=== PATIENT | male | born 1955 | race Caucasian/White ===

== ENCOUNTER → 2018-01-22 08:56 | Outpatient (CLI) | payer OTHER, MEDICARE, SELFPAY ==
[2018-01-22 13:02] LABS: Absolute Lymphocyte Count 1.93 X10^3/ul (0.83-4.51); Absolute Neutrophil Count 3.1 X10^3/uL (2.0-7.7); Basophil# 0.03 X10^3/uL; Basophil% 0.5 % (0-1); Eosinophil# 0.11 X10^3/uL; Hematocrit 48.7 % (40-54); Hemoglobin 16.5 g/dl (13.0-16.5); Lymphocyte # 1.93 X10^3/ul (4.0); Lymphocyte % 34.7 % (19-41); Mean Corp Hgb Conc 33.9 g/gl (32-36); Mean Corpuscular Hgb 31.3 pg (27.0-32.0); Mean Corpuscular Volume 92.4 fL (80-94); Mean Platelet Vol. 11.7 fl (6.2-12.0); Monocyte% 7.2 % (0-10); Neutrophil # 3.09 X10^3/uL (2.7-7.7); Neutrophil % 55.6 % (47-70); Platelet Count 126 K/mm3 (150-450); RBC Distribution Width CV 12.9 % (11.6-14.6); RBC Distribution Width SD 43.4 fl (35.1-43.9); Red Blood Count 5.27 M/mm3 (4.6-6.2); White Blood Count 5.6 K/mm3 (4.4-11.0)
[2018-01-22 13:05] LABS: POSITIVE COUNT NO; POSITIVE DIFFERENTIAL NO; POSITIVE MORPHOLOGY NO
[2018-01-22 13:21] LABS: Anion Gap 6 (5-15); BUN 18 mg/dL (7-18); BUN/Creat Ratio 20.1 RATIO (10-20); Calcium,Total 9.7 mg/dL (8.5-10.1); Chloride 103 mmol/L (98-107); EST Glomerular Filtration Rate 92 mL/min (>60); Est Glom Filt Rate - Afr Amer 111 mL/min (>60); Glucose 129 mg/dL (74-106); Potassium 4.3 mmol/L (3.5-5.1); Sodium Level 138 mmol/L (136-145); Thyroid Stim Hormone (TSH) 1.92 uIU/mL (0.358-3.74)
== END ==
PROVIDERS: Family Provider Family Medicine; PCP Family Medicine; Visit Provider Family Medicine
DX: E11.9 Type 2 diabetes mellitus without complications (principal); I10 Essential (primary) hypertension
CPT/HCPCS: 36415; 80048; 84443; 85025

== ENCOUNTER 2018-05-14 08:00 | Outpatient (RCR) | payer OTHER, MEDICARE, SELFPAY ==
--- NOTE | 2018-04-20 07:54 | HP.PTEVAL_ITS ---
Patient's Visit Information DANA HUBBARD is a 63 year old M referred to Physical Therapy by Hilary Stacy with a diagnosis of Back Pain. Date of Evaluation: 04/20/18 Physical Therapist: Tariq Doran DPT, OC - Visit Plan Frequency: 2x /Week Duration: 4-6 Weeks Plan: 2x/week for two weeks then 1x/week for two weeks for. 1. STM AND rollout to quads and HS B. 2. Stretch same. 3. Monitor home stretching and quad/HS cramping. - Subjective Subjective: I'm grasping at straws. Gets terrible muscle cramps at night lying down in both legs front and back especially top of legs. Has been to neurologist and neurosurgeon and had NCV test which was normal. This has been going on for one year to 18 months, started insidiously out of nowhere. This happens at least a little almost every night. A massage helped for about three weeks. Sleep is interrupted in that he wakes up in middle of night and keeps him from getting back to sleep. Is typically OK when he first lies down. Sees [facility] for back pain. Had MARY mariscal in 1989 discectomy after a disc exploded. Gets a toothache in back fairly consistently in LB. Has not done activity in long time, mows the lawn pushing and riding taking <60 minutes. Disability from LB. Basic ADLs are painful but OK. Hard to loft legs to put socks on. Wears loafers so can slide them on. Spends day tinkering in garage, likes to work on mowers but cannot get on floor anymore. Has two dogs he takes care of. reads alot. Been seeing Regis for ten years and is here for [facility] to see if it will help cramping in legs. Has had PT and injections in LB and they do not help for long. No regular exercises. Gets R>L big toe numbness and tingling daily but not constant. - Pain LB Pain Intensity (Out of 10): 6 Pain Intensity Range: 5, 10 Comment: Hints of bad pain, not sure why. - Objective Walks very stiff adn poor upper leg muscle contractions, very little trunk movements. Slightly hunched FW. LB AROM ext max limited and painful centrally , SB contralaterally painful/stretching. Flexion is maximally limited and stretchy. reflexes 2/3 patella and achilles. Sensation WNL to gross light touch. Strength: R EL quad and DF and big toe 4-, L tests adn other R are 4/ 5. HS 90/90 test is -50 R and -45 L, very tight and hesitant to lengthen. Quad and HS feels tight and tender. - Goals Goal 1:: Sleep without waking due to cramps Goal Time Frame: 4-6 Weeks Goal 2:: I approp exs to maintain lack of cramping Goal Time Frame: 4-6 Weeks - Rehabilitation Potential Physical Therapy Diagnosis: H/o back pain leading to leg cramps and difficulty sleeping. Rehabilitation Potential: Good - Anticipated Interventions Patient/Client Instruction: Educate patient on: Condition, Plan of Care Other: to improve sleep Therapeutic Exercise to Include: Flexibilty training Comment: muscle pumps For the Purpose of:: To improve nutrient delivery to tissue Other: to improve sleep Manual Therapy Techniques to Include: Soft tissue mobilization Comment: quads and HS For the Purpose of:: To improve nutrient delivery to tissue, To increase oxygenation perfusion Thank you for the opportunity to evaluate your patient. For Medicare and Medicare HMO plans, please review the plan of care and approve it. It will need to be FAXED BACK to us at [phone] for Medicare purposes. Please let me know if there are questions or concerns regarding this plan of care. Physician Signature: Date:
--- NOTE | 2018-05-14 08:51 | HP.PTDCSUM ---
HP - PT D/C Summary It has been my pleasure to treat DANA HUBBARD under orders from Hilary Stacy, for the diagnosis of Back Pain for a total of 7 visit(s). Discharge Date: 05/14/18 Please see the following information for a summary of their discharge status. - Subjective Subjective: Able to sit in chair and tie shoes now, but cramps did not go away. They are a little less intense but still every night. Will see Reg[facility] on Monday. HEP: religiously. Grasping at straws with the cramps, not sure what the next step is, circulation has been tested. - Pain LB Pain Intensity (Out of 10): 8 - Overall Improvement % Improvement: 25 - Objective Objective/Function: Still max tight quads and mod tight HS. Hard to relax. Walks well and steps reciprocal withotu rail. hesitant to move LB alot. - Goals Goal 1:: Sleep without waking due to cramps Goal Progress: Not Progressing Goal 2:: I approp exs to maintain lack of cramping Goal Progress: Goal Met - Plan Plan: D/C, pt to [facility] later this week. Recommend next medical step and consider aquatic therapy if no other options.(LB ROM, LE stretches and LE strength. - D/C Information Discharge Comments: Patient back to doctor for next medical step(will see in two days) Consider aquatic therapy if no other viable options. If there are questions or concerns regarding this patient's physical therapy, please feel free to call me at [phone]. Thank you for the referral of this patient. Sincerely, Tariq Doran, DPT, OC
== END 2018-05-14 19:00 | disposition home or self-care (01) ==
LOC: PT 08:00
PROVIDERS: Family Provider Family Medicine; PCP Family Medicine; Visit Provider Anesthesiology Pain Medicine
DX: M54.9 Dorsalgia, unspecified (principal)
CPT/HCPCS: 97110; 97140; 97162; 97530; G8978; G8979

== ENCOUNTER → 2018-05-16 10:03 | Outpatient (CLI) | payer OTHER, MEDICARE, SELFPAY ==
[2018-05-16 11:35] LABS: Amphetamine Urine VISTA NEGATIVE (<1000 ng/mL); Barbiturate Urine VISTA NEGATIVE (< 200 ng/mL); Benzodiazepine Urine VISTA NEGATIVE (< 200 ng/mL); Cocaine Urine VISTA NEGATIVE (< 300 ng/mL); Ecstacy Urine VISTA NEGATIVE (< 500 ng/mL); Methadone Urine VISTA NEGATIVE (< 300 ng/mL); PCP Urine VISTA NEGATIVE (< 25 ng/mL); THC Urine VISTA NEGATIVE (< 50 ng/mL); Vista UDS pH Range 6
== END ==
PROVIDERS: Family Provider Family Medicine; PCP Family Medicine; Visit Provider Anesthesiology Pain Medicine
DX: F11.20 Opioid dependence, uncomplicated (principal)
CPT/HCPCS: 80307

== ENCOUNTER → 2018-06-04 08:27 | Outpatient (CLI) | payer OTHER, MEDICARE, SELFPAY ==
[2018-06-04 12:19] LABS: Absolute Lymphocyte Count 1.42 X10^3/ul (0.83-4.51); Absolute Neutrophil Count 1.5 X10^3/uL (2.0-7.7); Basophil# 0.03 X10^3/uL; Basophil% 0.9 % (0-1); Eosinophil# 0.09 X10^3/uL; Eosinophils% 2.6 % (0-5); Hematocrit 44.4 % (40-54); Hemoglobin 15.3 g/dl (13.0-16.5); Lymphocyte # 1.42 X10^3/ul (4.0); Lymphocyte % 40.8 % (19-41); Mean Corp Hgb Conc 34.5 g/gl (32-36); Mean Corpuscular Hgb 32.1 pg (27.0-32.0); Mean Corpuscular Volume 93.3 fL (80-94); Mean Platelet Vol. 12.1 fl (6.2-12.0); Monocyte# 0.42 X10^3/uL; Monocyte% 12.1 % (0-10); Neutrophil # 1.52 X10^3/uL (2.7-7.7); Neutrophil % 43.6 % (47-70); Platelet Count 120 K/mm3 (150-450); RBC Distribution Width CV 13.4 % (11.6-14.6); RBC Distribution Width SD 44.2 fl (35.1-43.9); Red Blood Count 4.76 M/mm3 (4.6-6.2); White Blood Count 3.5 K/mm3 (4.4-11.0)
[2018-06-04 12:20] LABS: Anion Gap 8 (5-15); BUN 11 mg/dL (7-18); BUN/Creat Ratio 12.2 RATIO (10-20); Calcium,Total 9.6 mg/dL (8.5-10.1); Chloride 103 mmol/L (98-107); EST Glomerular Filtration Rate 91 mL/min (>60); Est Glom Filt Rate - Afr Amer 110 mL/min (>60); Glucose 116 mg/dL (74-106); Potassium 4.4 mmol/L (3.5-5.1); Sodium Level 142 mmol/L (136-145)
[2018-06-04 12:23] LABS: POSITIVE COUNT NO; POSITIVE DIFFERENTIAL NO; POSITIVE MORPHOLOGY NO
== END ==
PROVIDERS: Family Provider Family Medicine; PCP Family Medicine; Visit Provider Family Medicine
DX: I10 Essential (primary) hypertension (principal); D69.6 Thrombocytopenia, unspecified
CPT/HCPCS: 36415; 80048; 85025

== ENCOUNTER → 2018-09-06 10:01 | Outpatient (CLI) | payer OTHER, MEDICARE, SELFPAY ==
[2018-09-06 12:15] LABS: Absolute Lymphocyte Count 1.97 X10^3/ul (0.83-4.51); Absolute Neutrophil Count 1.5 X10^3/uL (2.0-7.7); Basophil# 0.03 X10^3/uL; Basophil% 0.8 % (0-1); Eosinophil# 0.08 X10^3/uL; Hematocrit 44.8 % (40-54); Hemoglobin 15.4 g/dl (13.0-16.5); Lymphocyte # 1.97 X10^3/ul (4.0); Lymphocyte % 49.9 % (19-41); Mean Corp Hgb Conc 34.4 g/gl (32-36); Mean Corpuscular Hgb 31.6 pg (27.0-32.0); Mean Corpuscular Volume 91.8 fL (80-94); Mean Platelet Vol. 11.8 fl (6.2-12.0); Monocyte# 0.39 X10^3/uL; Monocyte% 9.9 % (0-10); Neutrophil # 1.48 X10^3/uL (2.7-7.7); Neutrophil % 37.4 % (47-70); Platelet Count 132 K/mm3 (150-450); RBC Distribution Width CV 13.4 % (11.6-14.6); RBC Distribution Width SD 44.2 fl (35.1-43.9); Red Blood Count 4.88 M/mm3 (4.6-6.2)
[2018-09-06 12:21] LABS: POSITIVE COUNT NO; POSITIVE DIFFERENTIAL NO; POSITIVE MORPHOLOGY NO
[2018-09-06 12:34] LABS: Vitamin B12 558 pg/mL (211-911)
[2018-09-06 12:38] LABS: ALB/GLOB Ratio 1.1 RATIO (0.9-2.4); AST(SGOT) 59 U/L (15-37); Alanine Aminotransfer ALT/SGPT 71 U/L (16-61); Albumin, Serum 4.1 g/dL (3.2-5.0); Alkaline Phosphatase 60 U/L (45-117); Anion Gap 7 (5-15); BUN 11 mg/dL (7-18); Calcium,Total 9.9 mg/dL (8.5-10.1); Chloride 104 mmol/L (98-107); Creatinine, Serum 0.92 mg/dL (0.70-1.30); EST Glomerular Filtration Rate 89 mL/min (>60); Est Glom Filt Rate - Afr Amer 108 mL/min (>60); Globulin 3.8 g/dL (2.2-4.2); Glucose 140 mg/dL (74-106); Potassium 4.2 mmol/L (3.5-5.1); Protein, Total 7.9 g/dL (6.4-8.2); Sodium Level 140 mmol/L (136-145); T4 Free Direct 0.88 ng/dL (0.76-1.46); Thyroid Stim Hormone (TSH) 2.33 uIU/mL (0.358-3.74)
== END ==
PROVIDERS: Family Provider Family Medicine; PCP Family Medicine; Visit Provider Family Medicine
DX: R41.9 Unspecified symptoms and signs involving cognitive functions and awareness (principal); D69.6 Thrombocytopenia, unspecified; I10 Essential (primary) hypertension; E11.9 Type 2 diabetes mellitus without complications
CPT/HCPCS: 36415; 80053; 82607; 84439; 84443; 85025

== ENCOUNTER → 2018-09-18 07:40 | Outpatient (CLI) | payer OTHER, MEDICARE, SELFPAY ==
--- NOTE | 2018-09-18 07:43 | US_ITS ---
STUDY: ABDOMINAL ULTRASOUND REASON FOR EXAM: Male, 63 years old. Elevated LFTs TECHNIQUE: Transabdominal ultrasound was performed with real-time and static carney scale imaging. TECHNICAL QUALITY: Adequate. COMPARISON: None. FINDINGS: Liver: The liver measures 17.5 cm. There is increased echogenicity consistent with fatty infiltration. The bile ducts are within normal limits. There is hepatic color flow. The direction of portal flow is hepatopetal. There is no demonstrated mass lesion. Portal vein measurement: Gallbladder: Normal distended gallbladder. The gallbladder wall measures 2.7 mm. There is a negative sonographic Humphrey's sign. There is no pericholecystic fluid. There is biliary sludge dependent within the gallbladder. Common Bile Duct (C.B.D.): The common bile duct measures 5.1 mm. Pancreas: Normal size of the head, body and tail of the pancreas. There is increased echogenicity of the pancreas. There is no demonstrated pancreatic mass or cyst. Spleen: There is splenomegaly. The spleen measures 12.9 cm. Right Kidney: Normal size of the right kidney. The right kidney measures 10.5 x 5.6 x 5.5 cm. Normal renal cortex. The right cortex measures 1.5 cm. There is a simple right renal cyst measuring 2.6 cm. There is no right hydronephrosis. Left Kidney: Normal size of the left kidney. The left kidney measures 10.6 x 4.7 x 5.3 cm. Normal renal cortex. The left cortex measures 1.6 cm. There is no demonstrated renal mass or cyst. There is no left hydronephrosis. Aorta: Tapers normally with peripheral atherosclerotic plaque. I.V.C.: The IVC is patent. There is no ascites. US/Abdomen Complete IMPRESSION: Fatty infiltration of the liver, no discrete lesion. Echogenic sludge in the gallbladder, no sonographic evidence of cholecystitis Nonspecific splenomegaly Nonspecific echogenic pancreas Simple right renal cyst Electronically Signed: Adalid Pedersen MD at 19:17 EDT , Service support ,
== END ==
PROVIDERS: Family Provider Family Medicine; PCP Family Medicine; Referring Provider Family Medicine; Visit Provider Family Medicine
DX: R74.8 Abnormal levels of other serum enzymes (principal)
CPT/HCPCS: 76700

== ENCOUNTER → 2018-09-20 14:11 | Outpatient (CLI) | payer OTHER, MEDICARE, SELFPAY ==
--- NOTE | 2018-09-20 14:13 | CT_ITS ---
STUDY: CT MAXILLOFACIAL SINUSES REASON FOR EXAM: Male, 63 years old. History of sinusitis. RADIATION DOSAGE (If Supplied By Facility): CTDIvol = ( 29.38 ) mGy, DLP = ( 474.00 ) mGycm TECHNIQUE: The patient was scanned in a multi detector CT scanner. High resolution axial imaging was performed without the administration of intravenous contrast material. Sagittal and coronal images were reconstructed. Individualized dose optimization techniques were used for this CT. COMPARISON: None. FINDINGS: FRONTAL SINUSES: Normal aeration, without mucosal inflammatory disease. ETHMOIDAL SINUSES: Normal aeration, without mucosal inflammatory disease. MAXILLARY SINUSES: Air-fluid level in the right maxillary sinus in keeping with the acute right maxillary sinusitis. There is a well-defined 6.2 mm x 5 mm bony density within the lower inferior aspect of the maxillary sinus. Prior resection of the superior medial wall of the right maxillary sinus. SPHENOIDAL SINUSES: Normal aeration, without mucosal inflammatory disease. There is patency of the bilateral maxillary infundibuli with normal uncinate processes, ethmoid bullae, and hiatus semilunaris. Normal bilateral middle turbinates. Normal bilateral inferior turbinates. There is a left sided nasal septal deviation, but without a nasal septal spur. There is patency of the bilateral nasal airways. The visualized osseous structures are normal. The visualized bilateral orbital contents are normal. CT/Sinus/Facial Bone IMPRESSION: Air fluid level in the right maxillary sinus. Nasal septal deviation towards left side of midline. Electronically Signed: Bassam Limon MD at 14:24 EDT Tel [phone], Service support ,
== END ==
PROVIDERS: Family Provider Family Medicine; PCP Family Medicine; Referring Provider Otolaryngology Otolaryngology/Facial Plastic Surgery; Visit Provider Otolaryngology Otolaryngology/Facial Plastic Surgery
DX: J32.9 Chronic sinusitis, unspecified (principal)
CPT/HCPCS: 70486

== ENCOUNTER 2018-10-22 06:53 | Day surgery (SDC) | payer OTHER, MEDICARE, SELFPAY ==
[2018-10-15 08:40] VITALS: BMI 26.8
--- NOTE | 2018-10-17 09:37 | EKG12_ITS ---
Test Reason : PRE-OP Blood Pressure : / mmHG Vent. Rate : 078 BPM Atrial Rate : 078 BPM P-R Int : 154 ms QRS Dur : 086 ms QT Int : 356 ms P-R-T Axes : 046 -16 011 degrees QTc Int : 405 ms Normal sinus rhythm Inferior infarct , age undetermined Abnormal ECG Confirmed by ISADORA PEREZ, KADI ([id number]), mapping editor MAULIK DE LEON ([id number]) on 10/19/2018 1:59:31 PM Referred By: Zac Andrew Confirmed By:KADI MUIR MD
[2018-10-17 10:46] LABS: Prothrombin Time (Protime)PT. 13.6 SECONDS (11.7-14.9)
[2018-10-17 10:47] LABS: Partial Thromboplast Time 37.1 Seconds (24.1-36.2)
[2018-10-22] VITALS (7 sets, daily range): BP systolic 151–177; BP diastolic 73–90; PULSE 61–74; RESP 16; TEMP 36.5–36.9; O2SAT 92–100; BMI 24.5
--- NOTE | 2018-10-22 | ETH_PTH ---
PATIENT: DANA HUBBARD LOC: [facility] – [place] U#:[id number] AGE/SX: 63/M ROOM: RE10/22/[address]: Dr. Zac Andrew MD : [id number] BED: DIS: 10/22/2018 SPEC #: [id number] RECD: 10/22/18 11:05 STATUS: TAWNYA RESandy #: [id number] MARCIANO: 10/22/18 00:[address]: Zac Andrew DEPT: SURGICAL PATHOLOGY RECD BY: Eric Mcclure ENTERED: 10/22/18 13:27 SP TYPE: ETH TISS OTHR DR: Dr. 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 Right maxillary sinus contents: Consistent with fungal ball. Special stain for fungi is positive for organisms consistent with aspergillus species; matched control is appropriate. B. Maxillary sinus contents: Fragments of respiratory mucosa with chronic inflammation and bone. SJ:madison 10/25/18 COMMENT Case has been reviewed in consultation with Dr. Rosado who concurs with the above diagnosis. IDC:AM MICROSCOPIC DESCRIPTION Slides are reviewed. GROSS DESCRIPTION A - Received in fixative is one container labeled with the patient's name and designated right maxillary sinus contents. The specimen consists of a single, ovoid, otoole, gritty tissue measuring 7 cm in diameter. The specimen is bisected and totally submitted in one cassette after decalcification. B - Received in fixative is one container labeled with the patient's name and designated contents of maxillary sinus. The specimen consists of multiple irregular fragments of red-otoole soft tissue that in aggregate measure 3 x 2 x 0.2 cm. The specimen is totally submitted in one cassette. / AM:madison 10/22/18 TC:3 CPT: 00796 x2, 70392, 17516
--- NOTE | 2018-10-22 08:22 | DCINST_ITS ---
You will use the following diet at home:: No restrictions Your food should be the consistency of: Regular Discharge Activity: Return to Normal Activity, - - No noseblowing Additional Activity Instructions:: Start irrigation with saline on 10/23/18. Irrigate 4x/day. Allergies/Adverse Reactions: Allergies adhesive tape Adverse Reaction (Verified 10/15/18 13:12) blisters rash Medications to take at Discharge Aspirin E.C. [Ecotrin] 81 mg PO DAILY@0800 10/19/15 meloxicam 7.5 mg tablet 7.5 mg PO QDAY 12/22/17 vitamin B complex tablet 1 tab PO QDAY 12/22/17 hydromorphone ER 16 mg tablet,extended release 24 hr 16 mg PO QHS 12/25/17 amlodipine 2.5 mg tablet 2.5 mg PO QDAY #30 tab 04/17/18 Ramipril 5 mg PO QHS 10/15/18 magnesium 250 mg tablet 250 mg PO DAILY 10/15/18 metaxalone 800 mg tablet 400 mg PO BID tab 10/15/18 Orders to be completed after discharge: 12 Lead EKG [CVS] Time Frame: 10/17/18, Location: None Selected Primary Care Physician: Eugenio Olmstead MD [Primary Care Provider] - Test Results: Test results from this visit will be discussed in further detail at your follow- up appointment, if applicable.
[2018-10-22] MEDS: Oxymetazoline 0.05% 1 SPRAY SPRAY.BTL 15 SPRAY (09:15)
--- NOTE | 2018-10-22 09:31 | PCM.OPRPT ---
Report of Operation Date of Procedure: 10/22/18 Pre-Operative Diagnosis: chronic right maxillary sinusitis. Fungal sinusitis Post-Operative Diagnosis: same Surgery/Procedure Performed:: Right maxillary antrostomy with tissue (fungus) removal Description of Surgical Findings:: fungus in right maxillary sinus studio sales associate: None Type of Anesthesia:: General Anesthesiologist: Tariq Weldon Specimen's removed: right maxillary sinus contents Estimated Blood Loss (mL): minimal Description of Procedure: The patient was taken to the OR on 10/22/18. He was placed in the supine position on the OR table. He was given sufficient general endotracheal anesthesia. The head of bed was elevated 30 degrees. Zero, 30 and 70 degree rigid nasal endoscopes were used throughout the entire procedure. I injected 1% lidocaine with epinephrine ([id number]) into the mucosa surrounding the maxillary antrum. After vasoconstriction, I used a back biter to enlarge the maxillary antrostomy. I also used 90 degree Blakesley Wile forceps and a microdebrider to enlarge the antrostomy inferiorly. The maxillary sinus was scarred in from previous Scott-Ugo. I was able to visualize fungus and pus. I irrigated the sinus with saline while suctioning the nasopharynx. Pus was suctioned with the irrigant. I then irrigated several more times until the fungus was loosened and I was able to retrieve the fungus with a curved suction. This was sent to pathology in saline. I obtained hemostasis with afrin pledgets. These were then removed and I then used the 70 degree scope to inspect the maxillary sinus. No further purulence or fungal contents were seen. Absolute hemostasis was achieved using raciel. Once hemostasis was achieved the procedure was terminated. The patient was awoken and brought to the recovery room in stable condition. Sponge, needle and instrument count were correct at the end of the procedure.
--- NOTE | 2018-10-22 09:39 | OP.PCM_ITS ---
Report of Operation Date of Procedure: 10/22/18 Pre-Operative Diagnosis: chronic right maxillary sinusitis. Fungal sinusitis Post-Operative Diagnosis: same Surgery/Procedure Performed:: Right maxillary antrostomy with tissue (fungus) removal Description of Surgical Findings:: fungus in right maxillary sinus pickle pumper: None Type of Anesthesia:: General Anesthesiologist: Tariq Weldon Specimen's removed: right maxillary sinus contents Estimated Blood Loss (mL): minimal Description of Procedure: The patient was taken to the OR on 10/22/18. He was placed in the supine position on the OR table. He was given sufficient general endotracheal anesthesia. The head of bed was elevated 30 degrees. Zero, 30 and 70 degree rigid nasal endoscopes were used throughout the entire procedure. I injected 1% lidocaine with epinephrine ([id number]) into the mucosa surrounding the maxillary antrum. After vasoconstriction, I used a back biter to enlarge the maxillary antrostomy. I also used 90 degree Blakesley Wile forceps and a microdebrider to enlarge the antrostomy inferiorly. The maxillary sinus was scarred in from previous Scott-Ugo. I was able to visualize fungus and pus. I irrigated the sinus with saline while suctioning the nasopharynx. Pus was suctioned with the irrigant. I then irrigated several more times until the fungus was loosened and I was able to retrieve the fungus with a curved suction. This was sent to pathology in saline. I obtained hemostasis with afrin pledgets. These were then removed and I then used the 70 degree scope to inspect the maxillary sinus. No further purulence or fungal contents were seen. Absolute hemostasis was achieved using raciel. Once hemostasis was achieved the procedure was terminated. The patient was awoken and brought to the recovery room in stable condition. Sponge, needle and instrument count were correct at the end of the procedure.
[2018-10-22] MEDS: Acetaminophen 325 MG Tablet 650 MG PO (10:02)
--- OUTSIDE RECORDS SUMMARY | 2018-12-15 04:53 | XMS RPT_ITS ---
:1955 Author Organization OHIP Support Name Relationship Address Phone D Unavailable Unavailable Unavailable HUBBARD, LILIA Unavailable [address] + [place] [address] DIAL DESTINY Un[address] + [place] [address] D Unavailable Unavailable Unavailable HUBBARD, LILIA Unavailable [address] + [place] [address] DIAL, DESTINY Unavailable [address] + [place] [address] D Unavailable Unavailable Unavailable HUBBARD, LILIA Unavailable [address] + [place] [address] DIAL DESTINY Un[address] + [place] [address] D Unavailable Unavailable Unavailable HUBBARD, LILIA Unavailable [address] + [place] [address] DIAL DESTINY Unavailable Unavailable + D Unavailable Unavailable Unavailable HUBBARD, LILIA Unavailable [address] + [place] [address] DIAL DESTINY Unavailable Unavailable + D Unavailable Unavailable Unavailable HUBBARD, LILIA Unavailable [address] + [place] [address] D Unavailable Unavailable Unavailable HUBBARD, LILIA Unavailable [address] + [place] [address] D Unavailable Unavailable Unavailable HUBBARD, LILIA Unavailable [address] + [place] [address] D Unavailable Unavailable Unavailable HUBBARD, LILIA Unavailable [address] + [place] [address] D Unavailable Unavailable Unavailable HUBBARD, LILIA Unavailable [address] + [place] [address] D Unavailable Unavailable Unavailable HUBBARD, LILIA Unavailable [address] + [place] [address] D Unavailable Unavailable Unavailable HUBBARD, LILIA Unavailable [address] + [place] [address] D Unavailable Unavailable Unavailable HUBBARD, LILIA Unavailable [address] + [place] [address] Care Team Providers Name Role Phone Tata Savage Attending Unavailable Jesus Rahman Attending Unavailable Aysha, Eugenio Referring Unavailable Aysha, Eugenio Primary Care Unavailable Aysha, Eugenio Attending Unavailable Aysha, Eugenio Primary Care Unavailable DeFinDenise bales Attending Unavailable Hilary tSacy Attending Unavailable Basali, Hilary Referring Unavailable Aysha, Eugenio Primary Care Unavailable Hilary Stacy Attending Unavailable Basali, Hilary Referring Unavailable Aysha, Eugenio Primary Care Unavailable Aysha, Eugenio Attending Unavailable Aysha, Eugenio Primary Care Unavailable Aysha, Eugenio Attending Unavailable Aysha, Eugenio Primary Care Unavailable Aysha, Eugenio Attending Unavailable Aysha, Eugenio Referring Unavailable Aysha, Eugenio Primary Care Unavailable Bassam Andrew Attending Unavailable Kamran, Bassam Referring Unavailable Aysha, Eugenio Primary Care Unavailable Zac Andrew Attending Unavailable Zac Andrew Referring Unavailable Aysha, Eugenio Primary Care Unavailable Jesus Rahman Attending Unavailable Aysha, Eugenio Referring Unavailable Sascha, [place] Attending Unavailable Kamran, Zac Referring Unavailable PROBLEMS PROBLEMS DATE TYPE CONDITION / CODE ATTENDING STATUS SOURCE 10/29/2018 Unknown I10 - Essential Sascha, Christiano Active [place] (primary) hypertension Community / I10(ICD-10) Hospital Repository 10/29/2018 Unknown R94.31 - Abnormal Sascha, Christiano Active [place] electrocardiogram Community [ECG] [EKG] / Hospital R94.31(ICD-10) Repository 10/29/2018 Unknown I25.10 - Sascha, Christiano Active [place] Atherosclerotic heart Community disease of [facility] coronary artery Repository without angina pectoris / I25.10(ICD-10) 10/29/2018 Unknown I25.2 - Old myocardial Sascha, [place] Active [place] infarction / Community I25.2(ICD-10) Hospital Repository 09/18/2018 Unknown R74.8 - Abnormal Aysha, Eugenio Active [place] levels of other serum Community enzymes / Hospital R74.8(ICD-10) Repository 09/06/2018 Unknown R41.9 - Unspecified Eugenio Olmstead symptoms and signs Community involving cognitive Hospital functions and Repository awareness / R41.9(ICD-10) 09/06/2018 Unknown D69.6 - Eugenio Olmstead Thrombocytopenia, Community unspecified / Hospital D69.6(ICD-10) Repository 09/06/2018 Unknown E11.9 - Type 2 Eugenio Olmstead diabetes mellitus Community without complications Hospital / E11.9(ICD-10) Repository 05/16/2018 Unknown F11.20 - Opioid Basali, Hilary Active [place] dependence, Community uncomplicated / Hospital F11.20(ICD-10) Repository 05/17/2018 Unknown M54.9 - Dorsalgia, Basali, Ayashley Active [place] unspecified / Community M54.9(ICD-10) Hospital Repository PROCEDURES PROCEDURES No Procedure Records FoundRESULTS RESULTS OPERATIVE REPORT Observed: 10/22/2018 Status: F Source: [place] 9:40 AM [facility] REPOSITORY [facility] Medical Records Department [address] [place] [address] Operative Report 10/22/18 0931 MR#: [id number] Acct: [id number] Name: DANA HUBBARD Rep #: [id number] : 1955 63 From: Zac Andrew MD PCP: Eugenio Olmstead MD Status: REG [facility] Y Location: [place] [address] Report of Operation Date of Procedure: 10/22/18 Pre-Operative Diagnosis: chronic right maxillary sinusitis. Fungal sinusitis Post-Operative Diagnosis: same Surgery/Procedure Performed:: Right maxillary antrostomy with tissue (fungus) removal Description of Surgical Findings:: fungus in right maxillary sinus relations coordinator: None Type of Anesthesia:: General Anesthesiologist: Tariq Weldon Specimen's removed: right maxillary sinus contents Estimated Blood Loss (mL): minimal Description of Procedure: The patient was taken to the OR on 10/22/18. He was placed in the supine position on the OR table. He was given sufficient general endotracheal anesthesia. The head of bed was elevated 30 degrees. Zero, 30 and 70 degree rigid nasal endoscopes were used throughout the entire procedure. I injected 1% lidocaine with epinephrine ([id number]) into the mucosa surrounding the maxillary antrum. After vasoconstriction, I used a back biter to enlarge the maxillary antrostomy. I also used 90 degree Blakesley Wile forceps and a microdebrider to enlarge the antrostomy inferiorly. The maxillary sinus was scarred in from previous Scott-Ugo. I was able to visualize fungus and pus. I irrigated the sinus with saline while suctioning the nasopharynx. Pus was suctioned with the irrigant. I then irrigated several more times until the fungus was loosened and I was able to retrieve the fungus with a curved suction. This was sent to pathology in saline. I obtained hemostasis with afrin pledgets. These were then removed and I then used the 70 degree scope to inspect the maxillary sinus. No further purulence or fungal contents were seen. Absolute hemostasis was achieved using raciel. Once hemostasis was achieved the procedure was terminated. The patient was awoken and brought to the recovery room in stable condition. Sponge, needle and instrument count were correct at the end of the procedure. 10/22/18 0940 <Electronically signed by Zac Andrew MD> Date Zac Andrew MD CC: Zac Andrew MD; Eugenio Olmstead MD Signed DISCHARGE INSTRUCTION Observed: 10/22/2018 Status: F Source: [place] 8:22 AM [facility] [place] REPOSITORY [facility] Medical Records Department [address] [place] [address] Instructions for Home/Discharge Instructions 10/22/18 0821 MR#: [id number] Acct: [id number] Name: DANA HUBBARD Rep #: [id number] : 1955 63 From: Zac Andrew MD PCP: Eugenio Olmstead MD Status: REG [facility] You will use the following diet at home:: No restrictions Your food should be the consistency of: Regular Discharge Activity: Return to Normal Activity, - - No noseblowing Additional Activity Instructions:: Start irrigation with saline on 10/23/18. Irrigate 4x/day. Allergies/Adverse Reactions: Allergies adhesive tape Adverse Reaction (Verified 10/15/18 13:12) blisters rash Medications to take at Discharge Aspirin E.C. [Ecotrin] 81 mg PO DAILY@0800 10/19/15 meloxicam 7.5 mg tablet 7.5 mg PO QDAY 12/22/17 vitamin B complex tablet 1 tab PO QDAY 12/22/17 hydromorphone ER 16 mg tablet,extended release 24 hr 16 mg PO QHS 12/25/17 amlodipine 2.5 mg tablet 2.5 mg PO QDAY #30 tab 04/17/18 Ramipril 5 mg PO QHS 10/15/18 magnesium 250 mg tablet 250 mg PO DAILY 10/15/18 metaxalone 800 mg tablet 400 mg PO BID tab 10/15/18 Orders to be completed after discharge: 12 Lead EKG [[facility]] Time Frame: 10/17/18, Location: None Selected Primary Care Physician: Eugenio Olmstead MD [Primary Care Provider] - Test Results: Test results from this visit will be discussed in further detail at your follow-up appointment, if applicable. 10/22/18821 <Electronically signed by Zac Andrew MD> Date Zac Andrew MD CC: Eugenio Olmstead MD ETHMOID TISSUE Observed: 10/22/2018 Status: F Source: [place] 12:00 AM [facility] [place] REPOSITORY Patient: DANA HUBBARD : 1955 (63/M) Acct Num: [id number] Phys: Zac Andrew MD Unit Num: [id number] Loc: [facility] Specimen: [id number] Received: 10/22/18 - 1105 Spec Type: ETH TISS TISSUES 1 TISSUES: A. Ethmoid sinus, NOS B. Ethmoid sinus, NOS COMMENT Case has been reviewed in consultation with Dr. Rosado who concurs with the above diagnosis. IDC:AM GROSS DESCRIPTION A - Received in fixative is one container labeled with the patient's name and designated right maxillary sinus contents. The specimen consists of a single, ovoid, otoole, gritty tissue measuring 7 cm in diameter. The specimen is bisected and totally submitted in one cassette after decalcification. B - Received in fixative is one container labeled with the patient's name and designated contents of maxillary sinus. The specimen consists of multiple irregular fragments of red-otoole soft tissue that in aggregate measure 3 x 2 x 0.2 cm. The specimen is totally submitted in one cassette. 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 MICROSCOPIC DIAGNOSIS A. Right maxillary sinus contents: Consistent with fungal ball. Special stain for fungi is positive for organisms consistent with aspergillus species; matched control is appropriate. B. Maxillary sinus contents: Fragments of respiratory mucosa with chronic inflammation and bone. [place]J:madison 10/25/18 Signed Jose Miguel Dejesus 10/25/18 <signature on file> Performed By: #### PETH #### [facility] [address], [address] 12 LEAD ELECTROCARDIOGRAM Observed: 10/19/2018 Status: F Source: [place] 1:59 PM [facility] [place] REPOSITORY [facility] Cardiovascular Services [address] [place] [address] 12 Lead EKG 10/17/18 0954 MR#: [id number] Acct: [id number] Name: DANA HUBBARD Rep #: [id number] : 1955 63 From: Christiano Caicedo MD Attending Dr: Zac Andrew MD Status: PRE [facility] Ordering Dr: Zac Andrew MD Date: 10/17/18 Location: [facility] Sex: M C Admitted: Test Reason : PRE-OP Blood Pressure : / mmHG Vent. Rate : 078 BPM Atrial Rate : 078 BPM P-R Int : 154 ms QRS Dur : 086 ms QT Int : 356 ms P-R-T Axes : 046 -16 011 degrees QTc Int : 405 ms Normal sinus rhythm Inferior infarct , age undetermined Abnormal ECG Confirmed by SASCHA PEREZ, CHRISTIANO ([id number]), scientific publications editor MAULIK DE LEON ([id number]) on 10/19/2018 1:59:31 PM Referred By: Zac Andrew Confirmed By:CHRISTIANO CAICEDO MD 10/19/18 1359 Date Christiano Caicedo MD CC: Zac Andrew MD; Eugenio Olmstead MD Signed PROTHROMBIN TIME W/INR Collected: 10/17/2018 Status: F Source: [place] 9:30 AM [facility] [place] REPOSITORY Order Comment: Reason for Laboratory Test preop TYPE CODE TESTS RESULT OUT OF RANGE REFERENCE UNITS LAB L300.4150 11.7-14.9 SECONDS Normal PROTIME 13.6 LAB L300.4200 Normal INR 1.0 Performed By: #### L300.3900, L300.4310 #### [facility] [address] [place], [place], [address] PARTIAL THROMBOPLAST Collected: 10/17/2018 Status: F Source: [place] TIME 9:30 AM [facility] REPOSITORY Order Comment: Reason for Laboratory Test preop TYPE CODE TESTS RESULT OUT OF REFERENCE UNITS RANGE LAB L300.4310 24.1-36.2 Seconds High PTT 37.1 Performed By: #### L300.3900, L300.4310 #### [facility] [address] [place], [address] CARDIOLOGY VISIT Observed: 10/15/2018 Status: F Source: [place] REPORT 9:17 AM [facility] REPOSITORY [facility] [address] [place] [address] OFFICE VISIT Date of Service: 10/15/18 MR#: [id number] Acct: [id number] Name: DANA HUBBARD Rep #: [id number] : 1955 Provider: Jesus Rahman MD Age/Sex: 63/M Location: [facility] Status: Signed HPI HPI Details: DANA HUBBARD, is a 63 M who presents to the office today for outpatient cardiovascular follow-up. Overall he states he is doing well with no concerns of ongoing palpitations or rapid rates. There has been no issues with near syncope or syncope. He has had no ongoing chest discomfort or difficulty breathing. He states his main concern revolves around his back discomfort and his blood pressure. He states his blood pressures do vary from the low 100s to the 180s with respect to systolic blood pressures. He can tell the difference when his blood pressure becomes normal or low as he does not feel as well as when it is higher. He states he has upcoming ENT/sinus surgery. He states he has been through this before without any adverse events. Intake Vital Signs10/15/18 Body Mass Index (BMI) 26.8 10/15/18 Blood Pressure 170/72 10/15/18 Height 5 ft 9.5 in 10/15/18 Weight: 175 lb 10/15/18 Body Mass Index (BMI) 25.4 10/15/18 Blood Pressure 164/74 H Intake Visit Reasons: 9 M FU Allergies adhesiv bandages Adverse Reaction (Uncoded 10/15/18 08:34) blisters, rash Medications Aspirin E.C. [Ecotrin] 81 mg PO DAILY@0800 10/19/15 [History Confirmed 10/15/18] meloxicam 7.5 mg tablet 7.5 mg PO QDAY 12/22/17 [History Confirmed 10/15/18] vitamin B complex tablet 1 tab PO QDAY 12/22/17 [History Confirmed 10/15/18] hydromorphone ER 16 mg tablet,extended release 24 hr 16 mg PO Q24H 12/25/17 [History Confirmed 10/15/18] amlodipine 2.5 mg tablet 2.5 mg PO QDAY #30 tab 04/17/18 [Rx Confirmed 10/15/18] ramipril 5 mg capsule 5 mg PO QDAY #90 cap 06/14/18 [Rx Confirmed 10/15/18] magnesium 250 mg tablet 250 mg PO DAILY 10/15/18 [History Confirmed 10/15/18] metaxalone 800 mg tablet 400 mg PO BID tab 10/15/18 [History Confirmed 10/15/18] PFS Medical History Essential hypertension (Chronic) Chews tobacco (Chronic) Hyperlipidemia (Chronic) History of non-ST elevation myocardial infarction (NSTEMI) (Chronic) Atherosclerotic heart disease of [place] coronary artery without angina pectoris (Chronic) Chronic back pain (Chronic) Alcohol abuse (Chronic) Supraventricular tachycardia by ECG (Chronic) Hypertension (Inactive) Surgical History H/O cardiac radiofrequency ablation (Chronic) History of left heart catheterization (Chronic) Family History Brother CAD (coronary artery disease) Myocardial infarction below age 55 S/P CABG (coronary artery bypass graft) Mother CAD (coronary artery disease) Father , Suicide Suicide Social History Smoking Status: Never smoker ROS Const Const: Negative for fatigue, weakness, weight gain, weight loss, frequent falls or excessive sweating Eyes Eyes: Negative for change in vision, blurry vision or transient loss of vision ENT ENT: Negative for dizziness or balance problems Cardio Chest Pain: No Palpitations: No Edema: None Muscle aches with walking: None Resp Respiratory: Negative for SOB with activity or SOB at rest GI GI: Negative vomiting or vomiting blood/hematemesis : Negative for hematuria Musc Musc: Negative for balance problems, muscle aches/ myalgia, muscle weakness or joint pain Skin Skin: Negative non-healing lesions or rash Neuro Neuro: Negative for weakness, blurry vision, dizziness, lightheadedness, frequent falls or orthostatic symptoms Jose Hematologic/Lymphatic: Negative for easy bleeding Endo Endo: Negative for fatigue or excessive sweating Psych Psych: Negative for anxiety or depression Allergy Allergy/Immunology: Negative for hives, Negative for rash Cardiology Exam Const Appearance: cooperative, healthy appearing, comfortable, no acute distress, well developed and well groomed Nutritional Appearance: average body habitus Orientation: alert, awake and oriented x3 Head Head: normal to inspection, normocephalic and atraumatic Ears: hearing grossly normal bilaterally Nose: external nose normal Mouth: oral mucosae normal Teeth and gingiva: fair dentition Eyes General: appearance normal, both eyes and all related structures Eyelids: eyelids normal Conjunctivae: conjunctivae normal Pupils: PERRL EOM: EOM intact bilaterally Neck Neck: normal visual inspection and full ROM Carotids: normal carotid upstroke Chest Chest inspection: normal inspection of the chest and symmetric chest movement Auscultation: Bilateral: Clear to Auscultation Cardio Palpation: normal PMI Rate: regular rate Heart sounds: S1 normal, S2 normal and positive S4 GI GI: normal to inspection, soft, no hepatosplenomegaly and bowel sounds present Neuro General: alert, awake and oriented x3 Skin Skin: no rashes or lesions noted Extremities Pulses: Normal: Right Radial Pulse, Left Radial Pulse Lower Extremity Edema: None: Bilateral Psych Psychological: normal affect Assessment AND Plan 1. Essential hypertension I10 Plan At the present time, with respect to his blood pressure, he will be asked to continue to monitor his blood pressure. He will be asked, on a trial basis, to attempt, when his systolic blood pressure is 160 mmHg or higher, and additional amlodipine of 2.5 mg p.o. daily as needed. He will be asked to track his blood pressure response and his symptomatic response to this. Depending upon his response further adjustments can be made going forward with his antihypertensive therapy schedule and/or as needed schedule. He will keep us updated with respect to the outcome of this trial in the near future. 2. Supraventricular tachycardia by ECG I47.1 Plan He has had no obvious cardiac ectopy or dysrhythmias that he is aware of. He will continue to be monitored 3. History of cardiac radiofrequency ablation (RFA) Z98.890 01/13/2016 @ [facility] per Dr. Lima: EP study and ablation of SVT Plan He has a history of underlying EPS/RFA. Again he appears to be doing well with no obvious recurrent cardiac ectopy or dysrhythmias 4. Atherosclerosis of [place] coronary artery of [place] heart without angina pectoris I25.10 40% proximal LAD stenosis per [facility] 09/24/[address] Ayoub [facility] Plan He has a history of underlying CAD as previously noted. He will continue risk factor modification medical management as best as tolerated 5. Hyperlipidemia, unspecified hyperlipidemia type E78.5 Plan A copy of his most recent lipid profile would be appreciated for continuity of care Plan Detail Additional Comments Thank you for allowing me to participate in the care of your patient. Please don't hesitate to call if any issues arise. This note was generated using a voice recognition system and there may be incorrect words, spelling or punctuation that were not noted when reviewing the office note prior to saving. Follow Up 6 Months (PFM) Coding Level of Care Code Off vis,est,level 3 Diagnoses Essential hypertension I10 Supraventricular tachycardia by ECG I47.1 History of cardiac radiofrequency ablation (RFA) Z98.890 Atherosclerosis of [place] coronary artery of [place] heart without angina pectoris I25.10 [place] vs. transplanted heart: [place] heart Hyperlipidemia, unspecified hyperlipidemia type E78.5 Hyperlipidemia type: unspecified Coding Level of Care Code Off vis,est,level 3 Diagnoses Essential hypertension I10 Supraventricular tachycardia by ECG I47.1 History of cardiac radiofrequency ablation (RFA) Z98.890 Atherosclerosis of [place] coronary artery of [place] heart without angina pectoris I25.10 [place] vs. transplanted heart: [place] heart Hyperlipidemia, unspecified hyperlipidemia type E78.5 Hyperlipidemia type: unspecified 10/15/18 0917 <Electronically signed by Jesus Rahman MD> Date Jesus Rahman MD Cosigner Signature: Date (if applicable) CC: Eugenio Olmstead MD SINUS/FACIAL BONE Observed: 09/20/2018 Status: F Source: [place] 2:13 PM [facility] REPOSITORY [facility] Imaging Services [address] [place] [address] Sinus/Facial Bone MR#: [id number] Acct: [id number] Name: DANA HUBBARD Archie Rep #: [id number] : 1955 63 From: Bassam Limon MD PCP: Eugenio Olmstead MD Status: REG CLI Study: Sinus/Facial Bone Date of Exam: 09/20/18 Exam# [id number] Ordering Dr: Bassam Andrew MD STUDY: CT MAXILLOFACIAL SINUSES REASON FOR EXAM: Male, 63 years old. History of sinusitis. RADIATION DOSAGE (If Supplied By Facility): CTDIvol = ( 29.38 ) mGy, DLP = ( 474.00 ) mGycm TECHNIQUE: The patient was scanned in a multi detector CT scanner. High resolution axial imaging was performed without the administration of intravenous contrast material. Sagittal and coronal images were reconstructed. Individualized dose optimization techniques were used for this CT. COMPARISON: None. FINDINGS: FRONTAL SINUSES: Normal aeration, without mucosal inflammatory disease. ETHMOIDAL SINUSES: Normal aeration, without mucosal inflammatory disease. MAXILLARY SINUSES: Air-fluid level in the right maxillary sinus in keeping with the acute right maxillary sinusitis. There is a well- defined 6.2 mm x 5 mm bony density within the lower inferior aspect of the maxillary sinus. Prior resection of the superior medial wall of the right maxillary sinus. SPHENOIDAL SINUSES: Normal aeration, without mucosal inflammatory disease. There is patency of the bilateral maxillary infundibuli with normal uncinate processes, ethmoid bullae, and hiatus semilunaris. Normal bilateral middle turbinates. Normal bilateral inferior turbinates. There is a left sided nasal septal deviation, but without a nasal septal spur. There is patency of the bilateral nasal airways. The visualized osseous structures are normal. The visualized bilateral orbital contents are normal. CT/Sinus/Facial Bone IMPRESSION: Air fluid level in the right maxillary sinus. Nasal septal deviation towards left side of midline. Electronically Signed: Bassam Limon MD at 14:24 EDT Tel [phone], Service support , CC: Bassam Andrew MD; Eugenio Olmstead MD Med Spa Manager: Signed ABDOMEN COMPLETE Observed: 09/18/2018 Status: F Source: [place] 7:43 AM [facility] REPOSITORY [facility] Imaging Services [facility] [place] [address] Abdomen Complete MR#: [id number] Acct: [id number] Name: DANA HUBBARD Rep #: [id number] : 1955 M 63 From: Rogerio Pedersen MD PCP: Eugenio Olmstead MD Status: REG CLI Study: Abdomen Complete Date of Exam: 09/18/18 Exam# [id number] Ordering Dr: Eugenio Olmstead MD STUDY: ABDOMINAL ULTRASOUND REASON FOR EXAM: Male, 63 years old. Elevated LFTs TECHNIQUE: Transabdominal ultrasound was performed with real-time and static carney scale imaging. TECHNICAL QUALITY: Adequate. COMPARISON: None. FINDINGS: Liver: The liver measures 17.5 cm. There is increased echogenicity consistent with fatty infiltration. The bile ducts are within normal limits. There is hepatic color flow. The direction of portal flow is hepatopetal. There is no demonstrated mass lesion. Portal vein measurement: Gallbladder: Normal distended gallbladder. The gallbladder wall measures 2.7 mm. There is a negative sonographic Humphrey's sign. There is no pericholecystic fluid. There is biliary sludge dependent within the gallbladder. Common Bile Duct (C.B.D.): The common bile duct measures 5.1 mm. Pancreas: Normal size of the head, body and tail of the pancreas. There is increased echogenicity of the pancreas. There is no demonstrated pancreatic mass or cyst. Spleen: There is splenomegaly. The spleen measures 12.9 cm. Right Kidney: Normal size of the right kidney. The right kidney measures 10.5 x 5.6 x 5.5 cm. Normal renal cortex. The right cortex measures 1.5 cm. There is a simple right renal cyst measuring 2.6 cm. There is no right hydronephrosis. Left Kidney: Normal size of the left kidney. The left kidney measures 10.6 x 4.7 x 5.3 cm. Normal renal cortex. The left cortex measures 1.6 cm. There is no demonstrated renal mass or cyst. There is no left hydronephrosis. Aorta: Tapers normally with peripheral atherosclerotic plaque. I.V.C.: The IVC is patent. There is no ascites. US/Abdomen Complete IMPRESSION: Fatty infiltration of the liver, no discrete lesion. Echogenic sludge in the gallbladder, no sonographic evidence of cholecystitis Nonspecific splenomegaly Nonspecific echogenic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 outpatient visit approximately 9 months unless needed sooner. Thank you for allowing me to participate in the care of your patient. Please don't hesitate to call if any issues arise. This note was generated using a voice recognition system and there may be incorrect words, spelling or punctuation that were not noted when reviewing the office note prior to saving. Follow Up 9 Months (PFM) 12/25/17 (copy of PCP lipid labs) Coding Level of Care Code Off vis,est,level 3 Diagnoses Atherosclerosis of [place] coronary artery of [place] heart without angina pectoris I25.10 [place] vs. transplanted heart: [place] heart History of non-ST elevation myocardial infarction (NSTEMI) I25.2 Supraventricular tachycardia by ECG I47.1 History of cardiac radiofrequency ablation (RFA) Z98.890 Hyperlipidemia, unspecified hyperlipidemia type E78.5 Hyperlipidemia type: unspecified Essential hypertension I10 Hypertension type: essential hypertension Coding Level of Care Code Off vis,est,level 3 Diagnoses Atherosclerosis of [place] coronary artery of [place] heart without angina pectoris I25.10 [place] vs. transplanted heart: [place] heart History of non-ST elevation myocardial infarction (NSTEMI) I25.2 Supraventricular tachycardia by ECG I47.1 History of cardiac radiofrequency ablation (RFA) Z98.890 Hyperlipidemia, unspecified hyperlipidemia type E78.5 Hyperlipidemia type: unspecified Essential hypertension I10 Hypertension type: essential hypertension 12/25/17 1238 <Electronically signed by Jesus Rahman MD> Date Jesus Rahman MD Cosigner Signature: Date (if applicable) CC: ALLERGIES ALLERGIES DATE TYPE / CODE NAME / CODE REACTION SEVERITY SOURCE 10/15/2018 Drug adhesive blisters rash Unknown [place] Allergy/[id number](S tape/[id number] [facility]) 4(RXNORM) Hospital Repository 10/15/2018 Miscellaneous adhesiv blisters, rash Unknown Bj Allergy/[id number](S bandages [facility]) Hospital Repository ENCOUNTERS ENCOUNTERS ADMIT/DISCHARGE ACCOUNT ADMITTING ENCOUNTER LOCATION SOURCE NUMBER CLASS 10/22/2018/ [id number] Ambulatory Bj [place] 8 1 [facility] ing:SDCRoom: Repository AC01 10/17/2018 [id number] Ambulatory BMSBuilding:W Bj 3 [facility] Repository 10/15/2018/ [id number] [facility]MS[facility] 09/20/2018 [id number] Ambulatory Bj Bj 0 [facility] ing:CT Repository 09/18/2018 [id number] Ambulatory [place] 9 [facility] ing:US Repository 09/06/2018 [id number] Ambulatory [place] Bj 7 [facility] ing:BFHLAB Repository 06/04/2018 [id number] Ambulatory Bj Bj 2 [facility] ing:BFHLAB Repository 05/16/2018 [id number] Ambulatory [place] Bj 5 [facility] ing:LAB Repository 05/14/2018/ [id number] Ambulatory Bj [place] 8 0 [facility] ing:PT Repository 03/14/2018 [id number] Ambulatory BMSBuilding:B [place] 1 [facility] Repository 01/22/2018 [id number] Ambulatory Bj Bj 7 [facility] ing:BFHLAB Repository 12/25/2017/ [id number] Ambulatory BMSBuilding:B Bj 8 [address] [facility] Repository 12/22/2017 [id number] Ambulatory BMSBuilding:B Bj [address] [facility] Repository PAYERS PAYERS ENCOUNTER GUARANTOR PAYER SUBSCRIBER SOURCE 10/22/2018 DANA Almanza Primary LILIA D [place] [id number] Insurance:MEDICAL DAVENPORTDOB: [facility] 3028-03-94RKCE[facility] [address]Vyu: Number: Repository [id number] (HP) Date:6152-29-76XE [address] [place] [address]GI: 10/22/2018 Secondary DANA Hicksoster Insurance:MEDICARE DAVENPORTDOB: Community PART A [facility] [id number] Hospital Number: Repository [id number] Date:2018-09-27 10/22/2018 Tertiary NOT GIVENUNK [place] Insurance:SELF PAY [facility] Number: Effective Repository Date:2018-09-27 10/17/2018 DANA Almanza Primary LILIA Stuart Bj [id number] Insurance:MEDICAL DAVENPORTDOB: [facility] [id number] New [facility] Medical Center [address]Ebc: Number: Repository [id number] (HP) Date:8326-13-11IL [address] [place] [address]HV: 10/17/2018 Secondary DANA Hicksoster Insurance:MEDICARE DAVENPORTDOB: Community PART A [facility] [id number] Hospital Number: Repository [id number] Date:2018-09-27 10/17/2018 Tertiary NOT GIVENUNK [place] Insurance:SELF PAY [facility] Number: Effective Repository Date:2018-10-17 10/15/2018 DANA Almanza Primary LILIA Stuart [place] [id number] Insurance:MEDICAL DAVENPORTDOB: [facility] [id number] [facility] Medical Center [address]Efk: Number: Repository [id number] (HP) Date:3800-78-50QV [address] [place], [place] [address]WP: 10/15/2018 Secondary DANA Lorenzo Insurance:MEDICARE DAVENPORTDOB: Community PART A [facility] [id number] Hospital Number: Repository [id number] Date:2017-12-25 10/15/2018 Tertiary NOT GIVENUNK Bj Insurance:SELF PAY [facility] Number: Effective Repository Date:2018-10-15 09/20/2018 DANA Almanza Primary LILIA Stuart Bj [id number] Insurance:MEDICAL DAVENPORTDOB: [facility] [id number] [id number]: Number: Repository [id number] (HP) Date:9860-37-77UH [address] [place], [place] [address]WP: 09/20/2018 Secondary DANA Lorenzo Insurance:MEDICARE DAVENPORTDOB: Community PART A [facility] [id number] Hospital Number: Repository [id number] Date:2018-09-17 09/20/2018 Tertiary NOT GIVENUNK [place] Insurance:SELF PAY [facility] Number: Effective Repository Date:2018-09-17 09/18/2018 DANA Almanza Primary LILIA Lorenzo [id number] Insurance:MEDICAL DAVENPORTDOB: [facility] [id number] New Mexico Medical Center [address]Mgy: Number: Repository [id number] (HP) Date:2531-14-12YF [address] [place] [address]EU: 09/18/2018 Secondary DANA L Bj Insurance:MEDICARE DAVENPORTDOB: Community PART A olic [id number] Hospital Number: Repository [id number] Date:2018-09-10 09/18/2018 Tertiary NOT GIVENUNK [place] Insurance:SELF PAY [facility] Number: Effective Repository Date:2018-09-10 09/06/2018 DANA Almanza Primary LILIA D Bj [id number] Insurance:MEDICAL DAVENPORTDOB: [facility] [id number] Ville [address]Tel: Number: Repository [id number] (HP) Date:1124-26-65IP [address] [address]PN: 09/06/2018 Secondary DANA Almanza [place] Insurance:MEDICARE DAVENPORTDOB: Community PART A [facility] [id number] Hospital Number: Repository [id number] Date:2018-09-06 09/06/2018 Tertiary NOT GIVENUNK Bj Insurance:SELF PAY [facility] Number: Effective Repository Date:2018-09-06 06/04/2018 DANA Almanza Primary LILIA D [place] [id number] Insurance:MEDICAL DAVENPORTDOB: [facility] [id number] Ville [id number]: Number: Repository [id number] (HP) Date:4960-51-99[address] [address]NE: 06/04/2018 Secondary DANA Almanza [place] Insurance:MEDICARE DAVENPORTDOB: Community PART A [facility] [id number] Hospital Number: Repository [id number] Date:2018-06-04 06/04/2018 Tertiary NOT GIVENUNK Bj Insurance:SELF PAY [facility] Number: Effective Repository Date:2018-06-04 05/16/2018 DANA L Primary LILIA D [place] [id number] Insurance:MEDICAL DAVENPORTDOB: [facility] [id number] [place] [address]Tel: Number: Repository [id number] (HP) Date:3678-63-51MP[address] [address]GU: 05/16/2018 Secondary DANA Almanza [place] Insurance:MEDICARE DAVENPORTDOB: Community PART A [facility] [id number] Hospital Number: Repository [id number] Date:2018-05-16 05/16/2018 Tertiary NOT GIVENUNK [place] Insurance:SELF PAY [facility] Number: Effective Repository Date:2018-05-16 05/14/2018 DANA L Primary LILIA D Bj [id number] Insurance:MEDICAL DAVENPORTDOB: [facility] [id number] New Mexico Medical Center [address]Obx: Number: Repository [id number] (HP) Date:2968-15-32BM [place] [phone]: 05/14/2018 Secondary DANA Almanza Bj Insurance:MEDICARE DAVENPORTDOB: Community PART A [facility] [id number] Hospital Number: Repository [id number] Date:2006-02-18 05/14/2018 Tertiary NOT GIVENUNK Bj Insurance:SELF PAY [facility] Number: Effective Repository Date:2018-04-19 03/14/2018 DANA L Primary LILIA D [place] [id number] Insurance:MEDICAL DAVENPORTDOB: [facility] [id number] New Mexico Medical Center [address]Omg: Number: Repository [phone] [id number] (HP) Date:7123-45-03CT[address] [address]JY: 03/14/2018 Secondary DANA L Bj Insurance:MEDICARE DAVENPORTDOB: Community PART A [facility] [id number] Hospital Number: Repository [id number] Date:2018-03-14 03/14/2018 Tertiary NOT GIVENUNK [place] Insurance:SELF PAY [facility] Number: Effective Repository Date:2018-03-14 01/22/2018 DANA Archie Primary LILIA Stuart [place] [id number] Insurance:MEDICAL DAVENPORTDOB: [facility] [id number] New Mexico Medical Center [address]Rns: Number: Repository [phone] [id number] (HP) Date:1457-51-34CDCindy [place] [phone]: 01/22/2018 Secondary DANA Lorenzo Insurance:MEDICARE DAVENPORTDOB: [facility] PART [facility] [id number] Hospital Number: Repository [id number] Date:2018-01-22 01/22/2018 Tertiary NOT GIVENUNK [place] Insurance:SELF PAY [facility] Number: Effective Repository Date:2018-01-22 12/25/2017 DANA Almanza Primary Lilia Stuart [place] [id number] Insurance:MEDICAL DavenportDOB: [facility] [id number] New Mexico Medical Center [address]Cnk: Number: Repository [phone] [id number] (HP) Date:8568-28-54BB[address] [phone]: 12/25/2017 Secondary DANA Lorenzo Insurance:MEDICARE DAVENPORTDOB: [facility] [id number] Hospital Number: Repository [id number] Date:2017-10-28 12/25/2017 Tertiary NOT GIVENUNK Bj Insurance:SELF PAY [facility] Number: Effective Repository Date:2017-10-28 12/22/2017 Dana Almanza Primary Dana Almanza [place] [id number] Insurance:MEDICARE DavenportDOB: [facility] PART A [facility] [id number] New Mexico Medical Center [address]Qez: Number: Repository [phone] [id number] (HP) Date:2017-12-22 12/22/2017 Secondary Lilia D [place] Insurance:MEDICAL DavenportDOB: [facility] [id number] Hospital Number: Repository [id number] Date:6094-17-80[address], [place] [address]TC: 12/22/2017 Tertiary NOT GIVENUNK [place] Insurance:SELF PAY [facility] Number: Effective Repository Date:2017-12-22
== END 2018-10-22 10:36 | disposition home or self-care (01) ==
LOC: SDC 06:53 → AC 06:54
PROVIDERS: Anesthesiology; Family Provider Family Medicine; PCP Family Medicine; Referring Provider Otolaryngology; Visit Provider Otolaryngology
PROC: (CPT 31267; principal; 2018-10-22 08:05)
DX: J32.0 Chronic maxillary sinusitis (principal); B49 Unspecified mycosis; I10 Essential (primary) hypertension; I25.10 Atherosclerotic heart disease of native coronary artery without angina pectoris; I25.2 Old myocardial infarction; F17.200 Nicotine dependence, unspecified, uncomplicated; R94.31 Abnormal electrocardiogram [ECG] [EKG]
CPT/HCPCS: 00160; 31267; 36415; 85610; 85730; 88305; 88311; 88312; 93005; J7120; J2405

== ENCOUNTER → 2019-03-18 10:02 | Outpatient (CLI) | payer OTHER, MEDICARE, SELFPAY ==
[2019-03-11 08:52] VITALS: BMI 24.3
[2019-03-18 11:11] LABS: Absolute Lymphocyte Count 2.24 X10^3/ul (0.83-4.51); Absolute Neutrophil Count 3.1 X10^3/uL (2.0-7.7); Basophil# 0.03 X10^3/uL; Basophil% 0.5 % (0-1); Eosinophil# 0.09 X10^3/uL; Eosinophils% 1.5 % (0-5); Hematocrit 48.8 % (40-54); Lymphocyte # 2.24 X10^3/ul (4.0); Lymphocyte % 37.1 % (19-41); Mean Corp Hgb Conc 34.8 g/gl (32-36); Mean Corpuscular Hgb 31.8 pg (27.0-32.0); Mean Corpuscular Volume 91.4 fL (80-94); Mean Platelet Vol. 11.8 fl (6.2-12.0); Monocyte# 0.54 X10^3/uL; Neutrophil # 3.13 X10^3/uL (2.7-7.7); Neutrophil % 51.9 % (47-70); Platelet Count 160 K/mm3 (150-450); RBC Distribution Width CV 12.9 % (11.6-14.6); RBC Distribution Width SD 42.4 fl (35.1-43.9); Red Blood Count 5.34 M/mm3 (4.6-6.2)
[2019-03-18 11:22] LABS: POSITIVE COUNT NO; POSITIVE DIFFERENTIAL NO; POSITIVE MORPHOLOGY NO
[2019-03-18 11:24] LABS: Microalbumin,Random Urine 7.2 mg/L (NO RANGE EST.); Microalbumin:Creatinine Ratio 4.3 mg/g CRE (<30 mg/g CRE)
[2019-03-18 11:31] LABS: ALB/GLOB Ratio 1.1 RATIO (0.9-2.4); AST(SGOT) 57 U/L (15-37); Alanine Aminotransfer ALT/SGPT 101 U/L (16-61); Albumin, Serum 4.2 g/dL (3.2-5.0); Alkaline Phosphatase 75 U/L (45-117); Anion Gap 7 (5-15); BUN 14 mg/dL (7-18); Calcium,Total 10.1 mg/dL (8.5-10.1); Chloride 104 mmol/L (98-107); EST Glomerular Filtration Rate 80 mL/min (>60); Est Glom Filt Rate - Afr Amer 97 mL/min (>60); Globulin 3.7 g/dL (2.2-4.2); Glucose 104 mg/dL (74-106); Magnesium 2.4 mg/dL (1.6-2.6); Potassium 5.4 mmol/L (3.5-5.1); Protein, Total 7.9 g/dL (6.4-8.2); Sodium Level 142 mmol/L (136-145); Thyroid Stim Hormone (TSH) 2.33 uIU/mL (0.358-3.74)
== END ==
PROVIDERS: Family Provider Family Medicine; PCP Family Medicine; Visit Provider Family Medicine
DX: E11.9 Type 2 diabetes mellitus without complications (principal); I10 Essential (primary) hypertension; R74.8 Abnormal levels of other serum enzymes; D69.6 Thrombocytopenia, unspecified; M62.838 Other muscle spasm
CPT/HCPCS: 36415; 80053; 82043; 82570; 83735; 84443; 85025

== ENCOUNTER → 2019-03-20 08:58 | Outpatient (CLI) | payer OTHER, MEDICARE, SELFPAY ==
[2019-03-11 08:52] VITALS: BMI 24.3
[2019-03-20 09:52] LABS: Amphetamine Urine VISTA NEGATIVE (<1000 ng/mL); Barbiturate Urine VISTA NEGATIVE (< 200 ng/mL); Benzodiazepine Urine VISTA NEGATIVE (< 200 ng/mL); Cocaine Urine VISTA NEGATIVE (< 300 ng/mL); Ecstacy Urine VISTA NEGATIVE (< 500 ng/mL); Methadone Urine VISTA NEGATIVE (< 300 ng/mL); PCP Urine VISTA NEGATIVE (< 25 ng/mL); THC Urine VISTA NEGATIVE (< 50 ng/mL); Vista UDS pH Range 5
== END ==
PROVIDERS: Family Provider Family Medicine; PCP Family Medicine; Referring Provider Anesthesiology Pain Medicine; Visit Provider Anesthesiology Pain Medicine
DX: F11.20 Opioid dependence, uncomplicated (principal)
CPT/HCPCS: 80307

== ENCOUNTER → 2019-03-25 09:43 | Outpatient (CLI) | payer OTHER, MEDICARE, SELFPAY ==
[2019-03-11 08:52] VITALS: BMI 24.3
--- NOTE | 2019-03-25 09:50 | CDU_ITS ---
Reason For Study: BRUIT Rt. Velocities/BP Lt. Velocities/BP Prox CCA 112.5/18.6 cm/sec. Prox CCA 118.5/29.0 cm/sec. Mid CCA 92.5/15.5 cm/sec. Mid CCA 109.4/30.9 cm/sec. Dist CCA 65.1/15.5 cm/sec. Dist CCA 78.9/18.6 cm/sec. Prox ICA 61.6/14.6 cm/sec. Prox ICA 78.9/24.1 cm/sec. Mid ICA 51.1/14.6 cm/sec. Mid ICA 67.9/20.5 cm/sec. Dist ICA 78.5/23.7 cm/sec. Dist ICA 89.9/27.8 cm/sec. Rt. ICA/CCA = 78.5/92.5=0.85. Lt. ICA/CCA = 89.5/109.4=0.82. Prox ECA 85.9/11.6 cm/sec. Prox ECA 97.2/16.8 cm/sec. Rt. Vert. 47.2/13.3 cm/sec. Lt. Vert. 63.6/16.4 cm/sec. Right Extracranial There is intimal thickening but no significant atherosclerotic plaque noted in the right common carotid artery. There is homogeneous, smooth atherosclerotic plaque noted in the right internal carotid artery. There is no significant atherosclerotic plaque noted in the right external carotid artery. Antegrade flow is noted in the right vertebral artery. There is heterogeneous, irregular atherosclerotic plaque noted in the right bulb. Left Extracranial There is intimal thickening but no significant atherosclerotic plaque noted in the left common carotid artery. There is heterogeneous, irregular atherosclerotic plaque noted in the left internal carotid artery. There is no significant atherosclerotic plaque noted in the left external carotid artery. Antegrade flow is noted in the left vertebral artery. There is heterogeneous, smooth atherosclerotic plaque noted in the left bulb. Procedure Carotid Duplex 88815. The exam was diagnostic. Exam performed in department. Interpretation Summary Mild (<50%) stenosis right extracranial internal carotid. Mild (<50%) stenosis left extracranial internal carotid. Flow within the vertebral arteries is antegrade bilaterally. Heterogeneous atherosclerotic plaque is noted in the carotid bulbs bilaterally, which does not appear to be hemodynamically significant. Ordering Physician: Eugenio Olmstead Referring Physician: Eugenio Olmstead Performed By: Keli Serrato RDCS, RVT
== END ==
PROVIDERS: Family Provider Family Medicine; PCP Family Medicine; Referring Provider Family Medicine; Visit Provider Family Medicine
DX: R09.89 Other specified symptoms and signs involving the circulatory and respiratory systems (principal)
CPT/HCPCS: 93880

== ENCOUNTER → 2019-04-01 09:01 | Outpatient (CLI) | payer OTHER, MEDICARE, SELFPAY ==
[2019-03-11 08:52] VITALS: BMI 24.3
[2019-04-01 10:24] LABS: Anion Gap 2 (5-15); BUN 12 mg/dL (7-18); BUN/Creat Ratio 12.5 RATIO (10-20); Calcium,Total 9.5 mg/dL (8.5-10.1); Chloride 104 mmol/L (98-107); Creatinine, Serum 0.96 mg/dL (0.70-1.30); EST Glomerular Filtration Rate 84 mL/min (>60); Est Glom Filt Rate - Afr Amer 101 mL/min (>60); Glucose 130 mg/dL (74-106); Potassium 4.1 mmol/L (3.5-5.1); Sodium Level 139 mmol/L (136-145)
== END ==
PROVIDERS: Family Provider Family Medicine; PCP Family Medicine; Referring Provider Family Medicine; Visit Provider Family Medicine
DX: E87.5 Hyperkalemia (principal)
CPT/HCPCS: 36415; 80048

== ENCOUNTER → 2019-04-26 07:40 | Outpatient (CLI) | payer OTHER, MEDICARE, SELFPAY ==
[2019-04-03 09:13] VITALS: BMI 24.3
--- NOTE | 2019-04-26 07:45 | ECHOD_ITS ---
Reason For Study: HYPERTENSION Procedure This was a 2D Doppler, Color Flow transthoracic echocardiogram. The exam was of adequate technical quality. Exam performed in department. Left Ventricle Normal LV size. Sigmoid septum. Left ventricular systolic function is normal. The estimated ejection fraction is 65 %. Diastolic function is indeterminate. No regional wall motion abnormalities noted. Right Ventricle Normal RV size. Normal systolic function. Atria The left atrium is mildly enlarged. Normal right atrium. No doppler evidence for ASD. Mitral Valve There is no mitral annular calcification. Normal mitral valve. Mild (1+) mitral valve insufficiency. Tricuspid Valve Normal tricuspid valve. Mild tricuspid valve insufficiency. Right ventricular systolic pressure estimated to be 28 mmHg. Aortic Valve Trisinus/trileaflet aortic valve. Mild focal aortic valve calcification. Pulmonic Valve The pulmonic valve is not well visualized. Trivial pulmonic valve insufficiency. Great Vessels Normal sized aortic root. Pericardium/Pleural No pericardial effusion. MMode/2D Measurements & Calculations LVIDd: 4.7 cm IVSd: 1.1 cm Ao root diam: 3.3 cm LVIDs: 3.1 cm LVPWd: 1.0 cm RVDd: 3.4 cm FS: 33.7 % LAV(MOD-bp): 68.3 ml LA A4 area: 20.7 cm2 LA dimension(2D): 4.0 cm LAV(MOD-bp) Indexed: 35.0 ml/m2 LAV(MOD-sp2): 62.9 ml LAV(MOD-sp4): 66.3 ml RA A4 area: 15.1 cm2 Time Measurements MV dec time: 0.20 sec Doppler Measurements & Calculations MV E max abhi: 59.0 cm/sec Lat Peak E' Abhi: 8.5 cm/sec Med Peak E' Abhi: 5.7 cm/sec MV A max abhi: 81.0 cm/sec E/E' lat: 6.9 E/E' med: 10.4 MV E/A: 0.73 Ao V2 max: 93.7 cm/sec LV V1 max: 86.4 cm/sec PA V2 max: 79.5 cm/sec Ao max P.5 mmHg LV V1 max P.0 mmHg TR max abhi: 247.3 cm/sec TR max P.5 mmHg Interpretation Summary Left ventricular systolic function is normal. The estimated ejection fraction is 65 %. Sigmoid septum. The left atrium is mildly enlarged. Mild (1+) mitral valve insufficiency. Mild tricuspid valve insufficiency. Mild focal aortic valve calcification. Trivial pulmonic valve insufficiency. Right ventricular systolic pressure estimated to be 28 mmHg. Diastolic function is indeterminate. Ordering Physician: Trung Vergara Referring Physician: Eugenio Olmstead Performed By: Keli Serrato RDCS, RVT
== END ==
PROVIDERS: Family Provider Family Medicine; PCP Family Medicine; Referring Provider Nurse Practitioner Family; Visit Provider Nurse Practitioner Family
DX: I25.10 Atherosclerotic heart disease of native coronary artery without angina pectoris (principal); I10 Essential (primary) hypertension; Z98.890 Other specified postprocedural states
CPT/HCPCS: 93306

== ENCOUNTER → 2019-04-30 08:13 | Outpatient (CLI) | payer OTHER, MEDICARE, SELFPAY ==
[2019-04-03 09:13] VITALS: BMI 24.3
--- NOTE | 2019-04-30 08:16 | RAD_ITS ---
HISTORY: BACK PAIN TECHNIQUE: Lumbar spine 6 views, including AP, bilateral oblique, and lateral views of the lumbar spine in neutral, flexion and extension Number of images including paperwork: 6 COMPARISON: 02/16/2017 FINDINGS: VERTEBRAE: No acute fracture. VERTEBRAL ALIGNMENT: No traumatic subluxation. No instability noted on flexion and extension films. DISKS AND JOINTS: Advanced disc space narrowing at L5-S1 with endplate sclerosis, vacuum disc phenomenon and small osteophytes. Mild to moderate multilevel discogenic degenerative changes elsewhere in the lumbar spine, most notes of L4-5. Facet arthropathy. SOFT TISSUES: Vascular calcification. Generator and wires appear similar. RAD/L/S Spine Comp/w Bending Views IMPRESSION: 1. No acute osseous abnormality. 2. Lumbar spondylosis. at 2220 Reported and signed by: Arabella Jesus MD Electronically Signed: Arabella Jesus MD at 22:20 EDT Tel , Service support ,
== END ==
PROVIDERS: Family Provider Family Medicine; PCP Family Medicine; Referring Provider Orthopaedic Surgery; Visit Provider Orthopaedic Surgery
DX: M54.16 Radiculopathy, lumbar region (principal)
CPT/HCPCS: 72114

== ENCOUNTER → 2019-05-27 12:03 | Outpatient (CLI) | payer OTHER, MEDICARE, SELFPAY ==
[2019-04-30 08:46] VITALS: BMI 24.3
--- NOTE | 2019-05-27 12:04 | CT_ITS ---
STUDY: CT LUMBAR SPINE WITH INTRATHECAL CONTRAST (LUMBAR CT MYELOGRAM) REASON FOR EXAM: Male, 64 years old. Chronic low back pain. Prior back surgery and TENS unit placement. RADIATION DOSAGE (If Supplied By Facility): CTDIvol = ( 10.86 ) mGy, DLP = ( 345.60 ) mGycm TECHNIQUE: Transaxial images were obtained from the L1 vertebra through the S1 vertebrae, following intrathecal administration of 10 ml of Isovue M200 contrast material, performed by Dr. Chacon. Please refer to this physicians technical notes for procedural details. Coronal and sagittal reconstructions were obtained. Individualized dose optimization techniques were used for this CT. COMPARISON: Comparison is made with prior examination dated February 16, 2017. FINDINGS: Normal lumbar lordosis. There is no substantial scoliosis. Normal vertebrae of the lumbar spine. There is dependent layering of contrast material in the distal thecal sac. The conus medullaris terminates in a normal position at the T12-L1 level. There is no demonstrated cauda equina nerve root abnormality or intraspinal mass. L1-2: Minimal anterior spondylosis. Normal disc height and morphology. Normal bilateral facet joints. Normal central canal and bilateral lateral recesses. Normal bilateral intervertebral neural foramina. L2-3: Mild degree of anterior spondylolisthesis. No significant disc herniation is seen. L3-4: Moderate degree of disc space narrowing and spondylosis.` Mild degree of diffuse posterior disc bulge causing mild to moderate degree of bright neuroforaminal stenosis. L4-5: Moderate degree of disc space narrowing and disc degeneration. Spondylosis. Mild degree of bilateral neural foraminal stenosis secondary to facet joint hypertrophy. The patient is status post right hemilaminectomy. L5-S1: Moderate to marked degree of disc space narrowing in the disc degeneration. Central posterior disc bulge causing deformity of thecal sac slightly worse on the right side. No nerve root compression is seen. There is evidence of a sequestered disc fragment with air along the posterior right side of the S1 vertebrae. There are degenerative changes of the bilateral sacroiliac joints. Normal visualized paraspinous soft tissue structures. CT/Spine Lumbar without Contrast IMPRESSION: Multiple findings as described above. Electronically Signed: Bassam Limon, at 15:31 EDT , Service support ,
--- NOTE | 2019-05-27 12:25 | RAD_ITS ---
PROCEDURE: LUMBAR MYELOGRAM DATE OF EXAMINATION: May 27, 2019. INDICATION: Male, 64 years old. Low back pain. PHYSICIAN: Bassam Limon M.D. CONSENT: The patient's history and physical findings were reviewed. The lumbar myelogram procedure was discussed with the patient prior to signing a consent. SEDATION: Local anesthesia with 3 mL of 1% lidocaine was used. FLUOROSCOPY TIME (if supplied): (1:09) minutes/seconds. 5 images were obtained. Injection Information: 10 cc of Isovue-M 200. Number of images obtained: 5 TECHNIQUE: Digital fluoroscopy was used to identify a safe approach for the lumbar myelogram. The back was prepped and draped in usual fashion. Local anesthesia was utilized. Under fluoroscopic guidance a 22-gauge spinal needle was inserted into the spinal canal at the L2-L3 level. Clear spinal fluid was seen. 10mL of Isovue 200 M was injected into the spinal canal. There is good opacification of the spinal fluid. The nerve root sheaths are asymmetrically identified. Diffuse disc space narrowing with minimal anterior extradural defect at the L3-L4 level. A pain stimulator device is seen. RAD/Lumbar Myelogram IMPRESSION: Lumbar Myelogram . The patient tolerated the procedure well. A CT scan will follow. Electronically Signed: Bassam Limon, at 14:00 EDT , Service support ,
[2019-05-27 12:32] VITALS: BMI 23.6
== END ==
PROVIDERS: Family Provider Family Medicine; PCP Family Medicine; Referring Provider Orthopaedic Surgery; Visit Provider Orthopaedic Surgery
DX: M54.16 Radiculopathy, lumbar region (principal)
CPT/HCPCS: 62284; 72131; 72265; Q9965

== ENCOUNTER → 2019-12-25 09:11 | Outpatient (CLI) | payer OTHER, MEDICARE, SELFPAY ==
[2019-10-30 13:37] VITALS: BMI 25.5
[2019-12-25 10:35] LABS: Amphetamine Urine VISTA NEGATIVE (<1000 ng/mL); Barbiturate Urine VISTA NEGATIVE (< 200 ng/mL); Benzodiazepine Urine VISTA NEGATIVE (< 200 ng/mL); Cocaine Urine VISTA NEGATIVE (< 300 ng/mL); Ecstacy Urine VISTA NEGATIVE (< 500 ng/mL); Methadone Urine VISTA NEGATIVE (< 300 ng/mL); PCP Urine VISTA NEGATIVE (< 25 ng/mL); THC Urine VISTA NEGATIVE (< 50 ng/mL); Vista UDS pH Range 5
== END ==
PROVIDERS: PCP Family Medicine; Referring Provider Anesthesiology Pain Medicine; Visit Provider Anesthesiology Pain Medicine
DX: F11.20 Opioid dependence, uncomplicated (principal)
CPT/HCPCS: 80307

== ENCOUNTER → 2020-01-16 | Outpatient (CLI) | payer OTHER, MEDICARE, SELFPAY ==
[2020-01-16 10:01] VITALS: BMI 25.5
--- NOTE | 2020-01-16 10:06 | RAD_ITS ---
STUDY: X-RAY - RIGHT ELBOW REASON FOR EXAM: Male, 64 years old. Chronic elbow pain. TECHNIQUE: 3 view(s) of the elbow. COMPARISON: None. FINDINGS: Olecranon spur. Moderate arthrosis of the elbow joint. The soft tissue structures are unremarkable. 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 Electronically Signed: Korey Aranda MD at 16:42 EST , Service support ,
== END | disposition home or self-care (01) ==
LOC: HPRAD 10:06
PROVIDERS: PCP Family Medicine; Referring Provider Orthopaedic Surgery; Visit Provider Orthopaedic Surgery
DX: M77.11 Lateral epicondylitis, right elbow (principal)
CPT/HCPCS: 73080

== ENCOUNTER 2020-03-04 08:00 | Outpatient (RCR) | payer OTHER, MEDICARE, SELFPAY ==
[2020-01-16 10:01] VITALS: BMI 25.5
--- NOTE | 2020-01-28 16:11 | HP.OTEVAL_ITS ---
Patient's Visit Information DANA HUBBARD is a 64 year old M, referred to Occupational Therapy by Dr. Tisha Epstein DO, with a diagnosis of right lateral epi. Date of Evaluation: 01/23/20 Occupational Therapist: Valarie Silva, JUNE/Archie, CHT - Subjective Subjective: This 64 year old male was seen for OT eval with dx of right lateral epi. pt states 3 weeks ago he was working on [employer] and noticed he hurt his elbow-pt states he pulled on starter rope a bunch of times- has hand pain since. pt states pain limits use of his right hand for ADls and IADls at this time. 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 - Rehabilitation General Assessment: Pt demo with pain at right lateral epi with pian radiating into ECR. Pt limited with strength and use of right UE with ADLs and IADLs. pt would benefit from skilled OT services 1-2 x week for 4 weeks to decrease pain - ed. on lift ergo- and on lateral epi recovery. Pt agree to POC. Rehabilitation Potential: Good - Anticipated Interventions Anticipated Interventions: A/AAROM/PROM, Strengthening, Triggerpoint Release, Modalities, Orthoses, Joint Protection/Energy Conservation, Ergonomic Education - Visit Plan Frequency: 1-2x /Week Duration: 4 Weeks TEXT: Thank you for the opportunity to evaluate your patient. For Medicare and Medicare HMO plans, please review the plan of care and approve it. It will need to be FAXED BACK to us at [phone] for Medicare purposes. Please let me know if there are questions or concerns regarding this plan of care. Physician Signature: Date:
--- NOTE | 2020-04-28 12:05 | HP.OT.NRP ---
DANA HUBBARD was seen in my office for initial evaluation on 01/23/20. The following Plan of Care was established for this patient: Initial Frequency: 1-2x /Week Initial Duration: 4 Weeks Plan: cont POC Anticipated Interventions: A/AAROM/PROM, Strengthening, Triggerpoint Release, Modalities, Orthoses, Joint Protection/Energy Conservation, Ergonomic Education This patient was last seen in our office 03/04/20. Pertinent comments regarding their Occupational therapy will appear below: pt was seen for 6 OT visits- pt continued to have pain and was returning to for cortisone shot. pt is d/c at this time. At this point I will be discontinuing this patient from occupational therapy. I would be happy to see this patient again in the future if found appropriate by the physician. Thank you! Valarie Silva, OTR/L, CHT
== END 2020-03-04 19:00 | disposition home or self-care (01) ==
LOC: OT 08:00
PROVIDERS: PCP Family Medicine; Referring Provider Orthopaedic Surgery; Visit Provider Orthopaedic Surgery
DX: M77.11 Lateral epicondylitis, right elbow (principal)
CPT/HCPCS: 97035; 97140; 97166

== ENCOUNTER → 2020-03-27 | Outpatient (CLI) | payer OTHER, MEDICARE, SELFPAY ==
[2020-03-10 13:06] VITALS: BMI 25.5
[2020-03-27 09:56] LABS: Absolute Lymphocyte Count 2.04 X10^3/uL (0.83-4.51); Absolute Neutrophil Count 2.3 X10^3/uL (2.0-7.7); Basophil# 0.04 X10^3/uL; Basophil% 0.8 % (0-1); Eosinophil# 0.09 X10^3/uL; Eosinophils% 1.8 % (0-5); Hematocrit 50.2 % (40-54); Hemoglobin 17.1 g/dL (13.0-16.5); Lymphocyte # 2.04 X10^3/ul (4.0); Mean Corp Hgb Conc 34.1 g/dL (32-36); Mean Corpuscular Volume 93.8 fL (80-94); Mean Platelet Vol. 11.2 fl (6.2-12.0); Monocyte# 0.48 X10^3/uL; Monocyte% 9.7 % (0-10); NRBC Flagged by Analyzer 0 % (0-5); Neutrophil # 2.31 X10^3/uL (2.7-7.7); Neutrophil % 46.5 % (47-70); Platelet Count 140 K/mm3 (150-450); RBC Distribution Width SD 44.5 fl (35.1-43.9); Red Blood Count 5.35 M/mm3 (4.6-6.2)
[2020-03-27 10:25] LABS: AST(SGOT) 31 U/L (15-37); Alanine Aminotransfer ALT/SGPT 51 U/L (16-61); Albumin, Serum 3.8 g/dL (3.2-5.0); Alkaline Phosphatase 65 U/L (45-117); Anion Gap 0 (5-15); BUN 12 mg/dL (7-18); BUN/Creat Ratio 12.5 RATIO (10-20); Calcium,Total 9.9 mg/dL (8.5-10.1); Chloride 102 mmol/L (98-107); Cholesterol 207 mg/dL (200); Creatinine, Serum 0.96 mg/dL (0.70-1.30); EST Glomerular Filtration Rate 84 mL/min (>60); Est Glom Filt Rate - Afr Amer 102 mL/min (>60); Globulin 3.7 g/dL (2.2-4.2); Glucose 123 mg/dL (74-106); High Density Lipoprotein 57 mg/dL; Protein, Total 7.5 g/dL (6.4-8.2); Sodium Level 138 mmol/L (136-145); Triglycerides 93 mg/dL; Very Low Density Lipoprotein 19 mg/dL (5-40)
[2020-03-27 10:29] LABS: Hemoglobin A1c 6.5 % (4.2-6.3)
== END | disposition home or self-care (01) ==
LOC: MTLAB 09:19
PROVIDERS: PCP Family Medicine; Referring Provider Family Medicine; Visit Provider Family Medicine
DX: D69.6 Thrombocytopenia, unspecified (principal); R73.01 Impaired fasting glucose; R74.8 Abnormal levels of other serum enzymes; I10 Essential (primary) hypertension
CPT/HCPCS: 36415; 80053; 80061; 83036; 85025

== ENCOUNTER → 2020-05-28 | Outpatient (CLI) | payer OTHER, MEDICARE, SELFPAY ==
[2020-05-11 08:44] VITALS: BMI 25.5
--- NOTE | 2020-05-28 08:08 | RAD_ITS ---
STUDY: X-RAY - LEFT ELBOW REASON FOR EXAM: Male, 65 years old. Increasing left elbow pain. No history of trauma. TECHNIQUE: 3 view(s) of the elbow. COMPARISON: Left elbow, January 16, 2020. FINDINGS: Small enthesophyte at the origin of the extensor musculature on the medial humeral leak. The humerus is otherwise unremarkable. There is a small spur at the insertion of triceps tendon on the oblique were non-. Otherwise normal radius and ulna. There is degenerative arthrosis of the radiocapitellar and ulnotrochlear articulations. There is no acute fracture, dislocation or destructive osseous pathology. The soft tissue structures are unremarkable. RAD/Elbow min 3 Views IMPRESSION: Stable arthrosis of the elbow. Electronically Signed: Angel Marquis DO at 17:03 EDT Tel [phone], Service support ,
== END | disposition home or self-care (01) ==
LOC: HPRAD 08:08
PROVIDERS: PCP Family Medicine; Referring Provider Physician Assistant; Visit Provider Physician Assistant
DX: M25.522 Pain in left elbow (principal)
CPT/HCPCS: 73080

== ENCOUNTER → 2020-06-29 10:43 | Outpatient (CLI) | payer OTHER, MEDICARE, SELFPAY ==
[2020-05-11 08:44] VITALS: BMI 25.5
[2020-06-29 12:54] LABS: Absolute Lymphocyte Count 1.83 X10^3/uL (0.83-4.51); Absolute Neutrophil Count 2.5 X10^3/uL (2.0-7.7); Basophil# 0.04 X10^3/uL; Basophil% 0.8 % (0-1); Eosinophil# 0.07 X10^3/uL; Eosinophils% 1.4 % (0-5); Hematocrit 47.6 % (40-54); Hemoglobin 16.2 g/dL (13.0-16.5); Lymphocyte # 1.83 X10^3/ul (4.0); Lymphocyte % 36.4 % (19-41); Mean Corpuscular Hgb 31.2 pg (27.0-32.0); Mean Corpuscular Volume 91.7 fL (80-94); Mean Platelet Vol. 11.7 fl (6.2-12.0); Monocyte# 0.53 X10^3/uL; Monocyte% 10.5 % (0-10); NRBC Flagged by Analyzer 0 % (0-5); Neutrophil # 2.53 X10^3/uL (2.7-7.7); Neutrophil % 50.3 % (47-70); Platelet Count 123 K/mm3 (150-450); RBC Distribution Width CV 12.9 % (11.6-14.6); RBC Distribution Width SD 43.1 fl (35.1-43.9); Red Blood Count 5.19 M/mm3 (4.6-6.2)
[2020-06-29 13:19] LABS: AST(SGOT) 20 U/L (15-37); Alanine Aminotransfer ALT/SGPT 33 U/L (16-61); Albumin, Serum 3.7 g/dL (3.2-5.0); Alkaline Phosphatase 64 U/L (45-117); Anion Gap 4 (5-15); BUN 14 mg/dL (7-18); BUN/Creat Ratio 15.1 RATIO (10-20); Calcium,Total 9.7 mg/dL (8.5-10.1); Chloride 104 mmol/L (98-107); Creatinine, Serum 0.92 mg/dL (0.70-1.30); EST Glomerular Filtration Rate 87 mL/min (>60); Est Glom Filt Rate - Afr Amer 106 mL/min (>60); Globulin 3.7 g/dL (2.2-4.2); Glucose 141 mg/dL (74-106); Potassium 4.6 mmol/L (3.5-5.1); Protein, Total 7.4 g/dL (6.4-8.2); Sodium Level 139 mmol/L (136-145)
== END ==
PROVIDERS: PCP Family Medicine; Visit Provider Family Medicine
DX: R74.8 Abnormal levels of other serum enzymes (principal); D69.6 Thrombocytopenia, unspecified; K76.0 Fatty (change of) liver, not elsewhere classified
CPT/HCPCS: 36415; 80053; 85025

== ENCOUNTER → 2020-09-21 09:08 | Outpatient (CLI) | payer OTHER, MEDICARE, SELFPAY ==
[2020-07-29 08:28] VITALS: BMI 25.5
[2020-09-21 12:41] LABS: AST(SGOT) 26 U/L (15-37); Alanine Aminotransfer ALT/SGPT 50 U/L (16-61); Albumin, Serum 3.9 g/dL (3.2-5.0); Alkaline Phosphatase 72 U/L (45-117); Anion Gap 8 (5-15); BUN 10 mg/dL (7-18); BUN/Creat Ratio 10.6 RATIO (10-20); Calcium,Total 9.4 mg/dL (8.5-10.1); Chloride 102 mmol/L (98-107); Creatinine, Serum 0.94 mg/dL (0.70-1.30); EST Glomerular Filtration Rate 86 mL/min (>60); Est Glom Filt Rate - Afr Amer 104 mL/min (>60); Globulin 3.8 g/dL (2.2-4.2); Glucose 137 mg/dL (74-106); Potassium 3.8 mmol/L (3.5-5.1); Protein, Total 7.7 g/dL (6.4-8.2); Sodium Level 139 mmol/L (136-145)
[2020-09-21 12:45] LABS: Absolute Lymphocyte Count 1.91 X10^3/uL (0.83-4.51); Absolute Neutrophil Count 3.4 X10^3/uL (2.0-7.7); Basophil# 0.03 X10^3/uL; Basophil% 0.5 % (0-1); Eosinophil# 0.09 X10^3/uL; Eosinophils% 1.5 % (0-5); Hematocrit 49.9 % (40-54); Hemoglobin 16.7 g/dL (13.0-16.5); Lymphocyte # 1.91 X10^3/ul (4.0); Lymphocyte % 32.3 % (19-41); Mean Corp Hgb Conc 33.5 g/dL (32-36); Mean Corpuscular Hgb 30.9 pg (27.0-32.0); Mean Corpuscular Volume 92.2 fL (80-94); Monocyte% 8.5 % (0-10); NRBC Flagged by Analyzer 0 % (0-5); Neutrophil # 3.37 X10^3/uL (2.7-7.7); Platelet Count 154 K/mm3 (150-450); RBC Distribution Width CV 12.7 % (11.6-14.6); RBC Distribution Width SD 43.1 fl (35.1-43.9); Red Blood Count 5.41 M/mm3 (4.6-6.2); White Blood Count 5.9 K/mm3 (4.4-11.0)
[2020-09-21 12:46] LABS: Vitamin B12 562 pg/mL (211-911)
== END ==
PROVIDERS: PCP Family Medicine; Visit Provider Family Medicine
DX: D69.6 Thrombocytopenia, unspecified (principal); I10 Essential (primary) hypertension; R74.8 Abnormal levels of other serum enzymes
CPT/HCPCS: 36415; 80053; 82607; 83735; 85025

== ENCOUNTER → 2020-12-22 09:28 | Outpatient (CLI) | payer OTHER, MEDICARE, SELFPAY ==
[2020-12-17 08:22] VITALS: BMI 25.5
[2020-12-22 12:18] LABS: Absolute Lymphocyte Count 1.75 X10^3/uL (0.83-4.51); Absolute Neutrophil Count 2.4 X10^3/uL (2.0-7.7); Basophil# 0.06 X10^3/uL; Basophil% 1.2 % (0-1); Eosinophil# 0.21 X10^3/uL; Eosinophils% 4.3 % (0-5); Hematocrit 52.2 % (40-54); Hemoglobin 17.4 g/dL (13.0-16.5); Lymphocyte # 1.75 X10^3/ul (4.0); Lymphocyte % 35.9 % (19-41); Mean Corp Hgb Conc 33.3 g/dL (32-36); Mean Corpuscular Hgb 30.1 pg (27.0-32.0); Mean Corpuscular Volume 90.3 fL (80-94); Monocyte# 0.49 X10^3/uL; NRBC Flagged by Analyzer 0 % (0-5); Neutrophil # 2.35 X10^3/uL (2.7-7.7); Neutrophil % 48.2 % (47-70); Platelet Count 161 K/mm3 (150-450); RBC Distribution Width CV 12.8 % (11.6-14.6); RBC Distribution Width SD 42.6 fl (35.1-43.9); Red Blood Count 5.78 M/mm3 (4.6-6.2); White Blood Count 4.9 K/mm3 (4.4-11.0)
[2020-12-22 12:38] LABS: AST(SGOT) 27 U/L (15-37); Alanine Aminotransfer ALT/SGPT 58 U/L (16-61); Albumin, Serum 3.8 g/dL (3.2-5.0); Alkaline Phosphatase 81 U/L (45-117); Anion Gap 5 (5-15); BUN 12 mg/dL (7-18); Calcium,Total 9.6 mg/dL (8.5-10.1); Chloride 103 mmol/L (98-107); Creatinine, Serum 0.92 mg/dL (0.70-1.30); EST Glomerular Filtration Rate 87 mL/min (>60); Est Glom Filt Rate - Afr Amer 106 mL/min (>60); Globulin 3.7 g/dL (2.2-4.2); Glucose 135 mg/dL (74-106); Lipase 63 U/L (73-393); Potassium 4.3 mmol/L (3.5-5.1); Protein, Total 7.5 g/dL (6.4-8.2); Sodium Level 138 mmol/L (136-145)
== END ==
PROVIDERS: PCP Family Medicine; Visit Provider Family Medicine
DX: I10 Essential (primary) hypertension (principal); R73.01 Impaired fasting glucose; D69.6 Thrombocytopenia, unspecified; R74.8 Abnormal levels of other serum enzymes
CPT/HCPCS: 36415; 80053; 83690; 85025

== ENCOUNTER → 2021-01-20 07:22 | Outpatient (CLI) | payer OTHER, MEDICARE, SELFPAY ==
[2021-01-08 09:37] VITALS: BMI 25.3
[2021-01-20 08:48] LABS: AST(SGOT) 43 U/L (15-37); Alanine Aminotransfer ALT/SGPT 76 U/L (16-61); Albumin, Serum 3.8 g/dL (3.2-5.0); Alkaline Phosphatase 80 U/L (45-117); Bilirubin, Direct 0.11 mg/dL (0.00-0.30); Cholesterol 218 mg/dL (200); Globulin 3.7 g/dL (2.2-4.2); High Density Lipoprotein 74 mg/dL; Protein, Total 7.5 g/dL (6.4-8.2); Triglycerides 77 mg/dL; Very Low Density Lipoprotein 15 mg/dL (5-40)
[2021-01-20 11:06] LABS: Amphetamine Urine VISTA NEGATIVE (<1000 ng/mL); Barbiturate Urine VISTA NEGATIVE (< 200 ng/mL); Benzodiazepine Urine VISTA NEGATIVE (< 200 ng/mL); Cocaine Urine VISTA NEGATIVE (< 300 ng/mL); Ecstacy Urine VISTA NEGATIVE (< 500 ng/mL); Methadone Urine VISTA NEGATIVE (< 300 ng/mL); PCP Urine VISTA NEGATIVE (< 25 ng/mL); THC Urine VISTA NEGATIVE (< 50 ng/mL); Vista UDS pH Range 5
== END ==
PROVIDERS: Anesthesiology Pain Medicine; PCP Family Medicine; Referring Provider Internal Medicine Cardiovascular Disease; Visit Provider Internal Medicine Cardiovascular Disease
DX: E78.5 Hyperlipidemia, unspecified (principal); I25.10 Atherosclerotic heart disease of native coronary artery without angina pectoris; F11.20 Opioid dependence, uncomplicated
CPT/HCPCS: 36415; 80061; 80076; 80307

== ENCOUNTER 2021-03-17 10:30 | Outpatient (RCR) | payer OTHER, MEDICARE, SELFPAY ==
[2021-01-08 09:37] VITALS: BMI 25.3
--- NOTE | 2021-02-26 08:53 | HP.PTEVAL_ITS ---
Patient's Visit Information DANA HUBBARD is a 65 year old M referred to Physical Therapy by Dr. Hilary Stacy MD with a diagnosis of back pain and leg weakness.. Date of Evaluation: 02/26/21 Physical Therapist: Tariq Doran, DPT, OCS, CSCS - Visit Plan Frequency: 2x /Week Duration: 4-6 Weeks Plan: 2x/week for 4-6 weeks. Aquatic therapy to start for: 1. stretching of quads, HS, piriformis, hip flexors and gastroc and progress to I. LE and core strength progressing to I pool or gym/HEP depending on pt desire. He has had soft tissue work and stretching in the past which did not help, looking for management of these symptoms with ex as he is inoperable(his words) - Subjective Sees Dr. Stacy for 15 yrs for LBP, now legs getting weak adn heavy. Was in PT 2 yrs ago for cramping. Had 5-6 visits of soft tissue but it did not help for cramping in LE. Has medication ointment that he rubs on legs. Legs feel weak and gettign weaker. Has seen 6 surgeons for LB and has scar tissue and all afraid to do surgery. H/O LB surgery L4 clean out in 1990. Daily pain to 6/10 in LB and down both legs. R leg can be tingly at times. Pain is worse with any activity or inactivity for more than an hour. sleeps 3-4 hours and wakes due to pain or leg cramping. I cans tillw alk but pain is frustrating. Has implant in LB stimulator but it never helped. On disability 14 yrs due to LB. 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 No regualr exercises. Basic ADLs are getting done. has stairs with rail and weak but no problem, slow. - Pain LB and legs Pain Intensity (Out of 10): 5 Pain Intensity Range: 0, 6 - Objective Walks stiff but I without gait deviations, very little spinal movements. Transfers be and chair I. Steps with rail reciprocally adn I. LB AROM ext max limited and painful centrally, flexion max limited and pulling pain legs and LB. SB min limited. LE AROM at joints WFL but leg muscles maximally tight in HS, quads, ITB hip flexors, gastroc/soleus, piriformis. Tender in lumbar paraspinals but not in LE. Decent capillary refill and pedal puse palapable. reflexes 1/3 patella and achilles. Sensation EL WNL to gross lgiht touch today in LE. 90/90 HS test -45 B, quad only allows to about 90 degree knee flexion in prone B. described as pain to stretch these two muscles. + slump, adn SLR for leg pain likely stretching in muscles. - Lumbar compression test. - Balance Scores Functional Gait Assessment Score: 27 % Disability: 10.0000 - Goals Goal 1:: Gets socks adn shoes on without need for shoe horn Goal Time Frame: 4-6 Weeks Goal 2:: I management of leg and back pain and cramping and weakness with pool based ex in community or gym/HEP depending on pt desire. Goal Time Frame: 4-6 Weeks Goal 3:: Pt feel cramping abd back leg pain 50% better at 3/10 at worst and manageable Goal Time Frame: 4-6 Weeks Goal 4:: LEFS 45/80 Goal Time Frame: 4-6 Weeks Goal 5:: Sleep 5 hours without waking. Goal Time Frame: 4-6 Weeks - Rehabilitation Potential Physical Therapy Diagnosis: chronic back pain and leg weakness causing sedentarism and effecting strength adn function. Rehabilitation Potential: Questionable - Anticipated Interventions Patient/Client Instruction: Educate patient on: Condition, Plan of Care For the Purpose of:: To decrease pain, To increase ROM, To improve nutrient delivery to tissue, To improve muscle performance and motor function, To increase tolerance to activity/condition/position Therapeutic Exercise to Include: Strength training, Postural training, Flexibilty training, Gait and locomotor training, In an aquatic setting, Passive ROM, Active ROM For the Purpose of:: To decrease pain, To increase ROM, To improve nutrient delivery to tissue, To improve muscle performance and motor function, To increase tolerance to activity/condition/position, To decrease level of supervision to perform tasks, To improve ability of physical actions for home/community/work/leisure Thank you for the opportunity to evaluate your patient. For Medicare and Medicare HMO plans, please review the plan of care and approve it. It will need to be FAXED BACK to us at [phone] for Medicare purposes. For Medicare only, by signing this I certify the plan of care. Please let me know if there are questions or concerns regarding this plan of care. Physician Signature: Date:
--- NOTE | 2021-04-29 16:38 | HP.PT.NRP ---
DANA HUBBARD was seen in my office for initial evaluation on 02/26/21. The following Plan of Care was established for this patient: Initial Frequency: 2x /Week Initial Duration: 4-6 Weeks Patient/Client Instruction: Educate patient on: Condition, Plan of Care For the Purpose of:: To decrease pain, To increase ROM, To improve nutrient delivery to tissue, To improve muscle performance and motor function, To increase tolerance to activity/condition/position Therapeutic Exercise to Include: Strength training, Postural training, Flexibilty training, Gait and locomotor training, In an aquatic setting, Passive ROM, Active ROM For the Purpose of:: To decrease pain, To increase ROM, To improve nutrient delivery to tissue, To improve muscle performance and motor function, To increase tolerance to activity/condition/position, To decrease level of supervision to perform tasks, To improve ability of physical actions for home/community/work/leisure This patient was last seen in our office 03/17/21. Pertinent comments regarding their Physical therapy will appear below: Pt seen 6 visits of water therapy, cancelled last visit due to some sort of procedure being done. Was to call and continue PT but did not. at this point, it has been over 5 weeks and I willd isocntinue due to nonattendance. At this point I will be discontinuing this patient from physical therapy. I would be happy to see this patient again in the future if found appropriate by the physician. Thank you! Tariq Doran, DPT, OCS, CSCS
== END 2021-03-17 19:00 | disposition home or self-care (01) ==
LOC: PT 10:30
PROVIDERS: PCP Family Medicine; Referring Provider Anesthesiology Pain Medicine; Visit Provider Anesthesiology Pain Medicine
DX: M54.9 Dorsalgia, unspecified (principal); M62.81 Muscle weakness (generalized)
CPT/HCPCS: 97113; 97162

== ENCOUNTER → 2021-06-03 | Outpatient (CLI) | payer OTHER, MEDICARE, SELFPAY ==
[2021-06-03 09:44] VITALS: BMI 25.3
== END | disposition home or self-care (01) ==
LOC: LABSPEC 12:33
PROVIDERS: PCP Family Medicine; Referring Provider Physician Assistant; Visit Provider Physician Assistant
DX: L03.031 Cellulitis of right toe (principal)
CPT/HCPCS: 87070; 87205

== ENCOUNTER 2022-02-03 05:58 | Outpatient (CLI) | payer OTHER, MEDICARE, SELFPAY ==
--- NOTE | 2022-02-03 06:02 | ECHOD_ITS ---
Reason For Study: NONRHEUMATIC MV INSUFFICIENCY Procedure This was a 2D Doppler, Color Flow transthoracic echocardiogram. The study was technically difficult. Exam performed in department. Left Ventricle Normal LV size. Sigmoid septum. Left ventricular systolic function is normal. The estimated ejection fraction is 60 %. No evidence for diastolic dysfunction. No regional wall motion abnormalities noted. Right Ventricle Normal RV size. Normal systolic function. Atria The left atrium is mildly enlarged. Normal right atrium. No doppler evidence for ASD. Mitral Valve There is no mitral annular calcification. Normal mitral valve. Mild (1+) mitral valve insufficiency. Tricuspid Valve Normal tricuspid valve. Mild tricuspid valve insufficiency. Right ventricular systolic pressure estimated to be 27 mmHg. Aortic Valve Trisinus/trileaflet aortic valve. Moderate focal aortic valve calcification. Pulmonic Valve The pulmonic valve is not well visualized. Great Vessels Normal sized aortic root. Pericardium/Pleural No pericardial effusion. MMode/2D Measurements & Calculations LVIDd: 4.4 cm IVSd: 1.0 cm Ao root diam: 3.6 cm LVIDs: 2.7 cm LVPWd: 1.1 cm RVDd: 3.5 cm FS: 39.1 % LAV(MOD-bp): 53.9 ml LA A4 area: 16.8 cm2 LA dimension(2D): 4.2 cm LAV(MOD-bp) Indexed: 27.9 ml/m2 LAV(MOD-sp2): 61.7 ml LAV(MOD-sp4): 47.3 ml RA A4 area: 17.9 cm2 Time Measurements MV dec time: 0.24 sec Doppler Measurements & Calculations MV E max abhi: 51.4 cm/sec Lat Peak E' Abhi: 10.5 cm/sec Med Peak E' Abhi: 5.6 cm/sec MV A max abhi: 67.0 cm/sec E/E' lat: 4.9 E/E' med: 9.2 MV E/A: 0.77 Ao V2 max: 122.1 cm/sec LV V1 max: 71.3 cm/sec PA V2 max: 64.9 cm/sec Ao max P.0 mmHg LV V1 max P.0 mmHg TR max abhi: 241.6 cm/sec TR max P.5 mmHg ECHO/Echo Complete Interpretation Summary The study was technically difficult. Left ventricular systolic function is normal. The estimated ejection fraction is 60 %. Sigmoid septum. The left atrium is mildly enlarged. Mild (1+) mitral valve insufficiency. Mild tricuspid valve insufficiency. Moderate focal aortic valve calcification. Right ventricular systolic pressure estimated to be 27 mmHg. No evidence for diastolic dysfunction. Ordering Physician: Jane Johnston Referring Physician: Eugenio Olmstead Performed By: Rojelio, Keli, RDCS, RVT
--- NOTE | 2022-02-03 09:11 | STRESSREP_ITS ---
Stress Test Report Date: 02-03-2022 Procedure: Exercise tolerance test/imaging study Indications: CAD; PSVT; status post EPS/RFA Consent: Per the patient Procedure: The patient exercised on a Jaron protocol for 8 minutes completing Stage II and 2 minutes of Stage III achieving a peak heart rate of 148 bpm (95% predicted maximal heart rate) with a peak blood pressure 170/72 mmHg and a peak MET capacity of 10 METs. The baseline ECG demonstrated sinus bradycardia. The peak exercise ECG demonstrated somatic/motion artifact with no obvious ECG changes. There were occasional PACs during exercise and recovery. The functional capacity was considered good. There was no complaint of chest discomfort during exercise or recovery. The examination was discontinued secondary to back discomfort. Impression: 1. Technically adequate (percent predicted maximal heart rate greater than 85%) exercise tolerance test 2. Peak exercise ECG with somatic/motion artifact with no obvious ECG changes 3. There were occasional PACs during exercise and recovery 4. Nuclear images pending Myocardial perfusion imaging study: Technique: The patient was injected with 11.8 mCi of technetium 99m Cardiolite and subsequently rest SPECT Cardiolite nuclear imaging was obtained in the horizontal long, vertical long, and short axis views. The patient exercised on a Jaron protocol for 8 minutes completing Stage II and 2 minutes of Stage III achieving a peak heart rate of 148 bpm (95% predicted maximal heart rate) with a peak blood pressure 170/72 mmHg and a peak MET capacity of 10 METs. The patient was injected with 33.1 mCi of technetium 99m Cardiolite and subsequently stress SPECT Cardiolite nuclear imaging was obtained in the horizontal long, vertical long, and short axis views. A gated Cardiolite study at peak stress was obtained. Interpretation: Rest and stress SPECT Cardiolite nuclear imaging status post realignment, normalization, and attenuation correction, demonstrates the appearance of relative uniform tracer uptake and myocardial perfusion appearing within normal limits. There is end systolic thickening and brightening. The gated Cardiolite study demonstrates myocardial thickening and inward wall motion. The reported LVEF is 63%. Impression: 1. Rest and stress SPECT Cardiolite nuclear imaging demonstrate relative uniform tracer uptake and myocardial perfusion appearing within normal limits. 2. The gated Cardiolite study reports an LVEF of 63%. This note was generated with [employer] software. It may contain incorrect words, spelling, and punctuation that were not noted in checking the note before signing.
== END 2022-02-03 23:59 | disposition home or self-care (01) ==
LOC: CVS 06:00
PROVIDERS: PCP Family Medicine; Referring Provider Nurse Practitioner Gerontology; Visit Provider Nurse Practitioner Gerontology
DX: I25.10 Atherosclerotic heart disease of native coronary artery without angina pectoris (principal)
CPT/HCPCS: 78452; 93017; 93306; A9500; A4216

== ENCOUNTER 2022-02-09 07:02 | Outpatient (CLI) | payer OTHER, MEDICARE, SELFPAY ==
--- NOTE | 2022-02-09 07:19 | MRI_ITS ---
STUDY: MRI LUMBAR SPINE WITHOUT CONTRAST REASON FOR EXAM: Male, 66 years old. Low back pain and swelling. TECHNIQUE: Standardized fat and water weighted pulse sequences were obtained in the sagittal and axial planes. COMPARISON: Postmyelogram CT of the lumbar spine 05/27/2019. FINDINGS: T11-T12 and T12-L1: (Sagittal only). Normal endplates. Normal disc height, hydration and morphology. No ventral extradural defects. Normal central canal and bilateral intervertebral neural foramina. Normal lumbar lordosis. There is no substantial scoliosis. Normal conus medullaris that terminates at the T12-L1 disc space level. L1-2: Normal endplates. Normal disc height, hydration and morphology. Normal bilateral facet joints. Normal central canal and bilateral lateral recesses. Normal bilateral intervertebral neural foramina. L2-3: Normal endplates. Normal disc height, hydration and morphology. Normal bilateral facet joints. Normal central canal and bilateral lateral recesses. Normal bilateral intervertebral neural foramina. L3-4: Normal endplates. Mild disc space height narrowing. Minimal degenerative retrolisthesis of L3 on L4 is unchanged. Mild bilateral degenerative facet arthropathy. Moderate central canal stenosis with an AP canal diameter of 8.1 mm, previously 9.6 mm. Normal bilateral lateral recesses. Normal bilateral intervertebral neural foramina. L4-5: Normal endplates. Moderate disc space height narrowing. Mild left degenerative facet arthropathy. Normal right facet joint. Mild central canal stenosis with an AP canal diameter, previously 1.5 cm. Normal bilateral lateral recesses. Mild asymmetric degenerative facet arthropathy. Normal bilateral intervertebral neural foramina. L5-S1: Normal endplates. Pronounced disc space height narrowing. Minimal degenerative retrolisthesis of L5 on S1. Mild central canal stenosis with an AP canal diameter 10 mm, previously 13 mm. Normal bilateral lateral recesses. Mild bilateral degenerative facet arthropathy. Normal bilateral intervertebral neural foramina. Normal visualized sacral ala. Normal visualized paraspinous soft tissue structures. MRI/Spine Lumbar (Routine) IMPRESSION: 1. Moderate central canal stenosis at L3-L4 disc space level with an AP canal diameter of 8.1 mm, previously 9.6 mm. Minimal degenerative retrolisthesis of L3 on L4 is unchanged. 2. Mild central canal stenosis at L4-L5 disc space level with an AP canal diameter of 10 mm, previously 15 mm. 3. Mild central canal stenosis at L5-S1 disc space level with an AP canal diameter 10 mm, previously 13 mm. 4. No MRI evidence of lumbar extruded disc fragment. Electronically Signed: Brian Mejía MD at 14:30 EDT ,
== END 2022-02-09 23:59 | disposition home or self-care (01) ==
LOC: MRI 07:03
PROVIDERS: PCP Family Medicine; Referring Provider Anesthesiology Pain Medicine; Visit Provider Anesthesiology Pain Medicine
DX: M51.16 Intervertebral disc disorders with radiculopathy, lumbar region (principal); M54.50 Low back pain, unspecified
CPT/HCPCS: 72148

== ENCOUNTER → 2022-07-06 | Outpatient (CLI) | payer OTHER, MEDICARE, SELFPAY ==
[2022-07-06 11:22] LABS: Amphetamine Urine VISTA NEGATIVE (<1000 ng/mL); Barbiturate Urine VISTA NEGATIVE (< 200 ng/mL); Benzodiazepine Urine VISTA NEGATIVE (< 200 ng/mL); Cocaine Urine VISTA NEGATIVE (< 300 ng/mL); Ecstacy Urine VISTA NEGATIVE (< 500 ng/mL); Methadone Urine VISTA NEGATIVE (< 300 ng/mL); PCP Urine VISTA NEGATIVE (< 25 ng/mL); THC Urine VISTA NEGATIVE (< 50 ng/mL); Vista UDS pH Range 6
== END | disposition home or self-care (01) ==
LOC: LAB 09:55
PROVIDERS: PCP Family Medicine; Referring Provider Anesthesiology Pain Medicine; Visit Provider Anesthesiology Pain Medicine
DX: F11.20 Opioid dependence, uncomplicated (principal)
CPT/HCPCS: 80307

== ENCOUNTER → 2023-05-10 | Outpatient (CLI) | payer OTHER, MEDICARE, SELFPAY ==
[2023-05-10 10:53] LABS: Amphetamine Urine VISTA NEGATIVE (<1000 ng/mL); Barbiturate Urine VISTA NEGATIVE (< 200 ng/mL); Benzodiazepine Urine VISTA NEGATIVE (< 200 ng/mL); Cocaine Urine VISTA NEGATIVE (< 300 ng/mL); Ecstacy Urine VISTA NEGATIVE (< 500 ng/mL); Methadone Urine VISTA NEGATIVE (< 300 ng/mL); PCP Urine VISTA NEGATIVE (< 25 ng/mL); THC Urine VISTA NEGATIVE (< 50 ng/mL); Vista UDS pH Range 6
== END | disposition home or self-care (01) ==
PROVIDERS: PCP Family Medicine; Referring Provider Anesthesiology Pain Medicine; Visit Provider Anesthesiology Pain Medicine
DX: F11.20 Opioid dependence, uncomplicated (principal)
CPT/HCPCS: 80307

== ENCOUNTER → 2023-07-20 | Outpatient (CLI) | payer OTHER, MEDICARE, SELFPAY ==
[2023-07-20 08:25] LABS: Absolute Lymphocyte Count 1.69 X10^3/uL (0.83-4.51); Absolute Neutrophil Count 1.1 X10^3/uL (2.0-7.7); Basophil# 0.04 X10^3/uL; Basophil% 1.3 % (0-1); Eosinophils% 3.2 % (0-5); Hemoglobin 16.3 g/dL (13.0-16.5); Lymphocyte # 1.69 X10^3/ul (0.83-4.51); Lymphocyte % 53.8 % (19-41); Mean Corp Hgb Conc 35.4 g/dL (32-36); Mean Corpuscular Hgb 32.9 pg (27.0-32.0); Mean Corpuscular Volume 92.9 fL (80-94); Mean Platelet Vol. 11.6 fl (6.2-12.0); Monocyte# 0.24 X10^3/uL; Monocyte% 7.6 % (0-10); NRBC Flagged by Analyzer 0 % (0-5); Neutrophil # 1.07 X10^3/uL (2.7-7.7); Neutrophil % 34.1 % (47-70); Platelet Count 114 K/mm3 (150-450); RBC Distribution Width CV 13.2 % (11.6-14.6); RBC Distribution Width SD 44.9 fl (35.1-43.9); Red Blood Count 4.95 M/mm3 (4.6-6.2); White Blood Count 3.1 K/mm3 (4.4-11.0)
[2023-07-20 08:54] LABS: Hemoglobin A1c 5.9 % (3.8-5.6)
[2023-07-20 09:04] LABS: AST(SGOT) 66 U/L (15-37); Alanine Aminotransfer ALT/SGPT 90 U/L (16-61); Albumin, Serum 3.7 g/dL (3.2-5.0); Alkaline Phosphatase 72 U/L (45-117); Anion Gap 4 (5-15); BUN 8 mg/dL (7-18); BUN/Creat Ratio 9.1 RATIO (10-20); Calcium,Total 9.8 mg/dL (8.5-10.1); Chloride 105 mmol/L (98-107); Cholesterol 185 mg/dL (200); Creatinine, Serum 0.88 mg/dL (0.70-1.30); EST Glomerular Filtration Rate 91 mL/min (>60); Est Glom Filt Rate - Afr Amer 111 mL/min (>60); Globulin 3.6 g/dL (2.2-4.2); Glucose 138 mg/dL (74-106); High Density Lipoprotein 64 mg/dL; PSA,Total - Annual Screen 0.21 ng/mL (0.00-4.00); Potassium 4.1 mmol/L (3.5-5.1); Protein, Total 7.3 g/dL (6.4-8.2); Sodium Level 141 mmol/L (136-145); Triglycerides 91 mg/dL; Very Low Density Lipoprotein 18 mg/dL (5-40)
== END | disposition home or self-care (01) ==
LOC: LAB 07:50
PROVIDERS: PCP Family Medicine; Referring Provider Family Medicine; Visit Provider Family Medicine
DX: Z00.00 Encounter for general adult medical examination without abnormal findings (principal); R73.01 Impaired fasting glucose
CPT/HCPCS: 36415; 80053; 80061; 83036; 84153; 85025; G0103

== ENCOUNTER → 2023-09-04 | Outpatient (CLI) | payer OTHER, MEDICARE, SELFPAY ==
--- NOTE | 2023-09-04 07:44 | CDU_ITS ---
Reason For Study: Reassess carotid disease, Left bruit Rt. Velocities/BP Lt. Velocities/BP Prox CCA 73/9.7 cm/sec. Prox CCA 87.2/14.5 cm/sec. Mid CCA 70.2/9.7 cm/sec. Mid CCA 67.4/11.6 cm/sec. Dist CCA 59.8/11.6 cm/sec. Dist CCA 72.1/11.6 cm/sec. Prox ICA 60.7/14.5 cm/sec. Prox ICA 89.1/22 cm/sec. Mid ICA 60.7/11.6 cm/sec. Mid ICA 87.2/24.5 cm/sec. Dist ICA 71.1/19.2 cm/sec. Dist ICA 67.4/19 cm/sec. Rt. ICA/CCA = 1.01. Lt. ICA/CCA = 1.24. Prox ECA 74/6.9 cm/sec. Prox ECA 87.2/11.6 cm/sec. Lt. Vert. 66.3/11.3 cm/sec. Right Extracranial There is homogeneous, smooth atherosclerotic plaque noted in the right common carotid artery. There is heterogeneous, irregular atherosclerotic plaque noted in the right internal carotid artery. There is homogeneous, smooth atherosclerotic plaque noted in the right external carotid artery. Retrograde flow noted in the right vertebral artery. Left Extracranial There is homogeneous, smooth atherosclerotic plaque noted in the left common carotid artery. There is heterogeneous, irregular atherosclerotic plaque noted in the left internal carotid artery. There is heterogeneous, irregular atherosclerotic plaque noted in the left external carotid artery. Antegrade flow is noted in the left vertebral artery. Procedure Carotid Duplex [id number]. This is a Carotid Duplex examination using B-mode, color flow and specral Doppler. Exam performed in department. VL/Carotid Duplex Ultrasound Interpretation Summary Mild (<50%) stenosis right extracranial internal carotid. Mild (<50%) stenosis left extracranial internal carotid. The Right vertebral flow is retrograde. The Left vertebral is patent and antegrade Ordering Physician: Erick Gonzalez Referring Physician: Erikc Gonzlaez Performed By: Vaihsnavi Mc T
== END | disposition home or self-care (01) ==
LOC: CVS 07:44
PROVIDERS: PCP Family Medicine; Referring Provider Family Medicine; Visit Provider Family Medicine
DX: I65.23 Occlusion and stenosis of bilateral carotid arteries (principal)
CPT/HCPCS: 93880

== ENCOUNTER → 2023-11-27 | Outpatient (CLI) | payer OTHER, MEDICARE, SELFPAY ==
--- OUTSIDE RECORDS SUMMARY | 2023-11-27 07:22 | XMS RPT_ITS | CCD ---
Author Name Unknown Address [address] [place] [address] Organization [facility] Care Team Providers Care Home Companion Name Role Phone Jackie Carlin Unavailable Unavailable Denise Ford Unavailable Unavailable Josiah PEREZ, Jesus Pabon Unavailable JESUS LY JR Unavailable Unavail able Jackie Carlin Unavailable Unavailable Aysha PEREZ, Anna Dailey Primary Care Provider GIACOMO EPSTEIN Attending Unavailab ANNA Ambrosio Primary Care Unavailable GIACOMO EPSTEIN Referring Unavailab ANNA Ambrosio Primary Care Unavailable GIACOMO EPSTEIN Attending Unavailab ANNA Ambrosio Primary Care Unavailable GIACOMO EPSTEIN Referring Unavailab ANNA Ambrosio Primary Care Unavailable Allergies Allergy Classification Reported Allergen(s) Allergy Type Date of Onset Reaction(s) Facility (4 sources) Adhesive Tape; Translations: [ADHESIVE BANDAGES] allergy to substance 5 blisters, rash [facility] Work Phone: (2 sources) Adhesive Tape; Translations: [ADHESIVE TAPE (ROSINS)] Propensity to adverse reactions (disorder) 6 AOF [facility] Other [facility] Medications Completed/Discontinued Medications Medication Drug Class(es) Dates Sig (Normalized) Sig (Original) amLODIPine 2.5 mg oral tablet (6 sources) Dihydropyridine Calcium Channel Andres Start: 03-11-2021 amLODIPine (NORVASC) 2.5 mg tablet aspirin 81 mg oral tablet (14 sources) Nonsteroidal Anti-inflammatory Drug Start: 10-02-2015 take 1 tablet by mouth once daily ASPIRIN 81 MG TABS One tablet by mouth daily ASPIRIN [id number] Katerine Suresh RN Problems Active Problems Problem Classification Problem Date Documented Date Episodic/Chronic Alcohol-related disorders (10 sources) Alcohol abuse; Translations: [Alcohol abuse, uncomplicated] Onset: 04-09-2012 10-02-2015 Chronic Cardiac dysrhythmias (4 sources) Supraventricular tachycardia; Translations: [Supraventricular tachycardia] Onset: 10-02-2015 10-02-2015 Chronic Coronary atherosclerosis and other heart disease (14 sources) Atherosclerotic heart disease of [place] coronary artery without angina pectoris; Translations: [Coronary arteriosclerosis] Onset: 10-02-2015 06-15-2016 Chronic Disorders of lipid metabolism (10 sources) Hyperlipidemia; Translations: [Mixed hyperlipidemia] Onset: 02-27-2009 10-02-2015 Chronic Essential hypertension (10 sources) Hypertensive disorder; Translations: [Benign essential hypertension] Onset: 02-27-2009 10-02-2015 Chronic Heart valve disorders (4 sources) H/O: artificial heart valve; Translations: [Old myocardial infarction] Onset: 10-02-2015 10-02-2015 Chronic Hypertension with complications and secondary hypertension (4 sources) Hypertension secondary to endocrine disorder; 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] Onset: 12-10-2015 12-10-2015 Chronic Miscellaneous mental health disorders (6 sources) Psychalgia; 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] Onset: 05-15-2014 05-15-2014 Chronic Other connective tissue disease (2 sources) Tendinitis of left elbow; Translations: [Other enthesopathies, not elsewhere classified] Episodic Other connective tissue disease (2 sources) Lateral epicondylitis of left humerus; Translations: [Lateral epicondylitis, left elbow] Episodic Other connective tissue disease (1 source) Other enthesopathies, not elsewhere classified; Translations: [Left elbow tendinitis] Onset: 03-22-2023 Episodic Other non-traumatic joint disorders (2 sources) Pain in elbow; Translations: [Pain in left elbow] Episodic Other non-traumatic joint disorders (1 source) Pain in left elbow; Translations: [Left elbow pain] Onset: 02-23-2023 Episodic Spondylosis; intervertebral disc disorders; other back problems (14 sources) Unspecified thoracic, thoracolumbar and lumbosacral intervertebral disc disorder; Translations: [Other intervertebral disc displacement, lumbar region] Onset: 06-23-2010 06-23-2010 Chronic Past or Other Problems Problem Classification Problem Date Documented Date Episodic/Chronic Diabetes mellitus without complication (6 sources) Impaired fasting glycemia; Translations: [Impaired fasting glucose] Onset: 01-21-2011 11-15-2021 Episodic Other nervous system disorders (6 sources) Tremor; Translations: [Tremor, unspecified] Onset: 09-13-2011 11-15-2021 Episodic Other screening for suspected conditions (not mental disorders or infectious disease) (6 sources) Liver function tests abnormal; Translations: [Abnormal results of liver function studies] Onset: 02-27-2009 06-23-2010 Episodic Residual codes; unclassified (1 source) Chews tobacco ; Translations: [Nicotine dependence, chewing tobacco, uncomplicated] Onset: 10-02-2015 10-02-2015 Episodic Residual codes; unclassified (6 sources) Family history of ischemic heart disease; Translations: [Family history of ischemic heart disease and other diseases of the circulatory system] Onset: 06-23-2010 06-23-2010 Episodic Residual codes; unclassified (6 sources) History of radiofrequency ablation operation for arrhythmia; Translations: [Other specified postprocedural states] Onset: 12-21-2015 04-07-2021 Episodic Sprains and strains (6 sources) Strain of muscle at thorax level; Translations: [Strain of muscle and tendon of unspecified wall of thorax, initial encounter] Onset: 11-30-2015 11-30-2015 Episodic Unclassified (7 sources) Family history of ischemic heart disease and other diseases of the circulatory system; Translations: [Chews tobacco ] Onset: 10-02-2015 10-29-2015 Episodic Results Test Name Value Interpretation Reference Range Facil ity Vital Signs Date Time Vital Sign Value Performing Clinician Jose taylor 05-15-2017 16:07-0400 BMI (Body Mass Index) 25.24 kg/m2 [facility] Work Phone: 05-15-2017 16:07-0400 BP Diastolic 70 mm[Hg] [facility] Work Phone: 05-15-2017 16:07-0400 BP Systolic 152 mm[Hg] [facility] Work Phone: 05-15-2017 16:07-0400 Height 180.34 cm Melisaalejandro Carlin [facility] Work Phone: 05-15-2017 16:07-0400 Pulse (Heart Rate) 56 /min Jackie Tesfaye [facility] Work Phone: 05-15-2017 16:07-0400 Respiratory Rate 16 /min Jackie Carlin [facility] Work Phone: 05-15-2017 16:07-0400 Weight 82.1 kg Melisaalejandro Marquezz [facility] Work Phone: 11-09-2016 15:36-0500 BMI (Body Mass Index) 25.66 kg/m2 Jesus Rahman MD [facility] Work Phone: 11-09-2016 15:36-0500 BP Diastolic 68 mm[Hg] Jesus Rahman MD [facility] Work Phone: 11-09-2016 15:36-0500 BP Systolic 152 mm[Hg] Jesus Rahman MD [facility] Work Phone: 11-09-2016 15:36-0500 BSA (Body Surface Area) 2.04 m2 Jesus Rahman MD [facility] Work Phone: 11-09-2016 15:36-0500 Pulse (Heart Rate) 60 /min [facility] Work Phone: 11-09-2016 15:36-0500 Respiratory Rate 16 /min Jesus Rahman MD [facility] Work Phone: 11-09-2016 15:36-0500 Weight 83.46 kg Jesus [facility] Work Phone: 03-11-2016 09:48-0400 Heart rate 56 /min Jackie Carlin [facility] Work Phone: 10-29-2015 13:00-0500 Height 180.34 cm [facility] Work Phone: Encounters Encounter Date Encounter Type Care Provider Facility Start: 04-19-2023 End: 04-19-2023 ambulatory GIACOMO EPSTEIN Facility:[facility] Start: 04-19-2023 End: 04-19-2023 Patient encounter procedure Giacomo Epstein DO Work Phone: Orthopaedics Procedures Date Procedure Procedure Detail Performing Clinician Start: 03-22-2023 Mri any jt upper ext remity w/o contrast matrl Giacomo Minhectormartín DO Work Phone: Start: 02-23-2023 Radex elbow 2 views Lesli Minhectormartín DO Work Phone: Start: 05-15-2017 End: 05-15-2017 Dietary management education, guidance, and counseling Jackie Carlin Start: 11-09-2016 End: 11-09-2016 Follow Up Appt 6 months Jesus Rahman MD Start: 11-09-2016 End: 11-09-2016 PFM Jesus Rahman MD Start: 06-17-2016 End: 06-17-2016 Follow Up Appt 4 months Jesus Rahman MD Start: 06-17-2016 End: 06-17-2016 MMM Jesus Rahman MD Start: 03-11-2016 End: 03-11-2016 Electrocardiogram, complete Jesus conde MD Start: 03-11-2016 End: 03-11-2016 Follow Up Appt 3 months Jesus Rahman MD Start: 03-11-2016 End: 06-17-2016 Follow Up Appt Other Jesus Rahman MD Start: 03-11-2016 End: 03-11-2016 MMM Jesus Rahman MD Start: 02-10-2016 Lipid 1996 panel - S tim or Plasma [facility] Work Phone: Start: 12-21-2015 End: 06-17-2016 Cardiac Referral Valarie Banda PA-C Work Phone: Start: 12-16-2015 End: 06-17-2016 Endocrinology Referral Valarie castro PA-C Work Phone: Start: 12-10-2015 End: 12-10-2015 Follow Up Appt 3 months Valarie diallo PA-C Work Phone: Start: 12-10-2015 End: 12-10-2015 Follow Up Appt 6 months Valarie diallo PA-C Work Phone: Start: 12-10-2015 End: 12-10-2015 Follow Up Appt Other Valarie antoine PA-C Work Phone: Start: 12-10-2015 End: 12-10-2015 MMM Valarie Banda PA-C Work Phone: Start: 12-10-2015 End: 12-10-2015 PFM Valarie Banda PA-C Work Phone: Start: 10-29-2015 End: 10-29-2015 Follow Up Appt 6 weeks Jesus Rahman MD Start: 10-29-2015 End: 12-01-2015 Follow Up Appt Other Jesus Rahman MD Start: 10-29-2015 End: 10-29-2015 MMM Jesus Rahman MD Start: 10-29-2015 End: 12-01-2015 Renal doppler Jesus Rahman MD Start: 06-23-2010 Colonoscopy Giacomo weems DO Work Phone: Plan of Treatment Date Care Activity Detail Author Start: 06-03-2031 Urine microalbumin profile DTaP,Tdap,Td Vaccine (4 - Td or Tdap) [facility] Start: 07-21-2023 Covid-19 Vaccine () Covid-19 Vaccine () [facility] Start: 07-21-2023 Influenza vaccination [facility] Start: 11-20-2022 ADVANCE DIRECTIVE DISCUSSION ADVANCE DIRECTIVE DISCUSSION [facility] Start: 11-20-2022 DEPRESSION ASSESSMENT DEPRESSION ASSESSMENT [facility] Start: 07-21-2022 Influenza vaccination INFLUENZA (#1) [facility] Start: 04-21-2021 COVID-19 VACCINE (3 - Booster for Moderna series) COVID-19 VACCINE (3 - Booster for Moderna series) [facility] Start: 02-09-2021 Lipid 1996 panel - Serum or Plasma Lipid Screening [facility] Start: 02-09-2021 LIPID SCREEN LIPID SCREEN [facility] Start: 02-09-2019 DIABETES SCREEN DIABETES SCREEN [facility] Start: 02-09-2019 Diabetes Screening Diabetes Screening [facility] Start: 12-25-2017 End: 12-25-2017 Appointment Appointment [facility] Work Phone: Start: 05-15-2017 End: 05-15-2017 Appointment Appointment [facility] Work Phone: Start: 05-15-2017 End: 05-15-2017 PFM PFM [facility] Work Phone: Start: 05-04-2017 End: 05-04-2017 Appointment Appointment [facility] Work Phone: Start: 02-09-2017 Hepatitis B surface antibody level LDL CHOLESTEROL [facility] Start: 11-09-2016 End: 11-09-2016 Follow Up Appt 6 months Follow Up Appt 6 months [facility] Work Phone: Start: 11-09-2016 End: 11-09-2016 PFM PFM [facility] Work Phone: Start: 09-07-2016 PROSTATE CANCER SCREENING DISCUSSION PROSTATE CANCER SCREENING DISCUSSION [facility] Start: 06-17-2016 End: 06-17-2016 Follow Up Appt 4 months Follow Up Appt 4 months [facility] Work Phone: Start: 06-17-2016 End: 06-17-2016 MMM MMM [facility] Work Phone: Start: 2016 RSV Vaccine (1 - 1-dose 60+ series) RSV Vaccine (1 - 1-dose 60+ series) [facility] Start: 03-11-2016 End: 03-11-2016 Electrocardiogram, complete EKG (In office) [facility] Work Phone: Start: 03-11-2016 End: 03-11-2016 Follow Up Appt 3 months Follow Up Appt 3 months [facility] Work Phone: Start: 03-11-2016 End: 06-17-2016 Follow Up Appt Other Follow Up Appt Other [facility] Work Phone: Start: 03-11-2016 End: 03-11-2016 MMM MMM [facility] Work Phone: Start: 12-21-2015 End: 12-21-2015 Cardiac Referral Cardiac Referral Norman Holman DO, [address], [place], [address] [facility] [employer] Work Phone: Start: 12-16-2015 End: 12-16-2015 Endocrinology Referral Endocrinology Referral [facility], [address], [place], [address] [facility] [employer] Work Phone: Start: 12-10-2015 End: 12-10-2015 Follow Up Appt 3 months Follow Up Appt 3 months [facility] Work Phone: Start: 12-10-2015 End: 12-10-2015 Follow Up Appt 6 months Follow Up Appt 6 months [facility] Work Phone: Start: 12-10-2015 End: 12-10-2015 Follow Up Appt Other Follow Up Appt Other [facility] Work Phone: Start: 12-10-2015 End: 12-10-2015 MMM MMM [facility] Work Phone: Start: 12-10-2015 End: 12-10-2015 PFM PFM [facility] Work Phone: Start: 10-29-2015 End: 10-29-2015 Follow Up Appt 6 weeks Follow Up Appt 6 weeks [facility] Work Phone: Start: 10-29-2015 End: 12-01-2015 Follow Up Appt Other Follow Up Appt Other [facility] Work Phone: Start: 10-29-2015 End: 10-29-2015 MMM MMM [facility] Work Phone: Start: 10-29-2015 End: 10-29-2015 Renal doppler Renal doppler [facility] Work Phone: Start: 06-23-2011 Colonoscopy COLONOSCOPY [facility] Start: 06-23-2011 COLORECTAL CANCER SCREENING COLORECTAL CANCER SCREENING [facility] Start: 06-23-2011 Pneumococcal Vaccine: 65+ (2 - PCV) Pneumococcal Vaccine: 65+ (2 - PCV) [facility] Start: 06-23-2011 PNEUMOCOCCAL: 65+ (2 - PCV) PNEUMOCOCCAL: 65+ (2 - PCV) [facility] Start: 2006 SHINGRIX VACCINE (1 of 2) SHINGRIX VACCINE (1 of 2) [facility] Start: 2001 COLOGUARD (FIT-DNA) COLOGUARD (FIT-DNA) [facility] Start: [address] COLONOGRAPHY [facility] Start: 2001 FECAL OCCULT BLOOD FECAL OCCULT BLOOD [facility] Start: 2001 SIGMOIDOSCOPY SIGMOIDOSCOPY [facility] Start: 1975 Urine microalbumin profile DTAP,TDAP,TD (1 - Tdap) [facility] Start: 1974 ANNUAL PCP TEAM CHRONIC DISEASE VISIT ANNUAL PCP TEAM CHRONIC DISEASE VISIT [facility] Start: 1974 BP CONTROLLED (<130/80) BP CONTROLLED (<130/80) [facility] Start: 1974 HEPATITIS C SCREENING HEPATITIS C SCREENING [facility] End: 03-24-2024 MRI ELBOW WO IVCON LEFT MRI ELBOW WO IVCON LEFT Radiology Routine Left elbow tendinitis 1 Occurrences starting 02/23/2023 until 03/24/2024 [facility] Work Phone: Immunizations Immunization Date Immunization Notes Care Provider Gordo santos 09-16-2015 influenza virus vacc ine, unspecified formulation [facility] Work Phone: [facility] 06-23-2010 pneumococcal polysaccharide vaccine, 23 valent Giacomo Epstein DO Work Phone: [facility] Work Phone: Payers Date Payer Category Payer Unknown MMO MMO [employer] PPO [id number] 2019-Present [phone] [address] [place] [address] PPO [id number] 2019 Unknown [id number] 2006 Medicare MEDICARE MEDICAR E A AND B [id number] 2006-Present [phone] [address] [address] [place] [address] Medicare [id number] 2006 Medicare [id number] Social History Date Type Detail Facility Start: 02-09-2016 End: 04-19-2023 Tobacco smoking status NHIS Never smoked tobacco [facility] Start: 02-09-2016 End: 04-19-2023 Tobacco use and exposure User of smokeless tobacco [facility] History of tobacco use Chews Tobacco [facility] Start: 04-07-2021 End: 02-23-2023 Alcohol intake Current non-drinker of alcohol (finding) [facility] Start: 02-09-2016 End: 04-19-2023 Tobacco Comment Socially [facility] Start: 04-07-2021 Alcohol Comment non-alcoholic beers, no alcohol since 2015 [facility] Start: 1955 Sex Assigned At Not on file [facility] Start: 02-23-2023 History of Social function [facility] Start: 02-23-2023 Tobacco use panel [facility] National Score (1-10 0), lower number is lower risk 48 [facility] Clinical Notes 04-08-2021 to 04-19-2023 Giacomo Epstein, DO - 04/19/2023 9:55 AM Christianne May, RT(R) - 03/22/2023 8:40 AM Giovannijared Loera Lucian, DO - 02/23/2023 1:02 PM Michaelle Patel RT(R) - 02/23/2023 12:50 PM EDT Note Date & Type Note Facility 04-19-2023 Note HNO ID: [id number] Author: Giacomo Epstein, Service: ? Author Type: Physician Type: Progress Notes Filed: 04/19/2023 6:10 PM Note Text: Follow Up Visit Chief Complaint Dana Hubbard is a 68 year old male who presents today for follow up office visit. Patient presents with: Left Elbow - Pain, Follow Up History of Present Illness PAIN EVALUATION 04/19/2023 0953 Pain Level: 1 Pain Location: Elbow-Left Description: Aching Duration Amount of Time: -- ongoing Frequency: Intermittent Intervention/Comfort measure: -- CSI HPI: Dana Hubbard is a 68 year old male for a follow up visit left elbow pain. Patient is here to go over MRI results and discuss surgical options. Received cortisone injection at an outside facility in june and has given relief but is starting to have some pain. Pain history is noted as above. Is there any overall improvement in your condition? Yes, cortisone injection Any new injury, since being seen last: No REVIEW OF SYMPTOMS: Patient did not have, and does not currently have, any weight loss, malaise, fever, chills, headache, chest pain, chest pressure, palpitations, cough, shortness of breath, orthopnea, paroxsymal nocturnal dyspnea, nausea, vomiting, diarrhea, constipation, melena, hematochezia, urinary difficulties, prolonged bleeding, easily bruising, heat or cold intolerance, new onset joint pain or swelling, new onset extremity weakness or numbness, new onset auditory or visual disturbances, lightheadedness, dizziness, partial loss of consciousness or full loss of consciousness. Current Outpatient Medications Medication Sig diazePAM (VALIUM) 2 mg tablet Take 1 tablet by mouth every 6 hours as needed for up to 3 doses. methocarbamol (ROBAXIN) 500 mg tablet gabapentin (NEURONTIN) 300 mg capsule Take 300 mg by mouth as needed. ezetimibe (ZETIA) 10 mg tablet amLODIPine (NORVASC) 2.5 mg tablet Multivitamin capsule Take 1 capsule by mouth once daily. melatonin 3 mg Take 3 mg by mouth daily at bedtime. PRN TENS Units jonathon Hydromorphone (EXALGO) 12 mg ER TABLET Take 12 mg by mouth every 24 hours. COMPOUNDED PRESCRIPTION Back stimulator ramipril (ALTACE) 10 mg capsule Take 10 mg by mouth once daily. ASPIRIN 81 MG TAB Take one(1) tablet daily. meloxicam (MOBIC) 7.5 mg tablet (Patient not taking: Reported on 02/23/2023) CALCIUM CARBONATE/VITAMIN D3 (VITAMIN D-3 ORAL) Take by mouth. (Patient not taking: Reported on 02/23/2023) Diclofenac Sodium 1.5 % drop (Patient not taking: Reported on 02/23/2023) doxazosin (CARDURA) 1 mg tablet Take 1 tablet by mouth daily at bedtime. (Patient not taking: No sig reported) thiamine (VITAMIN B1) 100 mg tablet Take 100 mg by mouth once daily. (Patient not taking: Reported on 02/23/2023) No current facility-administered medications for this visit. Physical Exam Vitals: There were no vitals taken for this visit. Psych: Pleasant, good affect and mood General Appearance: Well appearing, alert, in no acute distress, well-hydrated, well nourished.. Skin: Skin color, texture, turgor normal, no suspicious rashes or lesions. Peripheral Pulses: Normal. Neurologic: Gait normal. Reflexes normal and symmetric. Sensation grossly intact.. Lymph Nodes: No cervical lymphadenopathy, No supraclavicular lymphadenopathy, No axillary lymphadenopathy., and No inguinal lymphadenopathy.. Respiratory: No recent pulmonary infection, hemoptysis, chronic cough, or shortness of breath at rest Rheumatologic: Joint deformities: left elbow pain Right Elbow Exam Right elbow exam is normal. Tenderness The patient is experiencing no tenderness. Range of Motion Extension: normal Flexion: normal Pronation: normal Supination: normal Muscle Strength Pronation: 5/5 Supination: 5/5 Other Erythema: absent Sensation: normal Pulse: present Left Elbow Exam Tenderness The patient is experiencing tenderness in the lateral epicondyle. Range of Motion Extension: abnormal Flexion: abnormal Pronation: normal Supination: normal Muscle Strength Pronation: 5/5 Supination: 5/5 Other Erythema: absent Sensation: normal Pulse: present Comments: Pain with resisted wrist extension Assessment and Plan Radiographs: I have independently reviewed films and my findings are the same. and I have reviewed the images with the patient and family. 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 Insertional triceps enthesitis and trace olecranon bursitis. ... Impression: Encounter Diagnosis ICD-10-CM 1. Lateral epicondylitis of left elbow M77.12 Today, in detail, through a thorough evaluation, we discussed possible etiologies of pain and our plans for further diagnostic and therapeutic interventions. We discussed strat (more content not included)... [facility] 04-19-2023 History of Presen t illness Narrative Images from the original note were not included. Follow Up Visit Chief Complaint Dana Hubbard is a 68 year old male who presents today for follow up office visit. Patient presents with: Left Elbow - Pain, Follow Up History of Present Illness PAIN EVALUATION 04/19/2023 0953 Pain Level: 1 Pain Location: Elbow-Left Description: Aching Duration Amount of Time: -- ongoing Frequency: Intermittent Intervention/Comfort measure: -- CSI HPI: Dana Hubbard is a 68 year old male for a follow up visit left elbow pain. Patient is here to go over MRI results and discuss surgical options. Received cortisone injection at an outside facility in june and has given relief but is starting to have some pain. Pain history is noted as above. Is there any overall improvement in your condition? Yes, cortisone injection Any new injury, since being seen last: No REVIEW OF SYMPTOMS: Patient did not have, and does not currently have, any weight loss, malaise, fever, chills, headache, chest pain, chest pressure, palpitations, cough, shortness of breath, orthopnea, paroxsymal nocturnal dyspnea, nausea, vomiting, diarrhea, constipation, melena, hematochezia, urinary difficulties, prolonged bleeding, easily bruising, heat or cold intolerance, new onset joint pain or swelling, new onset extremity weakness or numbness, new onset auditory or visual disturbances, lightheadedness, dizziness, partial loss of consciousness or full loss of consciousness. Current Outpatient Medications Medication Sig diazePAM (VALIUM) 2 mg tablet Take 1 tablet by mouth every 6 hours as needed for up to 3 doses. methocarbamol (ROBAXIN) 500 mg tablet gabapentin (NEURONTIN) 300 mg capsule Take 300 mg by mouth as needed. ezetimibe (ZETIA) 10 mg tablet amLODIPine (NORVASC) 2.5 mg tablet Multivitamin capsule Take 1 capsule by mouth once daily. melatonin 3 mg Take 3 mg by mouth daily at bedtime. PRN TENS Units jonathon Hydromorphone (EXALGO) 12 mg ER TABLET Take 12 mg by mouth every 24 hours. COMPOUNDED PRESCRIPTION Back stimulator ramipril (ALTACE) 10 mg capsule Take 10 mg by mouth once daily. ASPIRIN 81 MG TAB Take one(1) tablet daily. meloxicam (MOBIC) 7.5 mg tablet (Patient not taking: Reported on 02/23/2023) CALCIUM CARBONATE/VITAMIN D3 (VITAMIN D-3 ORAL) Take by mouth. (Patient not taking: Reported on 02/23/2023) Diclofenac Sodium 1.5 % drop (Patient not taking: Reported on 02/23/2023) doxazosin (CARDURA) 1 mg tablet Take 1 tablet by mouth daily at bedtime. (Patient not taking: No sig reported) thiamine (VITAMIN B1) 100 mg tablet Take 100 mg by mouth once daily. (Patient not taking: Reported on 02/23/2023) No current facility-administered medications for this visit. Physical Exam Vitals: There were no vitals taken for this visit. Psych: Pleasant, good affect and mood General Appearance: Well appearing, alert, in no acute distress, well-hydrated, well nourished.. Skin: Skin color, texture, turgor normal, no suspicious rashes or lesions. Peripheral Pulses: Normal. Neurologic: Gait normal. Reflexes normal and symmetric. Sensation grossly intact.. Lymph Nodes: No cervical lymphadenopathy, No supraclavicular lymphadenopathy, No axillary lymphadenopathy., and No inguinal lymphadenopathy.. Respiratory: No recent pulmonary infection, hemoptysis, chronic cough, or shortness of breath at rest Rheumatologic: Joint deformities: left elbow pain Right Elbow Exam Right elbow exam is normal. Tenderness The patient is experiencing no tenderness. Range of Motion Extension: normal Flexion: normal Pronation: normal Supination: normal Muscle Strength Pronation: 5/5 Supination: 5/5 Other Erythema: absent Sensation: normal Pulse: present Left Elbow Exam Tenderness The patient is experiencing tenderness in the lateral epicondyle. Range of Motion Extension: abnormal Flexion: abnormal Pronation: normal Supination: normal Muscle Strength Pronation: 5/5 Supination: 5/5 Other Erythema: absent Sensation: normal Pulse: present Comments: Pain with resisted wrist extension Assessment and Plan Radiographs: I have independently reviewed films and my findings are the same. and I have reviewed the images with the patient and family. 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 Insertional triceps enthesitis and trace olecranon bursitis. ... Impression: Encounter Diagnosis ICD-10-CM 1. Lateral epicondylitis of left elbow M77.12 Today, in detail, through a thorough evaluation, we discussed possible etiologies of pain and our plans for further diagnostic and therapeutic interventions. We discussed strategies for decreasing pain and improving strength, stability and motion. Patient's questions were answered in detailed. Patient verbalizes understanding and agrees with the treatment plan as discussed. Discussed mri findings, nothing surgical at this point Would do tenjet if symptoms persist or surgery Can call if symptoms return today 11/29 so wouldn't do surgery at this point in time Patient aware and in agreement of plan. All questions answered. Giacomo Epstein D.O. [facility]. documented in this encounter [facility] 03-22-2023 Note HNO ID: [id number] Author: RT Rodrigo(Mahendra) Service: ? Author Type: Technologist Type: Progress Notes Filed: 03/22/2023 8:28 AM Note Text: Radiology Service Progress Note PATIENT NAME: Dana Hubbard DATE OF SERVICE: March 22, 2023 TIME: 8:28 AM PATIENT IDENTITY VERIFICATION COMPLETED USING TWO (2) IDENTIFIERS: Name and Date of confirmed by patient verbally. FALL SCREENING: Has the patient had 2 falls in the last year or 1 fall with injury or currently using an Ambulatory Assistive Device (Walker, Cane, Wheelchair, Crutches, etc.)? No PATIENT GENDER DATA: Male PATIENT RELEVANT IMPLANT DATA REVIEWED: Yes RADIOLOGY DEPARTMENT: MR; Exam(s) Completed: Upper MSK: Elbow, left PERIPHERAL IV DATA: Not applicable SIGNED BY: RT Rodrigo(Mahendra) March 22, 2023 8:28 AM [facility] 03-22-2023 History of Presen t illness Narrative Radiology Service Progress Note PATIENT NAME: Dana Hubbard DATE OF SERVICE: March 22, 2023 TIME: 8:28 AM PATIENT IDENTITY VERIFICATION COMPLETED USING TWO (2) IDENTIFIERS: Name and Date of confirmed by patient verbally. FALL SCREENING: Has the patient had 2 falls in the last year or 1 fall with injury or currently using an Ambulatory Assistive Device (Walker, Cane, Wheelchair, Crutches, etc.)? No PATIENT GENDER DATA: Male PATIENT RELEVANT IMPLANT DATA REVIEWED: Yes RADIOLOGY DEPARTMENT: MR; Exam(s) Completed: Upper MSK: Elbow, left PERIPHERAL IV DATA: Not applicable SIGNED BY: RT Rodrigo(Mahendra) March 22, 2023 8:28 AM documented in this encounter [facility] 02-23-2023 Note HNO ID: [id number] Author: Giacomo Epstein, DO Service: ? Author Type: Physician Type: Progress Notes Filed: 02/23/2023 3:46 PM Note Text: Reason for Visit/Chief Complaint Dana Hubbard is a 67 year old male who presents today for a new evaluation of following complaint: Patient presents with: Left Elbow - Pain History of Present Illness: PAIN EVALUATION 02/23/2023 1307 Pain Level: 3 Pain Location: Elbow-Left Description: Sharp Duration Amount of Time: 2 Duration Units: Years Frequency: Intermittent HPI: Dana Hubbard is a 67 year old male presenting today with L elbow pain. Pt has sharp pain off and on for a few years. Has had at least 3 injections in L elbow previously with Dr. Esptein at [facility]. Pt states pain does not disrupt daily activities at this time. Pain history is noted as above. Xray done today. Previous Treatments: Ice: No Heat: No Brace: Yes, uses brace when doing housework NSAIDs: Yes, ibuprofen PRN Injections: Yes, Surgeries: No Physical Therapy: Yes, did PT about 2 years ago Review of Systems: Patient did not have, and does not currently have, any weight loss, malaise, fever, chills, headache, chest pain, chest pressure, palpitations, cough, shortness of breath, orthopnea, paroxsymal nocturnal dyspnea, nausea, vomiting, diarrhea, constipation, melena, hematochezia, urinary difficulties, prolonged bleeding, easily bruising, heat or cold intolerance, new onset joint pain or swelling, new onset extremity weakness or numbness, new onset auditory or visual disturbances, lightheadedness, dizziness, partial loss of consciousness or full loss of consciousness. Current Outpatient Medications on File Prior to Visit Medication Sig methocarbamol (ROBAXIN) 500 mg tablet gabapentin (NEURONTIN) 300 mg capsule Take 300 mg by mouth. ezetimibe (ZETIA) 10 mg tablet amLODIPine (NORVASC) 2.5 mg tablet meloxicam (MOBIC) 7.5 mg tablet CALCIUM CARBONATE/VITAMIN D3 (VITAMIN D-3 ORAL) Take by mouth. Diclofenac Sodium 1.5 % drop Multivitamin capsule Take 1 capsule by mouth once daily. melatonin 3 mg Take 3 mg by mouth daily at bedtime. TENS Units jonathon doxazosin (CARDURA) 1 mg tablet Take 1 tablet by mouth daily at bedtime. (Patient not taking: Reported on 04/07/2021 ) thiamine (VITAMIN B1) 100 mg tablet Take 100 mg by mouth once daily. Hydromorphone (EXALGO) 12 mg ER TABLET Take 12 mg by mouth every 24 hours. COMPOUNDED PRESCRIPTION Back stimulator ramipril (ALTACE) 10 mg capsule Take 10 mg by mouth once daily. ASPIRIN 81 MG TAB Take one(1) tablet daily. No current facility-administered medications on file prior to visit. ALLERGIES Allergen Reactions Adhesive Tape (Irma* Unknown Physical Exam: Vitals: There were no vitals taken for this visit. Psych: Pleasant, good affect and mood General Appearance: Well appearing, alert, in no acute distress, well-hydrated, well nourished.. Skin: Skin color, texture, turgor normal, no suspicious rashes or lesions. Peripheral Pulses: Normal. Neurologic: Gait normal. Reflexes normal and symmetric. Sensation grossly intact.. Lymph Nodes: No cervical lymphadenopathy, No supraclavicular lymphadenopathy, No axillary lymphadenopathy., and No inguinal lymphadenopathy.. Respiratory: No recent pulmonary infection, hemoptysis, chronic cough, or shortness of breath at rest Rheumatologic: Joint deformities: Left elbow lat pain Right Elbow Exam Right elbow exam is normal. Tenderness The patient is experiencing no tenderness. Range of Motion Extension: normal Flexion: normal Pronation: normal Supination: normal Muscle Strength Pronation: 5/5 Supination: 5/5 Other Erythema: absent Sensation: normal Pulse: present Left Elbow Exam Tenderness The patient is experiencing tenderness in the lateral epicondyle. Range of Motion Extension: abnormal Flexion: normal Pronation: normal Supination: normal Muscle Strength Pronation: 5/5 Supination: 5/5 Other Erythema: absent Sensation: normal Pulse: present Comments: Pain with resisted wrist extension Imaging: Last XR Elbow - Impression Only XR ELBOW GENERAL 2V AP/LAT LEFT Exam End: 02/23/2023 1:01 PM (In process) Assessment and Plan: Impression: Encounter Diagnosis ICD-10-CM 1. Left elbow tendinitis M77.8 MRI ELBOW WO IVCON LEFT diazePAM (VALIUM) 2 mg tablet 2. Lateral epicondylitis of left elbow M77.12 Plan: Today, in detail, through a thorough evaluation, we discussed possible etiologies of pain and our plans for further diagnostic and therapeutic interventions. We discussed strategies for decreasing pain and improving strength, stability and motion. Patient's questions were answered in detailed. Patient verbalizes understanding and agrees with the treatment plan as discussed. Discussed options for txt, has tried 3 injections with limited success, next step is mri of left elbow for preop (more content not included)... [facility] 02-23-2023 Note HNO ID: [id number] Author: Michaelle Herring RT(R) Service: Radiology Author Type: Technologist Type: Progress Notes Filed: 02/23/2023 1:03 PM Note Text: Radiology Service Progress Note PATIENT NAME: Dana Hubbard DATE OF SERVICE: February 23, 2023 TIME: 12:48 PM PATIENT IDENTITY VERIFICATION COMPLETED USING TWO (2) IDENTIFIERS: Name and Date of confirmed by patient verbally. FALL SCREENING: Has the patient had 2 falls in the last year or 1 fall with injury or currently using an Ambulatory Assistive Device (Walker, Cane, Wheelchair, Crutches, etc.)? No PATIENT GENDER DATA: Male PATIENT RELEVANT IMPLANT DATA REVIEWED: Yes RADIOLOGY DEPARTMENT: General X-ray: Exam(s) Completed: Upper Extremity X-Ray(s): Elbow, left PERIPHERAL IV DATA: Not applicable SIGNED BY: RT Colten(R) February 23, 2023 12:48 PM [facility] 02-23-2023 History of Presen t illness Narrative Reason for Visit/Chief Complaint Dana Hubbard is a 67 year old male who presents today for a new evaluation of following complaint: Patient presents with: Left Elbow - Pain History of Present Illness: PAIN EVALUATION 02/23/2023 1307 Pain Level: 3 Pain Location: Elbow-Left Description: Sharp Duration Amount of Time: 2 Duration Units: Years Frequency: Intermittent HPI: Dana Hubbard is a 67 year old male presenting today with L elbow pain. Pt has sharp pain off and on for a few years. Has had at least 3 injections in L elbow previously with Dr. Epstein at [facility]. Pt states pain does not disrupt daily activities at this time. Pain history is noted as above. Xray done today. Previous Treatments: Ice: No Heat: No Brace: Yes, uses brace when doing housework NSAIDs: Yes, ibuprofen PRN Injections: Yes, Surgeries: No Physical Therapy: Yes, did PT about 2 years ago Review of Systems: Patient did not have, and does not currently have, any weight loss, malaise, fever, chills, headache, chest pain, chest pressure, palpitations, cough, shortness of breath, orthopnea, paroxsymal nocturnal dyspnea, nausea, vomiting, diarrhea, constipation, melena, hematochezia, urinary difficulties, prolonged bleeding, easily bruising, heat or cold intolerance, new onset joint pain or swelling, new onset extremity weakness or numbness, new onset auditory or visual disturbances, lightheadedness, dizziness, partial loss of consciousness or full loss of consciousness. Current Outpatient Medications on File Prior to Visit Medication Sig methocarbamol (ROBAXIN) 500 mg tablet gabapentin (NEURONTIN) 300 mg capsule Take 300 mg by mouth. ezetimibe (ZETIA) 10 mg tablet amLODIPine (NORVASC) 2.5 mg tablet meloxicam (MOBIC) 7.5 mg tablet CALCIUM CARBONATE/VITAMIN D3 (VITAMIN D-3 ORAL) Take by mouth. Diclofenac Sodium 1.5 % drop Multivitamin capsule Take 1 capsule by mouth once daily. melatonin 3 mg Take 3 mg by mouth daily at bedtime. TENS Units jonathon doxazosin (CARDURA) 1 mg tablet Take 1 tablet by mouth daily at bedtime. (Patient not taking: Reported on 04/07/2021 ) thiamine (VITAMIN B1) 100 mg tablet Take 100 mg by mouth once daily. Hydromorphone (EXALGO) 12 mg ER TABLET Take 12 mg by mouth every 24 hours. COMPOUNDED PRESCRIPTION Back stimulator ramipril (ALTACE) 10 mg capsule Take 10 mg by mouth once daily. ASPIRIN 81 MG TAB Take one(1) tablet daily. No current facility-administered medications on file prior to visit. ALLERGIES Allergen Reactions Adhesive Tape (Irma* Unknown Physical Exam: Vitals: There were no vitals taken for this visit. Psych: Pleasant, good affect and mood General Appearance: Well appearing, alert, in no acute distress, well-hydrated, well nourished.. Skin: Skin color, texture, turgor normal, no suspicious rashes or lesions. Peripheral Pulses: Normal. Neurologic: Gait normal. Reflexes normal and symmetric. Sensation grossly intact.. Lymph Nodes: No cervical lymphadenopathy, No supraclavicular lymphadenopathy, No axillary lymphadenopathy., and No inguinal lymphadenopathy.. Respiratory: No recent pulmonary infection, hemoptysis, chronic cough, or shortness of breath at rest Rheumatologic: Joint deformities: Left elbow lat pain Right Elbow Exam Right elbow exam is normal. Tenderness The patient is experiencing no tenderness. Range of Motion Extension: normal Flexion: normal Pronation: normal Supination: normal Muscle Strength Pronation: 5/5 Supination: 5/5 Other Erythema: absent Sensation: normal Pulse: present Left Elbow Exam Tenderness The patient is experiencing tenderness in the lateral epicondyle. Range of Motion Extension: abnormal Flexion: normal Pronation: normal Supination: normal Muscle Strength Pronation: 5/5 Supination: 5/5 Other Erythema: absent Sensation: normal Pulse: present Comments: Pain with resisted wrist extension Imaging: Last XR Elbow - Impression Only XR ELBOW GENERAL 2V AP/LAT LEFT Exam End: 02/23/2023 1:01 PM (In process) Assessment and Plan: Impression: Encounter Diagnosis ICD-10-CM 1. Left elbow tendinitis M77.8 MRI ELBOW WO IVCON LEFT diazePAM (VALIUM) 2 mg tablet 2. Lateral epicondylitis of left elbow M77.12 Plan: Today, in detail, through a thorough evaluation, we discussed possible etiologies of pain and our plans for further diagnostic and therapeutic interventions. We discussed strategies for decreasing pain and improving strength, stability and motion. Patient's questions were answered in detailed. Patient verbalizes understanding and agrees with the treatment plan as discussed. Discussed options for txt, has tried 3 injections with limited success, next step is mri of left elbow for preop planning purposes Patient aware and in agreement of plan. All questions answered. documented in this encounter [facility] 02-23-2023 History of Presen t illness Narrative Radiology Service Progress Note PATIENT NAME: Dana Hubbard DATE OF SERVICE: February 23, 2023 TIME: 12:48 PM PATIENT IDENTITY VERIFICATION COMPLETED USING TWO (2) IDENTIFIERS: Name and Date of confirmed by patient verbally. FALL SCREENING: Has the patient had 2 falls in the last year or 1 fall with injury or currently using an Ambulatory Assistive Device (Walker, Cane, Wheelchair, Crutches, etc.)? No PATIENT GENDER DATA: Male PATIENT RELEVANT IMPLANT DATA REVIEWED: Yes RADIOLOGY DEPARTMENT: General X-ray: Exam(s) Completed: Upper Extremity X-Ray(s): Elbow, left PERIPHERAL IV DATA: Not applicable SIGNED BY: RT Colten(R) February 23, 2023 12:48 PM documented in this encounter [facility] 02-15-2023 Miscellaneous Notes Noted. Patient reports that he received a VM from the office requesting to know which elbow is affecting him (left). Office visit notes have been updated. documented in this encounter [facility] 04-08-2021 Note HNO ID: [id number] Author: Magdiel Tomlin APRN.PRESENTATION DESIGNER Service: Anesthesiology Author Type: Nurse Pick Pulling Machine Operator Type: Anesthesia Procedure Notes Filed: 04/08/2021 12:04 PM Note Text: ANESTHESIOLOGY PROCEDURE NOTE Airway General Information Procedure Start Time/Medication Administration: 04/08/2021 11:52 AM Patient location during procedure: OR Timeout Performed Pre-procedure: timeout performed Consent Obtained: Yes Patient identity confirmed: arm band, patient and family Staffing PRESENTATION DESIGNER: Magdiel Tomlin APRN.PRESENTATION DESIGNER Performed by: MITA Indications and Patient Condition Preoxygenated: yes Patient position: sniffing Difficult Mask: No Indications for airway management: anesthesia anesthesia circuit Method: asleep Final Airway Details Final airway type: endotracheal airway Final Endotracheal Airway: ETT Cuffed: yes Successful intubation technique: direct laryngoscopy Endotracheal tube insertion site: oral Blade: Santos Blade size: #4 ETT size (mm): 8.0 Measured from: lips Measurement (cm): 22 Placement verified by: chest auscultation and capnometry Cormack-Lehane Classification: grade III - view of epiglottis only Number of attempts at approach: 1 SIGNATURE: Magdiel oTmlin APRN.PRESENTATION DESIGNER PATIENT NAME: Dana Hubbard DATE: April 08, 2021 TIME: 12:03 PM CSN: [id number] [facility] documented in this encounter [facility] note* Diagnosis Left elbow tendinitis- Primary Lateral epicondylitis of left elbow Lateral epicondylitis of elbow documented in this encounter [facility] note* Diagnosis Lateral epicondylitis of left elbow- Primary Lateral epicondylitis of elbow documented in this encounter [facility] note* Diagnosis Left elbow pain Pain in joint, upper arm documented in this encounter [facility] note* Diagnosis Left elbow tendinitis documented in this encounter [facility] for referral (narrative)* Diagnostic Procedure Only (Routine) - Closed Specialty Diagnoses / Procedures Referred By Dayna t Referred To Contact XR IMAGING Diagnoses Left elbow pain Procedures XR ELBOW GENERAL 2V AP/LAT LEFT RADEX ELBOW 2 VIEWS Giacomo Epstein DO [address] [place] [address] [address] [place] [address] Xr Imaging Referral ID Status Reason Start Date Expiration Date V isits Requested Visits Authorized [id number] Closed Auto-Generate d Referral 02/23/2023 03/24/2024 1 1 [facility] for referral (narrative)* Diagnostic Procedure Only (Routine) - Closed Specialty Diagnoses / Procedures Referred By Contac t Referred To Contact XR IMAGING Diagnoses Left elbow pain Procedures XR ELBOW GENERAL 2V AP/LAT LEFT RADEX ELBOW 2 VIEWS Giacomo Epstein DO [address] [place] [address] [place] [address] Referral ID Status Reason Start Date Expiration Date V isits Requested Visits Authorized [id number] Closed Auto-Generate d Referral 02/23/2023 03/24/2024 1 1 [facility] for visit Narrative* Diagnostic Procedure Only (Routine) - Closed Specialty Diagnoses / Procedures Referred By Contac t Referred To Contact XR IMAGING Diagnoses Left elbow pain Procedures XR ELBOW GENERAL 2V AP/LAT LEFT RADEX ELBOW 2 VIEWS Giacomo Epstein DO [address] [place] [address] [place] [address] Referral ID Status Reason Start Date Expiration Date V isits Requested Visits Authorized [id number] Closed Auto-Generate d Referral 02/23/2023 03/24/2024 1 1 [facility] Summary Purpose Family History No Family History Records FoundNo Family History Records FoundNo Family History Records Found Advance Directives No Advanced Directives Records FoundNo Advanced Directives Records FoundNo Advanced Directives Records Found Reason for Referral Specialty Diagnoses / Procedures Referred By Contac t Referred To Contact MR IMAGING Diagnoses Left elbow tendinitis Procedures MRI ELBOW WO IVCON LEFT MRI ANY JT UPPER EXTREMITY W/O CONTRAST MATRL Giacomo Epstein DO [address] [place] [address] Mr Imaging Referral ID Status Reason Start Date Expiration Date Visits Requested Visits Authorized [id number] Authorized Auto-Generat ed Referral 02/23/2023 03/24/2024 1 1 Specialty Diagnoses / Procedures Referred By Dayna patel Referred To Contact MR IMAGING Diagnoses Left elbow tendinitis Procedures MRI ELBOW WO IVCON LEFT MRI ANY JT UPPER EXTREMITY W/O CONTRAST Giacomo Rock, DO [address] [facility] [address] [place] [address] [place] [address] Referral ID Status Reason Start Date Expiration Date V isits Requested Visits Authorized [id number] Closed Auto-Generate d Referral 02/23/2023 03/24/2024 1 1 Additional Source Comments (unrecognized sect ion and content) No Status Records FoundNo Status Records FoundNo Status Records Found INFORMATION SOURCE (unrecogn ized section and content) DATE CREATED AUTHOR AUTHOR'S ORGANIZ ATION 04/14/[address] [facility] DATE CREATED AUTHOR AUTHOR'S ORGANIZ ATION 04/28/2023 [facility] Source Comments (unrecognize d section and content) In the event this informatio n is protected by the Federal Confidentiality of Alcohol and Drug Abuse Patient Records regulations: The Federal rules restrict any use of the information to criminally investigate or prosecute any alcohol or drug abuse patient.[facility] event this information is protected by the Federal Confidentiality of Alcohol and Drug Abuse Patient Records regulations: The Federal rules restrict any use of the information to criminally investigate or prosecute any alcohol or drug abuse patient.[facility] event this information is protected by the Federal Confidentiality of Alcohol and Drug Abuse Patient Records regulations: The Federal rules restrict any use of the information to criminally investigate or prosecute any alcohol or drug abuse patient.[facility] event this information is protected by the Federal Confidentiality of Alcohol and Drug Abuse Patient Records regulations: The Federal rules restrict any use of the information to criminally investigate or prosecute any alcohol or drug abuse patient.[facility] event this information is protected by the Federal Confidentiality of Alcohol and Drug Abuse Patient Records regulations: The Federal rules restrict any use of the information to criminally investigate or prosecute any alcohol or drug abuse patient.[facility] event this information is protected by the Federal Confidentiality of Alcohol and Drug Abuse Patient Records regulations: The Federal rules restrict any use of the information to criminally investigate or prosecute any alcohol or drug abuse patient.[facility] Reason for Visit (unrecogniz ed section and content) Reason Comments Pain Reason Comments Pain Follow Up Specialty Diagnoses / Procedures Referred By Dayna patel Referred To Contact MR IMAGING Diagnoses Left elbow tendinitis Procedures MRI ELBOW WO IVCON LEFT MRI ANY JT UPPER EXTREMITY W/O CONTRAST Giacomo Rock, [address] [place] [address] [place] [id number] Referral ID Status Reason Start Date Expiration Date V isits Requested Visits Authorized [id number] Closed Auto-Generate d Referral 02/23/2023 03/24/2024 1 1 Care Teams (unrecognized sec tion and content) Home Companion Relationship Specialty Start Date End Date Anna Olmstead MD PCP - General Family Medicine 05/30/16 Home Companion Relationship Specialty Start Date End Date Anna Olmstead MD PCP - General Family Medicine 05/30/16 Home Companion Relationship Specialty Start Date End Date Anna Olmstead MD PCP - General Family Medicine 05/30/16 Home Companion Relationship Specialty Start Date End Date Anna Olmstead MD PCP - General Family Medicine 05/30/16 Home Companion Relationship Specialty Start Date End Date Anna Olmstead MD PCP - General Family Medicine 05/30/16 FOR RECORDS PERTAINING TO PATIENTS WHO ARE OR HAVE BEEN ENROLLED IN A CHEMICAL DEPENDENCY/SUBSTANCEABUSE PROGRAM, SOME INFORMATION MAY BE OMITTED. This clinical summary was aggregated from multiple sources. Caution should be exercised in using it in the provision of clinical care. This summary normalizes information from multiple sources, and as a consequence, information in this document may materially change the coding, format and clinical context of patient data. In addition, data may be omitted in some cases. CLINICAL DECISIONS SHOULD BE BASED ON THE PRIMARY CLINICAL RECORDS. [employer] [facility]. provides no warranty or guarantee of the accuracy or completeness of information in this document.
== END | disposition home or self-care (01) ==
LOC: PSN 07:20
PROVIDERS: PCP Family Medicine; Referring Provider Physician Assistant Medical; Visit Provider Physician Assistant Medical
DX: R00.2 Palpitations (principal)
CPT/HCPCS: 93225; 93226

== ENCOUNTER → 2024-01-17 | Outpatient (CLI) | payer OTHER, MEDICARE, SELFPAY ==
[2024-01-17 10:22] LABS: Amphetamine Urine VISTA NEGATIVE (<1000 ng/mL); Barbiturate Urine VISTA NEGATIVE (< 200 ng/mL); Benzodiazepine Urine VISTA NEGATIVE (< 200 ng/mL); Cocaine Urine VISTA NEGATIVE (< 300 ng/mL); Ecstacy Urine VISTA NEGATIVE (< 500 ng/mL); Methadone Urine VISTA NEGATIVE (< 300 ng/mL); PCP Urine VISTA NEGATIVE (< 25 ng/mL); THC Urine VISTA NEGATIVE (< 50 ng/mL); Vista UDS pH Range 8
--- OUTSIDE RECORDS SUMMARY | 2024-01-17 14:39 | XMS RPT_ITS | CCD ---
Author Name Unknown Address [address] [place] [address] Organization [facility] Care Team Providers Care [employer] Worker Name Role Phone Jackie Carlin Unavailable Unavailable [...] BANDAGES] allergy to substance 5 blisters, rash [facility] Work Phone: (2 sources) Adhesive Tape; Translations: [ADHESIVE TAPE (ROSINS)] Propensity to adverse reactions (disorder) 6 AOF [facility] Other [place] [facility] Medications Completed/Discontinued Medications Medication Drug Class(es) Dates Sig (Normalized) Sig (Original) amLODIPine 2.5 mg oral tablet (6 sources) Dihydropyridine Calcium Channel Andres Start: 03-11-2021 amLODIPine (NORVASC) 2.5 mg tablet aspirin 81 mg oral tablet (14 sources) Nonsteroidal Anti-inflammatory Drug Start: 10-02-2015 take 1 tablet by mouth once daily ASPIRIN 81 MG TABS One tablet by mouth daily ASPIRIN [id number] Katerine Suresh RN Problems Active Problems Problem Classification Problem Date Documented Date Episodic/Chronic Alcohol-related disorders (10 sources) Alcohol abuse; Translations: [Alcohol abuse, uncomplicated] Onset: 04-09-2012 10-02-2015 Chronic Cardiac dysrhythmias (4 sources) Supraventricular tachycardia; Translations: [Supraventricular tachycardia] Onset: 10-02-2015 10-02-2015 Chronic Coronary atherosclerosis and other heart disease (14 sources) Atherosclerotic heart disease of [place] coronary artery without angina pectoris; Translations: [Coronary [...] Date Time Vital Sign Value Performing Clinician Jsoe taylor 05-15-2017 16:07-0400 BMI (Body Mass Index) 25.24 kg/m2 Jackie [facility] Work Phone: 05-15-2017 16:07-0400 BP Diastolic 70 mm[Hg] [facility] Work Phone: 05-15-2017 16:07-0400 BP Systolic 152 mm[Hg] Jackie [facility] Work Phone: 05-15-2017 16:07-0400 Height 180.34 cm Jackie Tesfaye [facility] Work Phone: 05-15-2017 16:07-0400 Pulse (Heart Rate) 56 /min Jackie Carlin [facility] Work Phone: 05-15-2017 16:07-0400 Respiratory Rate 16 /min Jackie Carlin [facility] Work Phone: 05-15-2017 16:07-0400 Weight 82.1 kg Jackie Carlin [facility] Work Phone: 11-09-2016 15:36-0500 BMI (Body Mass Index) 25.66 kg/m2 Jesus Rahman MD [facility] Work Phone: 11-09-2016 15:36-0500 BP Diastolic 68 mm[Hg] Jesus Rahman MD [facility] Work Phone: 11-09-2016 15:36-0500 BP Systolic 152 mm[Hg] Jesus Rahman MD [facility] Work Phone: 11-09-2016 15:36-0500 BSA (Body Surface Area) 2.04 m2 Jesus Rahman MD [facility] Work Phone: 11-09-2016 15:36-0500 Pulse (Heart Rate) 60 /min [facility] Work Phone: 11-09-2016 15:36-0500 Respiratory Rate 16 /min Jesus [facility] Work Phone: 11-09-2016 15:36-0500 Weight 83.46 kg Jesus [facility] Work Phone: 03-11-2016 09:48-0400 Heart rate 56 /min Jackie Carlin [facility] Work Phone: 10-29-2015 13:00-0500 Height 180.34 cm Jesus [facility] Work Phone: Encounters Encounter Date Encounter Type Care Provider Facility Start: 04-19-2023 End: 04-19-2023 ambulatory GIACOMO EPSTEIN Facility:[facility] Start: 04-19-2023 End: 04-19-2023 Patient encounter procedure Giacomo Epstein DO Work Phone: Orthopaedics Procedures Date Procedure Procedure Detail Performing Clinician Start: 03-22-2023 Mri any jt upper ext remity w/o contrast matrl Giacomo Epstein DO Work Phone: Start: 02-23-2023 Radex elbow [...] Renal doppler Jesus Rahman MD Start: 06-23-2010 Nathanael weems DO Work Phone: Plan of Treatment Date Care Activity Detail Author Start: 06-03-2031 Urine microalbumin profile DTaP,Tdap,Td Vaccine (4 - Td or Tdap) [facility] Start: 07-21-2023 Covid-19 Vaccine () Covid-19 Vaccine () [facility] Start: 07-21-2023 Influenza vaccination [facility] Start: 11-20-2022 ADVANCE DIRECTIVE DISCUSSION ADVANCE DIRECTIVE DISCUSSION [facility] Start: 11-20-2022 DEPRESSION ASSESSMENT DEPRESSION ASSESSMENT [facility] Start: 07-21-2022 Influenza vaccination INFLUENZA (#1) [facility] Start: 04-21-2021 COVID-19 VACCINE (3 - Booster for Moderna series) COVID-19 VACCINE (3 - Booster for Moderna series) [facility] Start: 02-09-2021 Lipid 1996 panel - Serum or Plasma Lipid Screening [facility] Start: 02-09-2021 LIPID SCREEN LIPID SCREEN [facility] Start: 02-09-2019 DIABETES SCREEN DIABETES SCREEN [facility] Start: 02-09-2019 Diabetes Screening Diabetes Screening [facility] Start: 12-25-2017 End: 12-25-2017 Appointment Appointment [facility] Work Phone: Start: 05-15-2017 End: 05-15-2017 Appointment Appointment [facility] Work Phone: Start: 05-15-2017 End: 05-15-2017 PFM PFM [facility] Work Phone: Start: 05-04-2017 End: 05-04-2017 Appointment Appointment [facility] Work Phone: Start: 02-09-2017 Hepatitis B surface antibody level LDL CHOLESTEROL [facility] Start: 11-09-2016 End: 11-09-2016 Follow Up Appt 6 months Follow Up Appt 6 months [facility] Work Phone: Start: 11-09-2016 End: 11-09-2016 PFM PFM [facility] Work Phone: Start: 09-07-2016 PROSTATE CANCER SCREENING DISCUSSION PROSTATE CANCER SCREENING DISCUSSION [facility] Start: 06-17-2016 End: 06-17-2016 Follow Up Appt 4 months Follow Up Appt 4 months [facility] Work Phone: Start: 06-17-2016 End: 06-17-2016 MMM MMM [facility] Work Phone: Start: 2016 RSV Vaccine (1 - 1-dose 60+ series) RSV Vaccine (1 - 1-dose 60+ series) [facility] Start: 03-11-2016 End: 03-11-2016 Electrocardiogram, complete EKG (In office) [facility] Work Phone: Start: 03-11-2016 End: 03-11-2016 Follow Up Appt 3 months Follow Up Appt 3 months [facility] Work Phone: Start: 03-11-2016 End: 06-17-2016 Follow Up Appt Other Follow Up Appt Other [facility] Work Phone: Start: 03-11-2016 End: 03-11-2016 MMM MMM [facility] Work Phone: Start: 12-21-2015 End: 12-21-2015 Cardiac Referral Cardiac Referral Norman Holman DO, [address] [place], [address] [facility] Work Phone: Start: 12-16-2015 End: 12-16-2015 Endocrinology Referral Endocrinology Referral [facility], [address], [place], [address] [facility] Work Phone: Start: 12-10-2015 End: 12-10-2015 Follow Up Appt 3 months Follow Up Appt 3 months [facility] Work Phone: Start: 12-10-2015 End: 12-10-2015 Follow Up Appt 6 months Follow Up Appt 6 months [facility] Work Phone: Start: 12-10-2015 End: 12-10-2015 Follow Up Appt Other Follow Up Appt Other [facility] Work Phone: Start: 12-10-2015 End: 12-10-2015 MMM MMM [facility] Work Phone: Start: 12-10-2015 End: 12-10-2015 PFM PFM [facility] Work Phone: Start: 10-29-2015 End: 10-29-2015 Follow Up Appt 6 weeks Follow Up Appt 6 weeks [facility] Work Phone: Start: 10-29-2015 End: 12-01-2015 Follow Up Appt Other Follow Up Appt Other [facility] Work Phone: Start: 10-29-2015 End: 10-29-2015 MMM MMM [facility] Work Phone: Start: 10-29-2015 End: 10-29-2015 Renal doppler Renal doppler [facility] Work Phone: Start: 06-23-2011 Colonoscopy COLONOSCOPY [facility] Start: 06-23-2011 COLORECTAL CANCER SCREENING COLORECTAL CANCER SCREENING [facility] Start: 06-23-2011 Pneumococcal Vaccine: 65+ (2 - PCV) Pneumococcal Vaccine: 65+ (2 - PCV) [facility] Start: 06-23-2011 PNEUMOCOCCAL: 65+ (2 - PCV) PNEUMOCOCCAL: 65+ (2 - PCV) [facility] Start: 2006 SHINGRIX VACCINE (1 of 2) SHINGRIX VACCINE (1 of 2) [facility] Start: 2001 COLOGUARD (FIT-DNA) COLOGUARD (FIT-DNA) [facility] Start: [address] COLONOGRAPHY [facility] Start: 2001 FECAL OCCULT BLOOD FECAL OCCULT BLOOD [facility] Start: 2001 SIGMOIDOSCOPY SIGMOIDOSCOPY [facility] Start: 1975 Urine microalbumin profile DTAP,TDAP,TD (1 - Tdap) [facility] Start: 1974 ANNUAL PCP TEAM CHRONIC DISEASE VISIT ANNUAL PCP TEAM CHRONIC DISEASE VISIT [facility] Start: 1974 BP CONTROLLED (<130/80) BP CONTROLLED (<130/80) [facility] Start: 1974 HEPATITIS C SCREENING HEPATITIS C SCREENING [facility] End: 03-24-2024 MRI ELBOW WO IVCON LEFT MRI ELBOW WO IVCON LEFT Radiology Routine Left elbow tendinitis 1 Occurrences starting 02/23/2023 until 03/24/2024 [facility] Work Phone: Immunizations Immunization Date Immunization Notes Care Provider Gordo santos 09-16-2015 influenza virus vacc ine, unspecified formulation [employer] Work Phone: [facility] 06-23-2010 pneumococcal polysaccharide vaccine, 23 valent Giacomo Epstein DO Work Phone: [facility] Work Phone: Payers Date Payer Category Payer Unknown MMO MMO [employer] PPO [id number] 2019-Present [phone] [address] [place] [address] PPO [id number] 2019 Unknown [id number] 2006 Medicare MEDICARE MEDICAR E A AND B [id number] 2006-Present [phone] [address] [address] [place] [address] Medicare [id number] 2006 Medicare [id number] Social History Date Type Detail Facility Start: 02-09-2016 End: 04-19-2023 Tobacco smoking status NHIS Never smoked tobacco [facility] Start: 02-09-2016 End: 04-19-2023 Tobacco use and exposure User of smokeless tobacco [facility] History of tobacco use Chews Tobacco [facility] Start: 04-07-2021 End: 02-23-2023 Alcohol intake Current non-drinker of alcohol (finding) [facility] Start: 02-09-2016 End: 04-19-2023 Tobacco Comment Socially [facility] Start: 04-07-2021 Alcohol Comment non-alcoholic beers, no alcohol since 2015 [facility] Start: 1955 Sex Assigned At Not on file [facility] Start: 02-23-2023 History of Social function [facility] Start: 02-23-2023 Tobacco use panel [facility] National Score (1-10 0), lower number is lower risk 48 [facility] Clinical Notes 04-08-2021 to 04-19-2023 Giacomo Epstein, DO - 04/19/2023 9:55 AM Christianne May, RT(R) - 03/22/2023 8:40 AM Abdullahi Epstein, DO - 02/23/2023 1:02 PM Michaelle Patel RT(R) - 02/23/2023 12:50 PM EDT Note Date & Type Note Facility 04-19-2023 Note HNO ID: [id number] Author: Giacomo Epstein, Service: ? Author Type: [...] We discussed strat (more content not included)... [facility] 04-19-2023 History of Presen t illness Narrative [...] Epstein D.O. M.P.H. documented in this encounter [facility] 03-22-2023 Note HNO ID: [id number] Author: RT Rodrigo(Mahendra) Service: ? Author Type: [...] RT Rodrigo(Mahendra) March 22, 2023 8:28 AM [facility] 03-22-2023 History of Presen t illness Narrative [...] 2023 8:28 AM documented in this encounter [facility] 02-23-2023 Note HNO ID: [id number] Author: Giacomo Epstein, DO Service: ? Author [...] L elbow previously with Dr. Epstein at [facility]. Pt states pain does not disrupt daily [...] elbow for preop (more content not included)... [facility] 02-23-2023 Note HNO ID: [id number] Author: Michaelle Herring RT(R) Service: Radiology Author [...] RT Colten(R) February 23, 2023 12:48 PM [facility] 02-23-2023 History of Presen t illness Narrative [...] L elbow previously with Dr. Epstein at [facility]. Pt states pain does not disrupt daily [...] All questions answered. documented in this encounter [facility] 02-23-2023 History of Presen t illness Narrative [...] 2023 12:48 PM documented in this encounter [facility] 02-15-2023 Miscellaneous Notes Noted. Patient reports that he received a VM from the office requesting to know which elbow is affecting him (left). Office visit notes have been updated. documented in this encounter [facility] 04-08-2021 Note HNO ID: [id number] Author: Magdiel Tomlin APRN.METHODS ENGINEER Service: Anesthesiology Author Type: Nurse Cushion Spring Assembler Type: Anesthesia Procedure Notes Filed: 04/08/2021 12:04 PM Note Text: ANESTHESIOLOGY PROCEDURE NOTE Airway General Information Procedure Start Time/Medication Administration: 04/08/2021 11:52 AM Patient location during procedure: OR Timeout Performed Pre-procedure: timeout performed Consent Obtained: Yes Patient identity confirmed: arm band, patient and family Staffing METHODS ENGINEER: Magdiel Tomlin APRN.METHODS ENGINEER Performed by: MITA Indications and Patient Condition [...] of attempts at approach: 1 SIGNATURE: Magdiel Tomlin APRN.METHODS ENGINEER PATIENT NAME: Dana Hubbard DATE: April 08, 2021 TIME: 12:03 PM CSN: [id number] [facility] documented in this encounter [facility] note* Diagnosis Left elbow tendinitis- Primary Lateral epicondylitis of left elbow Lateral epicondylitis of elbow documented in this encounter [facility] note* Diagnosis Lateral epicondylitis of left elbow- Primary Lateral epicondylitis of elbow documented in this encounter [facility] note* Diagnosis Left elbow pain Pain in joint, upper arm documented in this encounter [facility] note* Diagnosis Left elbow tendinitis documented in this encounter [facility] for referral (narrative)* Diagnostic Procedure Only (Routine) - Closed Specialty Diagnoses / Procedures Referred By Dayna t Referred To Contact XR IMAGING Diagnoses Left elbow pain Procedures XR ELBOW GENERAL 2V AP/LAT LEFT RADEX ELBOW 2 VIEWS Giacomo Epstein DO [address] [place] [address] [address] [place] [address] Xr Imaging Referral ID Status Reason Start Date Expiration Date V isits Requested Visits Authorized [id number] Closed Auto-Generate d Referral 02/23/2023 03/24/2024 1 1 [facility] for referral (narrative)* Diagnostic Procedure Only (Routine) - Closed Specialty Diagnoses / Procedures Referred By Contac t Referred To Contact XR IMAGING Diagnoses Left elbow pain Procedures XR ELBOW GENERAL 2V AP/LAT LEFT RADEX ELBOW 2 VIEWS Giacomo Epstein DO [address] [place] [address] [place] [address] Referral ID Status Reason Start Date Expiration Date V isits Requested Visits Authorized [id number] Closed Auto-Generate d Referral 02/23/2023 03/24/2024 1 1 [facility] for visit Narrative* Diagnostic Procedure Only (Routine) - Closed Specialty Diagnoses / Procedures Referred By Contac t Referred To Contact XR IMAGING Diagnoses Left elbow pain Procedures XR ELBOW GENERAL 2V AP/LAT LEFT RADEX ELBOW 2 VIEWS Giacomo Epstein DO [address] [place] [address] [place] [address] Referral ID Status Reason Start Date Expiration Date V isits Requested Visits Authorized [id number] Closed Auto-Generate d Referral 02/23/2023 03/24/2024 1 1 [facility] Summary Purpose Family History No Family History [...] EXTREMITY W/O CONTRAST MATRL Giacomo Epstein DO [address] [place] [address] Mr Imaging Referral ID Status Reason Start Date Expiration Date Visits Requested Visits Authorized [id number] Authorized Auto-Generat ed Referral 02/23/2023 03/24/2024 1 1 Specialty Diagnoses / Procedures Referred By Dayna patel Referred To Contact MR IMAGING Diagnoses Left elbow tendinitis Procedures MRI ELBOW WO IVCON LEFT MRI ANY JT UPPER EXTREMITY W/O CONTRAST Giacomo Rock, DO [address] [place] [address] [place] [address] Referral ID Status Reason Start Date Expiration Date V isits Requested Visits Authorized [id number] Closed Auto-Generate d Referral 02/23/2023 03/24/2024 1 1 Additional Source Comments (unrecognized sect ion and content) No Status Records FoundNo Status Records FoundNo Status Records Found INFORMATION SOURCE (unrecogn ized section and content) DATE CREATED AUTHOR AUTHOR'S ORGANIZ ATION 04/14/2021 [facility] DATE CREATED AUTHOR AUTHOR'S ORGANIZ ATION 04/28/2023 [facility] Source Comments (unrecognize d section and content) In the event this informatio n is protected by the Federal Confidentiality of Alcohol and Drug Abuse Patient Records regulations: The Federal rules restrict any use of the information to criminally investigate or prosecute any alcohol or drug abuse patient.[facility] the event this information is protected by the Federal Confidentiality of Alcohol and Drug Abuse Patient Records regulations: The Federal rules restrict any use of the information to criminally investigate or prosecute any alcohol or drug abuse patient.[facility] the event this information is protected by the Federal Confidentiality of Alcohol and Drug Abuse Patient Records regulations: The Federal rules restrict any use of the information to criminally investigate or prosecute any alcohol or drug abuse patient.[facility] the event this information is protected by the Federal Confidentiality of Alcohol and Drug Abuse Patient Records regulations: The Federal rules restrict any use of the information to criminally investigate or prosecute any alcohol or drug abuse patient.[facility] the event this information is protected by the Federal Confidentiality of Alcohol and Drug Abuse Patient Records regulations: The Federal rules restrict any use of the information to criminally investigate or prosecute any alcohol or drug abuse patient.[facility] the event this information is protected by the Federal Confidentiality of Alcohol and Drug Abuse Patient Records regulations: The Federal rules restrict any use of the information to criminally investigate or prosecute any alcohol or drug abuse patient.[facility] Reason for Visit (unrecogniz ed section and content) Reason Comments Pain Reason Comments Pain Follow Up Specialty Diagnoses / Procedures Referred By Dayna patel Referred To Contact MR IMAGING Diagnoses Left elbow tendinitis Procedures MRI ELBOW WO IVCON LEFT MRI ANY JT UPPER EXTREMITY W/O CONTRAST Giacomo Rock, DO [address] [place] [address] [place] [address] Referral ID Status Reason Start Date Expiration Date V isits Requested Visits Authorized [id number] Closed Auto-Generate d Referral 02/23/2023 03/24/2024 1 1 Care Teams (unrecognized sec tion and content) [employer] Work[employer] Relationship Specialty Start Date End Date Anna Olmstead MD PCP - General Family Medicine 05/30/16 [employer] Work[employer] Relationship Specialty Start Date End Date Anna Olmstead MD PCP - General Family Medicine 05/30/16 [employer] Work[employer] Relationship Specialty Start Date End Date Anna Olmstead MD PCP - General Family Medicine 05/30/16 [employer] Work[employer] Relationship Specialty Start Date End Date Anna Olmstead MD PCP - General Family Medicine 05/30/16 [employer] Work[employer] Relationship Specialty Start Date End Date Anna [...] BE BASED ON THE PRIMARY CLINICAL RECORDS. [facility]. provides no warranty or guarantee of the accuracy or completeness of information in this document.
== END | disposition home or self-care (01) ==
LOC: LAB 09:38
PROVIDERS: PCP Family Medicine; Referring Provider Anesthesiology Pain Medicine; Visit Provider Anesthesiology Pain Medicine
DX: F11.20 Opioid dependence, uncomplicated (principal)
CPT/HCPCS: 80307

== ENCOUNTER → 2024-01-18 | Outpatient (CLI) | payer OTHER, MEDICARE, SELFPAY ==
--- OUTSIDE RECORDS SUMMARY | 2024-01-18 07:43 | XMS RPT_ITS | CCD ---
Author Name Unknown Address [address] [place] [address] Organization [facility] Care Team Providers Care Boiler Coverer Helper Name Role Phone Jackie Carlin Unavailable Unavailable Denise Ford Unavailable Unavailable Josiah PEREZ, Jesus Pabon Unavailable [phone] JESUS LY JR Unavailable Unavail able Jackie [...] Propensity to adverse reactions (disorder) 6 AOF [facility] Other [place] Repository Medications Completed/Discontinued Medications Medication Drug Class(es) Dates Sig (Normalized) Sig (Original) amLODIPine 2.5 mg oral tablet (6 sources) Dihydropyridine Calcium Channel Andres Start: 03-11-2021 amLODIPine (NORVASC) 2.5 mg tablet aspirin 81 mg oral tablet (14 sources) Nonsteroidal Anti-inflammatory Drug Start: 10-02-2015 take 1 tablet by mouth once daily ASPIRIN 81 MG TABS One tablet by mouth daily ASPIRIN [id number] Katerine Suresh RN Problems Active Problems Problem Classification Problem Date Documented Date Episodic/Chronic Alcohol-related disorders (10 sources) Alcohol abuse; Translations: [Alcohol abuse, uncomplicated] Onset: 04-09-2012 10-02-2015 Chronic Cardiac dysrhythmias (4 sources) Supraventricular tachycardia; Translations: [Supraventricular tachycardia] Onset: 10-02-2015 10-02-2015 Chronic Coronary atherosclerosis and other heart disease (14 sources) Atherosclerotic heart disease of [place] coronary artery without angina pectoris; Translations: [Coronary [...] BP Diastolic 68 mm[Hg] Jesus Rahman MD [facility] Work Phone: 11-09-2016 15:36-0500 BP [...] Start: 04-19-2023 End: 04-19-2023 ambulatory GIACOMO EPSTEIN Facility:[facility] Start: 04-19-2023 End: 04-19-2023 Patient encounter procedure [...] DTaP,Tdap,Td Vaccine (4 - Td or Tdap) [facility] Start: 07-21-2023 Covid-19 Vaccine () Covid-19 Vaccine () [facility] Start: 07-21-2023 Influenza vaccination [facility] Start: 11-20-2022 ADVANCE DIRECTIVE DISCUSSION ADVANCE DIRECTIVE DISCUSSION [facility] Start: 11-20-2022 DEPRESSION ASSESSMENT DEPRESSION ASSESSMENT [facility] Start: 07-21-2022 Influenza vaccination INFLUENZA (#1) [facility] Start: 04-21-2021 COVID-19 VACCINE (3 - Booster for Moderna series) COVID-19 VACCINE (3 - Booster for Moderna series) [facility] Start: 02-09-2021 Lipid 1996 panel - Serum or Plasma Lipid Screening [facility] Start: 02-09-2021 LIPID SCREEN LIPID SCREEN [facility] Start: 02-09-2019 DIABETES SCREEN DIABETES SCREEN [facility] Start: 02-09-2019 Diabetes Screening Diabetes Screening [facility] Start: 12-25-2017 End: 12-25-2017 Appointment Appointment [facility] Work Phone: Start: 05-15-2017 End: 05-15-2017 Appointment Appointment [facility] Work Phone: Start: 05-15-2017 End: 05-15-2017 PFM PFM [facility] Work Phone: Start: 05-04-2017 End: 05-04-2017 Appointment Appointment [facility] Work Phone: Start: 02-09-2017 Hepatitis B surface antibody level LDL CHOLESTEROL [facility] Start: 11-09-2016 End: 11-09-2016 Follow Up Appt 6 months Follow Up Appt 6 months [facility] Work Phone: Start: 11-09-2016 End: 11-09-2016 PFM PFM [facility] Work Phone: Start: 09-07-2016 PROSTATE CANCER SCREENING DISCUSSION PROSTATE CANCER SCREENING DISCUSSION [facility] Start: 06-17-2016 End: 06-17-2016 Follow Up Appt 4 months Follow Up Appt 4 months [facility] Work Phone: Start: 06-17-2016 End: 06-17-2016 MMM MMM [facility] Work Phone: Start: 2016 RSV Vaccine (1 - 1-dose 60+ series) RSV Vaccine (1 - 1-dose 60+ series) [facility] Start: 03-11-2016 End: 03-11-2016 Electrocardiogram, complete EKG (In office) [facility] Work Phone: Start: 03-11-2016 End: 03-11-2016 Follow Up Appt 3 months Follow Up Appt 3 months [facility] Work Phone: Start: 03-11-2016 End: 06-17-2016 Follow Up Appt Other Follow Up Appt Other [facility] Work Phone: Start: 03-11-2016 End: 03-11-2016 MMM MMM [facility] Work Phone: Start: 12-21-2015 End: 12-21-2015 Cardiac Referral Cardiac Referral Norman Holman DO, [address] [address] [facility], [place], [address] [facility] Work Phone: Start: 12-16-2015 End: 12-16-2015 Endocrinology Referral Endocrinology Referral [facility], [address], [place], [address] [facility] Work Phone: Start: 12-10-2015 End: 12-10-2015 Follow Up Appt 3 months Follow Up Appt 3 months [facility] Work Phone: Start: 12-10-2015 End: 12-10-2015 Follow Up Appt 6 months Follow Up Appt 6 months [facility] Work Phone: Start: 12-10-2015 End: 12-10-2015 Follow Up Appt Other Follow Up Appt Other [facility] Work Phone: Start: 12-10-2015 End: 12-10-2015 MMM MMM [facility] Work Phone: Start: 12-10-2015 End: 12-10-2015 PFM PFM [facility] Work Phone: Start: 10-29-2015 End: 10-29-2015 Follow Up Appt 6 weeks Follow Up Appt 6 weeks [facility] Work Phone: Start: 10-29-2015 End: 12-01-2015 Follow Up Appt Other Follow Up Appt Other [facility] Work Phone: Start: 10-29-2015 End: 10-29-2015 MMM MMM [facility] Work Phone: Start: 10-29-2015 End: 10-29-2015 Renal doppler Renal doppler [facility] Work Phone: Start: 06-23-2011 Colonoscopy COLONOSCOPY [facility] Start: 06-23-2011 COLORECTAL CANCER SCREENING COLORECTAL CANCER SCREENING [facility] Start: 06-23-2011 Pneumococcal Vaccine: 65+ (2 - PCV) Pneumococcal Vaccine: 65+ (2 - PCV) [facility] Start: 06-23-2011 PNEUMOCOCCAL: 65+ (2 - PCV) PNEUMOCOCCAL: 65+ (2 - PCV) [facility] Start: 2006 SHINGRIX VACCINE (1 of 2) SHINGRIX VACCINE (1 of 2) [facility] Start: 2001 COLOGUARD (FIT-DNA) COLOGUARD (FIT-DNA) [facility] Start: [address] COLONOGRAPHY [facility] Start: 2001 FECAL OCCULT BLOOD FECAL OCCULT BLOOD [facility] Start: 2001 SIGMOIDOSCOPY SIGMOIDOSCOPY [facility] Start: 1975 Urine microalbumin profile DTAP,TDAP,TD (1 - Tdap) [facility] Start: 1974 ANNUAL PCP TEAM CHRONIC DISEASE VISIT ANNUAL PCP TEAM CHRONIC DISEASE VISIT [facility] Start: 1974 BP CONTROLLED (<130/80) BP CONTROLLED (<130/80) [facility] Start: 1974 HEPATITIS C SCREENING HEPATITIS C SCREENING [facility] End: 03-24-2024 MRI ELBOW WO IVCON LEFT MRI ELBOW WO IVCON LEFT Radiology Routine Left elbow tendinitis 1 Occurrences starting 02/23/2023 until 03/24/2024 [facility] Work Phone: Immunizations Immunization Date Immunization Notes Care Provider Gordo santos 09-16-2015 influenza virus vacc ine, unspecified formulation [facility] Work Phone: [facility] 06-23-2010 pneumococcal polysaccharide vaccine, 23 valent Giacomo Epstein DO Work Phone: [facility] Work Phone: Payers Date Payer Category Payer Unknown MMO MMO [employer] PPO [id number] 2019-Present [phone] [address] [place] [address] PPO [id number] 2019 Unknown [id number] 2006 Medicare MEDICARE MEDICAR E A AND B [id number] 2006-Present [phone] [address] [address] [place] [address] Medicare [id number] 2006 Medicare [id number] Social History Date Type Detail Facility Start: 02-09-2016 End: 04-19-2023 Tobacco smoking status NHIS Never smoked tobacco [facility] Start: 02-09-2016 End: 04-19-2023 Tobacco use and exposure User of smokeless tobacco [facility] History of tobacco use Chews Tobacco [facility] Start: 04-07-2021 End: 02-23-2023 Alcohol intake Current non-drinker of alcohol (finding) [facility] Start: 02-09-2016 End: 04-19-2023 Tobacco Comment Socially [facility] Start: 04-07-2021 Alcohol Comment non-alcoholic beers, no alcohol since 2015 [facility] Start: 1955 Sex Assigned At Not on file [facility] Start: 02-23-2023 History of Social function [facility] Start: 02-23-2023 Tobacco use panel [facility] National Score (1-10 0), lower number is lower risk 48 [facility] Clinical Notes 04-08-2021 to 04-19-2023 Giacomo Epstein, DO - 04/19/2023 9:55 AM Christianne May, RT(R) - 03/22/2023 8:40 AM Abdullahi Epstein, DO - 02/23/2023 1:02 PM Michaelle Patel RT(R) - 02/23/2023 12:50 PM EDT Note Date & Type Note Facility 04-19-2023 Note HNO ID: [id number] Author: Giacomo Epstein, Service: ? Author Type: [...] We discussed strat (more content not included)... [facility] 04-19-2023 History of Presen t illness Narrative [...] mouth daily at bedtime. PRN TENS Units jonathno Hydromorphone (EXALGO) 12 mg ER TABLET Take [...] Epstein D.O. M.P.H. documented in this encounter [facility] 03-22-2023 Note HNO ID: [id number] Author: RT Rodrigo(Mahendra) Service: ? Author Type: [...] RT Rodrigo(Mahendra) March 22, 2023 8:28 AM [facility] 03-22-2023 History of Presen t illness Narrative [...] 2023 8:28 AM documented in this encounter [facility] 02-23-2023 Note HNO ID: [id number] Author: Giacomo Epstein, DO Service: ? Author [...] L elbow previously with Dr. Epstein at [facility]. Pt states pain does not disrupt [...] elbow for preop (more content not included)... [facility] 02-23-2023 Note HNO ID: [id number] Author: Michaelle Herring RT(R) Service: Radiology Author [...] RT Colten(R) February 23, 2023 12:48 PM [facility] 02-23-2023 History of Presen t illness Narrative [...] L elbow previously with Dr. Epstein at [facility]. Pt states pain does not disrupt [...] All questions answered. documented in this encounter [facility] 02-23-2023 History of Presen t illness Narrative [...] 2023 12:48 PM documented in this encounter [facility] 02-15-2023 Miscellaneous Notes Noted. Patient reports that he received a VM from the office requesting to know which elbow is affecting him (left). Office visit notes have been updated. documented in this encounter [facility] 04-08-2021 Note HNO ID: [id number] Author: Magdiel Tomlin APRN.MANAGING CONSULTANT CLINICAL PROFESSOR Service: Anesthesiology Author Type: Nurse Office Auditor Type: Anesthesia Procedure Notes Filed: 04/08/2021 12:04 PM Note Text: ANESTHESIOLOGY PROCEDURE NOTE Airway General Information Procedure Start Time/Medication Administration: 04/08/2021 11:52 AM Patient location during procedure: OR Timeout Performed Pre-procedure: timeout performed Consent Obtained: Yes Patient identity confirmed: arm band, patient and family Staffing MANAGING CONSULTANT CLINICAL PROFESSOR: Magdiel Tomlin APRN.MANAGING CONSULTANT CLINICAL PROFESSOR Performed by: MITA Indications and Patient Condition [...] attempts at approach: 1 SIGNATURE: Magdiel Tomlin APRN.MANAGING CONSULTANT CLINICAL PROFESSOR PATIENT NAME: Dana Hubbard DATE: April 08, 2021 TIME: 12:03 PM CSN: [id number] [facility] documented in this encounter [facility] note* Diagnosis Left elbow tendinitis- Primary Lateral epicondylitis of left elbow Lateral epicondylitis of elbow documented in this encounter [facility] note* Diagnosis Lateral epicondylitis of left elbow- Primary Lateral epicondylitis of elbow documented in this encounter [facility] note* Diagnosis Left elbow pain Pain in joint, upper arm documented in this encounter [facility] note* Diagnosis Left elbow tendinitis documented in this encounter [facility] for referral (narrative)* Diagnostic Procedure Only (Routine) - Closed Specialty Diagnoses / Procedures Referred By Dayna t Referred To Contact XR IMAGING Diagnoses Left elbow pain Procedures XR ELBOW GENERAL 2V AP/LAT LEFT RADEX ELBOW 2 VIEWS Giacomo Epstein DO [address] [place] [id number] [address] [place] [address] Xr Imaging Referral ID Status Reason Start Date Expiration Date V isits Requested Visits Authorized [id number] Closed Auto-Generate d Referral 02/23/2023 03/24/2024 1 1 [facility] for referral (narrative)* Diagnostic Procedure Only (Routine) - Closed Specialty Diagnoses / Procedures Referred By Contac t Referred To Contact XR IMAGING Diagnoses Left elbow pain Procedures XR ELBOW GENERAL 2V AP/LAT LEFT RADEX ELBOW 2 VIEWS Gicaomo Epstein DO [address] [place] [address] [place] [address] Referral ID Status Reason Start Date Expiration Date V isits Requested Visits Authorized [id number] Closed Auto-Generate d Referral 02/23/2023 03/24/2024 1 1 [facility] for visit Narrative* Diagnostic Procedure Only (Routine) - Closed Specialty Diagnoses / Procedures Referred By Contac t Referred To Contact XR IMAGING Diagnoses Left elbow pain Procedures XR ELBOW GENERAL 2V AP/LAT LEFT RADEX ELBOW 2 VIEWS Giacomo Epstein DO [address] [place] [address] [place] [address] Referral ID Status Reason Start Date Expiration Date V isits Requested Visits Authorized [id number] Closed Auto-Generate d Referral 02/23/2023 03/24/2024 1 1 [facility] Summary Purpose Family History No Family History [...] EXTREMITY W/O CONTRAST MATRL Giacomo Epstein DO [address] [place] [address] Mr Imaging Referral ID Status Reason Start Date Expiration Date Visits Requested Visits Authorized [id number] Authorized Auto-Generat ed Referral 02/23/2023 03/24/2024 1 1 Specialty Diagnoses / Procedures Referred By Dayna patel Referred To Contact MR IMAGING Diagnoses Left elbow tendinitis Procedures MRI ELBOW WO IVCON LEFT MRI ANY JT UPPER EXTREMITY W/O CONTRAST Giacomo Rock, DO [address] [place] [address] [place] [address] Referral ID Status Reason Start Date Expiration Date V isits Requested Visits Authorized [id number] Closed Auto-Generate d Referral 02/23/2023 03/24/2024 1 1 Additional Source Comments (unrecognized sect ion and content) No Status Records FoundNo Status Records FoundNo Status Records Found INFORMATION SOURCE (unrecogn ized section and content) DATE CREATED AUTHOR AUTHOR'S ORGANIZ ATION 04/14/2021 [facility] DATE CREATED AUTHOR AUTHOR'S ORGANIZ ATION 04/28/2023 [facility] Source Comments (unrecognize d section and content) In the event this informatio n is protected by the Federal Confidentiality of Alcohol and Drug Abuse Patient Records regulations: The Federal rules restrict any use of the information to criminally investigate or prosecute any alcohol or drug abuse patient.[facility] the event this information is protected by the Federal Confidentiality of Alcohol and Drug Abuse Patient Records regulations: The Federal rules restrict any use of the information to criminally investigate or prosecute any alcohol or drug abuse patient.[facility] the event this information is protected by the Federal Confidentiality of Alcohol and Drug Abuse Patient Records regulations: The Federal rules restrict any use of the information to criminally investigate or prosecute any alcohol or drug abuse patient.[facility] the event this information is protected by the Federal Confidentiality of Alcohol and Drug Abuse Patient Records regulations: The Federal rules restrict any use of the information to criminally investigate or prosecute any alcohol or drug abuse patient.[facility] the event this information is protected by the Federal Confidentiality of Alcohol and Drug Abuse Patient Records regulations: The Federal rules restrict any use of the information to criminally investigate or prosecute any alcohol or drug abuse patient.[facility] the event this information is protected by the Federal Confidentiality of Alcohol and Drug Abuse Patient Records regulations: The Federal rules restrict any use of the information to criminally investigate or prosecute any alcohol or drug abuse patient.[facility] Reason for Visit (unrecogniz ed section and content) Reason Comments Pain Reason Comments Pain Follow Up Specialty Diagnoses / Procedures Referred By Dayna patel Referred To Contact MR IMAGING Diagnoses Left elbow tendinitis Procedures MRI ELBOW WO IVCON LEFT MRI ANY JT UPPER EXTREMITY W/O CONTRAST Giacomo Rock, DO [address] [place] [address] [place] [address] Referral ID Status Reason Start Date Expiration Date V isits Requested Visits Authorized [id number] Closed Auto-Generate d Referral 02/23/2023 03/24/2024 1 1 Care Teams (unrecognized sec tion and content) Boiler Coverer Helper Relationship Specialty Start Date End Date Anna Olmstead MD PCP - General Family Medicine 05/30/16 Boiler Coverer Helper Relationship Specialty Start Date End Date Anna Olmstead MD PCP - General Family Medicine 05/30/16 Boiler Coverer Helper Relationship Specialty Start Date End Date Anna Olmstead MD PCP - General Family Medicine 05/30/16 Boiler Coverer Helper Relationship Specialty Start Date End Date Anna Olmstead MD PCP - General Family Medicine 05/30/16 Boiler Coverer Helper Relationship Specialty Start Date End Date Anna [...] BE BASED ON THE PRIMARY CLINICAL RECORDS. [facility]. provides no warranty or guarantee of the accuracy or completeness of information in this document.
[2024-01-18 08:55] LABS: Absolute Lymphocyte Count 1.76 X10^3/uL (0.83-4.51); Absolute Neutrophil Count 1.5 X10^3/uL (2.0-7.7); Basophil# 0.04 X10^3/uL; Basophil% 1.1 % (0-1); Eosinophil# 0.08 X10^3/uL; Eosinophils% 2.2 % (0-5); Hematocrit 46.8 % (40-54); Hemoglobin 16.1 g/dL (13.0-16.5); Lymphocyte # 1.76 X10^3/ul (0.83-4.51); Lymphocyte % 47.8 % (19-41); Mean Corp Hgb Conc 34.4 g/dL (32-36); Mean Corpuscular Hgb 31.5 pg (27.0-32.0); Mean Corpuscular Volume 91.6 fL (80-94); Mean Platelet Vol. 11.3 fl (6.2-12.0); Monocyte# 0.35 X10^3/uL; Monocyte% 9.5 % (0-10); NRBC Flagged by Analyzer 0 % (0-5); Neutrophil # 1.45 X10^3/uL (2.7-7.7); Neutrophil % 39.4 % (47-70); Platelet Count 140 K/mm3 (150-450); RBC Distribution Width CV 12.7 % (11.6-14.6); Red Blood Count 5.11 M/mm3 (4.6-6.2); White Blood Count 3.7 K/mm3 (4.4-11.0)
[2024-01-18 09:39] LABS: AST(SGOT) 43 U/L (15-37); Alanine Aminotransfer ALT/SGPT 56 U/L (16-61); Albumin, Serum 3.6 g/dL (3.2-5.0); Alkaline Phosphatase 78 U/L (45-117); Anion Gap 5 (5-15); BUN 8 mg/dL (7-18); Calcium,Total 10.2 mg/dL (8.5-10.1); Chloride 108 mmol/L (98-107); Cholesterol 163 mg/dL (200); Creatinine, Serum 0.89 mg/dL (0.70-1.30); EST Glomerular Filtration Rate 91 mL/min (>60); Est Glom Filt Rate - Afr Amer 110 mL/min (>60); Globulin 3.7 g/dL (2.2-4.2); Glucose 129 mg/dL (74-106); High Density Lipoprotein 69 mg/dL; Potassium 4.2 mmol/L (3.5-5.1); Protein, Total 7.3 g/dL (6.4-8.2); Sodium Level 141 mmol/L (136-145); Triglycerides 65 mg/dL; Very Low Density Lipoprotein 13 mg/dL (5-40)
[2024-01-18 09:48] LABS: Hemoglobin A1c 6.1 % (3.8-5.6)
== END | disposition home or self-care (01) ==
PROVIDERS: PCP Family Medicine; Visit Provider Family Medicine
DX: I10 Essential (primary) hypertension (principal); D69.6 Thrombocytopenia, unspecified; E78.5 Hyperlipidemia, unspecified; R73.01 Impaired fasting glucose
CPT/HCPCS: 36415; 80053; 80061; 83036; 85025

== ENCOUNTER → 2024-02-14 | Outpatient (CLI) | payer OTHER, MEDICARE, SELFPAY ==
[2024-02-14 10:42] LABS: Vitamin D,25 Hydroxy 18.3 ng/mL
[2024-02-14 11:33] LABS: Ionized Calcium 5.21 mg/dL (4.36-5.20)
[2024-02-16 13:07] LABS: Vitamin D 1,25-Dihydroxy 41.4 pg/mL (24.8-81.5)
== END | disposition home or self-care (01) ==
PROVIDERS: PCP Family Medicine; Referring Provider Family Medicine; Visit Provider Family Medicine
DX: E83.52 Hypercalcemia (principal); R53.83 Other fatigue
CPT/HCPCS: 36415; 82306; 82330; 82652; 83970; 84403

== ENCOUNTER → 2024-07-30 | Outpatient (CLI) | payer MEDICARE, SELFPAY ==
[2024-07-30 12:09] LABS: Absolute Lymphocyte Count 1.26 X10^3/uL (0.83-4.51); Absolute Neutrophil Count 1.6 X10^3/uL (2.0-7.7); Basophil# 0.03 X10^3/uL; Basophil% 0.9 % (0-1); Eosinophil# 0.09 X10^3/uL; Eosinophils% 2.7 % (0-5); Hemoglobin 15.7 g/dL (13.0-16.5); Lymphocyte # 1.26 X10^3/ul (0.83-4.51); Lymphocyte % 37.8 % (19-41); Mean Corp Hgb Conc 34.1 g/dL (32-36); Mean Corpuscular Volume 93.9 fL (80-94); Mean Platelet Vol. 12.4 fl (6.2-12.0); NRBC Flagged by Analyzer 0 % (0-5); Neutrophil # 1.64 X10^3/uL (2.7-7.7); Neutrophil % 49.3 % (47-70); Platelet Count 121 K/mm3 (150-450); RBC Distribution Width CV 12.9 % (11.6-14.6); White Blood Count 3.3 K/mm3 (4.4-11.0)
[2024-07-30 12:44] LABS: ALB/GLOB Ratio 1.2 RATIO (0.9-2.4); AST(SGOT) 39 U/L (15-37); Alanine Aminotransfer ALT/SGPT 52 U/L (16-61); Albumin, Serum 3.8 g/dL (3.2-5.0); Alkaline Phosphatase 70 U/L (45-117); Anion Gap 6 (5-15); BUN 15 mg/dL (7-18); BUN/Creat Ratio 18.5 RATIO (10-20); Calcium,Total 9.9 mg/dL (8.5-10.1); Chloride 105 mmol/L (98-107); Cholesterol 182 mg/dL (200); Creatinine, Serum 0.81 mg/dL (0.70-1.30); EST Glomerular Filtration Rate 100 mL/min (>60); Est Glom Filt Rate - Afr Amer 121 mL/min (>60); Globulin 3.3 g/dL (2.2-4.2); Glucose 150 mg/dL (74-106); High Density Lipoprotein 72 mg/dL; PSA,Total - Annual Screen 0.19 ng/mL (0.00-4.00); Potassium 4.2 mmol/L (3.5-5.1); Protein, Total 7.1 g/dL (6.4-8.2); Sodium Level 139 mmol/L (136-145); Triglycerides 83 mg/dL; Very Low Density Lipoprotein 17 mg/dL (5-40)
[2024-07-30 13:07] LABS: Hemoglobin A1c 5.9 % (3.8-5.6)
== END | disposition home or self-care (01) ==
PROVIDERS: PCP Family Medicine; Referring Provider Family Medicine; Visit Provider Family Medicine
DX: Z12.5 Encounter for screening for malignant neoplasm of prostate (principal); R73.01 Impaired fasting glucose; E78.5 Hyperlipidemia, unspecified; I10 Essential (primary) hypertension
CPT/HCPCS: 36415; 80053; 80061; 83036; 84153; 85025; G0103

== ENCOUNTER → 2024-07-31 | Outpatient (CLI) | payer MEDICARE, SELFPAY ==
--- NOTE | 2024-07-31 09:27 | RAD_ITS ---
STUDY: X-RAY - LUMBAR SPINE REASON FOR EXAM: Male, 69 years old. Postlaminectomy syndrome. TECHNIQUE: 2 view(s) of the lumbar spine were obtained. COMPARISON: July 22, 2020 FINDINGS: Osteopenia. Normal lumbar lordosis. No scoliosis. Diffuse mild lower thoracic and lumbosacral facet sclerosis. Intervertebral disc space narrowing diffusely, most marked in the lumbosacral region. Osteophytes most marked at L2-3, L3-4, L4-5 and L5-S1. Epidural catheter no longer present. Mild vascular calcification unchanged. RAD/Lumbar Spine 2 or 3 Views IMPRESSION: Osteopenia with lumbosacral spondylosis and removal of epidural catheter. No acute superimposed finding. Electronically Signed: Korey Aranda MD at 15:15 EDT ,
== END | disposition home or self-care (01) ==
PROVIDERS: PCP Family Medicine; Referring Provider Anesthesiology Pain Medicine; Visit Provider Anesthesiology Pain Medicine
DX: M96.1 Postlaminectomy syndrome, not elsewhere classified (principal)
CPT/HCPCS: 72100

== ENCOUNTER → 2024-09-13 | Outpatient (CLI) | payer MEDICARE, SELFPAY ==
--- NOTE | 2024-09-13 08:45 | ART_ITS ---
Reason For Study: Decreased Pedal Pulses Procedure A bilateral lower extremity continuous wave Doppler with analog waveform analysis,segmental pressures,and ankle brachial indexes without exercise. Left Segmental Pressures Left brachial= 159mmHg. Left posterior tibial artery = 191mmHg. Left dorsalis pedis artery = 181mmHg. Left digit = 118 mmHg. Right Segmental Pressures Right brachial= 149mmHg. Right posterior tibial artery = 206mmHg. Right dorsalis pedis artery = 204mmHg. Right digit = 141 mmHg. Indices The right ankle brachial index by the posterior tibial artery is 1.30. The right ankle brachial index by the dorsalis pedis is 1.28. The right digital-brachial index is 0.89. The left ankle brachial index by the posterior tibial artery is 1.20. The left ankle brachial index by the dorsalis pedis is 1.14. The left digital-brachial index is 0.74. VL/Lower Ext Art Exam w/o Exercis Interpretation Summary Right GERONIMO 1.3, normal. TBI and Doppler/PVR waveforms of the right leg normal at rest. Left GERONIMO 1.2, normal. Doppler/PVR waveforms of the left leg normal at rest. TBI diminished, pedal/digit disease vs spasm Ordering Physician: Valarie Banda Referring Physician: Erick Gonzalez Performed By: Marcella Vergara RDCS/RVT
--- OUTSIDE RECORDS SUMMARY | 2024-09-13 09:06 | XMS RPT_ITS | CCD ---
Author Organization [facility] Care Team Providers Care Mud Boss Name Role Phone Jackie Carlin Unavailable Unavailable Denise Ford Unavailable Unavailable Jesus Rahman MD Unavailable JESUS LY JR Unavailable Unavail able Jackie Carlin Unavailable Unavailable Aysha PEREZ, Eugenio Dailey Primary Care Provider TISHA EPSTEIN Attending Unavailab EUGENIO Ambrosio Primary Care Unavailable TISHA EPSTEIN Referring Unavailab EUGENIO Ambrosio Primary Care Unavailable TISHA EPSTEIN Attending Unavailab EUGENIO Ambrosio Primary Care Unavailable TISHA EPSTEIN Referring Unavailab EUGENIO Ambrosio Primary Care Unavailable Allergies Allergy Classification Reported Allergen(s) Allergy Type Date of Onset Reaction(s) Facility (4 sources) Adhesive Tape; Translations: [ADHESIVE BANDAGES] allergy to substance 5 blisters, rash [facility] Work Phone: (2 sources) Adhesive Tape; Translations: [ADHESIVE TAPE (ROSINS)] Propensity to adverse reactions (disorder) 6 AOF [facility] Other [place] [facility] Medications Completed/Discontinued Medications Medication Drug Class(es) Dates Sig (Normalized) Sig (Original) amLODIPine 2.5 mg oral tablet (6 sources) Dihydropyridine Calcium Channel Andres Start: 03-11-2021 amLODIPine (NORVASC) 2.5 mg tablet aspirin 81 mg oral tablet (14 sources) Nonsteroidal Anti-inflammatory Drug Start: 10-02-2015 take 1 tablet by mouth once daily ASPIRIN 81 MG TABS One tablet by mouth daily ASPIRIN [id number] Ward Suresh RN Start: 10-02-2015 take 1 tablet by heaven th once daily ASPIRIN EC 81 MG TBEC One tablet by mouth daily ASPIRIN [id number] Denise Ford Start: 06-23-2010 ASPIRIN 81 MG TAB Take one(1) tablet daily. 30 06/23/2010 Active Comment on above: Take one(1) tablet d aily. baclofen 10 mg oral tablet (6 sources) gamma-Aminobutyric Acid-ergic Agonist Start: 2015 End: 2016 take 1 tablet by mouth three times daily as needed BACLOFEN 10 MG TABS One tablet by mouth three times daily as needed BACLOFEN [id number] Jesus Rahman MD Calcium Carbonate / vitamin D3 (6 sources) CALCIUM CARBONATE/VITAMIN D3 (VITAMIN D-3 ORAL) Take by mouth. 0 Active Comment on above: Take by mouth. chlordiazePOXIDE hydrochloride 10 mg oral capsule (8 sources) Benzodiazepine Start: 2014 End: 2014 take 1 tablet by mouth three times daily as needed CHLORDIAZEPOXIDE HCL 10 MG CAPS One tablet by mouth three times daily as needed CHLORDIAZEPOXIDE HCL [id number] Jesus Rahman MD COMPOUNDED PRESCRIPTION (6 sources) COMPOUNDED PRESCRIPTION Back stimulator 0 Active Comment on above: Back stimulator cyclobenzaprine hydrochloride 10 mg oral tablet (12 sources) Muscle Relaxant Start: 2014 End: 2014 take 1 tablet by mouth at bedtime CYCLOBENZAPRINE HCL 10 MG TABS One tablet by mouth at bedtime. CYCLOBENZAPRINE HCL [id number] Selina Reyes dexamethasone 1 mg/ml ophthalmic solution (6 sources) Corticosteroid Start: 2016 End: 2016 DEXAMETHASONE SODIUM PHOSPHATE 0.1 % SOLN as directed DEXAMETHASONE SODIUM PHOSPHATE [id number] Jesus Rahman MD diazePAM 2 mg oral tablet (3 sources) Benzodiazepine Start: 2022 End: 2022 diazePAM (VALIUM) 2 mg tablet Indications: Left elbow tendinitis Take 1 tablet by mouth every 6 hours as needed for up to 3 doses. 3 tablet 0 02/23/2023 04/26/2023 Comment on above: Take 1 tablet by heaven th every 6 hours as needed for up to 3 doses. diclofenac sodium 15 mg/ml topical solution (6 sources) Nonsteroidal Anti-inflammatory Drug Start: 2015 Diclofenac Sodium 1.5 % drop doxazosin 2 mg oral tablet (20 sources) alpha-Adrenergic Andres Start: 2016 End: 2016 DOXAZOSIN MESYLATE 2 MG TABS One half tablet by mouth at bedtime. DOXAZOSIN MESYLATE [id number] Valarie Love RN Start: 02-29-2016 End: 06-17-2016 take 1 tablet by mouth once daily at bedtime doxazosin (CARDURA) 1 mg tablet Indications: Elevated plasma metanephrines , Essential hypertension, benign Take 1 tablet by mouth daily at bedtime. 90 tablet 3 02/29/2016 Active Comment on above: Take 1 tablet by heaven th daily at bedtime. ezetimibe 10 mg oral tablet (6 sources) Dietary Cholesterol Absorption Inhibitor Start: 03-17-20 21 ezetimibe (ZETIA) 10 mg tablet folic acid 1 mg oral tablet (8 sources) Start: 10-02-20 15 End: 10-29-20 15 take 1 tablet by mouth twice daily FOLIC ACID 1 MG TABS One tablet by mouth twice daily FOLIC ACID [id number] Ward Suresh RN gabapentin 300 mg oral capsule (6 sources) Anti-epileptic Agent Start: 04-03-20 19 gabapentin (NEURONTIN) 300 mg capsule Take 300 mg by mouth as needed. 0 04/03/2019 Active Comment on above: Take 300 mg by mouth . Take 300 mg by mouth as needed. 24 hr HYDROmorphone hydrochloride 12 mg extended release oral tablet (18 sources) Opioid Agonist Start: 10-02-20 15 take 1 tablet by mouth once daily EXALGO 12 MG T24A One tablet by mouth daily HYDROMORPHONE HCL [id number] Jesus Rahman MD Start: 10-02-2015 take 1 tablet by heaven th once daily EXALGO 12 MG T24A One tablet by mouth daily HYDROMORPHONE HCL [id number] Jesus Rahman MD Start: 10-02-2015 take 1 tablet by heaven th once daily EXALGO 12 MG T24A One tablet by mouth daily HYDROMORPHONE HCL [id number] Ward Suresh RN Start: 10-02-2015 take 1 tablet by heaven th once daily EXALGO 12 MG T24A One tablet by mouth daily HYDROMORPHONE HCL [id number] Selina Reyes take 1 tablet by heaven th every twenty-four hours Hydromorphone (EXALGO) 12 mg ER TABLET Take 12 mg by mouth every 24 hours. 0 Active Comment on above: Take 12 mg by mouth every 24 hours. melatonin 3 mg oral tablet (14 sources) Start: 03-11-20 16 End: 11-09-20 16 take 1 tablet by mouth at bedtime MELATONIN 3 MG TABS One tablet by mouth at bedtime MELATONIN [id number] Jesus Rahman MD Comment on above: Take 3 mg by mouth d aily at bedtime. Take 3 mg by mouth d aily at bedtime. PRN meloxicam 7.5 mg oral tablet (8 sources) Nonsteroidal Anti-inflammatory Drug Start: 05-15-20 17 meloxicam (MOBIC) 7.5 mg tablet methocarbamol 500 mg oral tablet (6 sources) Muscle Relaxant Start: 03-11-20 21 methocarbamol (ROBAXIN) 500 mg tablet metoprolol tartrate 25 mg oral tablet (18 sources) beta-Adrenergic Andres Start: 01-28-20 17 End: 05-15-20 17 take 1 tablet by mouth once daily METOPROLOL TARTRATE 25 MG TABS One tablet by mouth daily METOPROLOL TARTRATE [id number] Valarie Love RN Start: 10-02-2015 End: 03-11-2016 take 1 tablet by mouth twice daily METOPROLOL TARTRATE 25 MG TABS One tablet by mouth twice daily METOPROLOL TARTRATE [id number] Ward Suresh RN Multivitamin capsule (6 sources) take 1 capsule by mouth once daily Multivitamin capsule Take 1 capsule by mouth once daily. 0 Active Comment on above: Take 1 capsule by mo ut once daily. pravastatin sodium 20 mg oral tablet (8 sources) HMG-CoA Reductase Inhibitor Start: 5 End: 5 take 1 tablet by mouth once daily PRAVASTATIN SODIUM 20 MG TABS One tablet by mouth daily PRAVASTATIN SODIUM [id number] Ward Suresh RN ramipril 5 mg oral capsule (20 sources) Angiotensin Converting Enzyme Inhibitor Start: 5 take 1 tablet by mouth once daily ALTACE 10 MG CAPS One tablet by mouth daily RAMIPRIL [id number] Valarie Banda PA-C Start: 10-02-2015 take 1 tablet by heaven th once daily RAMIPRIL 5 MG CAPS One tablet by mouth daily RAMIPRIL [id number] Selian Reyes Start: 10-02-2015 take 1 tablet by heaven th once daily ALTACE 10 MG CAPS One tablet by mouth daily RAMIPRIL [id number] Valarie Banda PA-C Start: 10-02-2015 take 1 tablet by heaven th twice daily ALTACE 10 MG CAPS One tablet by mouth twice daily RAMIPRIL [id number] Jesus Rahman MD Start: 10-02-2015 take 1 tablet by heaven th twice daily ALTACE 10 MG CAPS One tablet by mouth twice daily RAMIPRIL [id number] Jesus Rahman MD Comment on above: Take 10 mg by mouth once daily. TENS Units jonathon (6 sources) TENS Units jonathon thiamine 100 mg oral tablet (6 sources) take 1 tablet by mouth once daily thiamine (VITAMIN B1) 100 mg tablet Take 100 mg by mouth once daily. 0 Active Comment on above: Take 100 mg by mouth once daily. vitamin b 12 0.1 mg oral tablet (4 sources) Vitamin B12 Start: 10-02-2015 take 1 tablet by mouth once daily VITAMIN B-12 100 MCG TABS One tablet by mouth daily CYANOCOBALAMIN [id number] Ward Suresh RN B COMPLEX VITAMINS (4 sources) Start: 10-02-2015 take 1 tablet by mouth once daily VITAMIN B COMPLEX TABS One tablet by mouth daily B COMPLEX VITAMINS [id number] Jesus Rahman MD vitamin d 1000 unt oral tablet (4 sources) Start: 11-09-2016 take 1 tablet by mouth once daily VITAMIN D 1000 UNIT TABS One tablet by mouth daily CHOLECALCIFEROL [id number] Jesus Rahman MD Start: 11-09-2016 take 1 tablet by heaven th once daily VITAMIN D 1000 UNIT TABS One tablet by mouth daily CHOLECALCIFEROL [id number] Jesus Rahman MD Problems Active Problems Problem Classification Problem Date Documented Date Episodic/Chronic Alcohol-related disorders (10 sources) Alcohol abuse; Translations: [Alcohol abuse, uncomplicated] Onset: 04-09-2012 10-02-2015 Chronic Cardiac dysrhythmias (4 sources) Supraventricular tachycardia; Translations: [Supraventricular tachycardia] Onset: 10-02-2015 10-02-2015 Chronic Coronary atherosclerosis and other heart disease (14 sources) Atherosclerotic heart disease of [place] coronary artery without angina pectoris; Translations: [Coronary [...] Results Test Name Value Interpretation Reference Range Facility JOE 04-19-2023 OV Office Visit (ORNA ) DANA HUBBARD ([id number]) 1955 M Be Co* Date Time Provider Department 04/19/23 9:45 AM TISHA EPSTEIN During your visit today, we recorded the following information about you: Tisha Epstein DO 04/19/2023 6:10 PM Signed Follow Up Visit Chief Complaint Dana Hubbard [...] Encounter Diagnosis ICD-10-CM 1. Lateral epicondylitis of lef (more content not included)... Normal [facility] MRI ELBOW WO IVCON LEFTon [facility] MRI ELBOW WO IVCON LTon 05-0 MRI ELBOW WO IVCON LT * * *Final Report* * * DATE OF EXAM: Mar 22 2023 8:50AM [facility] 0188 - MRI ELBOW WO IVCON LT / PROCEDURE REASON: Left elbow tendinitis * * * * Physician Interpretation * * * * EXAMINATION: MRI ELBOW WO IVCON LT TECHNIQUE: Noncontrast multiplanar MRI of the left elbow was performed utilizing T1-weighted and fluid sensitive sequences. HISTORY: Chronic elbow pain. Epicondylitis suspected. COMPARISON: Left elbow radiographs dated 02/23/2023. RESULT: Exam is significantly limited by motion. There is a small, nonspecific elbow effusion. There is no bicipito-radial bursitis. There is trace olecranon bursitis. Osseous alignment is preserved. No marrow signal abnormality is identified. No significant cartilage loss is seen. There is no muscle atrophy or edema. The biceps, brachialis, and triceps insertions are intact. Mildly edematous insertional triceps enthesophyte is noted. The common flexor tendon origin is intact. There is moderate common extensor origin tendinosis with a moderate grade partial thickness tear. The ulnar collateral, radial collateral, and lateral ulnar collateral ligaments are intact. The contents of the tibial tunnel including the ulnar nerve are within normal limits. The visualized radial, posterior interosseous, and median nerves are normal in course and caliber. IMPRESSION: Common extensor origin tendinosis with a moderate grade, partial-thickness tear. Insertional triceps enthesitis and trace olecranon bursitis. [employer] Crm Developer: [email or web address] Transcribe Date/Time: Mar 22 2023 9:34A Dictated by : ASHLEY SILVA MD This examination was interpreted and the report reviewed and electronically signed by: ASHLEY SILVA MD on Mar 22 2023 9:41AM EST [id number] N Normal [facility] CNOVon 02-23-2023 CNOV Office Visit (ORTHWS ) DANA HUBBARD ([id number]) 1955 M Be Co* Date Time Provider Department 02/23/23 1:15 PM TISHA EPSTEIN During your visit today, we recorded the following information about you: Tisha Epstein DO 02/23/2023 3:46 PM Signed Reason for Visit/Chief Complaint Dana Hubbard is [...] L elbow previously with Dr. Epstein at [facility]. Pt states pain does not disrupt [...] by mouth daily at bedtime. TENS Units jonatohn doxazosin (CARDURA) 1 mg tablet Take 1 [...] motion. Patient's questions were answered in detailed. (more content not included)... Normal [facility] No Panel Informationon 02-23 [facility] XR ELBOW 2V AP/LAT LTon XR ELBOW 2V AP/LAT LT * * *Final Report* * * DATE OF EXAM: Feb 23 2023 1:01PM [facility] [id number] - XR ELBOW 2V AP/LAT LT / PROCEDURE REASON: Left elbow pain * * * * Physician Interpretation * * * * HISTORY: Chronic left radial sided elbow pain increasing over time without injury.. Left elbow pain . TECHNIQUE: XR ELBOW 2V AP/LAT LT Laterality: LEFT Number of different views (projections): 2 COMPARISON: None RESULT: Enthesophyte formation of the triceps tendon and common extensor mechanism. No effusion. No fracture. Joint spaces are well-maintained. IMPRESSION: No bone or articular disease [employer] Developer: [facility] Transcribe Date/Time: Feb 23 2023 6:37P Dictated by : YOLETTE DAS MD This examination was interpreted and the report reviewed and electronically signed by: YOLETTE DAS MD on Feb 23 2023 6:38PM EST [id number] N Normal [facility] CNPMadeline 02-15-2023 CNPN Telephone ([employer]) HAYDEEDANA ([id number]) 1955 M Be Co* Date Time Provider Department 02/15/23 TISHA EPSTEIN During your visit today, we recorded the following information about you: Nirali Morrison 02/15/2023 3:20 PM Signed Patient reports that he received a VM from the office requesting to know which elbow is affecting him (left). Office visit notes have been updated. Deirdre Benjamin Ma 02/15/2023 3:24 PM Signed Noted. Allergies As of Date: 02/15/2023 Noted Allergy Reaction ADHESIVE TAPE (ROSINS) 09/16/2016 16 - Unknown Date Reviewed: 04/08/2021 Reviewed by: García Cunha RN - Fully Assessed Reason for Visit: Patient Update [1234] Prescriptions as of 02/15/2023 - methocarbamol (ROBAXIN) 500 mg tablet - gabapentin (NEURONTIN) 300 mg capsule Take 300 mg by mouth. - ezetimibe (ZETIA) 10 mg tablet - amLODIPine (NORVASC) 2.5 mg tablet - meloxicam (MOBIC) 7.5 mg tablet - CALCIUM CARBONATE/VITAMIN D3 (VITAMIN D-3 ORAL) Take by mouth. - Diclofenac Sodium 1.5 % drop - Multivitamin capsule Take 1 capsule by mouth once daily. - melatonin 3 mg Take 3 mg by mouth daily at bedtime. - TENS Units jonathon - doxazosin (CARDURA) 1 mg tablet Take 1 tablet by mouth daily at bedtime. - thiamine (VITAMIN B1) 100 mg tablet Take 100 mg by mouth once daily. - Hydromorphone (EXALGO) 12 mg ER TABLET Take 12 mg by mouth every 24 hours. - COMPOUNDED PRESCRIPTION Back stimulator - ramipril (ALTACE) 10 mg capsule Take 10 mg by mouth once daily. - ASPIRIN 81 MG TAB Take one(1) tablet daily. 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*05/15/2014 Herniated lumbar disc without myelopathy [M51.2*11/30/2015 Thoracic myofascial strain [S29.019A] 11/30/2015 Arteriosclerosis of coronary artery [I25.10] 10/02/2015 History of radiofrequency ablation (RFA) proced*12/21/2015 Encounter Status:Closed by DEIRDRE BENJAMIN MA on 02/15/23 Normal [facility] ANES POSTPROC EVALon 021 ANES POSTPROC EVAL HNO ID: [id number] Author: Arnav Orourke MD Service: Anesthesiology Author Type: Anesthesiologist Type: Anesthesia Postprocedure Evaluation Filed: 04/08/2021 4:29 PM Note Text: POST ANESTHESIA EVALUATION NOTE : 1955 Procedure Summary Date: 04/08/21 Room / Location: CT OR02 / CT OR Anesthesia Start: 1143 Anesthesia Stop: 1331 Procedure: REMOVAL NEUROSTIMULATOR PULSE GENERATOR SPINAL CORD (N/A ) Diagnosis: Chronic pain syndrome Surgeons: Jesus Bernard MD Responsible Provider: Arnav Orourke MD Anesthesia Type: general ASA Status: 3 Anesthesia Type: general Last vitals Vitals Value Taken Time BP 167/69 04/08/21 1429 Temp 36.1 ?C (97 ?F) 04/08/21 1329 Pulse 71 04/08/21 1429 Resp 22 04/08/21 1429 SpO2 96 % 04/08/21 1429 Post Anesthesia Patient Status Patient Evaluation: PACU. PACU/ICU Patient Condition: stable. Anticipated Disposition: phase 2 then home. Neurological Status: aware and responsive. Pulmonary Status: breathing comfortably on room air Airway Control: returned to baseline unsupported. Cardiovascular Status: stable. Pain Management: clinically adequate - multimodal analgesia pain management approach Postoperative Hydration: acceptable. Intraoperative Events: no significant anesthesia events Recommendation: continue current plan of care. No complications documented. SIGNATURE: Arnav Orourke MD PATIENT NAME: Dana Hubbard DATE: April 08, 2021 TIME: 4:29 PM CSN: [id number] [facility] ANES PRE-OPon 04-08-2021 ANES PRE-OP HNO ID: [id number] Author: Arnav Orourke MD Service: Anesthesiology Author Type: Anesthesiologist Type: Anesthesia Preprocedure Evaluation Filed: 04/08/2021 10:28 AM Note Text: ANESTHESIOLOGY DAY OF SURGERY NOTE : 1955 Procedure(s) (LRB): REMOVAL NEUROSTIMULATOR PULSE GENERATOR SPINAL CORD (N/A) Surgeon(s): Jesus Bernard MD Estimated body mass index is 25.54 kg/m? as calculated from the following: Height as of this encounter: 177.8 cm (5' 10 ). Weight as of this encounter: 80.7 kg (178 lb). Most recent hematocrit and potassium results: Hematocrit 46.8 01/13/2016 Potassium 4.1 02/10/2016 Relevant Problems CARDIO (+) Arteriosclerosis of coronary artery (+) Essential hypertension, benign I - PHYSICAL EVALUATION AIRWAY Patient intubated: No. Mallampati: II. TM distance: >3 FB. Neck ROM: full ROM without neurological symptoms. Mouth opening: adequate. Short neck: no. Thick neck: no DENTAL Dental findings: teeth intact. Additional exam findings: no II - ANESTHESIA PLAN ASA Score: 3 Anesthetic Plan: general Airway type: ETT NPO Status: adequate Monitoring plan: Standard ASA. Postoperative analgesic plan: parenteral or oral opioids and multimodal analgesia. Anesthetic Risks, Benefits, Alternatives, Personnel Discussed. Consent obtained from: patient.Patient / Surrogate agrees to blood products: yes DNR status not reviewed with patient and/or family prior to surgery. Significant changes in the patient condition since the History and Physical, not otherwise documented in primary service progress note: no. Potential Anesthesia issues that may suggest increased risk of complications or contraindication to planned procedure: none. Vitals Value Taken Time BP 166/74 04/08/21 0857 Pulse 62 04/08/21 0857 Resp 16 04/08/21 0857 Temp 37 ?C (98.6 ?F) 04/08/21 0857 SpO2 99 % 04/08/21 0857 Facility-Administered Medications as of 04/08/2021 Medication Dose Route Frequency - sodium chloride 0.9 % (flush) 2-10 mL (BD POSIFLUSH) 2-10 mL INTRAVENOUS q 12 H Outpatient Medications as of 04/08/2021 Medication Sig - ezetimibe (ZETIA) 10 mg tablet - amLODIPine (NORVASC) 2.5 mg tablet - Hydromorphone (EXALGO) 12 mg ER TABLET Take 12 mg by mouth every 24 hours. - ramipril (ALTACE) 10 mg capsule Take 10 mg by mouth once daily. - methocarbamol (ROBAXIN) 500 mg tablet - gabapentin (NEURONTIN) 300 mg capsule Take 300 mg by mouth. - meloxicam (MOBIC) 7.5 mg tablet - CALCIUM CARBONATE/VITAMIN D3 (VITAMIN D-3 ORAL) Take by mouth. - Diclofenac Sodium 1.5 % drop - Multivitamin capsule Take 1 capsule by mouth once daily. - DICLOFENAC SODIUM (PENNSAID TOPICAL) Apply to affected area. - melatonin 3 mg Take 3 mg by mouth daily at bedtime. - TENS Units jonathon - doxazosin (CARDURA) 1 mg tablet Take 1 tablet by mouth daily at bedtime. (Patient not taking: Reported on 04/07/2021 ) - thiamine (VITAMIN B1) 100 mg tablet Take 100 mg by mouth once daily. - COMPOUNDED PRESCRIPTION Back stimulator - ASPIRIN 81 MG TAB Take one(1) tablet daily. I have interviewed and examined the patient. I have reviewed the medical record and/or the pre-anesthesia evaluation, pertinent labs, and test results. This contains updated information obtained within 48 hours of Surgery/Procedure. SIGNATURE: Arnav Orourke MD PATIENT NAME: Dana Hubbard DATE: April 08, 2021 TIME: 10:28 AM CSN: [id number] [facility] BRIEF OP NOTon 04-08-2021 BRIEF OP NOT HNO ID: [id number] Author: Jesus Bernard MD Service: Neurosurgery Author Type: Physician Type: Brief Op Note Filed: 04/08/2021 12:55 PM Note Text: BRIEF OPERATIVE / PROCEDURE NOTE LOG ID: [id number] SURGERY/PROCEDURE DATE: 04/08/2021 INCISION/PROCEDURE START TIME: 12:08 PM INCISION CLOSE/PROCEDURE END TIME: SURGEON(S)/PROCEDURAL IST(S) AND AERODYNAMICS PROFESSOR(S): Surgeon(s) and Role: * Jesus Bernard MD - Primary Nurse Practitioner: Sweta Escalante APRN.CNP SURGERY/PROCEDURE(S): Removal of SCS and battery ANESTHESIA: General FINDINGS: [employer] paddle lead and battery ESTIMATED BLOOD LOSS: 10 mls SPECIMENS: None COMPLICATIONS: None None PRE-OP/PRE-PROCEDURE DIAGNOSIS: Nonfunctional SCS POST-OP/POST-PROCEDUR E DIAGNOSIS: Same as Preop SIGNATURE: Jesus Bernard MD PATIENT NAME: Dana Hubbard DATE: April 08, 2021 TIME: 12:54 PM Normal [facility] OPERATIVE NOon 04-08-2021 OPERATIVE NO HNO ID: [id number] Author: Jesus Bernard MD Service: Neurosurgery Author Type: Physician Type: Operative Report Filed: 04/10/2021 8:05 AM Note Text: [facility] - Operative Report DANA HUBBARD : 1955 AGE: 66. SEX: M PATIENT TYPE: [place] [facility] [place] [facility] LOCATION: [facility] ATTENDING PHYSICIAN: Jesus Bernard M.D. [facility] NUMBER: [id number] DATE OF SURGERY/PROCEDURE: 04/08/2021 INCISION/PROCEDURE START TIME: 12:08 PM INCISION CLOSE/PROCEDURE END TIME: 1:17 PM PREOPERATIVE DIAGNOSIS: Nonfunctional spinal cord stimulator. POSTOPERATIVE DIAGNOSIS: Nonfunctional spinal cord stimulator. SURGEON: Jesus Bernard M.D. AERODYNAMICS PROFESSOR: Sweta Escalante CNP. SURGERY/PROCEDURE: Removal of spinal cord stimulator and battery ANESTHESIA: General endotracheal. PROCEDURE: Removal of spinal cord stimulator paddle lead and battery. ESTIMATED BLOOD LOSS: Approximately 10. COMPLICATIONS: None. SPECIMENS: [employer] paddle lead and battery are removed at the case. INDICATIONS: The patient is a 66-year-old gentleman with history of spinal cord stimulator placed. It has not been working for him and then not functional. He wished to have it removed. Risks and benefits of procedure were discussed with him. He wished to proceed. DESCRIPTION OF PROCEDURE: Patient was brought to the operating room. General endotracheal anesthesia was induced. He was turned prone on a spinal [place] table. His face, chest, hips, arms, legs, feet were all padded appropriately. AP C-arm was brought in field and to confirm that he had a paddle lead in place, his thoracic incision was marked, battery incision was marked, and he was prepped and draped in the normal sterile fashion. After appropriate time-out identifying the patient, the type of surgery, the battery pocket was opened and the battery dissected free from the battery pocket and removed. It was cut free from the leads and the thoracic incision was opened and the leads identified as well as the anchor. They were dissected free. There was a significant amount of scar tissue proximal to the anchors heading towards the epidural space. We identified the proximal lamina that the beginning of the lead was sitting under and it was fully exposed and then the Posiba drill used to thin the lamina and then a 2 mm Kerrison used to remove the remaining bone exposing the lead under some scar tissue in the canal. We were then able to work backwards towards the proximal portion of the lead and the leads themselves to free them up from the scar tissue. Once this was accomplished, the entire lead was able to be removed from the scar tissue. The wound was copiously irrigated out. This allowed to sit for several minutes to confirm there was good hemostasis. Then, the muscle fascia was closed with interrupted 0 Vicryl sutures followed by another layer of interrupted 2-0 Vicryl sutures followed by subcuticular interrupted 3-0 Vicryl sutures with a running locked 3-0 nylon on the skin. The battery pocket was closed with interrupted subcuticular 2-0 Vicryl sutures with running locked 3-0 nylon on the skin. Sterile dressing was placed. He was extubated, taken to recovery room in stable fashion to be discharged home. There is no neurosurgical resident available to assist the case. The nurse practitioner assisted to provide suction, retraction, assistance with opening and closing the case to perform safely. Jesus Bernard M.D. Yohan:[id number] /[id number] Normal [facility] HISTORY PHYSICALon HISTORY PHYSICAL HNO ID: [id number] Author: Raina Martinez PA-C Service: ? Author Type: Physician Trimming Cutter Machine Type: HANDP Filed: 04/07/2021 12:55 PM Note Text: HISTORY AND PHYSICAL EXAMINATION SERVICE DATE: 04/07/2021 SERVICE TIME: 9:43 AM PRIMARY CARE PHYSICIAN: Eugenio Olmstead MD REASON FOR VISIT: Dana Hubbard is a 66 year old male who is scheduled for Procedure(s) with comments: REMOVAL NEUROSTIMULATOR PULSE GENERATOR SPINAL CORD (N/A) - REMOVAL SPINAL CORD STIMULATOR ASUNCION, WAYLON TABLE at the request of Dr. Jesus Bernard for consultation. My final recommendation will be communicated back to the requesting physician by way of shared medical record or letter. Subjective The patient has the following: ACTIVE PROBLEM LIST Essential Hypertension, Benign Nonspecific Abnormal Results of Liver Function Study Mixed Hyperlipidemia Fam Hx-Ischem Heart Disease Lumbar Disc Disease Impaired Fasting Glucose Tremor Alcohol Abuse Other Pain Disorders Related to Psychological Factors Herniated Lumbar Disc Without Myelopathy Thoracic Myofascial Strain CHIEF COMPLAINT: neurostimulator HPI: Dana Hubbard is a 66 year old male who presents with need for removal of neurostimulator due to dysfunction. He has chronic back pain that is managed by pain management, on hydromorphone. He reports that stimulator was placed in 2014 and has severe worked right. He admits to chronic numbness and tingling of the right great toe which is also chronic. REVIEW OF SYSTEMS: General: No weight loss, malaise or fevers. Neurological: Negative for: headaches, seizures, TIA and strokes. Respiratory: Negative for: asthma, COPD, current cough, dyspnea and obstructive sleep apnea. 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, was 12/2020. Negative for: atrial fibrillation, chest pain, CHF, DVT/PE and murmur/valvular heart disease. GI: Negative for: abdominal pain, difficulty swallowing, liver disease and vomiting. : Negative for: dysuria, frequent urination, hematuria and urgency. Endocrine: Negative for: diabetes mellitus, hyperthyroidism and hypothyroidism. Hematology: Positive for: chronic anti-coagulation/plat elet meds. Patient is on anti-coagulation/plat elet medication(s): Aspirin. Negative for: anemia. Oncology: No history of CA metastasis, chemo within 30 days, or radiotherapy within 90 days. No history of oncological symptoms or problems. Psych: No history of psychiatric symptoms or problems. Musculoskeletal: See HPI Skin: Negative for lesions, rash and itching. PAST MEDICAL HISTORY Diagnosis Date - Acute non-ST segment elevation myocardial infarction (HCC) - Alcohol abuse - Coronary arteriosclerosis - Degeneration of lumbar intervertebral disc S/p surgery 11/20/1990 - Essential hypertension - Heart attack (HCC) - Hyperlipidemia - Hypertensive disorder - Low back pain Spinal cord stimulator in situ - Lumbar disc disease with radiculopathy - Supraventricular tachycardia (HCC) PAST SURGICAL HISTORY Procedure Laterality Date - CATARACT EXTRACTION HX Bilateral 05/2015 - CATHETER, ABLATION 01/13/2016 SVT Ablation, Dr. Lima - PAST SURGICAL HISTORY OF age 9 right arm cyst removal and bone reconstruction - PAST SURGICAL HISTORY OF 11/2014 Back stimulator - PROCEDURE 1991 Back surgery (disc fragmented) - TONSILLECTOMY AND ADENOIDECTOMY HX FAMILY HISTORY Problem Relation Age of Onset - Heart Maternal Grandfather from heart attack - Heart Brother open heart surgery after heart attack; CABG 50s - Coronary Artery Disease Brother Social History Tobacco Use - Smoking status: Never Smoker - Smokeless tobacco: Current User Types: Chew - Tobacco comment: Socially Substance Use Topics - Alcohol use: No Alcohol/week: 105.0 standard drinks Types: 42 Cans of Beer (12oz) per week - Drug use: No Prior to Admission medications as of 05/29/17 1250 Medication Sig Last Dose Taking meloxicam (MOBIC) 7.5 mg tablet metaxalone (SKELAXIN) 800 mg tablet CALCIUM CARBONATE/VITAMIN D3 (VITAMIN D-3 ORAL) Take by mouth. Diclofenac Sodium 1.5 % drop Multivitamin capsule Take 1 capsule by mouth once daily. DICLOFENAC SODIUM (PENNSAID TOPICAL) Apply to affected area. amoxicillin (POLYMOX, AMOXIL) 500 mg capsule baclofen (LIORESAL) 10 mg tablet melatonin 3 mg Take 3 mg by mouth daily at bedtime. TENS Units jonathon doxazosin (CARDURA) 1 mg tablet Take 1 tablet by mouth daily at bedtime. thiamine (VITAMIN B1) 100 mg tablet Take 100 mg by mouth once daily. Hydromorphone (EXALGO) 12 mg ER TABLET Take 12 mg by mouth every 24 hours. COMPOUNDED PRESCRIPTION Back stimulator metoprolol succinate ER (TOPROL XL) 25 mg 24 hr tablet Take 25 mg by mouth once daily. ramipril (ALTACE) 10 mg capsule Ta (more content not included)... Normal [facility] NURSING PROGon 04-07-2021 NURSING PROG HNO ID: [id number] Author: Shasha Mcnulty RN Service: ? Author Type: Registered Nurse Type: Nursing Progress Note Filed: 04/07/2021 2:14 PM Note Text: PACC HANDP 04/07/2021 per documented history Arteriosclerosis of coronary artery Assessment: following cardio Dr. Jesus Rahman, last visit 12/2020, no interventional/surgic al history, on aspirin 81, denies any recent chest pain or dyspnea with activity Alcohol abuse Assessment: no alcohol since 2015 Impaired Fasting Glucose ANESTHESIA FINDINGS: Intubation History: No history of difficult intubation Significant Anesthesia Considerations: potential post-op agitation Shasha Mcnulty RN April 07, 2021 1414 [facility] 05-29-2017 [facility] Office Visit (AGHWW1) ----HUBBARDDANA ([id number]) 1955 MDate Time Provider Department05/29/17 1:00 PM JESUS LY JR AGHWW1 During your visit today, we recorded the following information about you: Respiration Weight Height 18/minute 81.6 kg 1.753 Indu Call 05/29/2017 1:01 PM SignedREVIEW OF SYSTEMS:GENERAL: Well developed, well nourished. No acute distressPAIN: Back, ArthritisCARDIOVASCUL AR: Negative for chest pain, leg swelling and palpations.MSK: Negative for joint pain, swelling, back pain, muscle pain.SKIN: Negative for lesions, rash, itching, metal sensitivityNEURO: R Leg, R Foot, R ToesENDOCRINE: Negative for Diabetes Type 1 and Type 2HEMATOLOGY: Bleed Kristi Ly Jr, MD 05/29/2017 1:01 PM Signed05/29/2017Date of : 1955Subjective: Dana comes in with his old postoperative back pain he still in thepain clinic still has a spinal cord stimulator in there. It hasn't been in agood position is causing rib pain he saw Dr. García Mariano does not 1 to doanything as long as a spinal cord stimulators or possibly needed updated MRI ifthat can come out. Otherwise his pain meds he gets through the pain clinic.He has more difficulty standing walking and getting around as a result. Doestake pain meds but that shoulder pain clinic. OARRS Report reviewedObjective: he has a well-healed scar there is tenderness and spasms across thelower back he could flex 60? bend and rotate 20?.Assessment:1.thor acic strain2.postop lumbar disc disease with stenosis3.Vitals: Resp 18 Ht 5' 9ANDquot; (1.75m) Wt 180 lb (81.6kg) BMI 26.57kg/(m2).Plan: follow-up when necessary everything is being managed to the pain..Jesus Ly Jr, MDDictated but not read.Allergies As of Date: 05/29/2017 Noted Allergy ReactionADHESIVE TAPE (ROSINS) 09/16/2016 16 - UnknownDate Reviewed: 05/29/2017Reviewed by: Jericho Call - Fully AssessedReason for Visit: Follow Up [171] Cmt: BackPrimary Visit Diagnosis:Lumbar disc disease [M51.9] Other Visit Diagnosis:Herniated lumbar disc without myelopathy [M51.26]Prescriptions as of 05/29/2017 Sig: MELOXICAM 7.5 MG TABLET VITAMIN D-3 ORAL Take by mouth. MULTIVITAMIN CAPSULE Take 1 capsule by mouth once * THIAMINE HCL (VITAMIN B1) 100* Take 100 mg by mouth once frank* HYDROMORPHONE ER 12 MG TABLET* Take 12 mg by mouth every 24 * RAMIPRIL 10 MG CAPSULE Take 10 mg by mouth once kirsty* ASPIRIN 81 MG TABLET Take one(1) tablet daily. METAXALONE 800 MG TABLET DICLOFENAC 1.5 % TOPICAL DROPS PENNSAID TOPICAL Apply to affected area. AMOXICILLIN 500 MG CAPSULE BACLOFEN 10 MG TABLET MELATONIN 3 MG TABLET Take 3 mg by mouth daily at b* TRANSCUTANEOUS ELECTRICAL NER* DOXAZOSIN 1 MG TABLET Take 1 tablet by mouth daily * COMPOUNDED PRESCRIPTION Back stimulator METOPROLOL SUCCINATE ER 25 MG* Take 25 mg by mouth once kirsty* LOSARTAN 50 MG TABLET Take 1 tablet by mouth once d* FENTANYL 25 MCG/HR TRANSDERMA* Apply 1 Patch as directed bella* METFORMIN 500 MG TABLET Take 1 tablet by mouth daily * SIMVASTATIN 10 MG TABLET Take 1 tablet by mouth daily *Problem List As Of Date 05/29/2017 Noted Resolved Essential hypertension, benign [I10] INVALID FOR* Priority: C Nonspecific Abnormal Results of Liver Function *INVALID FOR* More... MIXED HYPERLIPIDEMIA [E78.2] INVALID FOR* More... Fam Hx-Ischem Heart Disease [Z82.49] INVALID FOR* Lumbar Disc Disease [M51.9] INVALID FOR* More... Impaired fasting glucose [R73.01] INVALID FOR* Priority: A More... Tremor [R25.1] INVALID FOR* Priority: B More... Alcohol abuse [F10.10] INVALID FOR* Other pain disorders related to psychological f*INVALID FOR* Herniated lumbar disc without myelopathy [M51.2*INVALID FOR* Thoracic myofascial strain [S29.019A] INVALID FOR*Level of Service: EST PATIENT VISIT LEVEL 3 [16243]Disposition: Return if symptoms worsen or fail to improve.Follow-up and Disposition History RecordedEncounter Number: [id number] Status:Closed by JESUS LY MD on 05/29/17 [facility] PROGRESSon 05-29-2017 PROGRESS HNO ID: [id number]: Jesus Ly Jr.Service: (none)Author Type: PhysicianType: Progress NotesFiled: 05/29/2017 1:01 PMNote Text:05/29/2017Date of : 1955Subjective: Dana comes in with his old postoperative back pain he stillin the pain clinic still has a spinal cord stimulator in there. It hasn'tbeen in a good position is causing rib pain he saw Dr. García Koehler not 1 to do anything as long as a spinal cord stimulators or possiblyneeded updated MRI if that can come out. Otherwise his pain meds he getsthrough the pain clinic. He has more difficulty standing walking andgetting around as a result. Does take pain meds but that shoulder painclinic. OARRS Report reviewedObjective: he has a well-healed scar there is tenderness and spasms acrossthe lower back he could flex 60? bend and rotate 20?.Assessment:1.thor acic strain2.postop lumbar disc disease with stenosis3.Vitals: Resp 18 Ht 5' 9 (1.75m) Wt 180 lb (81.6kg) BMI 26.57kg/(m2).Plan: follow-up when necessary everything is being managed to the pain..Jesus Ly Jr, MDDictated but not read. Normal [facility] PROGRESS HNO ID: [id number]: Jericho Lisaice: (none)Author Type: (none)Type: Progress NotesFiled: 05/29/2017 1:01 PMNote Text:REVIEW OF SYSTEMS:GENERAL: Well developed, well nourished. No acute distressPAIN: Back, ArthritisCARDIOVASCUL AR: Negative for chest pain, leg swelling and palpations.MSK: Negative for joint pain, swelling, back pain, muscle pain.SKIN: Negative for lesions, rash, itching, metal sensitivityNEURO: R Leg, R Foot, R ToesENDOCRINE: Negative for Diabetes Type 1 and Type 2HEMATOLOGY: Bleed Easily Normal [facility] Office Visiton 05-15-2017 Dietary management education, guidance, and counseling (procedure) yes Invalid Interpretation Code [facility] Work Phone: [phone] Documentation of current medications (procedure) Done Invalid Interpretation Code [facility] Work Phone: [phone] Fall risk assessment No [employer] Work Phone: [phone] Protein mass conc Done [facility] Work Phone: [phone] Office Visiton 11-09-2016 Dietary management education, guidance, and counseling (procedure) yes Invalid Interpretation Code [facility] Work Phone: [phone] Documentation of current medications (procedure) Done Invalid Interpretation Code [facility] Work Phone: [phone] Clinical Lists Update: [facility] 10-28-2016 Anion gap 5 mmol/L Invalid Interpretation Code [facility] Work Phone: [phone] Anion gap molar conc 5 mmol/L [employer] Work Phone: [phone] BUN/Creatinine Ratio 19.6 mg/mg [facility] Work Phone: [phone] Calcium 9.2 mg/dL [facility] Work Phone: [phone] Chloride 105 mmol/L [facility] Work Phone: [phone] CO2 30.0 mmol/L Invalid Interpretation Code [facility] Work Phone: [phone] CO2 ppres (BldV) 30.0 mmol/L [facility] Work Phone: [phone] Creatinine 0.97 mg/dL [facility] Work Phone: [phone] Glucose 126 mg/dL [facility] Work Phone: [phone] Glucose mass conc 126 mg/dL [facility] Work Phone: [phone] HbA1c 7.1 % [facility] Work Phone: [phone] Magnesium 2.1 mg/dL [facility] Work Phone: [phone] Potassium 4.0 mmol/L [facility] Work Phone: [phone] Sodium 140 mmol/L [facility] Work Phone: [phone] Urea nitrogen 19 mg/dL [facility] Work Phone: [phone] Clinical Lists Update: [facility] [employer] 04-29-2016 Cholesterol 203 mg/dL [facility] Work Phone: [phone] HDL Cholesterol 43 mg/dL [facility] Work Phone: [phone] LDL Cholesterol 149 mg/dL [facility] Work Phone: [phone] Triglyceride 57 mg/dL [facility] Work Phone: [phone] Office Visiton 03-11-2016 Tobacco smoking status NHIS Current [facility] Work Phone: [phone] Replaced Document: [facility] E CG Observationson 03-11-2016 EKG QRS axis 5 deg [facility] Work Phone: [phone] electrocardiogram interpretation Sinus Bradycardia WITHIN NORMAL LIMITS Invalid Interpretation Code [facility] Work Phone: [phone] GE use only - for Link[employer]ic import when terms are not otherwise specified 399 ms Invalid Interpretation Code [facility] Work Phone: Interpretation Sinus Bradycardia WITHIN NORMAL LIMITS [facility] Work Phone: [phone] P Constantia 44 deg [facility] Work Phone: [phone] P wave axis, electrocardiogram 44 deg Invalid Interpretation Code [facility] Work Phone: [phone] IL Interval 158 ms [facility] Work Phone: [phone] IL interval, electrocardiogram 158 ms Invalid Interpretation Code [facility] Work Phone: [phone] Pulse (Heart Rate) 56 /min Invalid Interpretation Code [facility] Work Phone: [phone] QRS axis, electrocardiogram 5 deg Invalid Interpretation Code [facility] Work Phone: [phone] QRS Duration 96 ms [facility] Work Phone: [phone] QRS duration, electrocardiogram 96 ms Invalid Interpretation Code [facility] Work Phone: [phone] QT Interval new path ms [facility] Work Phone: [phone] QT interval, electrocardiogram new path ms Invalid Interpretation Code [facility] Work Phone: [phone] QTc Multani 399 ms [facility] Work Phone: [phone] T Constantia -1 deg [facility] Work Phone: [phone] T wave axis, electrocardiogram -1 deg Invalid Interpretation Code [facility] Work Phone: [phone] Clinical Lists Update: [facility]03-04-2016 Left ventricular Ejection fraction 65 % [facility] Work Phone: [phone] Clinical Lists Update: [facility] 02-10-2016 Alanine aminotransferase (ALT) 137 U/L High [facility] Work Phone: [phone] Albumin 4.4 g/dL [facility] Work Phone: [phone] Alkaline phosphatase (ALP) 78 U/L Invalid Interpretation Code [facility] Work Phone: [phone] ALP enzyme act/vol (Bld) 78 U/L [facility] Work Phone: [phone] Aspartate aminotransferase (AST) 92 U/L High [facility] Work Phone: [phone] Bilirubin (total) 1.6 mg/dL [facility] Work Phone: [phone] Cholesterol to HDL Ratio 4.69 {ratio} [facility] Work Phone: [phone] LDL/HDL ratio, serum 3.[address] [facility] Work Phone: [phone] Protein 7.6 g/dL [facility] Work Phone: [phone] Thyroid stimulating hormone (TSH) 1.680 u[iU]/mL [facility] Work Phone: [phone] Thyroxine (T4) free 1.1 ng/dL [facility] Work Phone: [phone] very low density lipoproteins 18 mg/dL [facility] Work Phone: [phone] Clinical Lists Update: [facility] 12-21-2015 Hematocrit (HCT) 44.8 % Invalid Interpretation Code [facility] Work Phone: [phone] Hematocrit Volume Fraction (Bld) 44.8 % [facility] Work Phone: [phone] Hemoglobin (HGB) 15.3 g/dL [facility] Work Phone: [phone] Platelets 141 10*3/mm3 Invalid Interpretation Code [facility] Work Phone: [phone] Platelets #/vol (Bld) 141 10*3/mm3 [facility] Work Phone: [phone] WBC #/vol (Bld) 6.6 10*3/uL [facility] Work Phone: [phone] WBC (Leukocytes) 6.6 10*3/uL Invalid Interpretation Code [facility] Work Phone: [phone] Office Visit: [facility] 12-10-19 16 Tobacco smoking status NHIS Never smoker [facility] Work Phone: [phone] Tobacco use [facility] Never smoker Invalid Interpretation Code [facility] Work Phone: [phone] Lab Report: Catachol+VMA, 24 HR URon 11-10-2015 dopamine, urine 165 ug/L Invalid Interpretation Code Undefined [facility] Work Phone: [phone] dopamine, urine, 24 hour 215 ug/24h 0-510 [facility] Work Phone: [phone] DOPAMINE,UR 165 ug/L Undefined [facility] Work Phone: [phone] EPINEPHRINE, UR 5 ug/L Undefined [facility] Work Phone: [phone] epinephrine, urine 5 ug/L Invalid Interpretation Code Undefined [facility] Work Phone: [phone] epinephrine, urine, 24 hour 7 ug/24h 0-20 [facility] Work Phone: [phone] NOREPINEPH,UR 40 ug/L Undefined [facility] Work Phone: [phone] norepinephrine, urine 52 ug/24h 0-135 [facility] Work Phone: [phone] norepinephrine, urine 40 ug/L Invalid Interpretation Code Undefined [facility] Work Phone: [phone] vanillylmandelate, urine 2.5 mg/L Undefined [facility] Work Phone: [phone] vanillylmandelic acid, urine, 24 hour 3.3 mg/24h 0.0-7.5 [facility] Work Phone: [phone] Lab Report: Metanephrine Fra c 24 HR URon 11-10-2015 metanephrine, urine 73 ug/L Undefined [facility] Work Phone: [phone] metanephrine, urine, 24 hour 95 ug/24h 45-290 [facility] Work Phone: [phone] normetanephrine, urine 182 ug/L Undefined [facility] Work Phone: [phone] normetanephrine, urine, 24 hour 237 ug/24h 82-500 [facility] Work Phone: [phone] Office Visiton 10-29-2015 cardiac risk group C [facility] Work Phone: [phone] General cardiovascular disease 10Y risk [#] [place].Narciso'Agostgwendolyn N/A [facility] Work Phone: [phone] Clinical Lists Update: [facility] [employer] 09-29-2015 Erythrocytes (RBC) 4.77 10*6/uL Invalid Interpretation Code [facility] Work Phone: [phone] MCH 31.9 pg Invalid Interpretation Code [facility] Work Phone: [phone] MCH Entitic mass (RBC) 31.9 pg [facility] Work Phone: [phone] MCHC 34.0 g/dL Invalid Interpretation Code [facility] Work Phone: [phone] MCHC mass conc (RBC) 34.0 g/dL [facility] Work Phone: [phone] MCV 93.7 fL Invalid Interpretation Code [facility] Work Phone: [phone] MCV Entitic volume (RBC) 93.7 fL [facility] Work Phone: [phone] RBC #/vol (Bld) 4.77 10*6/uL [facility] Work Phone: [phone] Vital Signs Date Time Vital Sign Value Performing Clinician Jose taylor 05-15-2017 16:07-0400 BMI (Body Mass Index) 25.24 kg/m2 Jackie Carlin [facility] Work Phone: 05-15-2017 16:07-0400 BP Diastolic 70 mm[Hg] Jackie Tesfaye [facility] Work Phone: 05-15-2017 16:07-0400 BP Systolic 152 mm[Hg] Alfonzostephanie [facility] Work Phone: 05-15-2017 16:07-0400 Height 180.34 cm Jackie [facility] Work Phone: 05-15-2017 16:07-0400 Pulse (Heart Rate) 56 /min Alfonzowhitneyalejandro Tesfaye [facility] Work Phone: 05-15-2017 16:07-0400 Respiratory Rate 16 /min Jackie [facility] Work Phone: 05-15-2017 16:07-0400 Weight 82.1 kg Jackie Tesfaye [facility] Work Phone: 11-09-2016 15:36-0500 BMI (Body Mass Index) 25.66 kg/m2 Jesus Rahman MD [facility] Work Phone: 11-09-2016 15:36-0500 BP Diastolic 68 mm[Hg] Jesus Rahman MD [facility] Work Phone: 11-09-2016 15:36-0500 BP Systolic 152 mm[Hg] Jesus Rahman MD [facility] Work Phone: 11-09-2016 15:36-0500 BSA (Body Surface Area) 2.04 m2 Jesus Rahman MD [facility] Work Phone: 11-09-2016 15:36-0500 Pulse (Heart Rate) 60 /min Jesus [facility] Work Phone: 11-09-2016 15:36-0500 Respiratory Rate 16 /min Jesus Rahman MD [facility] Work Phone: 11-09-2016 15:36-0500 Weight 83.46 kg Jesus Rahman MD [facility] Work Phone: 03-11-2016 09:48-0400 Heart rate 56 /min Jackie Carlin [facility] Work Phone: 10-29-2015 13:00-0500 Height 180.34 cm Jesus Rahman MD [facility] Work Phone: Encounters Encounter Date Encounter Type Care Provider Facility Start: 04-19-2023 End: 04-19-2023 ambulatory TISHA EPSTEIN Facility:[facility] Start: 04-19-2023 End: 04-19-2023 Patient encounter procedure Tisha Epstein DO Work Phone: Orthopaedics Comment on above: Lateral epicondyliti s of left elbow (Primary Dx) Start: 03-22-2023 End: 03-22-2023 ambulatory TISHA EPSTEIN Facility:[facility] Start: 03-22-2023 End: 03-22-2023 Subsequent hospital visit by physician Mri Radio [facility] Wstr (I-Stat/1.5t) Work Phone: Radiology Comment on above: Left elbow tendiniti s [M77.8] Start: 02-23-2023 End: 02-23-2023 ambulatory MAVIS LUCIAN Facility:[facility] Start: 02-23-2023 End: 02-23-2023 Patient encounter procedure Tisha Epstein DO Work Phone: Orthopaedics Comment on above: Left elbow tendiniti s (Primary Dx); Lateral epicondylitis of left elbow Start: 02-23-2023 End: 02-23-2023 Subsequent hospital visit by physician Jeanne [facility] Bj Ceron Work Phone: Radiology Comment on above: Left elbow pain [M25 .522] Start: 02-15-2023 Telephone encounter Tisha Minhectormartín MADISON Work Phone: Orthopaedics Comment on above: Patient Update Left elbow pain ([facility] Dx) Start: 05-29-2017 End: 05-29-2017 Ambulatory JESUS LY JR [facility] Procedures Date Procedure Procedure Detail Performing Clinician Start: 03-22-2023 Mri any jt upper ext remity w/o contrast matrl Tisha Loera Lucian DO Work Phone: Start: 02-23-2023 Radex elbow 2 views Farideh Loera Lucian MADISON Work Phone: Start: 05-15-2017 End: 05-15-2017 Dietary [...] Jesus Rahman MD Start: 03-11-2016 End: 03-11-2016 HARJITM Jesus Rahman MD Start: 02-10-2016 Lipid 1996 panel - S tim or Plasma Xr Mob Work Phone: Start: 12-21-2015 End: 06-17-2016 Cardiac Referral [facility] Work Phone: Start: 12-16-2015 End: 06-17-2016 Endocrinology Referral [facility] Work Phone: Start: 12-10-2015 End: 12-10-2015 Follow Up Appt 3 months Valarie diallo PA-C Work Phone: Start: 12-10-2015 End: 12-10-2015 Follow Up Appt 6 months [facility] Work Phone: Start: 12-10-2015 End: 12-10-2015 Follow Up Appt Other Valarie antoine PA-C Work Phone: Start: 12-10-2015 End: 12-10-2015 MMM Valarie Banda PA-C Work Phone: Start: 12-10-2015 End: 12-10-2015 PFM Valarie Banda PA-C Work Phone: Start: 10-29-2015 End: 10-29-2015 Follow Up Appt 6 weeks Jesus Rahman MD Start: 10-29-2015 End: 12-01-2015 Follow Up Appt Other Jesus Rahman MD Start: 10-29-2015 End: 10-29-2015 GRETTA Rahman MD Start: 10-29-2015 End: 12-01-2015 Renal doppler Jesus Rahman MD Start: 06-23-2010 Nathanael weems DO Work Phone: Plan of Treatment Date Care Activity Detail Author Start: 06-03-2031 Urine microalbumin profile DTaP,Tdap,Td Vaccine (4 - Td or Tdap) [facility] Start: 07-21-2023 Covid-19 Vaccine () Covid-19 Vaccine () [facility] Start: 07-21-2023 Influenza vaccination [facility] Start: 11-20-2022 ADVANCE DIRECTIVE DISCUSSION ADVANCE DIRECTIVE DISCUSSION [facility] Start: 11-20-2022 DEPRESSION ASSESSMENT DEPRESSION ASS ESSMENT [facility] Start: 07-21-2022 Influenza vaccination INFLUENZA (#1) [facility] Start: 04-21-2021 COVID-19 VACCINE (3 - Booster for Moderna series) COVID-19 VACCINE (3 - Booster for Moderna series) [facility] Start: 02-09-2021 Lipid 1996 panel - S tim or Plasma Lipid Screening [facility] Start: 02-09-2021 LIPID SCREEN LIPID SCREEN [facility] Start: 02-09-2019 DIABETES SCREEN DIABETES SCREEN [facility] Start: 02-09-2019 Diabetes Screening Diabetes Screenin g [facility] Start: 12-25-2017 End: 12-25-2017 Appointment Appointment [facility] Work Phone: Start: 05-15-2017 End: 05-15-2017 Appointment Appointment [facility] Work Phone: Start: 05-15-2017 End: 05-15-2017 PFM PFM [facility] Work Phone: Start: 05-04-2017 End: 05-04-2017 Appointment Appointment [facility] Work Phone: Start: 02-09-2017 Hepatitis B surface antibody level LDL CHOLESTEROL [facility] Start: 11-09-2016 End: 11-09-2016 Follow Up Appt 6 months Follow Up Appt 6 months [facility] Work Phone: Start: 11-09-2016 End: 11-09-2016 PFM PFM [facility] Work Phone: Start: 09-07-2016 PROSTATE CANCER SCREENING DISCUSSION PROSTATE CANCER SCREENING DISCUSSION [facility] Start: 06-17-2016 End: 06-17-2016 Follow Up Appt 4 months Follow Up Appt 4 months [facility] Work Phone: Start: 06-17-2016 End: 06-17-2016 MMM MMM [facility] Work Phone: Start: 2016 RSV Vaccine (1 - 1-d ose 60+ series) RSV Vaccine (1 - 1-dose 60+ series) [facility] Start: 03-11-2016 End: 03-11-2016 Electrocardiogram, complete EKG (In office) [facility] Work Phone: Start: 03-11-2016 End: 03-11-2016 Follow Up Appt 3 months Follow Up Appt 3 months [facility] Work Phone: Start: 03-11-2016 End: 06-17-2016 Follow Up Appt Other Follow Up Appt Other [facility] Work Phone: Start: 03-11-2016 End: 03-11-2016 MMM MMM [facility] Work Phone: Start: 12-21-2015 End: 12-21-2015 Cardiac Referral Cardiac Referral Norman Holman DO, [address], [place], [address] [facility] Work Phone: Start: 12-16-2015 End: 12-16-2015 Endocrinology Referral Endocrinology Referral [facility], [facility], [place], [address] [facility] Work Phone: Start: 12-10-2015 End: 12-10-2015 Follow Up Appt 3 months Follow Up Appt 3 months [facility] Work Phone: Start: 12-10-2015 End: 12-10-2015 Follow Up Appt 6 months Follow Up Appt 6 months [facility] Work Phone: Start: 12-10-2015 End: 12-10-2015 Follow Up Appt Other Follow Up Appt Other [facility] Work Phone: Start: 12-10-2015 End: 12-10-2015 MMM MMM [facility] Work Phone: Start: 12-10-2015 End: 12-10-2015 PFM PFM [facility] Work Phone: Start: 10-29-2015 End: 10-29-2015 Follow Up Appt 6 weeks Follow Up Appt 6 weeks [facility] Work Phone: Start: 10-29-2015 End: 12-01-2015 Follow Up Appt Other Follow Up Appt Other [facility] Work Phone: Start: 10-29-2015 End: 10-29-2015 MMM MMM [facility] Work Phone: Start: 10-29-2015 End: 10-29-2015 Renal doppler Renal doppler [facility] Work Phone: Start: 06-23-2011 Colonoscopy COLONOSCOPY [facility] Start: 06-23-2011 COLORECTAL CANCER SCREENING COLORECTAL CANCER SCREENING [facility] Start: 06-23-2011 Pneumococcal Vaccine : 65+ (2 - PCV) Pneumococcal Vaccine: 65+ (2 - PCV) [facility] Start: 06-23-2011 PNEUMOCOCCAL: 65+ (2 - PCV) PNEUMOCOCCAL: 65+ (2 - PCV) [facility] Start: 2006 SHINGRIX VACCINE (1 of 2) SHINGRIX VACCINE (1 of 2) [facility] Start: 2001 COLOGUARD (FIT-DNA) COLOGUARD (FIT-D NA) [facility] Start: [address] COLONOGRAPHY [facility] Start: 2001 FECAL OCCULT BLOOD FECAL OCCULT BLOO D [facility] Start: 2001 SIGMOIDOSCOPY SIGMOIDOSCOPY [facility] Start: 1975 Urine microalbumin profile DTAP,TDAP,TD (1 - Tdap) [facility] Start: 1974 ANNUAL PCP TEAM INFECTION CONTROL PREVENTIONIST JUAN MANUEL DISEASE VISIT ANNUAL PCP TEAM CHRONIC DISEASE VISIT [facility] Start: 1974 BP CONTROLLED (<130/80) BP CONTROLLE D (<130/80) [facility] Start: 1974 HEPATITIS C SCREENING HEPATITIS C SC LAUREN [facility] End: 03-24-2024 MRI ELBOW WO IVCON LEFT MRI ELBOW WO IVCON LEFT Radiology Routine Left elbow tendinitis 1 Occurrences starting 02/23/2023 until 03/24/2024 [facility] Work Phone: Comment on above: 1 Occurrences starti ng 02/23/2023 until 03/24/2024 [facility] Immunizations Immunization Date Immunization Notes Care Provider Gordo santos 09-16-2015 influenza virus vacc ine, unspecified formulation [facility] Work Phone: [facility] 06-23-2010 pneumococcal polysaccharide vaccine, 23 valent Tisha Chicorelli DO Work Phone: [facility] Work Phone: Payers Date Payer Category Payer Unknown MMO MMO [employer] PPO [id number] 2019-Present [phone] [address] [place] [address] PPO [id number] 2019 Unknown [id number] 2006 Medicare MEDICARE MEDICAR E A AND B [id number] 2006-Present [phone] [address] [address] [place] [address] Medicare [id number] 2006 Medicare [id number] Social History Date Type Detail Facility Start: 02-09-2016 End: 04-19-2023 Tobacco smoking status NHIS Never smoked tobacco [facility] Start: 02-09-2016 End: 04-19-2023 Tobacco use and exposure User of smokeless tobacco [facility] History of tobacco use Chews Tobacco [facility] Start: 04-07-2021 End: 02-23-2023 Alcohol intake Current non-drinker of alcohol (finding) [facility] Start: 02-09-2016 End: 04-19-2023 Tobacco Comment Socially [facility] Start: 04-07-2021 Alcohol Comment non-alcoholic beers, no alcohol since 2015 [facility] Start: 1955 Sex Assigned At Not on file [facility] Start: 02-23-2023 History of Social function [facility] Start: 02-23-2023 Tobacco use panel [facility] National Score (1-10 0), lower number is lower risk 48 [facility] Clinical Notes 04-08-2021 to 04-19-2023 Tisha Epstein, DO - 04/19/2023 9:55 AM Christianne May RT(R) - 03/22/2023 8:40 AM Abdullahi Epstein, DO - 02/23/2023 1:02 PM Michaelle Patel RT(R) - 02/23/2023 12:50 PM EDT Note Date & Type Note Facility 04-19-2023 Note HNO ID: [id number] Author: Tisha Epstein DO Service: ? Author Type: Physician Type: [...] We discussed strat (more content not included)... [facility] 04-19-2023 History of Presen t illness Narrative [...] in agreement of plan. All questions answered. Tisha Epstein D.O. M.P.H. documented in this encounter [facility] 03-22-2023 Note HNO ID: [id number] Author: MARTINA Wallace) Service: ? Author Type: Technologist Type: Progress [...] PERIPHERAL IV DATA: Not applicable SIGNED BY: MARTINA Wallace) March 22, 2023 8:28 AM [facility] 03-22-2023 History of Presen t illness Narrative [...] PERIPHERAL IV DATA: Not applicable SIGNED BY: MARTINA Wallace) March 22, 2023 8:28 AM documented in this encounter [facility] 02-23-2023 Note HNO ID: [id number] Author: Tisha Epstein DO Service: ? Author Type: Physician Type: [...] L elbow previously with Dr. Epstein at [facility]. Pt states pain does not disrupt [...] elbow for preop (more content not included)... [facility] 02-23-2023 Note HNO ID: [id number] Author: RT Colten(R) Service: Radiology Author Type: Technologist Type: Progress [...] RT Colten(R) February 23, 2023 12:48 PM [facility] 02-23-2023 History of Presen t illness Narrative [...] L elbow previously with Dr. Epstein at [facility]. Pt states pain does not disrupt [...] All questions answered. documented in this encounter [facility] 02-23-2023 History of Presen t illness Narrative [...] 2023 12:48 PM documented in this encounter [facility] 02-15-2023 Miscellaneous Notes Noted. Patient reports that he received a VM from the office requesting to know which elbow is affecting him (left). Office visit notes have been updated. documented in this encounter [facility] 04-08-2021 Note HNO ID: [id number] Author: Magdiel Tomlin APRN.SENIOR TECHNOLOGIST Service: Anesthesiology Author Type: Nurse Personnel Clerk Type: Anesthesia Procedure Notes Filed: 04/08/2021 12:04 PM Note Text: ANESTHESIOLOGY PROCEDURE NOTE Airway General Information Procedure Start Time/Medication Administration: 04/08/2021 11:52 AM Patient location during procedure: OR Timeout Performed Pre-procedure: timeout performed Consent Obtained: Yes Patient identity confirmed: arm band, patient and family Staffing SENIOR TECHNOLOGIST: Magdiel Tomlin APRN.SENIOR TECHNOLOGIST Performed by: SENIOR TECHNOLOGIST Indications and Patient Condition Preoxygenated: yes Patient [...] attempts at approach: 1 SIGNATURE: Magdiel Tomlin APRN.SENIOR TECHNOLOGIST PATIENT NAME: Dana Hubbard DATE: April 08, 2021 TIME: 12:03 PM CSN: [id number] [facility] Evaluation note Diagnosis Left elbow pain- Primary Pain in joint, upper arm documented in this encounter [facility] note* Diagnosis Left elbow tendinitis- Primary Lateral epicondylitis of left elbow Lateral epicondylitis of elbow documented in this encounter [facility] note* Diagnosis Lateral epicondylitis of left elbow- Primary Lateral epicondylitis of elbow documented in this encounter [facility] note* Diagnosis Left elbow pain Pain in joint, upper arm documented in this encounter [facility] note* Diagnosis Left elbow tendinitis documented in this encounter [facility] for referral (narrative)* Diagnostic Procedure Only (Routine) - Closed Specialty Diagnoses / Procedures Referred By Contac t Referred To Contact XR IMAGING Diagnoses Left elbow pain Procedures XR ELBOW GENERAL 2V AP/LAT LEFT RADEX ELBOW 2 VIEWS Tisha Epstein DO [address] [place] [address] X[facility] Imaging Referral ID Status Reason Start Date Expiration Date V isits Requested Visits Authorized [id number] Closed Auto-Generate d Referral 02/23/2023 03/24/2024 1 1 [facility] for referral (narrative)* Diagnostic Procedure Only (Routine) - Closed Specialty Diagnoses / Procedures Referred By Contac t Referred To Contact XR IMAGING Diagnoses Left elbow pain Procedures XR ELBOW GENERAL 2V AP/LAT LEFT RADEX ELBOW 2 VIEWS Tisha Epstein DO [address] [place] [address] [place] [address] Referral ID Status Reason Start Date Expiration Date V isits Requested Visits Authorized [id number] Closed Auto-Generate d Referral 02/23/2023 03/24/2024 1 1 [facility] for visit Narrative* Diagnostic Procedure Only (Routine) - Closed Specialty Diagnoses / Procedures Referred By Contac t Referred To Contact XR IMAGING Diagnoses Left elbow pain Procedures XR ELBOW GENERAL 2V AP/LAT LEFT RADEX ELBOW 2 VIEWS Tisha Epstein DO [address] [place] [address] [place] [address] Referral ID Status Reason Start Date Expiration Date V isits Requested Visits Authorized [id number] Closed Auto-Generate d Referral 02/23/2023 03/24/2024 1 1 [facility] Summary Purpose Family History No Family History [...] MRI ANY JT UPPER EXTREMITY W/O CONTRAST Tisha Rock DO [address] [place] [address] Mr Imaging Referral ID Status Reason Start Date Expiration Date Visits Requested Visits Authorized [id number] Authorized Auto-Generat ed Referral 02/23/2023 03/24/2024 1 1 Specialty Diagnoses / Procedures Referred By Contac t Referred To Contact MR IMAGING Diagnoses Left elbow tendinitis Procedures MRI ELBOW WO IVCON LEFT MRI ANY JT UPPER EXTREMITY W/O CONTRAST Tisha Rock DO [address] [place] [address] [place] [address] Referral ID Status Reason Start Date Expiration Date V isits Requested Visits Authorized [id number] Closed Auto-Generate d Referral 02/23/2023 03/24/2024 1 1 Additional Source Comments (unrecognized sect ion and content) No Status Records FoundNo Status Records FoundNo Status Records Found INFORMATION SOURCE (unrecogn ized section and content) DATE CREATED AUTHOR 05/16/2018 [facility] DATE CREATED AUTHOR AUTHOR'S ORGANIZ ATION 04/14/2021 [facility] DATE CREATED AUTHOR AUTHOR'S ORGANIZ ATION 04/28/2023 [facility] Source Comments (unrecognize d section and content) In the event this informatio n is protected by the Federal Confidentiality of Alcohol and Drug Abuse Patient Records regulations: The Federal rules restrict any use of the information to criminally investigate or prosecute any alcohol or drug abuse patient.[facility] the event this information is protected by the Federal Confidentiality of Alcohol and Drug Abuse Patient Records regulations: The Federal rules restrict any use of the information to criminally investigate or prosecute any alcohol or drug abuse patient.[facility] the event this information is protected by the Federal Confidentiality of Alcohol and Drug Abuse Patient Records regulations: The Federal rules restrict any use of the information to criminally investigate or prosecute any alcohol or drug abuse patient.[facility] the event this information is protected by the Federal Confidentiality of Alcohol and Drug Abuse Patient Records regulations: The Federal rules restrict any use of the information to criminally investigate or prosecute any alcohol or drug abuse patient.[facility] the event this information is protected by the Federal Confidentiality of Alcohol and Drug Abuse Patient Records regulations: The Federal rules restrict any use of the information to criminally investigate or prosecute any alcohol or drug abuse patient.[facility] the event this information is protected by the Federal Confidentiality of Alcohol and Drug Abuse Patient Records regulations: The Federal rules restrict any use of the information to criminally investigate or prosecute any alcohol or drug abuse patient.[facility] Reason for Visit (unrecogniz ed section and content) Reason Comments Patient Update Reason Comments Pain Reason Comments Pain Follow Up Specialty Diagnoses / Procedures Referred By Dayna patel Referred To Contact MR IMAGING Diagnoses Left elbow tendinitis Procedures MRI ELBOW WO IVCON LEFT MRI ANY JT UPPER EXTREMITY W/O CONTRAST Tisha Rock DO [facility] [facility] [address] [place] [address] [place] [address] Referral ID Status Reason Start Date Expiration Date V isits Requested Visits Authorized [id number] Closed Auto-Generate d Referral 02/23/2023 03/24/2024 1 1 Care Teams (unrecognized sec tion and content) Mud Boss Relationship Specialty Start Date End Date Eugenio Olmstead MD PCP - General Family Medicine 05/30/16 Mud Boss Relationship Specialty Start Date End Date Eugenio Olmstead MD PCP - General Family Medicine 7/11/16 Mud Boss Relationship Specialty Start Date End Date Eugenio Olmstead MD PCP - General Family Medicine 05/30/16 Mud Boss Relationship Specialty Start Date End Date Eugenio Olmstead MD PCP - General Family Medicine 05/30/16 Mud Boss Relationship Specialty Start Date End Date Eugenio Olmstead MD PCP - General Family Medicine 05/30/16 Mud Boss Relationship Specialty Start Date End Date Eugenio Olmstead MD PCP - General Family Medicine [...] BE BASED ON THE PRIMARY CLINICAL RECORDS. [employer] [facility]. provides no warranty or guarantee of the accuracy or completeness of information in this document.
== END | disposition home or self-care (01) ==
PROVIDERS: PCP Family Medicine; Referring Provider Physician Assistant Medical; Visit Provider Physician Assistant Medical
DX: I73.9 Peripheral vascular disease, unspecified (principal)
CPT/HCPCS: 93923

== ENCOUNTER → 2025-02-05 | Outpatient (CLI) | payer MEDICARE, SELFPAY | END | disposition home or self-care (01) | LOC: LABSPEC 16:52 | PROVIDERS: PCP Family Medicine; Visit Provider Otolaryngology Otolaryngology/Facial Plastic Surgery | DX: J32.9 Chronic sinusitis, unspecified (principal) | CPT/HCPCS: 87070; 87077; 87186; 87205 ==

== ENCOUNTER → 2025-03-03 | Outpatient (CLI) | payer MEDICARE, SELFPAY ==
--- NOTE | 2025-03-03 06:39 | MRI_ITS ---
PROCEDURE: SPINE LUMBAR W/WO CONTRAST (MRISPLWW), 03/03/2025 REASON FOR EXAM: CHRONIC LUMBAR SPINE PAIN TECHNIQUE: Multisequence multiplanar MR of the lumbar spine was performed with and without IV contrast. IV Contrast: 15 mL Clariscan. COMPARISON: 01/10/2025 FINDINGS: Vertebral body heights are preserved. Mildly heterogeneous marrow with a few T1 bright likely vertebral body hemangiomas.. Trace likely degenerative retrolisthesis at L5-S1. Conus medullaris terminates normally at the L1 level. Unremarkable appearance of the cauda equina. L1-2: Incompletely imaged L1 vertebral body on axial sequences. Small posterior central and RIGHT paracentral annular fissure. Small RIGHT paracentral and subarticular/foraminal disc protrusion. No significant spinal canal or foraminal stenosis.. L2-3: Mild disc height loss with diffuse disc bulging, greatest in the lateral and foraminal regions suspect a tiny posterior central annular fissure. No significant spinal canal or foraminal stenosis. Minimal facet arthropathy. L3-4: Moderate disc height loss with diffuse disc bulging. Superimposed small posterior central disc protrusion. Narrowing of the LEFT lateral recess. Mild focal spinal canal stenosis. Mild RIGHT foraminal stenosis. Facet arthropathy. L4-5: Fkfqumoe-py-ferkaj loss of disc height. Diffuse disc bulging with superimposed posterior central disc extrusion with minimal inferior migration of approximately 5 mm. Suspect a small amount of surrounding epidural enhancement/fibrosis. Facet arthropathy. Mild bilateral foraminal stenosis. Mild narrowing of the ASQYJ-upzlfpg-bwvp-LEFT lateral recesses. Mild focal spinal canal stenosis. L5-S1: Moderate disc height loss. Trace retrolisthesis as above with disc uncovering. Diffuse disc bulging with superimposed small posterior central annular fissure and disc protrusion. Small bilateral foraminal and subarticular disc/osteophyte complexes. Facet arthropathy. No significant focal spinal canal stenosis. Mild BPQOY-xxhuuvp-odkh-LEFT foraminal stenosis. Other: No abnormal enhancement. 3.0 x 2.5 cm complex posterior RIGHT renal cystic lesion with peripheral wall thickening/enhancement up to at least 5 mm. Question an additional faintly visible partially imaged indeterminate 1.7 cm medial LEFT renal lesion. Midthoracic presumed vertebral body hemangioma on the veneer taping machine offbearer in the absence of known malignancy. Disc bulging suspected at C6-C7 on the veneer taping machine offbearer, not well evaluated. MRI/Spine Lumbar W/WO Contrast IMPRESSION: 1. Multilevel spondylosis with as detailed, greatest at L4-L5. No high-grade s jack canal or foraminal stenosis identified. 2. Indeterminate 3.0 cm RIGHT and questionable partially imaged 1.7 cm LEFT karyn al lesions. Neoplasm not excluded. Recommend multiphase renal protocol CT or MRI with and without contrast. 3. Additional description as above. Reading Location: [id number]
== END | disposition home or self-care (01) ==
PROVIDERS: PCP Family Medicine; Referring Provider Orthopaedic Surgery Orthopaedic Surgery of the Spine; Visit Provider Orthopaedic Surgery Orthopaedic Surgery of the Spine
DX: M54.16 Radiculopathy, lumbar region (principal)
CPT/HCPCS: 72158; A9575

== ENCOUNTER → 2025-04-09 | Outpatient (CLI) | payer MEDICARE, SELFPAY ==
[2025-04-09 11:58] LABS: Amphetamine Urine NEGATIVE (<1000 ng/mL); Barbiturate Urine NEGATIVE (< 200 ng/mL); Benzodiazepine Urine NEGATIVE (< 200 ng/mL); Buprenorphine Urine NEGATIVE (< 200 ng/mL); Cocaine Urine NEGATIVE (< 300 ng/mL); Fentanyl, Urine NEGATIVE; Methadone Urine NEGATIVE (< 300 ng/mL); Opiates Urine NEGATIVE (< 300 ng/mL); Oxycodone, Urine NEGATIVE (< 100 ng/mL); PCP Urine NEGATIVE (< 25 ng/mL); THC Urine NEGATIVE (< 50 ng/mL)
== END | disposition home or self-care (01) ==
LOC: LAB 09:36
PROVIDERS: PCP Family Medicine; Referring Provider Anesthesiology Pain Medicine; Visit Provider Anesthesiology Pain Medicine
DX: F11.20 Opioid dependence, uncomplicated (principal)
CPT/HCPCS: 80307

== ENCOUNTER → 2025-06-04 | Outpatient (CLI) | payer MEDICARE, SELFPAY ==
[2025-06-04 11:27] LABS: Barbiturate Urine NEGATIVE (< 200 ng/mL); Benzodiazepine Urine NEGATIVE (< 200 ng/mL); PCP Urine NEGATIVE (< 25 ng/mL); THC Urine NEGATIVE (< 50 ng/mL)
== END | disposition home or self-care (01) ==
LOC: LAB 10:12
PROVIDERS: PCP Family Medicine; Referring Provider Anesthesiology Pain Medicine; Visit Provider Anesthesiology Pain Medicine
DX: F11.20 Opioid dependence, uncomplicated (principal)
CPT/HCPCS: 80307

== ENCOUNTER → 2025-06-24 | Outpatient (CLI) | payer MEDICARE, SELFPAY ==
--- OUTSIDE RECORDS SUMMARY | 2025-06-24 06:15 | XMS RPT_ITS | CCD ---
Author Organization [facility] Care Team Providers Care Tank Pumper Name Role Phone Jackie Carlin Unavailable Unavailable Denise Ford Unavailable Unavailable Jesus Rahman MD Unavailable JESUS LY JR Unavailable Unavail able Jackie Carlin Unavailable Unavailable Dr. Eugenio Olmstead Primary Care Provider Dr. Eugenio Olmstead Referring Provider GRZEGORZ Nguyen Attending Provider [phone] Linda Power Attending Provider Preston LABORER SHIPYARD, LABORER SHIPYARD-C Jane Attending Provider Preston LABORER SHIPYARD, LABORER SHIPYARD-C Jane Referring Provider Preston BASSETT, LABORER SHIPYARD-C Jane Other Provider Dr. Jesus Rahman Attending Provider [phone] Eugenio Olmstead Primary Care Provider Dr. Eugenio Olmstead Referring Provider GRZEGORZ Nguyen Attending Provider [phone] Eugenio Olmstead MD Primary Care Provider [phone] TISHA EPSTEIN Attending EUGENIO Burgess Primary Care Unavailable TISHA EPSTEIN Referring EUGENIO Burgess Primary Care Unavailable TISHA EPSTEIN Attending EUGENIO Burgess Primary Care Unavailable TISHA EPSTEIN Referring EUGENIO Burgess Primary Care Unavailable Dr. Eugenio Olmstead Primary Care Provider Dr. Eugenio Olmstead Referring Provider [phone] Solo [place], [place] Valarie Calvin Attending Provider Dr. Erick Gonzalez Primary Care Provider [phone] Erick Gonzalez Referring Provider Dr. Linda Power Attending Provider [phone] Dr. Erick Gonzalez Primary Care Provider [phone] Erick Gonzalez Referring Provider Dr. Linda Power Attending Provider [phone] Dr. Tariq Borja Attending Provider GRZEGORZ Ahmadi Attending Provider Dr. Erick Gonzalez Primary Care Provider [phone] Erick Gonzalez Referring Provider Dr. Linda Power Attending Provider [phone] Dr. Erick Gonzalez Primary Care Provider [phone] Erick Gonzalez Referring Provider GRZEGORZ Ahmadi Attending Provider Dr. Linda Power Attending Provider [phone] Dr. rEick Gonzalez DO Primary Care Provider Dr. Erick Gonzalez DO Referring Provider [phone] Kenny Fermin MD Attending Provider Sascha PEREZ, Dr. Alvarado Attending Provider Kamran PEREZ, Dr. Bassam Turner Attending Provider Dr. Kenny Fermin MD Referring Provider Regis PEREZ, Dr. Richard Other Provider Regis PEREZ, Dr. Richard Attending Provider Dr. Hilary Stacy MD Referring Provider Dr. Erick Gonzalez DO Primary Care Provider Dr. Kenny Fermin MD Attending Provider Dr. Erick Gonzalez DO Referring Provider Dr. Kamaljit Knight MD Attending Provider Dr. Erick Gonzalez DO Primary Care Provider Erick Gonzalez Primary Care Unavailable Basali, Ayman Referring Unavailable Basali, Ayman Attending Unavailable Carlos, Erick Primary Care Unavailable Carlos, Erick Referring Unavailable Carlos, Erick Attending Unavailable Carlos, Erick Primary Care Unavailable Carlos, Erick Attending Unavailable Carlos, Erick Primary Care Unavailable Banda PA, Valarie Calvin Referring Unavail able Solo PA, Valarie Calvin Attending Unavail able Carlos, Erick Primary Care Unavailable Christiano Caicedo Attending Unavailable Carlos, Erick Primary Care Unavailable Carlos, Erick Referring Unavailable Fermin, Kenny Attending Unavailable Carlos, Erick Primary Care Unavailable Tariq Borja Attending Unavailable Solo LANTIGUA, Valarie Calvin Referring Unavail able Carlos, Erick Primary Care Unavailable Carlos, Erick Referring Unavailable Kamaljit Knight Attending Unavailable Carlos, Erick Primary Care Unavailable Carlos, Erick Referring Unavailable Banda PA, Valarie Calvin Attending Unavail able Carlos, Erick Primary Care Unavailable Carlos, Erick Referring Unavailable Fermin, Kenny Attending Unavailable Carlos, Erick Primary Care Unavailable Basali, Ayman Consulting Unavailable Fermin, Kenny Referring Unavailable Fermin, Kenny Attending Unavailable Carlos, Erick Primary Care Unavailable Bassam Andrew Attending Unavailable Carlos, Erick Primary Care Unavailable Basali, Ayman Referring Unavailable Basali, Ayman Attending Unavailable Carlos, Erick Primary Care Unavailable Basali, Ayman Referring Unavailable Basali, Ayman Attending Unavailable Carlos, Erick Referring Unavailable Carlos, Erick Attending Unavailable Carlos, Erick Primary Care Unavailable Allergies Allergy Classification Reported Allergen(s) Allergy Type Date of Onset Reaction(s) Facility (4 sources) Adhesive Tape; Translations: [ADHESIVE BANDAGES] allergy to substance 5 blisters, rash [facility] Work Phone: (2 sources) Adhesive Tape; Translations: [ADHESIVE TAPE (ROSINS)] Propensity to adverse reactions (disorder) 6 AOF [facility] Other [facility] (5 sources) Adhesive Tape; Translations: [adhesive tape] Propensity to adverse reactions blisters rash [facility] Medications Current Medications Medication Drug Class(es) Dates Sig (Normalized) Sig (Original) amLODIPine 5 mg oral tablet (20 sources) Dihydropyridine Calcium Channel Andres Start: 08-20-2024 take 2.5 mg by mouth once daily Amlodipine 5 mg tablet Active 2.5 mg PO daily August 20, 2024 8:53am Start: 11-24-2023 End: 11-24-2023 take 2.5 mg by mouth once daily Amlodipine 5 mg tablet Discontinued 2.5 mg PO daily November 24, 2023 9:53am November 24, 2023 10:17am Start: 11-24-2023 End: 11-24-2023 take 2.5 mg by mouth once daily Amlodipine Discontinue d 2.5 MG PO daily November 24, 2023 9:53am November 24, 2023 10:17am Start: 02-14-2023 End: 08-20-2024 take 1 tablet by mouth once daily Amlodipine 5 mg tablet Discontinued 5 mg PO daily 90 3 July 17, 2024 3:11pm August 20, 2024 8:54am Start: 12-25-2017 End: 02-14-2023 take 1 tablet by mouth once daily Amlodipine 2.5 mg tablet Discontinued 2.5 mg PO daily 90 3 February 06, 2023 12:36pm February 14, 2023 8:45am baclofen 5 mg oral tablet (20 sources) gamma-Aminobutyric Acid-ergic Agonist Start: 08-20-2024 End: 06-03-2025 take 1 tablet by mouth once daily as needed Baclofen 5 mg tablet Active 5 mg PO daily as needed June 03, 2025 10:01am Start: 12-25-2017 End: 10-15-2018 take 1 tablet by mouth every eight hours as needed Baclofen 10 mg tablet Discontinued 10 mg PO Q8H as needed December 25, 2017 1:00am October 15, 2018 9:36am Start: 11-09-2016 End: 12-22-2017 take 1 tablet by mouth three times daily Baclofen 10 MG tablet Discontinued 10 mg PO THREE TIMES A DAY February 16, 2017 12:00am December 22, 2017 11:20am gabapentin 300 mg oral capsule (20 sources) Anti-epileptic Agent Start: 04-03-2019 End: 08-05-2022 take 1 capsule by mouth twice daily as needed Gabapentin 300 mg capsule Active 300 mg PO TWICE A DAY as needed August 05, 2022 10:44am Comment on above: Take 300 mg by mouth . Take 300 mg by mouth as needed. 24 hr HYDROmorphone hydrochloride 16 mg extended release oral tablet (20 sources) Opioid Agonist Start: 08-05-2022 take 1 tablet by mouth every twenty-four hours at bedtime Hydromorphone 16 mg tablet extended release 24 hr Active 16 mg PO AT BEDTIME 0 August 05, 2022 10:45am Start: 01-11-2022 End: 08-05-2022 Hydromorphone 16 mg tablet e xtended release 24 hr Discontinued 12 mg PO AT BEDTIME 0 January 11, 2022 9:53am August 05, 2022 10:46am Start: 01-11-2022 End: 08-05-2022 take 12 mg by mouth at bedtime Hydromorphone Discontin ued 12 MG PO AT BEDTIME January 11, 2022 9:53am August 05, 2022 10:46am Start: 12-25-2017 End: 01-11-2022 take 1 tablet by mouth every twenty-four hours at bedtime Hydromorphone 16 mg tablet extended release 24 hr Discontinued 16 mg PO AT BEDTIME 0 December 25, 2017 1:00am January 11, 2022 9:54am Start: 10-02-2015 take 1 tablet by [facility] once daily EXALGO 12 MG T24A One tablet by mouth daily HYDROMORPHONE HCL [id number] Jesus Rahman MD Start: 10-02-2015 take 1 tablet by [facility] once daily EXALGO 12 MG T24A One tablet by mouth daily HYDROMORPHONE HCL [id number] Jesus Rahman MD Start: 10-02-2015 take 1 tablet by [facility] once daily EXALGO 12 MG T24A One tablet by mouth daily HYDROMORPHONE HCL [id number] Ward Suresh RN Start: 10-02-2015 take 1 tablet by [facility] once daily EXALGO 12 MG T24A One tablet by mouth daily HYDROMORPHONE HCL [id number] Selina Reyes Start: 09-23-2015 End: 12-25-2017 take 1 tablet by mouth every twenty-four hours at bedtime Hydromorphone 12 MG tablet extended release 24 hr Discontinued 12 mg PO AT BEDTIME September 23, 2015 1:00am December 25, 2017 12:18pm Comment on above: Take 12 mg by mouth every 24 hours. Completed/Discontinued Medications Medication Drug Class(es) Dates Sig (Normalized) Sig (Original) aspirin 81 mg delayed release oral tablet (20 sources) Nonsteroidal Anti-inflammatory Drug Start: 08-05-2022 End: 08-20-2024 take 1 tablet by mouth every other day Aspirin 81 mg tablet,delayed release (DR/EC) Discontinued 81 mg PO .every other day August 05, 2022 10:45am August 20, 2024 8:53am Start: 10-02-2015 End: 08-05-2022 take 1 tablet by mouth once daily Aspirin 81 MG tablet Discontinued 81 mg PO DAILY@0800 October 19, 2015 1:00am August 05, 2022 10:46am Start: 10-02-2015 take 1 tablet by [facility] once daily ASPIRIN 81 MG TABS One tablet by mouth daily ASPIRIN [id number] Ward Suresh RN Start: 06-23-2010 ASPIRIN 81 MG TAB Take one(1) tablet daily. 30 11 06/23/2010 Active Comment on above: Take one(1) tablet d aily. Calcium Carbonate / vitamin D3 (6 sources) CALCIUM CARBONATE/VITAMIN D3 (VITAMIN D-3 ORAL) Take by mouth. 0 Active Comment on above: Take by mouth. chlordiazePOXIDE hydrochloride 10 mg oral capsule (8 sources) Benzodiazepine Start: 2014 End: 2014 take 1 tablet by mouth three times daily as needed CHLORDIAZEPOXIDE HCL 10 MG CAPS One tablet by mouth three times daily as needed CHLORDIAZEPOXIDE HCL [id number] Jesus Rahman MD cholecalciferol 0.025 mg oral capsule (14 sources) Vitamin D Start: 2017 End: 2017 take 1 capsule by mouth once daily Cholecalciferol (Vitamin D3) 1,000 unit capsule Discontinued 1000 U PO daily December 22, 2017 1:00am December 25, 2017 12:18pm COMPOUNDED PRESCRIPTION (6 sources) COMPOUNDED PRESCRIPTION Back stimulator 0 Active Comment on above: Back stimulator cyclobenzaprine hydrochloride 10 mg oral tablet (20 sources) Muscle Relaxant Start: 2014 End: 2014 take 1 tablet by mouth once daily Cyclobenzaprine 10 MG tablet Discontinued 10 mg PO DAILY September 23, 2015 1:00am October 21, 2015 12:03pm dexamethasone 1 mg/ml ophthalmic solution (6 sources) Corticosteroid Start: 2016 End: 2016 DEXAMETHASONE SODIUM PHOSPHATE 0.1 % SOLN as directed DEXAMETHASONE SODIUM PHOSPHATE [id number] Jesus Rahman MD diazePAM 2 mg oral [...] for up to 3 doses. diclofenac sodium 20 mg/ml topical solution (20 sources) Nonsteroidal Anti-inflammatory Drug Start: 2016 End: 2017 Diclofenac Sodium 112 GM solution in metered pump w/teresita Discontinued 112 g TP DAILY February 16, 2017 12:00am December 22, 2017 11:19am Start: 11-02-2016 Diclofenac Sod ium 1.5 % drop doxazosin 2 mg oral tablet (20 sources) alpha-Adrenergic Andres Start: 01-27-2017 End: 05-15-2017 DOXAZOSIN MESYLATE 2 MG TABS One half tablet by mouth at bedtime. DOXAZOSIN MESYLATE [id number] Valarie Love RN Start: 02-29-2016 End: 06-17-2016 take 1 tablet by mouth once daily at bedtime doxazosin (CARDURA) 1 mg tablet Indications: Elevated plasma metanephrines , Essential hypertension, benign Take 1 tablet by mouth daily at bedtime. 90 tablet 3 02/29/2016 Active Comment on above: Take 1 tablet by [facility] daily at bedtime. doxycycline monohydrate 100 mg oral capsule (14 sources) Tetracycline-class Drug Start: 1 End: 1 take 1 capsule by mouth twice daily Doxycycline Monohydrate 100 mg capsule Discontinued 100 mg PO TWICE A DAY 20 0 June 03, 2021 12:00am July 08, 2021 8:28am ezetimibe 10 mg oral tablet (20 sources) Dietary Cholesterol Absorption Inhibitor Start: 1 End: 4 take 1 tablet by mouth once daily Ezetimibe 10 mg tablet Discontinued 0 .ROUTE .COMPLEX 90 February 22, 2024 1:28pm July 17, 2024 3:12pm TAKE 1 TABLET BY MOUTH ONCE DAILY folic acid 1 mg oral tablet (20 sources) Start: 5 End: 5 take 1 tablet by mouth twice daily FOLIC ACID 1 MG TABS One tablet by mouth twice daily FOLIC ACID [id number] Ward Suresh RN Start: 09-25-2015 End: 10-21-2015 take 0.5 mg by mouth twice daily at mealtime Folic Acid 1 MG tablet Discontinued 0.5 mg PO TWICE DAILY WITH MEALS 60 0 September 25, 2015 1:00am October 21, 2015 12:04pm Start: 09-25-2015 End: 10-21-2015 take 0.5 mg by mouth twice daily at mealtime Folic Acid Discontinued 0.5 MG PO TWICE DAILY WITH MEALS 60 September 25, 2015 1:00am October 21, 2015 12:04pm hydroCHLOROthiazide 12.5 mg oral capsule (9 sources) Thiazide Diuretic Start: 11-24-2023 End: 12-07-2023 take 1 capsule by mouth once daily in the morning Hydrochlorothiazide 12.5 mg capsule Discontinued 12.5 mg PO EVERY MORNING 90 November 24, 2023 1:00am December 07, 2023 10:34am LORazepam 1 mg oral tablet (4 sources) Benzodiazepine Start: 02-24-2025 End: 06-03-2025 take 1 tablet by mouth twice daily Lorazepam (Ativan) 1 mg tablet Discontinued 1 mg PO TWICE A DAY as needed for claustrophobia 2 0 February 24, 2025 12:00am June 03, 2025 10:03am take 1 tablet one hour before MRI, take 2nd tablet if needed when you arrive for the MRI Magnesium (14 sources) Start: 10-15-2018 End: 04-03-2019 take 250 mg by mouth once daily Magnesium Discontinued 250 MG PO DAILY October 15, 2018 9:36am April 03, 2019 9:16am Start: 10-15-2018 End: 04-03-2019 take 1 tablet by mouth once daily Magnesium 250 mg tablet Discontinued 250 mg PO DAILY October 15, 2018 1:00am April 03, 2019 9:16am Start: 10-15-2018 End: 04-03-2019 take 250 mg by mouth once daily Magnesium Discontinued 250 MG PO DAILY October 15, 2018 12:00am April 03, 2019 8:16am Start: 10-15-2018 End: 04-03-2019 take 250 mg by mouth once daily Magnesium Discontinued 250 MG PO DAILY October 15, 2018 1:00am April 03, 2019 9:16am melatonin 3 mg oral tablet (14 sources) Start: 03-11-2016 End: 11-09-2016 take 1 tablet by mouth at bedtime MELATONIN 3 MG TABS One tablet by mouth at bedtime MELATONIN [id number] Jesus Rahman MD Comment on above: Take 3 mg by mouth d aily at bedtime. Take 3 mg by mouth d aily at bedtime. PRN meloxicam 7.5 mg oral tablet (20 sources) Nonsteroidal Anti-inflammatory Drug Start: 05-15-2017 End: 04-03-2019 take 1 tablet by mouth once daily Meloxicam (Mobic) 7.5 mg tablet Discontinued 7.5 mg PO daily December 22, 2017 1:00am April 03, 2019 9:16am metaxalone 800 mg oral tablet (14 sources) Start: 10-15-2018 End: 04-03-2019 take 1 tablet by mouth twice daily Metaxalone 800 mg tablet Discontinued 400 mg PO TWICE A DAY October 15, 2018 1:00am April 03, 2019 9:16am Start: 10-15-2018 End: 04-03-2019 take 400 mg by mouth twice daily Metaxalone Discontinued 400 MG PO TWICE A DAY October 15, 2018 1:00am April 03, 2019 9:16am methocarbamol 500 mg oral tablet (20 sources) Muscle Relaxant Start: 03-11-2021 End: 08-20-2024 take 1 tablet by mouth in the evening Methocarbamol 500 mg tablet Discontinued 500 mg PO .COMPLEX July 08, 2021 8:28am August 20, 2024 8:54am 500 mg PO 1 tab in the am and 1 tabs in the pm; Start: 10-30-2019 End: 07-08-2021 take 2 tablets by mouth in the evening Methocarbamol 500 mg tablet Discontinued 500 mg PO .COMPLEX October 30, 2019 1:00am July 08, 2021 8:29am 500 mg PO 1 tab in the am and 2 tabs in the pm; metoprolol tartrate 25 mg oral tablet (20 sources) beta-Adrenergic Andres Start: 01-27-2017 End: 05-15-2017 take 1 tablet by mouth once daily METOPROLOL TARTRATE 25 MG TABS One tablet by mouth daily METOPROLOL TARTRATE [id number] Valarie Love RN Start: 09-25-2015 End: 03-11-2016 take 1 tablet by mouth twice daily Metoprolol Tartrate 25 MG tablet Discontinued 25 mg PO TWICE A DAY 90 0 September 25, 2015 1:00am October 19, 2015 7:29pm Multivitamin capsule (6 sources) take 1 capsule by mouth once daily Multivitamin capsule Take 1 capsule by mouth once daily. 0 Active Comment on above: Take 1 capsule by [facility] once daily. potassium gluconate 2.5 meq oral tablet (8 sources) Start: 4 End: 4 take 1 tablet by mouth once daily Potassium Gluconate 595 mg (99 mg) tablet Discontinued 595 mg PO DAILY December 07, 2023 1:00am August 20, 2024 8:54am pravastatin sodium 20 mg oral tablet (8 sources) HMG-CoA Reductase Inhibitor Start: 5 End: 5 take 1 tablet by mouth once daily PRAVASTATIN SODIUM 20 MG TABS One tablet by mouth daily PRAVASTATIN SODIUM [id number] Ward Suresh RN ramipril 10 mg oral capsule (20 sources) Angiotensin Converting Enzyme Inhibitor Start: 0 End: 4 take 1 capsule by mouth at bedtime Ramipril 10 mg capsule Discontinued 10 mg PO AT BEDTIME 90 3 November 27, 2023 9:13am July 17, 2024 3:12pm Start: 04-23-2020 End: 04-23-2020 take 2 capsules by mouth at bedtime Ramipril 5 mg capsule Discontinued 10 mg PO AT BEDTIME April 23, 2020 8:51am April 23, 2020 9:25am Start: 04-23-2020 End: 04-23-2020 take 10 mg by mouth at bedtime Ramipril Discontinued 1 0 MG PO AT BEDTIME April 23, 2020 8:51am April 23, 2020 9:25am Start: 04-21-2020 End: 04-23-2020 take 1 capsule by mouth at bedtime Ramipril 5 mg capsule Discontinued 5 mg PO AT BEDTIME 90 3 April 21, 2020 2:57pm April 23, 2020 8:51am Start: 10-30-2019 End: 04-21-2020 take 2 capsules by mouth at bedtime Ramipril 5 mg capsule Discontinued 10 mg PO AT BEDTIME October 30, 2019 2:38pm April 21, 2020 2:57pm Start: 10-30-2019 End: 04-21-2020 take 10 mg by mouth at bedtime Ramipril Discontinued 1 0 MG PO AT BEDTIME October 30, 2019 2:38pm April 21, 2020 2:57pm Start: 03-14-2018 End: 10-30-2019 take 1 capsule by mouth once daily Ramipril 5 mg capsule Discontinued 5 mg PO daily 90 3 June 14, 2018 9:15am October 15, 2018 2:15pm Start: 03-01-2018 End: 03-14-2018 take 1 capsule by mouth once daily Ramipril 10 mg capsule Discontinued 10 mg PO daily 180 4 March 01, 2018 4:34pm March 14, 2018 1:22pm Start: 10-02-2015 End: 03-01-2018 take 1 capsule by mouth twice daily Ramipril 10 MG capsule Discontinued 10 mg PO TWICE A DAY 180 4 December 26, 2017 12:20pm March 01, 2018 4:34pm Start: 10-02-2015 take 1 tablet by [facility] once daily RAMIPRIL 5 MG CAPS One tablet by mouth daily RAMIPRIL [id number] Selina Reyes Start: 10-02-2015 take 1 tablet by [facility] once daily ALTACE 10 MG CAPS One tablet by mouth daily RAMIPRIL [id number] Valarie Banda PA-C Start: 10-02-2015 take 1 tablet by [facility] twice daily ALTACE 10 MG CAPS One tablet by mouth twice daily RAMIPRIL [id number] Jesus Rahman MD Start: 09-25-2015 End: 02-15-2017 take 1 capsule by mouth once daily Ramipril 10 MG capsule Discontinued 10 mg PO DAILY 90 0 September 25, 2015 1:00am February 15, 2017 9:25am Start: 09-23-2015 End: 09-25-2015 take 1 capsule by mouth once daily Ramipril 5 MG capsule Discontinued 5 mg PO DAILY September 23, 2015 1:00am September 25, 2015 11:04am Comment on above: Take 10 mg by mouth once daily. TENS Units jonathon (6 sources) TENS Units jonathon thiamine 100 mg oral tablet (20 sources) Start: 09-25-20 End: 12-22-19 take 1 tablet by mouth once daily at mealtime Thiamine Hcl (Vitamin B1) 100 MG tablet Discontinued 100 mg PO DAILY WITH MEALS 30 0 September 25, 2015 1:00am December 22, 2017 11:20am Comment on above: Take 100 mg by mouth once daily. triamcinolone acetonide 40 mg/ml injectable suspension (8 sources) Corticosteroid Start: 12-09-19 End: 12-09-19 Kenalog (triamcinolone acetonide) 40 mg/mL suspension for injection Discontinued 20 MG INTRAARTIC ONCE 0.5 December 09, 2021 9:57am December 09, 2021 11:27am Start: 12-17-2020 End: 12-17-2020 Kenalog (triamcinolone aceto nide) 40 mg/mL suspension for injection Discontinued 20 MG INTRAARTIC ONCE 0.5 December 17, 2020 9:22am December 17, 2020 10:04am Start: 07-02-2020 End: 07-02-2020 Kenalog (triamcinolone aceto nide) 40 mg/mL suspension for injection Discontinued 20 MG intrasynovial ONCE 0.5 July 02, 2020 10:40am July 02, 2020 11:13am Start: 03-10-2020 End: 03-10-2020 Kenalog (triamcinolone aceto nide) 40 mg/mL suspension for injection Discontinued 80 MG INTRAARTIC ONCE 2 March 10, 2020 12:59pm March 10, 2020 1:13pm vitamin b 12 0.1 mg oral tablet (4 sources) Vitamin B12 Start: 10-02-2015 take 1 tablet by mouth once daily VITAMIN B-12 100 MCG TABS One tablet by mouth daily CYANOCOBALAMIN [id number] JudyElaina Suresh RN vitamin B complex (13 sources) Start: 12-22-2017 End: 10-30-2019 take 1 tablet by mouth once daily Vitamin B Complex Discontinued 1 TABLET PO daily December 22, 2017 11:20am October 30, 2019 2:40pm Start: 12-22-2017 End: 10-30-2019 take 1 tablet by mouth once daily Vitamin B Complex Discontinued 1 TABLET PO daily December 22, 2017 12:00am October 30, 2019 1:40pm Start: 12-22-2017 End: 10-30-2019 take 1 tablet by mouth once daily Vitamin B Complex Discontinued 1 TABLET PO daily December 22, 2017 1:00am October 30, 2019 2:40pm Start: 10-02-2015 take 1 tablet by [facility] once daily VITAMIN B COMPLEX TABS One tablet by mouth daily B COMPLEX VITAMINS [id number] Jesus Rahman MD Vitamin B Complex tablet (5 sources) Start: 12-22-2017 End: 10-30-2019 Vitamin B Complex tablet Discontinued 1 {tbl} PO daily December 22, 2017 1:00am October 30, 2019 2:40pm vitamin d 1000 unt oral tablet (4 sources) Start: 11-09-2016 take 1 tablet by mouth once daily VITAMIN D 1000 UNIT TABS One tablet by mouth daily CHOLECALCIFEROL [id number] Jesus Rahman MD Start: 11-09-2016 take 1 tablet by [facility] once daily VITAMIN D 1000 UNIT TABS One tablet by mouth daily CHOLECALCIFEROL [id number] Jesus Rahman MD Problems Active Problems Problem Classification Problem Date Documented Date Episodic/Chronic Alcohol-related disorders (20 sources) Alcohol abuse; Translations: [Alcohol abuse, uncomplicated] Onset: 04-09-2012 10-02-2015 Chronic Cardiac dysrhythmias (18 sources) Supraventricular tachycardia; Translations: [EKG: supraventricular tachycardia] Onset: 10-02-2015 10-02-2015 Chronic Cardiac dysrhythmias (14 sources) Palpitations; Translations: [Palpitations] 11-24-2023 Episodic Coronary atherosclerosis and other heart disease (20 sources) Atherosclerotic heart disease of [place] coronary artery without angina pectoris; Translations: [Coronary arteriosclerosis] Onset: 10-02-2015 06-15-2016 Chronic Comment on above: 40% proximal LAD tahir nosis per [facility] 09/24/[address] 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] Onset: 12-10-2015 12-10-2015 Chronic Miscellaneous mental health disorders (6 sources) Psychalgia; 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] Onset: 05-15-2014 05-15-2014 Chronic Other bone disease and musculoskeletal deformities (20 sources) Segmental and somatic dysfunction; Translations: [Segmental and somatic dysfunction of cervical region] 10-21-2019 Episodic Other bone disease and musculoskeletal deformities (13 sources) Segmental and somatic dysfunction of cervical region; Translations: [Nonallopathic lesions, cervical region] Episodic Other bone disease and musculoskeletal deformities (8 sources) Segmental and somatic dysfunction of thoracic region; Translations: [Nonallopathic lesions, thoracic region] 07-04-2023 Episodic Other circulatory disease (5 sources) Abnormal peripheral pulse; Translations: [Other specified symptoms and signs involving the circulatory and respiratory systems] 08-20-2024 Episodic Other circulatory disease (5 sources) Carotid bruit; Translations: [Other specified symptoms and signs involving the circulatory and respiratory systems] 08-20-2024 Episodic Other connective tissue disease (16 sources) Lateral epicondylitis of left humerus; Translations: [Lateral epicondylitis, left elbow] Episodic Other connective tissue disease (3 sources) Lateral epicondylitis, left elbow; Translations: [Lateral epicondylitis] Episodic Other connective tissue disease (2 sources) Tendinitis of left elbow; Translations: [Other enthesopathies, not elsewhere classified] Episodic Other connective tissue disease (1 source) Other enthesopathies, not elsewhere classified; Translations: [Left elbow tendinitis] Onset: 03-22-2023 Episodic Other diseases of kidney and ureters (1 source) Other specified disorders of kidney and ureter; Translations: [Other specified disorders of kidney and ureter] Onset: 06-11-2025 Chronic Other non-traumatic joint disorders (14 sources) Pain in elbow; Translations: [Pain in left elbow] Episodic Other non-traumatic joint disorders (2 sources) Pain in left elbow; Translations: [Pain in joint, upper arm] Onset: 02-23-2023 Episodic Other upper respiratory infections (1 source) Chronic sinusitis, unspecified; Translations: [Chronic sinusitis, unspecified] Onset: 02-13-2025 Chronic Peripheral and visceral atherosclerosis (1 source) Peripheral vascular disease, unspecified; Translations: [Peripheral vascular disease, unspecified] Onset: 10-07-2024 Chronic Residual codes; unclassified (15 sources) Chews tobacco ; Translations: [Tobacco use] Onset: 10-02-2015 10-02-2015 Episodic Residual codes; unclassified (11 sources) H/O Spinal surgery; Translations: [Other specified postprocedural states] 01-10-2025 Episodic Skin and subcutaneous tissue infections (14 sources) Cellulitis of toe; Translations: [Cellulitis of right toe] 06-03-2021 Episodic Spondylosis; intervertebral disc disorders; other back problems (20 sources) Unspecified thoracic, thoracolumbar and lumbosacral intervertebral disc disorder; Translations: [Other intervertebral disc displacement, lumbar region] Onset: 06-23-2010 06-23-2010 Chronic Substance-related disorders (1 source) Opioid dependence, uncomplicated; Translations: [Opioid dependence, uncomplicated] Onset: 06-09-2025 Chronic Unclassified (1 source) Low back pain, unspecified; Translations: [Low back pain, unspecified] Onset: 01-10-2025 Past or Other Problems Problem Classification Problem Date Documented Date Episodic/Chronic Diabetes mellitus without complication (6 sources) Impaired fasting glycemia; Translations: [Impaired fasting glucose] Onset: 01-21-2011 11-15-2021 Episodic Other nervous system disorders (6 sources) Tremor; Translations: [Tremor, unspecified] Onset: 09-13-2011 11-15-2021 Episodic Other screening for suspected conditions (not mental disorders or infectious disease) (7 sources) Liver function tests abnormal; Translations: [Abnormal results of liver function studies] Onset: 02-27-2009 06-23-2010 Episodic Residual codes; unclassified (20 sources) History of radiofrequency ablation operation for arrhythmia; Translations: [Other specified postprocedural states] Onset: 12-21-2015 04-07-2021 Episodic Comment on above: 01/13/2016 @ [facility] per Dr. Lima: EP study and ablation of SVT Residual codes; unclassified (7 sources) Other specified postprocedural states; Translations: [Personal history of surgery to heart and great vessels, presenting hazards to health] Onset: 12-21-2015 Episodic Residual codes; unclassified (6 sources) Family history of ischemic heart disease; Translations: [Family history of ischemic heart disease and other diseases of the circulatory system] Onset: 06-23-2010 06-23-2010 Episodic Spondylosis; intervertebral disc disorders; other back problems (20 sources) Chronic back pain ; Translations: [Dorsalgia, unspecified] Onset: 03-06-2025 Episodic Sprains and strains (6 sources) Strain of muscle at thorax level; Translations: [Strain of muscle and tendon of unspecified wall of thorax, initial encounter] Onset: 11-30-2015 11-30-2015 Episodic Unclassified (7 sources) Family history of ischemic heart disease and other diseases of the circulatory system; Translations: [Chews tobacco ] Onset: 10-02-2015 10-29-2015 Episodic Results Test Name Value Interpretation Reference Range Facility L3410.9992on 06-08-2025 [facility] Misc. COMMENT Normal . [facility] Comment on above: Order Comment: [id number] 0URINE TOX RT Result Comment: Test Ordered: [id number] Amphetamines Screen, Urine Negative ng/mL UI Reference Range: Stfgur=142 Amphetamine test includes Amphetamine and Methamphetamine. Barbiturates Negative ng/mL UI Reference Range: Zfnedc=145 Benzodiazepines Negative ng/mL UI Reference Range: Tvukve=623 Cocaine (Metab.), Urine Negative ng/mL UI Reference Range: Pkxmla=141 Opiates Note: ng/mL UI See Final Results Reference Range: Rowsrn=673 Opiate test includes Codeine, Morphine, Hydromorphone, Hydrocodone. Opiates Positive [A ] UI Reference Range: Qlritq=472 Opiate test includes Codeine, Morphine, Hydromorphone, Hydrocodone. Codeine Negative UI Reference Range: Vuczvh=351 Morphine Negative UI Reference Range: Svogwe=013 Hydromorphone Positive [A ] UI Reference Range: . Hydromorphone Conf, MS, UR 2173 ng/mL UI Reference Range: Akjdiv=490 Hydrocodone Negative UI Reference Range: Vqaegp=240 6-Acetylmorphine, Urine Negative ng/mL UI Reference Range: Cutoff=10 Oxycodone/Oxymorphone, Urine Negative ng/mL UI Reference Range: Wpbcde=595 Test includes Oxycodone and Oxymorphone PCP, Urine Negative ng/mL UI Reference Range: Cutoff=25 Methadone Screen, Urine Negative ng/mL UI Reference Range: Nfkxbi=197 Propoxyphene, Urine Negative ng/mL UI Reference Range: Ydwigv=420 Fentanyl, Urine Negative ng/mL UI Reference Range: Cutoff=2.0 Test includes Fentanyl and Norfentanyl This test was developed and its performance characteristics determined by [facility]. It has not been cleared or approved by the Food and Drug Administration. Tramadol Negative ng/mL UI Reference Range: Yfcvvj=776 Buprenorphine, Urine Negative ng/mL UI Reference Range: Cutoff=10 Creatinine, Urine 54.5 mg/dL UI Reference Range: 20.0-300.0 pH, Urine 5.2 UI Reference Range: 4.5-8.9 Performed at: [facility] [address] [place], [place] [id number] Transcription Manager: Francisca Mcdermott PhD, Phone: [phone] Performed at: [facility] [address] [id number] Transcription Manager: Polo Bailey PhD, Phone: [phone] Performed By: #### L 505.5000, L3410.9992 ####[facility] [address] [place], [address] Amphetamine detection with 1 000 ng/mL as cutoffOrdered By: Hilary Stacy on 06-04-2025 Amphetamines Screen method >1000 ng/mL Ql (U) Negative < 200 ng/mL [facility] No Panel InformationOrdered By: Hilary Stacy on 06-04-2025 Urine Buprenorphine Qualitative Negative < 200 ng/mL [facility] Urine Oxycodone Screen Negative < 100 ng/mL [facility] Quantitative urine opiates m easurementOrdered By: Hilary Stacy on 06-04-2025 Opiates Ql (U) Positive < 300 ng/mL [facility] Comment on above: If confirmation test ing is needed, a separate order will be required to send out testing to the reference laboratory. Screening urine fentanyl vickie surementOrdered By: Hilary Stacy on 06-04-2025 fentaNYL Screen Ql (U) Negative [facility] Urine Drug Screen (VISTA)on 06-04-2025 AMPHETAMINES Negative Normal <1000 ng/mL [facility] Comment on above: Order Comment: UNK Performed By: #### L 505.5000, L3410.9992 ####[facility] [address] [place] [address] BARBITIURATES Negative Normal < 200 ng/mL [facility] Comment on above: Order Comment: UNK Performed By: #### L 505.5000, L3410.9992 ####[facility] [address] [place] [address] BENZODIAZIPINE Negative Normal < 200 ng/mL [facility] Comment on above: Order Comment: UNK Performed By: #### L 505.5000, L3410.9992 ####[facility] [address] [place] [address] BUP Ur Drug Scr Negative Normal < 200 ng/mL [facility] Comment on above: Order Comment: UNK Performed By: #### L 505.5000, L3410.9992 ####[facility] [address] [place] [address] COCAINE Negative Normal < 300 ng/mL [facility] Comment on above: Order Comment: UNK Performed By: #### L 505.5000, L3410.9992 ####[facility] [address] [place], [address] Fentanyl Negative Normal [facility] Comment on above: Order Comment: UNK Performed By: #### L 505.5000, L3410.9992 ####[facility] [address] [place], [address] METHADONE Negative Normal < 300 ng/mL [facility] Comment on above: Order Comment: UNK Performed By: #### L 505.5000, L3410.9992 ####[facility] [address] [place], [address] OPIATES Positive Normal < 300 ng/mL [facility] Comment on above: Order Comment: UNK Result Comment: If c onfirmation testing is needed, a separate order will be required to send out testing to the reference laboratory. Performed By: #### L 505.5000, L3410.9992 ####[facility] [address] [place], [address] OXYCODONE Negative Normal < 100 ng/mL [facility] Comment on above: Order Comment: UNK Performed By: #### L 505.5000, L3410.9992 ####[facility] [address] [place], [address] PCP Negative Normal < 25 ng/mL [facility] Comment on above: Order Comment: UNK Performed By: #### L 505.5000, L3410.9992 ####[facility] [address] [place], [address] THC Negative Normal < 50 ng/mL [facility] Comment on above: Order Comment: UNK Performed By: #### L 505.5000, L3410.9992 ####[facility] [address] [place], [address] Urine benzodiazepine levelOr dered By: Hilary Stacy on 06-04-2025 Benzodiazepines Ql (U) Negative < 200 ng/mL [facility] Urine cocaine levelOrdered B y: Hilary Stacy on 06-04-2025 Cocaine Ql (U) Negative < 300 ng/mL [facility] Urine zumhb-2-cdtuogxgewztui abinol (THC) measurementOrdered By: Hilary Stacy on 06-04-2025 Cannabinoids Screen Ql (U) Negative < 50 ng/mL [facility] Urine phencyclidine (PCP) de tectionOrdered By: Hilary Stacy on 06-04-2025 Phencyclidine Ql (U) Negative < 25 ng/mL [facility] Cardiology Visit Reporton Cardiology Visit Report [facility] [address] [place] [address] OFFICE VISIT Date of Service: 06/03/25 MR#: [id number] Acct: [id number] Name: DANA HUBBARD Rep #: [id number] : 1955 Provider: Dr. Kamaljit mukherjee MD Age/Sex: 70/M Location: [facility] Status: Signed HPI HPI History of Present Illness Details: Patient is a 70-year-old white male that comes in today for monitor of his cardiovascular disease. Patient carries a history of supraventricular tachycardia status post radiofrequency ablation at [facility] by Dr. Ogden in 2014. Since that point in time the patient's had no recurrence of his SVT. He did have a remote catheterization September 2015 which showed a 40% LAD lesion and otherwise just minimal irregularities. The patient's primary issue is his chronic back pain. He is seeing a total of 5 surgeons and is felt that he is not a candidate for surgical intervention again. He has had prior surgical inter ventions on his back. The patient's blood pressure is elevated in the office today at 180/72 he is in significant pain he said this morning. Blood pressure in his home environment runs anywhere from 126-180 systolic based on his pain. Patient reports to me that he walks 3 miles every day and he has had no drop-off in his exercise tolerance. He denies any tightness or squeezing denies any chest pain. Denies any lightheaded or dizzy spells. He denies any lower extremity edema PND orthopnea. He reports that he is doing very well from a cardiovascular standpoint. 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 Accompanied by: Self Is patient in pain?: No Allergies adhesive tape Adverse Reaction (Verified 06/03/25 10:00) blisters rash Medications ???Medication ???Instructions ???Recorded ???Confirmed ???Type gabapentin 300 mg capsule 300 mg PO BID PRN 08/05/22 5 History hydromorphone 16 mg 16 mg PO QHS 08/05/22 06/03/25 His tory tablet,extended release 24 hr ezetimibe 10 mg tablet See Rx Instructions .Route 4 06/03/25 Rx .COMPLEX #90 tabs ramipril 10 mg capsule 10 mg PO QHS #90 caps 07/17/24 Rx amlodipine 5 mg tablet 2.5 mg PO QDAY 08/20/24 06/03/25 H istory baclofen 5 mg tablet 5 mg PO QDAY PRN 06/03/25 06/03/25 History Have you fallen in the past year?: No PFSH Medical History Diminished pulses in lower extremity Left carotid bruit Cellulitis of great toe, right Old myocardial infarction Segmental and somatic dysfunction of thoracic region Segmental and somatic dysfunction of lumbar region Segmental and somatic dysfunction of cervical region Neuropathy Bilateral headaches Arthritis Essential hypertension Chews tobacco Hyperlipidemia History of non-ST elevation myocardial infarction (NSTEMI) Atherosclerotic heart disease of [place] coronary artery without angina pectoris Non-ST elevation MS (NSTEMI) Supraventricular tachycardia by ECG Alcohol abuse Chronic back pain Hypertension Surgical History H/O detached retina repair ( 01/03/20) H/O cardiac radiofrequency ablation ( 01/13/16) History of left heart catheterization Family History Brother CAD (coronary artery disease) Myocardial infarction below age 55 S/P CABG (coronary artery bypass graft) Mother CAD (coronary artery disease) Father , Suicide Suicide Social History Smoking Status: Never smoker alcohol intake: never substance use type: does not use what type of physical activity do you participate in: none ROS Const Const: Positive for weakness (attributes to back pain); Negative for fatigue ENT ENT: Negative for dizziness or balance problems Cardio Chest Pain: No Palpitations: No Edema: None Muscle aches with walking: None Resp Respiratory: Negative for SOB with activity, SOB at rest or SOB orthopnea SOB lying down GI GI: Negative nausea, vomiting or heartburn Musc Musc: Negative for muscle weakness or balance problems Neuro Neuro: Positive for weakness (attributes to back pain); Negative for dizziness, lightheadedness, near syncope or syncope Endo Endo: Negative for fatigue Cardiology Exam Const Appearance: cooperative, healthy appearing, comfortable, no acute distress and w (more content not included)... Normal [facility] L3410.9992on 04-10-2025 [facility] Misc. COMMENT Normal . [facility] Comment on above: Order Comment: [id number] [facility] Result Comment: Test Ordered: [id number] Amphetamines Screen, Urine Negative ng/mL UI Reference Range: Yhbwkj=061 Amphetamine test includes Amphetamine and Methamphetamine. Barbiturates Negative ng/mL UI Reference Range: Gfosuf=511 Benzodiazepines Negative ng/mL UI Reference Range: Mybqxj=495 Cocaine (Metab.), Urine Negative ng/mL UI Reference Range: Cmqyzt=397 Opiates Negative ng/mL UI Reference Range: Tkapnr=812 Opiate test includes Codeine, Morphine, Hydromorphone, Hydrocodone. 6-Acetylmorphine, Urine Negative ng/mL UI Reference Range: Cutoff=10 Oxycodone/Oxymorphone, Urine Negative ng/mL UI Reference Range: Quyvor=325 Test includes Oxycodone and Oxymorphone PCP, Urine Negative ng/mL UI Reference Range: Cutoff=25 Methadone Screen, Urine Negative ng/mL UI Reference Range: Essnny=783 Propoxyphene, Urine Negative ng/mL UI Reference Range: Ngyfei=358 Fentanyl, Urine Negative ng/mL UI Reference Range: Cutoff=2.0 Test includes Fentanyl and Norfentanyl This test was developed and its performance characteristics determined by [facility]. It has not been cleared or approved by the Food and Drug Administration. Tramadol Negative ng/mL UI Reference Range: Wbovbo=090 Buprenorphine, Urine Negative ng/mL UI Reference Range: Cutoff=10 Creatinine, Urine 23.3 mg/dL UI Reference Range: 20.0-300.0 pH, Urine 6.4 UI Reference Range: 4.5-8.9 Performed at: [facility] [address] [place], [place] [id number] Transcription Manager: Francisca Mcdermott PhD, Phone: [phone] Performed at: [address] [id number] Transcription Manager: Polo Bailey PhD, Phone: [phone] Performed By: #### L 505.5000, L3410.9992 #### [facility] [address] [place], [address] Amphetamine detection with 1 000 ng/mL as cutoffOrdered By: Hilary Stacy on 04-09-2025 Amphetamines Screen method >1000 ng/mL Ql (U) Negative < 200 ng/mL [facility] No Panel InformationOrdered By: Hilary Stacy on 04-09-2025 Urine Buprenorphine Qualitative Negative < 200 ng/mL [facility] Urine Oxycodone Screen Negative < 100 ng/mL [facility] Quantitative urine opiates m easurementOrdered By: Hilary Stacy on 04-09-2025 Opiates Ql (U) Negative < 300 ng/mL [facility] Screening urine fentanyl vickie surementOrdered By: Hilary Stacy on 04-09-2025 fentaNYL Screen Ql (U) Negative [facility] Urine Drug Screen (VISTA)on 04-09-2025 AMPHETAMINES Negative Normal <1000 ng/mL [facility] Comment on above: Order Comment: MEDTO X Performed By: #### L 505.5000, L3410.9992 #### [facility] [address] [place], [address] BARBITIURATES Negative Normal < 200 ng/mL [facility] Comment on above: Order Comment: MEDTO X Performed By: #### L 505.5000, L3410.9992 #### [facility] [address] [place], [address] BENZODIAZIPINE Negative Normal < 200 ng/mL [facility] Comment on above: Order Comment: MEDTO X Performed By: #### L 505.5000, L3410.9992 #### [facility] [address] [place], [address] BUP Ur Drug Scr Negative Normal < 200 ng/mL [facility] Comment on above: Order Comment: MEDTO X Performed By: #### L 505.5000, L3410.9992 #### [facility] [address] [place], [address] COCAINE Negative Normal < 300 ng/mL [facility] Comment on above: Order Comment: MEDTO X Performed By: #### L 505.5000, L3410.9992 #### [facility] [address] [place], [address] Fentanyl Negative Normal [facility] Comment on above: Order Comment: MEDTO X Performed By: #### L 505.5000, L3410.9992 #### [facility] [address] [place], [address] METHADONE Negative Normal < 300 ng/mL [facility] Comment on above: Order Comment: MEDTO X Performed By: #### L 505.5000, L3410.9992 #### [facility] [address] [place], [address] OPIATES Negative Normal < 300 ng/mL [facility] Comment on above: Order Comment: MEDTO X Performed By: #### L 505.5000, L3410.9992 #### [facility] [address] [place], [address] OXYCODONE Negative Normal < 100 ng/mL [facility] Comment on above: Order Comment: MEDTO X Performed By: #### L 505.5000, L3410.9992 #### [facility] [address] [place], [address] PCP Negative Normal < 25 ng/mL [facility] Comment on above: Order Comment: MEDTO X Performed By: #### L 505.5000, L3410.9992 #### [facility] [address] [place], [address] THC Negative Normal < 50 ng/mL [facility] Comment on above: Order Comment: MEDTO X Performed By: #### L 505.5000, L3410.9992 #### [facility] [address] [place], [address] Urine benzodiazepine levelOr dered By: Hilary Stacy on 04-09-2025 Benzodiazepines Ql (U) Negative < 200 ng/mL [facility] Urine cocaine levelOrdered B y: Hilary Singletoni on 04-09-2025 Cocaine Ql (U) Negative < 300 ng/mL [facility] Urine dhykl-1-bntykwsaqqepzk abinol (THC) measurementOrdered By: Hilary Stacy on 04-09-2025 Cannabinoids Screen Ql (U) Negative < 50 ng/mL [facility] Urine phencyclidine (PCP) de tectionOrdered By: Hilary Stacy on 04-09-2025 Phencyclidine Ql (U) Negative < 25 ng/mL [facility] Orthopedic Visit Reporton Orthopedic Visit Report [facility] [facility] [address] [place], [place] [address] OFFICE VISIT Date of Service: 03/14/25 MR#: [id number] Acct: [id number] Name: DANA HUBBARD Rep #: [id number] : 1955 Provider: Dr. Kenny Fermin MD Age/Sex: 69/M Location: [facility] Status: Signed Intake Vital Signs 01/10/25 08:04 Height 5 ft 10 in Weight: 175 lb BMI 25.1 Intake Visit Reasons: LUMBAR SPINE Chief Complaint: Lumbar Spine MRI Review Is patient in pain?: Yes (lumbar spine ) Pain scale (1-10): 8 Allergies adhesive tape Adverse Reaction (Verified 03/14/25 10:39) blisters rash Medications ???Medication ???Instructions ???Recorded ???Confirmed ???Type gabapentin 300 mg capsule 300 mg PO BID PRN 08/05/22 5 History hydromorphone 16 mg 16 mg PO QHS 08/05/22 03/14/25 His tory tablet,extended release 24 hr ezetimibe 10 mg tablet See Rx Instructions .Route 4 03/14/25 Rx .COMPLEX #90 tabs ramipril 10 mg capsule 10 mg PO QHS #90 caps 07/17/24 Rx amlodipine 5 mg tablet 2.5 mg PO QDAY 08/20/24 03/14/25 H istory baclofen 5 mg tablet 5 mg PO QDAY 08/20/24 03/14/25 His tory lorazepam 1 mg tablet (Ativan) 1 mg PO BID PRN claustrophobia #2 02/24/25 03/14/25 Rx tabs Have you fallen in the past year?: No PFSH Medical History Diminished pulses in lower extremity Left carotid bruit Cellulitis of great toe, right Old myocardial infarction Segmental and somatic dysfunction of thoracic region Segmental and somatic dysfunction of lumbar region Segmental and somatic dysfunction of cervical region Neuropathy Bilateral headaches Arthritis Essential hypertension Chews tobacco Hyperlipidemia History of non-ST elevation myocardial infarction (NSTEMI) Atherosclerotic heart disease of [place] coronary artery without angina pectoris Non-ST elevation [place] (NSTEMI) Supraventricular tachycardia by ECG Alcohol abuse Chronic back pain Hypertension Surgical History H/O detached retina repair ( 01/03/20) H/O cardiac radiofrequency ablation ( 01/13/16) History of left heart catheterization Family History Brother CAD (coronary artery disease) Myocardial infarction below age 55 S/P CABG (coronary artery bypass graft) Mother CAD (coronary artery disease) Father , Suicide Suicide Social History Smoking Status: Never smoker alcohol intake: never substance use type: does not use what type of physical activity do you participate in: none HPI LUMBAR SPINE Details: This documentation accurately reflects the service provided and the decisions made by me, Dr. Kenny Fermin MD 03/14/25 1036. Part of today???s visit was documented by Yuly La RN acting as scribe. DANA HUBBARD is a 69 year old M here today for MRI review. He would like to discuss results and next steps. He is scheduled for a lumbar caudal epidural next week with Dr. Stacy. He reports continued low back pain that is still worse on the left side. He reports intermittent numbness and tingling into his legs. 01/10/25: DANA HUBBARD is a 69 year old M here today for low back pain. Pt advises he has been experiencing low back pain for 25 years. He states he had a lumbar discectomy in 1990 after his disc exploded. 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 He has been seeing Dr. Stacy for 21 years. He has had a implanted pain pump which was not helpful and had it removed. Pt. does not recall the year. He has had numerous lumbar steroid injections, his last was September/2023. He treats pain in between with Advil as needed. He does see Dr. Power for multi care technician but she does not adjust his low back. 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 His last MRI was about 2 years ago. He would like to discuss his surgical options. He states his low back is a constant dull ache. He states his right foot/toes have been numb since his original surgery in 1990. He states the left side of his back is swollen. He c/o leg cramps at night which he takes Gabapentin and OTC potassium but he still has them. Patient has weakness in the toe in his right foot. About 3-4 years ago he started having pain and leg cramps in the left leg. He will occasionally get the pain/cramps below the knee and down into the ankle. Denies any pain in the hamstrings. Patient has had facet joint injections, cauterized nerves on the left side, epidural steroid injections. He states sometimes these injections will work for a while and sometimes they will only work for a couple da (more content not included)... Normal [facility] Magnetic resonance imaging r eportOrdered By: Erick Brown on 03-04-2025 Study report [facility] Services [address] [place] [address] Spine Lumbar W/WO Contrast MR#: [id number] Acct: [id number] Name: DANA HUBBARD Rep #: [id number] : 1955 M 69 From: Gillian Brown MD PCP: Dr. Erick Gonzalez, Status: REG CLI Study:Spine Lumbar W/WO Contrast Date of Exa m: 03/03/25 Exam# [id number] Ordering Dr: Red Fermin MD PROCEDURE: SPINE LUMBAR W/WO CONTRAST (MRISPLWW), 03/03/2025 REASON FOR EXAM: CHRONIC LUMBAR SPINE PAIN TECHNIQUE: Multisequence multiplanar MR of the lumbar spine was performed with and without IV contrast. IV Contrast: 15 mL Clariscan. COMPARISON: 01/10/2025 FINDINGS: Vertebral body heights are preserved. Mildly heterogeneous marrow with a few T1 bright likely vertebral body hemangiomas.. Trace likely degenerative retrolisthesis at L5-S1. Conus medullaris terminates normally at the L1 level. Unremarkable appearance ofthe cauda equina. L1-2: Incompletely imaged L1 vertebral body on axial sequences. Small posteriorcentral and RIGHT paracentral annular fissure. Small RIGHT paracentral and subarticular/foraminal disc protrusion. No significant spinal canal or foraminal stenosis.. L2-3: Mild disc height loss with diffuse disc bulging, greatest in the lateral and foraminal regions suspect a tiny posterior central annular fissure. No significant spinal canal or foraminal stenosis. Minimal facet arthropathy. L3-4: Moderate disc height loss with diffuse disc bulging. Superimposed small posterior central disc protrusion. Narrowing of the LEFT lateral recess. Mild focal spinal canal stenosis. Mild RIGHT foraminal stenosis. Facet arthropathy. L4-5: Nafvixrj-th-dlfeyu loss of disc height. Diffuse disc bulging with superimposed posterior central disc extrusion with minimal inferior migration of approximately 5 mm. Suspect a small amount of surrounding epidural enhancement/fibrosis. Facet arthropathy. Mild bilateral foraminal stenosis. Mild narrowing of the TDFDN-pqbzqyu-zftf-LEFT lateral recesses. Mild focal spinal canal stenosis. L5-S1: Moderate disc height loss. Trace retrolisthesis as above with disc uncovering. Diffuse disc bulging with superimposed small posterior central annular fissure and disc protrusion. Small bilateral foraminal and subarticular disc/osteophyte complexes. Facet arthropathy. No significant focal spinal canal stenosis. Mild VUSUR-apogmib-enwu-LEFT foraminal stenosis. Other: No abnormal enhancement. 3.0 x 2.5 cm complex posterior RIGHT renal cystic lesion with peripheral wall thickening/enhancement up to at least 5 mm. Question an additional faintly visible partially imaged indeterminate 1.7 cm medial LEFT renal lesion. Midthoracic presumed vertebral body hemangioma on the soda flaker in the absence of known malignancy. Disc bulging suspected at C6-C7 on the soda flaker, not well evaluated. MRI/Spine Lumbar W/WO Contrast IMPRESSION: 1. Multilevel spondylosis with as detailed, greatest at L4-L5. No high-grade spinal canal or foraminal stenosis identified. 2. Indeterminate 3.0 cm RIGHT and questionable partially imaged 1.7 cm LEFT renal lesions. Neoplasm not excluded. Recommend multiphase renal protocol CT or MRI with and without contrast. 3. Additional description as above. Reading Location: [facility] CC: Dr. Kenny Fermin MD; Dr. Erick Gonzalez DO ~ [employer] Account[employer] Sales: Signed [facility] Spine Lumbar W/WO Contraston 03-03-2025 Spine Lumbar W/WO Contrast [facility] Services [address] [place] [address] Spine Lumbar W/WO Contrast MR#: [id number] Acct: [id number] Name: DANA HUBBARD Rep #: [id number] : 1955 M 69 From: Erick Brown MD PCP: Dr. Erick Gonzalez DO Status: REG CLI Study: Spine Lumbar W/WO Contrast Date of Exam: 02/18 03/14 Exam# [id number] Ordering Dr: Kenny Fermin MD PROCEDURE: SPINE LUMBAR W/WO CONTRAST (MRISPLWW), 03/03/2025 REASON FOR EXAM: CHRONIC LUMBAR SPINE PAIN TECHNIQUE: Multisequence multiplanar MR of the lumbar spine was performed with and without IV contrast. IV Contrast: 15 mL Clariscan. COMPARISON: 01/10/2025 FINDINGS: Vertebral body heights are preserved. Mildly heterogeneous marrow with a few T1 bright likely vertebral body hemangiomas.. Trace likely degenerative retrolisthesis at L5-S1. Conus medullaris terminates normally at the L1 level. Unremarkable appearance of the cauda equina. L1-2: Incompletely imaged L1 vertebral body on axial sequences. Small posterior central and RIGHT paracentral annular fissure. Small RIGHT paracentral and subarticular/foraminal disc protrusion. No significant spinal canal or foraminal stenosis.. L2-3: Mild disc height loss with diffuse disc bulging, greatest in the lateral and foraminal regions suspect a tiny posterior central annular fissure. No significant spinal canal or foraminal stenosis. Minimal facet arthropathy. L3-4: Moderate disc height loss with diffuse disc bulging. Superimposed small posterior central disc protrusion. Narrowing of the LEFT lateral recess. Mild focal spinal canal stenosis. Mild RIGHT foraminal stenosis. Facet arthropathy. L4-5: Yqrkjfiq-ta-vjoizk loss of disc height. Diffuse disc bulging with superimposed posterior central disc extrusion with minimal inferior migration of approximately 5 mm. Suspect a small amount of surrounding epidural enhancement/fibrosis. Facet arthropathy. Mild bilateral foraminal stenosis. Mild narrowing of the ZBXMB-vawfuyk-tskl-LEFT lateral recesses. Mild focal spinal canal stenosis. L5-S1: Moderate disc height loss. Trace retrolisthesis as above with disc uncovering. Diffuse disc bulging with superimposed small posterior central annular fissure and disc protrusion. Small bilateral foraminal and subarticular disc/osteophyte complexes. Facet arthropathy. No significant focal spinal canal stenosis. Mild CCNIR-eoupeqf-ndjg-LEFT foraminal stenosis. Other: No abnormal enhancement. 3.0 x 2.5 cm complex posterior RIGHT renal cystic lesion with peripheral wall thickening/enhancement up to at least 5 mm. Question an additional faintly visible partially imaged indeterminate 1.7 cm medial LEFT renal lesion. Midthoracic presumed vertebral body hemangioma on the soda flaker in the absence of known malignancy. Disc bulging suspected at C6-C7 on the soda flaker, not well evaluated. MRI/Spine Lumbar W/WO Contrast IMPRESSION: 1. Multilevel spondylosis with as detailed, greatest at L4-L5. No high-grade spinal canal or foraminal stenosis identified. 2. Indeterminate 3.0 cm RIGHT and questionable partially imaged 1.7 cm LEFT renal lesions. Neoplasm not excluded. Recommend multiphase renal protocol CT or MRI with and without contrast. 3. Additional description as above. Reading Location: [id number] CC: Dr. Kenny Fermin MD; Dr. Erick Gonzalez, [employer] Sales: Signed Normal [facility] Nasopharyngeal Cultureon NAC NASAL CULTURE Staphylococcus lugdunensis Amount Growth 1+ Staphylococcus lugdunensis: REACTION cefOXitin Susc Islt Doxycycline Islt MELCHOR 4 S Clindamycin Islt MELCHOR <=0.12 S Clindamycin.induced Susc Islt NEG Erythromycin Islt MELCHOR <=0.25 S Gentamicin Islt MELCHOR <=0.5 S Linezolid Islt MELCHOR 2 S Oxacillin Susc Islt 2 S Tetracycline Islt MELCHOR >=16 R TMP SMX Islt MELCHOR <=10 S Vancomycin Islt MELCHOR <=0.5 S Normal [facility] Comment on above: Performed By: #### M 100.2000, M100.2500 #### [facility] [address] [place], [place], [id number] Gram Stainon 02-06-2025 GS NASAL CULTURE Gram Stain 3+ Gram positive cocci 1+ White Blood Cells Normal [facility] Comment on above: Performed By: #### M 100.2000, M100.2500 #### [facility] [address] [place], [address] Gram stainOrdered By: Bassam navarro on 02-05-2025 Microscopic observation Gram stain Nom (Unsp spec) [facility] Nasopharyngeal cultureOrdere d By: Bassam Andrew on 02-05-2025 Nasopharyngeal Culture Staphylococcus lugdunensis Abnormal [facility] Respiratory microbial culture Staphylococcus lugdunensis Abnormal [facility] L/S Spine Bending Flex/[place] 01-10-2025 L/S Spine Bending Flex/Ext [facility] [address] [place], [place] [id number] L/S Spine Bending Flex/Ext MR#: [id number] Acct: [id number] Name: DANA HUBBARD Rep #: [id number] : 1955 M 69 From: Tariq Brown MD PCP: Dr. Erick Gonzalez DO Status: DEP AMB Study: L/S Spine Bending Flex/Ext Date of Exam: 01/10 Exam# [id number] Ordering Dr: Shruthi Meeks PROCEDURE: LATERAL FLEXION AND EXTENSION VIEWS OF THE LUMBOSACRAL SPINE REASON FOR EXAM: BACK PAIN. TECHNIQUE: Lateral view(s) of the lumbar spine during flexion and extension.. COMPARISON: None. FINDINGS: Vertebral bodies normal in height. Moderate disc space narrowing at L3-4. Severe disc space narrowing at L4-L5 and L5-S1. Limited range of motion during flexion and extension. No signs of lumbar spine instability. Atherosclerotic calcific disease of the aorta. Visualized soft tissues unremarkable. RAD/L/S Spine Bending Flex/Ext IMPRESSION: No signs of lumbar spinal instability. Limited range of motion. Multilevel spondylosis and degenerative disc disease. Reading Location: [facility] CC: GRZEGORZ Chris; Dr. Erick Gonzalez DO [employer] Sales: Signed Normal [facility] Orthopedic Visit Reporton Orthopedic Visit Report [facility] [address] [place] [address] [address] [place] [address] OFFICE VISIT Date of Service: 01/10/25 MR#: [id number] Acct: [id number] Name: DANA HUBBARD Rep #: [id number] : 1955 Provider: Dr. Kenny Fermin MD Age/Sex: 69/M Location: [facility] Status: Signed Intake Vital Signs 08/20/24 08:51 01/10/25 08:04 Height 5 ft 10 in 5 ft 10 in Weight: 170 lb 175 lb BMI 24.3 25.1 BP 159/70 H Blood Pressure Location Lt brachial Position Sitting Respiration 18 Pulse 76 Pulse Source Monitor Intake Visit Reasons: LUMBAR SPINE Chief Complaint: low back pain Is patient in pain?: Yes (low back ) Pain scale (1-10): 6 Allergies adhesive tape Adverse Reaction (Verified 01/10/25 08:04) blisters rash Medications ???Medication ???Instructions ???Recorded ???Confirmed ???Type gabapentin 300 mg capsule 300 mg PO BID PRN 08/05/22 4 History hydromorphone 16 mg 16 mg PO QHS 08/05/22 08/20/24 His tory tablet,extended release 24 hr ezetimibe 10 mg tablet See Rx Instructions .Route 4 08/20/24 Rx .COMPLEX #90 tabs ramipril 10 mg capsule 10 mg PO QHS #90 caps 07/17/2412/13 Rx amlodipine 5 mg tablet 2.5 mg PO QDAY 08/20/24 08/20/24 H istory baclofen 5 mg tablet 5 mg PO QDAY 08/20/24 08/20/24 His tory Have you fallen in the past year?: No PFSH Medical History Diminished pulses in lower extremity Left carotid bruit Cellulitis of great toe, right Old myocardial infarction Segmental and somatic dysfunction of thoracic region Segmental and somatic dysfunction of lumbar region Segmental and somatic dysfunction of cervical region Neuropathy Bilateral headaches Arthritis Essential hypertension Chews tobacco Hyperlipidemia History of non-ST elevation myocardial infarction (NSTEMI) Atherosclerotic heart disease of [place] coronary artery without angina pectoris Non-ST elevation MS (NSTEMI) Supraventricular tachycardia by ECG Alcohol abuse Chronic back pain Hypertension Surgical History H/O detached retina repair ( 01/03/20) H/O cardiac radiofrequency ablation ( 01/13/16) History of left heart catheterization Family History Brother CAD (coronary artery disease) Myocardial infarction below age 55 S/P CABG (coronary artery bypass graft) Mother CAD (coronary artery disease) Father , Suicide Suicide Social History Smoking Status: Never smoker alcohol intake: never substance use type: does not use what type of physical activity do you participate in: none HPI LUMBAR SPINE Chief Complaint: low back pain Details: This documentation accurately reflects the service provided and the decisions made by me, Dr. Kenny Fermin MD 01/10/25 0802. Part of today???s visit was documented by [ ], acting as scribe. DANA HUBBARD is a 69 year old M here today for low back pain. Pt advises he has been experiencing low back pain for 25 years. He states he had a lumbar discectomy in 1990 after his disc exploded. 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 He has been seeing Dr. Stacy for 21 years. He has had a implanted pain pump which was not helpful and had it removed. Pt. does not recall the year. He has had numerous lumbar steroid injections, his last was September/2023. He treats pain in between with Advil as needed. He does see Dr. Power for multi care technician but she does not adjust his low back. He has done PT which has not been helpful besides the aquatherapy but does not last [facility]. His last MRI was about 2 years ago. He would like to discuss his surgical options. He states his low back is a constant dull ache. He states his right foot/toes have been numb since his original surgery in 1990. He states the left side of his back is swollen. He c/o leg cramps at night which he takes Gabapentin and OTC potassium but he still has them. Patient has weakness in the toe in his right foot. About 3-4 years ago he started having pain and leg cramps in the left leg. He will occasionally get the pain/cramps below the knee and down into the ankle. Denies any pain in the hamstrings. Patient has had facet joint injections, cauterized nerves on the left side, epidural steroid injections. He states sometimes these injections will work for a while and sometimes they will only work for a couple days. Patient has not had any recent MRIs. Non diabetic, did have a heart attack in 2013 and had an ablation after that, sees a poison information specialist regularly. No kidney problems. Ortho Exam General General: Yes no acute distress Neurologic: Yes alert a (more content not included)... Normal [facility] Lower Ext Art Exam w/o Exerc corbin 09-13-2024 Lower Ext Art Exam w/o Exercis [facility] [address] [place] [address] Lower Ext Art Exam w/o Exercis 09/13/24 0849 MR#: [id number] Acct: [id number] Name: DANA HUBBARD Rep #: [id number] : 1955 69 From: Tariq Borja MD Attending Dr: GRZEGORZ Dnet Status: REG CLI Ordering Dr: Valarie Banda PA Date: 08/21 04/12 Location: [facility] Sex: M C Admitted: Reason For Study: Decreased Pedal Pulses Procedure A bilateral lower extremity continuous wave Doppler with analog waveform analysis,segmental pressures,and ankle brachial indexes without exercise. Left Segmental Pressures Left brachial= 159mmHg. Left posterior tibial artery = 191mmHg. Left dorsalis pedis artery = 181mmHg. Left digit = 118 mmHg. Right Segmental Pressures Right brachial= 149mmHg. Right posterior tibial artery = 206mmHg. Right dorsalis pedis artery = 204mmHg. Right digit = 141 mmHg. Indices The right ankle brachial index by the posterior tibial artery is 1.30. The right ankle brachial index by the dorsalis pedis is 1.28. The right digital-brachial index is 0.89. The left ankle brachial index by the posterior tibial artery is 1.20. The left ankle brachial index by the dorsalis pedis is 1.14. The left digital-brachial index is 0.74. VL/Lower Ext Art Exam w/o Exercis Interpretation Summary Right GERONIMO 1.3, normal. TBI and Doppler/PVR waveforms of the right leg normal at rest. Left GERONIMO 1.2, normal. Doppler/PVR waveforms of the left leg normal at rest. TBI diminished, pedal/digit disease vs spasm Ordering Physician: Valarie Banda Referring Physician: Erick Gonzalez Performed By: Marcella Vergara RDCS/RVT 09/16/24 1258 Date Tariq Borja MD CC: Dr. Erick Gonzalez, DO; GRZEGORZ Dent Date Dictated: 09/13/24 0849 Date Transcribed: 09/16/241257 [employer] Account[employer] Sales: Signed Normal [facility] Cardiology Visit Reporton Cardiology Visit Report [facility] [place] [address] OFFICE VISIT Date of Service: 08/20/24 MR#: [id number] Acct: [id number] Name: DANA HUBBARD Rep #: [id number] : 1955 Provider: GRZEGORZ Montes Age/Sex: 69/M Location: [facility] Status: Signed HPI HPI History of Present Illness Details: DANA HUBBARD, is a 69-year-old white male who presents to the office today for outpatient cardiovascular follow-up of his history of CAD, hypertension, hyperlipidemia. He had a heart catheterization in 09/2015 which demonstrated a 40% proximal LAD stenosis noted in September 2015. On 01/13/2016 he had a SVT post ablation with Dr. Lima at [facility]. From a cardiac standpoint, patient is doing well. He does not have any chest discomfort/heaviness/tig htness. He does try to walk every day for a few miles. He does not have any worsening symptoms of shortness of breath. He denies any PND. He does not have any orthopnea. He does not have any symptoms of congestive heart failure. He does not have any palpitations that he is aware of. He does not have any lightheadedness or dizziness. He does not have any near-syncope or syncope. He does not have any lower extremity edema. He does not have any symptoms of claudication. His main issues is the pain in his back. He does see pain management for this. 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 Is patient in pain?: No Allergies adhesive tape Adverse Reaction (Verified 08/20/24 08:51) blisters rash Medications ???Medication ???Instructions ???Recorded ???Confirmed ???Type gabapentin 300 mg capsule 300 mg PO BID PRN 08/05/22 08/20/24 History hydromorphone 16 mg 16 mg PO QHS 08/05/22 08/20/24 History tablet,extended release 24 hr ezetimibe 10 mg tablet See Rx Instructions .Route 07/17/24 08/20/24 Rx .COMPLEX #90 tabs ramipril 10 mg capsule 10 mg PO QHS #90 caps 07/17/24 08/20/24 Rx amlodipine 5 mg tablet 2.5 mg PO QDAY 08/20/24 08/20/24 History baclofen 5 mg tablet 5 mg PO QDAY 08/20/24 08/20/24 History Have you fallen in the past year?: No PFSH Medical History (Updated 08/20/24 @ 09:17 by Valarie LANTIGUA, PA) Diminished pulses in lower extremity Left carotid bruit Cellulitis of great toe, right Old myocardial infarction Segmental and somatic dysfunction of thoracic region Segmental and somatic dysfunction of lumbar region Segmental and somatic dysfunction of cervical region Neuropathy Bilateral headaches Arthritis Essential hypertension Chews tobacco Hyperlipidemia History of non-ST elevation myocardial infarction (NSTEMI) Atherosclerotic heart disease of [place] coronary artery without angina pectoris Non-ST elevation MS (NSTEMI) Supraventricular tachycardia by ECG Alcohol abuse Chronic back pain Hypertension Surgical History H/O detached retina repair ( 01/03/20) H/O cardiac radiofrequency ablation ( 01/13/16) History of left heart catheterization Family History Brother CAD (coronary artery disease) Myocardial infarction below age 55 S/P CABG (coronary artery bypass graft) Mother CAD (coronary artery disease) Father , Suicide Suicide Social History Smoking Status: Never smoker alcohol intake: never substance use type: does not use what type of physical activity do you participate in: none ROS Const Const: Negative for fatigue, weakness, fever(s) or headache(s) Eyes Eyes: Negative for blind spots, loss of peripheral vision or transient loss of vision ENT ENT: Negative for headache(s), dizziness, tinnitus or Nosebleed/epistaxis Cardio Chest Pain: No Palpitations: No Edema: None Muscle aches with walking: Bilateral Resp Respiratory: Negative for SOB with activity, SOB at rest, SOB orthopnea SOB lying down or Cough GI GI: Negative nausea, vomiting, heartburn or vomiting blood/hematemesis : Negative for hematuria Musc Musc: Positive for muscle aches/ myalgia and muscle weakness; Negative for joint pain Neuro Neuro: Negative for dizziness, lightheadedness, near syncope, syncope, orthostatic symptoms, headache(s) or weakness Jose Hematologic/Lymphatic: Negative for easy bleeding Endo Endo: Negative for fatigue Cardiology Exam Const Appearance: cooperative, comfortable, no acute distress, well developed and well groome (more content not included)... Normal [facility] Lumbar Spine 2 or 3 Viewson 07-31-2024 Lumbar Spine 2 or 3 Views [facility] [address] [place] [address] Lumbar Spine 2 or 3 Views MR#: [id number] Acct: [id number] Name: DANA HUBBARD Rep #: [id number] : 1955 M 69 From: Korey Aranda MD PCP: Dr. Erick Gonzalez, DO Status: REG CLI Study: Lumbar Spine 2 or 3 Views Date of Exam: Exam# [id number] Ordering Dr: Hilary Stacy MD [id number] STUDY: X-RAY - LUMBAR SPINE REASON FOR EXAM: Male, 69 years old. Postlaminectomy syndrome. TECHNIQUE: 2 view(s) of the lumbar spine were obtained. COMPARISON: July 22, 2020 FINDINGS: Osteopenia. Normal lumbar lordosis. No scoliosis. Diffuse mild lower thoracic and lumbosacral facet sclerosis. Intervertebral disc space narrowing diffusely, most marked in the lumbosacral region. Osteophytes most marked at L2-3, L3-4, L4-5 and L5-S1. Epidural catheter no longer present. Mild vascular calcification unchanged. RAD/Lumbar Spine 2 or 3 Views IMPRESSION: Osteopenia with lumbosacral spondylosis and removal of epidural catheter. No acute superimposed finding. Electronically Signed: Korey Aranda MD at 15:15 EDT , CC: Dr. Hilary Stacy MD; Dr. Erick Gonzalez DO National Account[employer] Sales: Signed Normal [facility] CBC W/Diff, Automatedon 07-21 Absolute Lymph 1.26 X10 3/uL Normal 0.83-4.51 [facility] Comment on above: Performed By: #### L 100.0100, L500.4050, L500.4100, L501.9910, L501.9985 #### [facility] [address] [place], [address] Absolute Neut 1.6 X10 3/uL Low 2.0-7.7 [facility] Comment on above: Performed By: #### L 100.0100, L500.4050, L500.4100, L501.9910, L501.9985 #### [facility] [address] [place], [address] Basophils/100 WBC (Bld) 0.9 % Normal 0-1 [facility] Comment on above: Performed By: #### L 100.0100, L500.4050, L500.4100, L501.9910, L501.9985 #### [facility] [address] [place], [address] Eosinophils/100 WBC (Bld) 2.7 % Normal 0-5 [facility] Comment on above: Performed By: #### L 100.0100, L500.4050, L500.4100, L501.9910, L501.9985 #### [facility] [address] [place], [address] Erythrocyte distribution width (RBC) [Ratio] 12.9 % Normal 11.6-14.6 [facility] Comment on above: Performed By: #### L 100.0100, L500.4050, L500.4100, L501.9910, L501.9985 #### [facility] [address] [place], [address] Hematocrit (Bld) [Volume fraction] 46.0 % Normal 40-54 [facility] Comment on above: Performed By: #### L 100.0100, L500.4050, L500.4100, L501.9910, L501.9985 #### [facility] [address] [place], [address] Hemoglobin (Bld) [Mass/Vol] 15.7 g/dL Normal 13.0-16.5 [facility] Comment on above: Performed By: #### L 100.0100, L500.4050, L500.4100, L501.9910, L501.9985 #### [facility] [address] [place], [address] IG% 0.300 Normal 0.0-0.9 [facility] Comment on above: Result Comment: IG% - Immature Granulocytes (promyelocytes, myelocytes and metamyelocytes) > 1% indicates that a LEFT SHIFT is Present. Performed By: #### L 100.0100, L500.4050, L500.4100, L501.9910, L501.9985 #### [facility] [address] [place], [address] Lymphocytes/100 WBC (Bld) 37.8 % Normal 19-41 [facility] Comment on above: Performed By: #### L 100.0100, L500.4050, L500.4100, L501.9910, L501.9985 #### [facility] [address] [place], [address] MCH (RBC) [Entitic mass] 32.0 pg Normal 27.0-32.0 [facility] Comment on above: Performed By: #### L 100.0100, L500.4050, L500.4100, L501.9910, L501.9985 #### [facility] [address] [place], [address] MCHC (RBC) [Mass/Vol] 34.1 g/dL Normal 32-36 [facility] Comment on above: Performed By: #### L 100.0100, L500.4050, L500.4100, L501.9910, L501.9985 #### [facility] [address] [place], [address] MCV (RBC) [Entitic vol] 93.9 fL Normal 80-94 [facility] Comment on above: Performed By: #### L 100.0100, L500.4050, L500.4100, L501.9910, L501.9985 #### [facility] [address] [place], [address] Monocytes/100 WBC (Bld) 9.0 % Normal 0-10 [facility] Comment on above: Performed By: #### L 100.0100, L500.4050, L500.4100, L501.9910, L501.9985 #### [facility] [address] [place], [address] Neutrophils/100 WBC (Bld) 49.3 % Normal 47-70 [facility] Comment on above: Performed By: #### L 100.0100, L500.4050, L500.4100, L501.9910, L501.9985 #### [facility] [address] [place], [address] Nucleated RBC (Bld) [#/Vol] 0 10*3/uL Normal 0-5 [facility] Comment on above: Performed By: #### L 100.0100, L500.4050, L500.4100, L501.9910, L501.9985 #### [facility] [address] [place], [address] Platelet mean volume (Bld) [Entitic vol] 12.4 fL High 6.2-12.0 [facility] Comment on above: Performed By: #### L 100.0100, L500.4050, L500.4100, L501.9910, L501.9985 #### [facility] [address] [place], [address] Platelets (Bld) [#/Vol] 121 10*3/uL Low 150-450 [facility] Comment on above: Performed By: #### L 100.0100, L500.4050, L500.4100, L501.9910, L501.9985 #### [facility] [address] [place], [address] RBC (Bld) [#/Vol] 4.90 10*6/uL Normal 4.6-6.2 [facility] Comment on above: Performed By: #### L 100.0100, L500.4050, L500.4100, L501.9910, L501.9985 #### [facility] [address] [place], [address] RDW SD 44.0 fl High 35.1-43.9 [facility] Comment on above: Performed By: #### L 100.0100, L500.4050, L500.4100, L501.9910, L501.9985 #### [facility] [address] [place], [address] WBC (Bld) [#/Vol] 3.3 10*3/uL Low 4.4-11.0 [facility] Comment on above: Performed By: #### L 100.0100, L500.4050, L500.4100, L501.9910, L501.9985 #### [facility] [address] [place], [address] Comprehensive Metabolic Prof laon 07-30-2024 Albumin [Mass/Vol] 3.8 g/dL Normal 3.2-5.0 [facility] Comment on above: Performed By: #### L 100.0100, L500.4050, L500.4100, L501.9910, L501.9985 ####[facility] [address] [place], [address] Albumin/Globulin [Mass ratio] 1.2 {ratio} Normal 0.9-2.4 [facility] Comment on above: Performed By: #### L 100.0100, L500.4050, L500.4100, L501.9910, L501.9985 ####[facility] [address] [place], [address] ALK P 70 U/L Normal 45-117 [facility] Comment on above: Performed By: #### L 100.0100, L500.4050, L500.4100, L501.9910, L501.9985 ####[facility] [address] [place], [address] ALT [Catalytic activity/Vol] 52 U/L Normal 16-61 [facility] Comment on above: Performed By: #### L 100.0100, L500.4050, L500.4100, L501.9910, L501.9985 ####[facility] [address] [place], [address] AST [Catalytic activity/Vol] 39 U/L High 15-37 [facility] Comment on above: Performed By: #### L 100.0100, L500.4050, L500.4100, L501.9910, L501.9985 ####[facility] [address] [place], [address] Bilirubin [Mass/Vol] 0.70 mg/dL Normal 0.20-1.00 [facility] Comment on above: Result Comment: For patients on eltrombopag therapy, use of Dimension [place] TBIL is not recommended. Performed By: #### L 100.0100, L500.4050, L500.4100, L501.9910, L501.9985 ####[facility] [address] [place], [address] BUN/CRE 18.5 RATIO Normal 10-20 [facility] Comment on above: Performed By: #### L 100.0100, L500.4050, L500.4100, L501.9910, L501.9985 ####[facility] [address] [place], [address] CA,Total 9.9 mg/dL Normal 8.5-10.1 [facility] Comment on above: Performed By: #### L 100.0100, L500.4050, L500.4100, L501.9910, L501.9985 ####[facility] [address] [place], [address] Chloride [Moles/Vol] 105 mmol/L Normal 98-107 [facility] Comment on above: Performed By: #### L 100.0100, L500.4050, L500.4100, L501.9910, L501.9985 ####[facility] [address] [facility] [address] CO2 [Moles/Vol] 28.0 mmol/L Normal 21.0-32.0 [facility] Comment on above: Performed By: #### L 100.0100, L500.4050, L500.4100, L501.9910, L501.9985 ####[facility] [address] [facility] [address] Creatinine [Mass/Vol] 0.81 mg/dL Normal 0.70-1.30 [facility] Comment on above: Result Comment: The validity of the calculated GFR GFRAA in patients over 70 years has not been determined. Clinical correlation is essential. Performed By: #### L 100.0100, L500.4050, L500.4100, L501.9910, L501.9985 ####[facility] [address] [place], [address] EST GFR - AA 121 mL/min Normal >60 [facility] Comment on above: Result Comment: Afri can Pakistani GFR Calc Performed By: #### L 100.0100, L500.4050, L500.4100, L501.9910, L501.9985 ####[facility] [address] [facility] [address] GAP 6 Normal 5-15 [facility] Comment on above: Performed By: #### L 100.0100, L500.4050, L500.4100, L501.9910, L501.9985 ####[facility] [address] [place], [address] GFR/1.73 sq M.predicted among non-blacks MDRD (S/P/Bld) [Vol rate/Area] 100 mL/min/{1.73_m2} Normal >60 [facility] Comment on above: Result Comment: Non- GFR Calc Performed By: #### L 100.0100, L500.4050, L500.4100, L501.9910, L501.9985 ####[facility] [address] [place], [address] Globulin (S) [Mass/Vol] 3.3 g/dL Normal 2.2-4.2 [facility] Comment on above: Performed By: #### L 100.0100, L500.4050, L500.4100, L501.9910, L501.9985 ####[facility] [address], [address] Glucose [Mass/Vol] 150 mg/dL High 74-106 [facility] Comment on above: Result Comment: Fast ing Glucose result greater than or equal to 126 mg/dL suggests DIABETES MELLITUS per A.D.A. criteria. Performed By: #### L 100.0100, L500.4050, L500.4100, L501.9910, L501.9985 ####[facility] [address] [place], [address] Potassium [Moles/Vol] 4.2 mmol/L Normal 3.5-5.1 [facility] Comment on above: Performed By: #### L 100.0100, L500.4050, L500.4100, L501.9910, L501.9985 ####[facility] [address] [place], [address] Sodium [Moles/Vol] 139 mmol/L Normal 136-145 [facility] Comment on above: Performed By: #### L 100.0100, L500.4050, L500.4100, L501.9910, L501.9985 ####[facility] [address] [place], [address] T PROT 7.1 g/dL Normal 6.4-8.2 [facility] Comment on above: Performed By: #### L 100.0100, L500.4050, L500.4100, L501.9910, L501.9985 ####[facility] [address] [place], [address] Urea nitrogen [Mass/Vol] 15 mg/dL Normal 7-18 [facility] Comment on above: Performed By: #### L 100.0100, L500.4050, L500.4100, L501.9910, L501.9985 ####[facility] [address] [place], [address] Hemoglobin A1con 07-30-2024 HbA1c (Bld) [Mass fraction] 5.9 % High 3.8-5.6 [facility] Comment on above: Result Comment: Norm al < 5.7 % Prediabetic 5.7 - 6.4 % Diabetic >or= 6.5 % Please note range changes. Performed By: #### L 100.0100, L500.4050, L500.4100, L501.9910, L501.9985 ####[facility] [address] [place], [address] Lipid Profileon 07-30-2024 Cholesterol [Mass/Vol] 182 mg/dL Normal 200 [facility] Comment on above: Result Comment: <200 mg/dL Desirable 200-240 mg/dL Borderline >240 mg/dL High Risk Performed By: #### L 100.0100, L500.4050, L500.4100, L501.9910, L501.9985 ####[facility] [address] [place], [address] Cholesterol in HDL [Mass/Vol] 72 mg/dL Normal [facility] Comment on above: Result Comment: The drugs N-Acetylcysteine and Metamizole may falsely depress this assay. Reference Range HDL <40 mg/dL Low HDL Cholesterol HDL >or= 60 mg/dL High HDL Cholesterol Performed By: #### L 100.0100, L500.4050, L500.4100, L501.9910, L501.9985 ####[facility] [address] [place], [address] Cholesterol in LDL [Mass/Vol] 93 mg/dL Normal 0-130 [facility] Comment on above: Performed By: #### L 100.0100, L500.4050, L500.4100, L501.9910, L501.9985 ####[facility] [address] [place], [address] Cholesterol in VLDL [Mass/Vol] 17 mg/dL Normal 5-40 [facility] Comment on above: Performed By: #### L 100.0100, L500.4050, L500.4100, L501.9910, L501.9985 ####[facility] [address] [place], [address] Triglyceride [Mass/Vol] 83 mg/dL Normal [facility] Comment on above: Result Comment: The drugs N-Acetylcysteine and Metamizole may falsely depress this assay. Serum Triglycerides Reference Interval Normal <150 mg/dL Borderline high 150 - 199 mg/dL High 200 - 499 mg/dL Very High > or = 500 mg/dL Performed By: #### L 100.0100, L500.4050, L500.4100, L501.9910, L501.9985 ####[facility] [address] [place], [address] PSA,Total - Annual Screenon 07-30-2024 PSA,TOT SCREEN 0.19 ng/mL Normal 0.00-4.00 [facility] Comment on above: Result Comment: This test was performed using the TPSA assay method for the [employer] system. Values obtained with different assay methods cannot be used interchangably. When changing PSA assays in the course of monitoring a patient, additional sequential testing should be carried out to confirm baseline values. Performed By: #### L 100.0100, L500.4050, L500.4100, L501.9910, L501.9985 ####[facility] [address] [place], [address] Basophil percentageOrdered B y: Erick Gonzalez on 02-14-2024 Testosterone [Mass/Vol] 533.38 ng/dL [facility] Comment on above: CENTRAL 90% REFERENC E RANGES MALE AGE <50 197.44 - 669.58 ng/dL MALE AGE > or = 50 187.72 - 684.19 ng/dL FEMALE AGE <50 8.38 - 35.01 ng/dL FEMALE AGE > or = 50 <7.00 - 35.92 ng/dL Effective as of 06/15/21 No Panel InformationOrdered By: Erick Gonzalez on 02-14-2024 Ionized Calcium 5.21 mg/dL 4.36-5.20 [facility] Parathyroid Hormone (Intact) 56.0 pg/mL 18.4-80.1 [facility] Vitamin D 25-Hydroxy 18.3 ng/mL [facility] Comment on above: Vitamin D 25(OH) Sta tus Range Deficiency <20 ng/mL (50nmol/L) Insufficiency 20 - 30 ng/mL (50 - 75 nmol/L) Sufficiency 30 - 100 ng/mL (75 - 250 nmol/L) Toxicity >100 ng/mL (>250 nmol/L) Serum or plasma calcitriol m easurement (mass/volume)Ordered By: Erick Gonzalez on 02-14-2024 1,25-dihydroxyvitamin D3 [Mass/Vol] 41.4 pg/mL 24.8-81.5 [facility] Comment on above: Performed at: [facility] [address] [id number] Director: Fausto Baird MD, Phone: [phone] Absolute lymphocyte countOrd ered By: Erick Gonzalez on 01-18-2024 Lymphocytes Auto (Unsp spec) [#/Vol] 1.76 10*3/uL 0.83-4.51 [facility] Automated lymphocyte count a s percentage of total leukocytesOrdered By: Erick Gonzalez on 01-18-2024 Lymphocytes/100 WBC Auto (Unsp spec) 47.8 % 19-41 [facility] Basophil percentageOrdered B y: Erick Gonzalez on 01-18-2024 Basophils/100 WBC (Bld) 1.1 % 0-1 [facility] Bilirubin [Mass/Vol] 0.80 mg/dL 0.20-1.00 [facility] Comment on above: For patients on eltr ombopag therapy, use of Dimension [place] TBIL is not recommended. Chloride [Moles/Vol] 108 mmol/L 98-107 [facility] Cholesterol [Mass/Vol] 163 mg/dL <200 [facility] Comment on above: <200 mg/dL Desirable 200-240 mg/dL Borderline >240 mg/dL High Risk Eosinophils/100 WBC (Bld) 2.2 % 0-5 [facility] Glucose [Mass/Vol] 129 mg/dL 74-106 [facility] Comment on above: Fasting Glucose resu lt greater than or equal to 126 mg/dL suggests DIABETES MELLITUS per A.D.A. criteria. Hemoglobin (Bld) [Mass/Vol] 16.1 g/dL 13.0-16.5 [facility] Monocytes/100 WBC (Bld) 9.5 % 0-10 [facility] Neutrophils (Bld) [#/Vol] 1.5 10*3/uL 2.0-7.7 [facility] Neutrophils/100 WBC (Bld) 39.4 % 47-70 [facility] Potassium [Moles/Vol] 4.2 mmol/L 3.5-5.1 [facility] Protein [Mass/Vol] 7.3 g/dL 6.4-8.2 [facility] Sodium [Moles/Vol] 141 mmol/L 136-145 [facility] Triglyceride [Mass/Vol] 65 mg/dL <199 [facility] Comment on above: The drugs N-Acetylcy steine and Metamizole may falsely depress this assay.Serum Triglycerides Reference Interval Normal <150 mg/dL Borderline high 150 - 199 mg/dL High 200 - 499 mg/dL Very High > or = 500 mg/dL WBC (Bld) [#/Vol] 3.7 10*3/uL 4.4-11.0 [facility] Determination of erythrocyte mean corpuscular volume (MCV)Ordered By: Erick Gonzalez on 01-18-2024 MCV (RBC) [Entitic vol] 91.6 fL 80-94 [facility] Erythrocyte distribution wid th ratioOrdered By: Erick Gonzalez on 01-18-2024 Erythrocyte distribution width (RBC) [Ratio] 12.7 % 11.6-14.6 [facility] Erythrocyte distribution wid th standard deviationOrdered By: Erick Gonzalez on 01-18-2024 Erythrocyte distribution width (RBC) [Entitic vol] 43.0 fL 35.1-43.9 [facility] Hematocrit Auto (Bld) [Volum e fraction]Ordered By: Erick Gonzalez on 01-18-2024 Hematocrit (Bld) [Volume fraction] 46.8 % 40-54 [facility] Immature granulocytes/100 WB C Auto (Bld)Ordered By: Erick Gonzalez on 01-18-2024 Immature granulocytes/100 WBC (Bld) 0.000 % 0.0-0.9 [facility] Comment on above: IG% - Immature Granu locytes (promyelocytes, myelocytes and metamyelocytes) > 1% indicates that a LEFT SHIFT is Present. Laboratory - Chemistry and C hemistry - challengeOrdered By: Erick Gonzalez on 01-18-2024 Albumin/Globulin [Mass ratio] 1.0 {ratio} 0.9-2.4 [facility] ALP [Catalytic activity/Vol] 78 U/L 45-117 [facility] ALT [Catalytic activity/Vol] 56 U/L 16-61 [facility] Cholesterol in HDL [Mass/Vol] 69 mg/dL >40 [facility] Comment on above: The drugs N-Acetylcy steine and Metamizole may falsely depress this assay. Reference Range HDL <40 mg/dL Low HDL Cholesterol HDL >or= 60 mg/dL High HDL Cholesterol Cholesterol in LDL [Mass/Vol] 81 mg/dL 0-130 [facility] CO2 [Moles/Vol] 28.0 mmol/L 21.0-32.0 [facility] Globulin (S) [Mass/Vol] 3.7 g/dL 2.2-4.2 [facility] Urea nitrogen/Creatinine [Mass ratio] 9.0 mg/mg 10-20 [facility] - Hematology and Cell countsOrdered By: Erick Gonzalez on 01-18-2024 MCH (RBC) [Entitic mass] 31.5 pg 27.0-32.0 [facility] MCHC (RBC) [Mass/Vol] 34.4 g/dL 32-36 [facility] Nucleated RBC/100 WBC (Bld) [Ratio] 0 % 0-5 [facility] Platelet mean volume (Bld) [Entitic vol] 11.3 fL 6.2-12.0 [facility] Platelets (Bld) [#/Vol] 140 10*3/uL 150-450 [facility] No Panel InformationOrdered By: Erick Gonzalez on 01-18-2024 Estimated GFR (MDRD) Amer 110 mL/min >60 [facility] Comment on above: GFR Calc Estimated GFR (MDRD) Non-Af Amer 91 mL/min >60 [facility] Comment on above: Non- GFR Calc VLDL Cholesterol 13 mg/dL 5-40 [facility] RBC Auto (Bld) [#/Vol]Ordere d By: Erick Gonzalez on 01-18-2024 RBC (Bld) [#/Vol] 5.11 10*6/uL 4.6-6.2 [facility] Serum or plasma calcium john urement (mass/volume)Ordered By: Erick Gonzalez on 01-18-2024 Calcium [Mass/Vol] 10.2 mg/dL 8.5-10.1 [facility] Serum or plasma creatinine m easurement (mass/volume)Ordered By: Erick Gonzalez on 01-18-2024 Creatinine [Mass/Vol] 0.89 mg/dL 0.70-1.30 [facility] Comment on above: The validity of the calculated GFR & GFRAA in patients over 70 years has not been determined. Clinical correlation is essential. Serum or plasma urea nitroge n measurement (mass/volume)Ordered By: Erick Gonzalez on 01-18-2024 Urea nitrogen [Mass/Vol] 8 mg/dL 7-18 [facility] Thin prep Papanicolaou smear with manual screeningOrdered By: Erick Gonzalez on 01-18-2024 Thin prep Papanicolaou smear with manual screening 3.6 g/dL 3.2-5.0 [facility] Thin prep Papanicolaou smear with manual screening 43 U/L 15-37 [facility] Thin prep Papanicolaou smear with manual screening 5 5-15 [facility] Whole blood hemoglobin A1c/t otal hemoglobin ratio (mass fraction)Ordered By: Erick Gonzalez on 01-18-2024 HbA1c (Bld) [Mass fraction] 6.1 % 3.8-5.6 [facility] Comment on above: Normal < 5.7 % Predi abetic 5.7 - 6.4 % Diabetic >or= 6.5 % Please note range changes. Laboratory - Drug toxicology Ordered By: Hilary Stacy on 01-17-2024 Amphetamines Ql (U) Negative <1000 ng/mL [facility] Benzodiazepines Ql (U) Negative < 200 ng/mL [facility] Cannabinoids Screen Ql (U) Negative < 50 ng/mL [facility] Cocaine Ql (U) Negative < 300 ng/mL [facility] Opiates Ql (U) Positive < 300 ng/mL [facility] No Panel InformationOrdered By: Hilary Stacy on 01-17-2024 MDMA (Ecstasy) Screen Negative < 500 ng/mL [facility] Miscellaneous Test See comment [facility] Comment on above: [id number] 6+OXYCODONE-B UND (ng/mL) DRUG RESULT SCREEN CUTOFF____ Amphetamines,Urine Negative ng/mL 1000 Amphetamine test includes Amphetamine and Methamphetamine.Barbiturates Negative ng/mL 200Benzodiazepines Negative ng/mL 200Cannabinoid Negative ng/mL 20Cocaine (Metab) Negative ng/mL 300Opiates Positive ng/mL 300 Opiates test includes Codeine, Morphine, Hydromorphone, Hydrocodone. Codeine Negative 300 Morphine Negative 300 Hydromorphone Positive Hydromorphone Conf,MS,UR >3000 ng/mL 300 Hydrocodone NegativeOxycodone/Oxymorphone,Urine Negative ng/mL 300 Test includes Oxycodone and Oxymorphone. TESTING PERFORMED AT [facility]. ORIGINAL REPORT ON FILE IN LAB CONTAINS ADDITIONAL TEST SITE INFORMATION. Urine Barbiturates Screen Negative < 200 ng/mL [facility] Urine Drug Screen Comment [facility] Comment on above: CONFIRMATORY TESTING FOR ALL POSITIVE URINE DRUG SCREENRESULTS WILL ONLY BE SENT OUT UPON PHYSICIAN ORDER. VISTA Urine Drug Screen methods provide only preliminaryanalytical test results. A more specific alternate chemicalmethod must be used in order to obtain a confirmedanalytical result. Gas chromatography/mass spectrometery(GC/MS) is the preferred confirmatory method. Clinicalconsideration and professional judgement should be appliedto any drug of abuse test result, particularly whenpreliminary positive results are used. URINE TCA TESTING MUST BE ORDERED SEPARATELY. USE TESTMNEMONIC: [facility] Urine Methadone Screen Negative < 300 ng/mL [facility] Urine phencyclidine (PCP) de tectionOrdered By: Hilary Stacy on 01-17-2024 Phencyclidine Ql (U) Negative < 25 ng/mL [facility] Absolute lymphocyte countOrd ered By: Erick Gonzalez on 07-20-2023 Lymphocytes Auto (Unsp spec) [#/Vol] 1.69 10*3/uL 0.83-4.51 [facility] Basophil percentageOrdered B y: Erick Gonzalez on 07-20-2023 Basophils/100 WBC (Bld) 1.3 % 0-1 [facility] Bilirubin [Mass/Vol] 1.00 mg/dL 0.20-1.00 [facility] Comment on above: For patients on eltr ombopag therapy, use of Dimension [place] TBIL is not recommended. Chloride [Moles/Vol] 105 mmol/L 98-107 [facility] Cholesterol [Mass/Vol] 185 mg/dL <200 [facility] Comment on above: <200 mg/dL Desirable 200-240 mg/dL Borderline >240 mg/dL High Risk Eosinophils/100 WBC (Bld) 3.2 % 0-5 [facility] Glucose [Mass/Vol] 138 mg/dL 74-106 [facility] Comment on above: Fasting Glucose resu lt greater than or equal to 126 mg/dL suggests DIABETES MELLITUS per A.D.A. criteria. Neutrophils (Bld) [#/Vol] 1.1 10*3/uL 2.0-7.7 [facility] Neutrophils/100 WBC (Bld) 34.1 % 47-70 [facility] Potassium [Moles/Vol] 4.1 mmol/L 3.5-5.1 [facility] Protein [Mass/Vol] 7.3 g/dL 6.4-8.2 [facility] Sodium [Moles/Vol] 141 mmol/L 136-145 [facility] Triglyceride [Mass/Vol] 91 mg/dL <199 [facility] Comment on above: The drugs N-Acetylcy steine and Metamizole may falsely depress this assay.Serum Triglycerides Reference Interval Normal <150 mg/dL Borderline high 150 - 199 mg/dL High 200 - 499 mg/dL Very High > or = 500 mg/dL WBC (Bld) [#/Vol] 3.1 10*3/uL 4.4-11.0 [facility] Blood erythrocytes count (nu mber/volume)Ordered By: Erick Gonzalez on 07-20-2023 RBC (Bld) [#/Vol] 4.95 10*6/uL 4.6-6.2 [facility] Blood hemoglobin measurement (mass/volume)Ordered By: Erick Gonzalez on 07-20-2023 Hemoglobin (Bld) [Mass/Vol] 16.3 g/dL 13.0-16.5 [facility] Blood lymphocytes/100 leukoc ytesOrdered By: Erick Gonzalez on 07-20-2023 Lymphocytes/100 WBC (Bld) 53.8 % 19-41 [facility] Blood monocytes/100 leukocyt esOrdered By: Erick Gonzalez on 07-20-2023 Monocytes/100 WBC (Bld) 7.6 % 0-10 [facility] Blood platelet mean volumeOr dered By: Erick Gonzalez on 07-20-2023 Platelet mean volume (Bld) [Entitic vol] 11.6 fL 6.2-12.0 [facility] Determination of erythrocyte mean corpuscular volume (MCV)Ordered By: Erick Gonzalez on 07-20-2023 MCV (RBC) [Entitic vol] 92.9 fL 80-94 [facility] Hematocrit Auto (Bld) [Volum e fraction]Ordered By: Erick Gonzalez on 07-20-2023 Hematocrit (Bld) [Volume fraction] 46.0 % 40-54 [facility] Laboratory - Chemistry and C hemistry - challengeOrdered By: Erick Gonzalez on 07-20-2023 ALP [Catalytic activity/Vol] 72 U/L 45-117 [facility] ALT [Catalytic activity/Vol] 90 U/L 16-61 [facility] CO2 [Moles/Vol] 32.0 mmol/L 21.0-32.0 [facility] Globulin (S) [Mass/Vol] 3.6 g/dL 2.2-4.2 [facility] Urea nitrogen/Creatinine [Mass ratio] 9.1 mg/mg 10-20 [facility] - Hematology and Cell countsOrdered By: Erick Gonzalez on 07-20-2023 Erythrocyte distribution width (RBC) [Entitic vol] 44.9 fL 35.1-43.9 [facility] Erythrocyte distribution width (RBC) [Ratio] 13.2 % 11.6-14.6 [facility] Immature granulocytes/100 WBC (Bld) 0.000 % 0.0-0.9 [facility] Comment on above: IG% - Immature Granu locytes (promyelocytes, myelocytes and metamyelocytes) > 1% indicates that a LEFT SHIFT is Present. MCH (RBC) [Entitic mass] 32.9 pg 27.0-32.0 [facility] Nucleated RBC/100 WBC (Bld) [Ratio] 0 % 0-5 [facility] [facility] MCHC Auto (RBC) [Mass/Vol]Or dered By: Erick Gonzalez on 07-20-2023 MCHC (RBC) [Mass/Vol] 35.4 g/dL 32-36 [facility] No Panel InformationOrdered By: Erick Gonzalez on 07-20-2023 Estimated GFR (MDRD) Amer 111 mL/min >60 [facility] Comment on above: GFR Calc Estimated GFR (MDRD) Non-Af Amer 91 mL/min >60 [facility] Comment on above: Non- GFR Calc Prostate Specific Antigen Screen 0.21 ng/mL 0.00-4.00 [facility] Comment on above: This test was perfor med using the TPSA assay method for [employer] chemistry system. Values obtained with differentassay methods cannot be used interchangably.When changing PSA assays in the course of monitoring apatient, additional sequential testing should be carriedout to confirm baseline values. Platelets bldOrdered By: Gillian Gonzalez on 07-20-2023 Platelets (Bld) [#/Vol] 114 10*3/uL 150-450 [facility] Serum or plasma albumin john urement (mass/volume)Ordered By: Erick Gonzalez on 07-20-2023 Albumin [Mass/Vol] 3.7 g/dL 3.2-5.0 [facility] Serum or plasma albumin/glob ulin mass ratioOrdered By: Erick Gonzalez on 07-20-2023 Albumin/Globulin [Mass ratio] 1.0 {ratio} 0.9-2.4 [facility] Serum or plasma calcium john urement (mass/volume)Ordered By: Erick Gonzalez on 07-20-2023 Calcium [Mass/Vol] 9.8 mg/dL 8.5-10.1 [facility] Serum or plasma cholesterol in HDL measurement (mass/volume)Ordered By: Erick Gonzalez on 07-20-2023 Cholesterol in HDL [Mass/Vol] 64 mg/dL >40 [facility] Comment on above: The drugs N-Acetylcy steine and Metamizole may falsely depress this assay. Reference Range HDL <40 mg/dL Low HDL Cholesterol HDL >or= 60 mg/dL High HDL Cholesterol Serum or plasma cholesterol in VLDL measurement (mass/volume)Ordered By: Erick Gonzalez on 07-20-2023 Cholesterol in VLDL [Mass/Vol] 18 mg/dL 5-40 [facility] Serum or plasma creatinine m easurement (mass/volume)Ordered By: Erick Gonzalez on 07-20-2023 Creatinine [Mass/Vol] 0.88 mg/dL 0.70-1.30 [facility] Comment on above: The validity of the calculated GFR & GFRAA in patients over 70 years has not been determined. Clinical correlation is essential. Serum or plasma low density lipoprotein (LDL) cholesterol measurement (mass/volume)Ordered By: Erick Gonzalez on 07-20-2023 Cholesterol in LDL [Mass/Vol] 103 mg/dL 0-130 [facility] Serum or plasma urea nitroge n measurement (mass/volume)Ordered By: Erick Gonzalez on 07-20-2023 Urea nitrogen [Mass/Vol] 8 mg/dL 7-18 [facility] Thin prep Papanicolaou smear with manual screeningOrdered By: Erick Gonzalez on 07-20-2023 Thin prep Papanicolaou smear with manual screening 66 U/L 15-37 [facility] Thin prep Papanicolaou smear with manual screening 4 5-15 [facility] Whole blood hemoglobin A1c/t otal hemoglobin ratio (mass fraction)Ordered By: Erick Gonzalez on 07-20-2023 HbA1c (Bld) [Mass fraction] 5.9 % 3.8-5.6 [facility] Comment on above: Normal < 5.7 % Predi abetic 5.7 - 6.4 % Diabetic >or= 6.5 % Please note range changes. Laboratory - Drug toxicology Ordered By: Dr. Stacy on 05-10-2023 Amphetamines Ql (U) Negative <1000 ng/mL [facility] Benzodiazepines Ql (U) Negative < 200 ng/mL [facility] Cannabinoids Screen Ql (U) Negative < 50 ng/mL [facility] Cocaine Ql (U) Negative < 300 ng/mL [facility] Opiates Ql (U) Positive < 300 ng/mL [facility] No Panel InformationOrdered By: Dr. Stacy on 05-10-2023 MDMA (Ecstasy) Screen Negative < 500 ng/mL [facility] Urine Barbiturates Screen Negative < 200 ng/mL [facility] Urine Drug Screen Comment [facility] Comment on above: CONFIRMATORY TESTING FOR ALL POSITIVE URINE DRUG SCREENRESULTS WILL ONLY BE SENT OUT UPON PHYSICIAN ORDER. VISTA Urine Drug Screen methods provide only preliminaryanalytical test results. A more specific alternate chemicalmethod must be used in order to obtain a confirmedanalytical result. Gas chromatography/mass spectrometery(GC/MS) is the preferred confirmatory method. Clinicalconsideration and professional judgement should be appliedto any drug of abuse test result, particularly whenpreliminary positive results are used. URINE TCA TESTING MUST BE ORDERED SEPARATELY. USE TESTMNEMONIC: [facility] Urine Methadone Screen Negative < 300 ng/mL [facility] No Panel InformationOrdered By: Hilary Stacy on 05-10-2023 Miscellaneous Test See comment [facility] Comment on above: [id number] 6+OXYCODONE-B UND (ng/mL) DRUG RESULT SCREEN CUTOFF____ Amphetamines,Urine Negative ng/mL 1000 Amphetamine test includes Amphetamine and Methamphetamine.Barbiturates Negative ng/mL 200Benzodiazepines Negative ng/mL 200Cannabinoid Negative ng/mL 20Cocaine (Metab) Negative ng/mL 300Opiates Positive ng/mL 300 Opiates test includes Codeine, Morphine, Hydromorphone, Hydrocodone. Please Note: Confirmation performed by Mass Spectrometry, Codeine Negative 300 Morphine Negative 300 Hydromorphone Positive 300 Hydromorphone Conf, MS, UR >3000 ng/mL 300 Hydrocodone Negative 300 Oxycodone/Oxymorphone,Urine Negative ng/mL 300 Test includes Oxycodone and Oxymorphone. TESTING PERFORMED AT [facility]. ORIGINAL REPORT ON FILE IN LAB CONTAINS ADDITIONAL TEST SITE INFORMATION. Urine phencyclidine (PCP) de tectionOrdered By: Dr. Stacy on 05-10-2023 Phencyclidine Ql (U) Negative < 25 ng/mL [facility] CNOVon 04-19-2023 CNOV Office Visit (ORNA ) -------- DANA HUBBARD ([id number]) 1955 M Be Co* Date Time Provider [...] of lef (more content not included)... Normal [facility] MRI ELBOW WO IVCON LEFTon [facility] MRI ELBOW WO IVCON LTon 05-0 MRI ELBOW WO IVCON LT * * *Final Report* * * DATE OF EXAM: Mar 22 2023 8:50AM [facility] 0188 - MRI ELBOW WO IVCON LT [...] Insertional triceps enthesitis and trace olecranon bursitis. 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 Epstein at [facility]. Pt states pain does not [...] in detailed. (more content not included)... Normal [facility] No Panel Informationon 02-23 [facility] XR ELBOW 2V AP/LAT LTon XR ELBOW [...] well-maintained. 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: [employer] Transcribe Date/Time: Feb 23 2023 6:37P Dictated by : YOLETTE DAS MD This examination was interpreted and the report reviewed and electronically signed by: YOLETTE DAS MD on Feb 23 2023 6:38PM EST [id number] Normal [facility] Shaheed 02-15-2023 JOSEFINA Telephone (ORTHWS) -------- DANA HUBBARD ([id number]) 1955 M Be Co* Date Time Provider [...] by DEIRDRE BENJAMIN MA on 02/15/23 Normal [facility] Laboratory - Drug toxicology on 07-06-2022 Amphetamines Ql (U) Negative <1000 ng/mL [facility] Work Phone: Benzodiazepines Ql (U) Negative < 200 ng/mL [facility] Work Phone: Cannabinoids Screen Ql (U) Negative < 50 ng/mL [facility] Work Phone: Cocaine Ql (U) Negative < 300 ng/mL [facility] Work Phone: Opiates Ql (U) Positive < 300 ng/mL [facility] Work Phone: No Panel Informationon 07-06 MDMA (Ecstasy) Screen Negative < 500 ng/mL [facility] Work Phone: Urine Barbiturates Screen Negative < 200 ng/mL [facility] Work Phone: Urine Drug Screen Comment [facility] Work Phone: Comment on above: CONFIRMATORY TESTING FOR ALL POSITIVE URINE DRUG SCREENRESULTS WILL ONLY BE SENT OUT UPON PHYSICIAN ORDER. VISTA Urine Drug Screen methods provide only preliminaryanalytical test results. A more specific alternate chemicalmethod must be used in order to obtain a confirmedanalytical result. Gas chromatography/mass spectrometery(GC/MS) is the preferred confirmatory method. Clinicalconsideration and professional judgement should be appliedto any drug of abuse test result, particularly whenpreliminary positive results are used. URINE TCA TESTING MUST BE ORDERED SEPARATELY. USE TESTMNEMONIC: [facility] Urine Methadone Screen Negative < 300 ng/mL [facility] Work Phone: Urine phencyclidine (PCP) de tectionon 07-06-2022 Phencyclidine Ql (U) Negative < 25 ng/mL [facility] Work Phone: ANES POSTPROC EVALon 021 ANES POSTPROC EVAL HNO ID: [id number] Author: Arnav Orourke MD Service: Anesthesiology Author Type: Anesthesiologist Type: Anesthesia Postprocedure Evaluation Filed: 04/08/2021 4:29 PM Note Text: POST ANESTHESIA EVALUATION NOTE : 1955 Procedure Summary Date: 04/08/21 Room / Location: [place] OR02 / [place] OR Anesthesia Start: 1143 Anesthesia Stop: 1331 [...] April 08, 2021 TIME: 4:29 PM CSN: [id number] [facility] ANES PRE-OPon 04-08-2021 ANES PRE-OP HNO ID: [id number] Author: Arnav Orourke MD Service: Anesthesiology Author Type: Anesthesiologist Type: Anesthesia Preprocedure Evaluation Filed: 04/08/2021 10:28 AM Note Text: ANESTHESIOLOGY DAY OF SURGERY NOTE : 1955 Procedure(s) (LRB): REMOVAL NEUROSTIMULATOR PULSE GENERATOR SPINAL CORD (N/A) Surgeon(s): Jesus Bernard MD Estimated body mass index is 25.54 kg/m? as calculated from the following: Height as of this encounter: 177.8 cm (5' 10). Weight as of this encounter: 80.7 kg [...] April 08, 2021 TIME: 10:28 AM CSN: [id number] [facility] BRIEF OP NOTon 04-08-2021 BRIEF OP NOT HNO ID: [id number] Author: Jesus Bernard MD Service: Neurosurgery Author Type: Physician Type: Brief Op Note Filed: 04/08/2021 12:55 PM Note Text: BRIEF OPERATIVE / PROCEDURE NOTE LOG ID: [id number] SURGERY/PROCEDURE DATE: 04/08/2021 INCISION/PROCEDURE START TIME: 12:08 PM INCISION CLOSE/PROCEDURE END TIME: SURGEON(S)/PROCEDURALIST (S) AND CHIP APPLYING MACHINE TENDER(S): Surgeon(s) and Role: * Jesus Bernard MD - Primary Nurse Practitioner: Sweta Escalante APRN.CNP SURGERY/PROCEDURE(S): Removal of SCS and battery ANESTHESIA: General FINDINGS: [employer] paddle lead and battery ESTIMATED BLOOD LOSS: 10 mls SPECIMENS: None COMPLICATIONS: None None PRE-OP/PRE-PROCEDURE DIAGNOSIS: Nonfunctional SCS POST-OP/POST-PROCEDURE DIAGNOSIS: Same as Preop SIGNATURE: Jesus Bernard MD PATIENT NAME: Dana Hubbard DATE: April 08, 2021 TIME: 12:54 PM Normal [facility] OPERATIVE NOon 04-08-2021 OPERATIVE NO HNO ID: [id number] Author: Jesus Bernard MD Service: Neurosurgery Author Type: Physician Type: Operative Report Filed: 04/10/2021 8:05 AM Note Text: [facility] - Operative Report DANA HUBBARD : 1955 AGE: 66. SEX: M PATIENT TYPE: A [facility] [place] [facility] LOCATION: [facility] ATTENDING PHYSICIAN: Jesus Bernard M.D. CSN NUMBER: [id number] DATE OF SURGERY/PROCEDURE: 04/08/2021 INCISION/PROCEDURE START TIME: 12:08 PM INCISION CLOSE/PROCEDURE END TIME: 1:17 PM PREOPERATIVE DIAGNOSIS: Nonfunctional spinal cord stimulator. POSTOPERATIVE DIAGNOSIS: Nonfunctional spinal cord stimulator. SURGEON: Jesus Bernard M.D. CHIP APPLYING MACHINE TENDER: Sweta Escalante CNP. SURGERY/PROCEDURE: Removal of spinal cord stimulator and battery ANESTHESIA: General endotracheal. PROCEDURE: Removal of spinal cord stimulator paddle lead and battery. ESTIMATED BLOOD LOSS: Approximately 10. COMPLICATIONS: None. SPECIMENS: [employer] paddle lead and battery are removed [...] it was fully exposed and then the [employer] drill used to thin the lamina and [...] case to perform safely. Jesus Bernard M.D. [facility]:[id number] /[id number] [facility] HISTORY PHYSICALon HISTORY PHYSICAL HNO ID: [id number] Author: Raina Martinez PA-C Service: ? Author Type: Physician Prefitter Doors Type: HANDP Filed: 04/07/2021 12:55 PM Note [...] and hypertension [facility]. Negative for: atrial fibrillation, chest pain, CHF, DVT/PE and murmur/valvular heart disease. GI: Negative for: abdominal pain, difficulty swallowing, liver disease and vomiting. : Negative for: dysuria, frequent urination, hematuria and urgency. Endocrine: Negative for: diabetes mellitus, hyperthyroidism and hypothyroidism. Hematology: Positive for: chronic anti-coagulation/platele t meds. Patient is on anti-coagulation/platele t medication(s): Aspirin. Negative for: anemia. Oncology: No [...] mg capsule Ta (more content not included)... [facility] NURSING PROGon 04-07-2021 NURSING PROG HNO ID: [id number] Author: Shasha Mcnulty RN Service: ? Author Type: Registered Nurse Type: Nursing Progress Note Filed: 04/07/2021 2:14 PM Note Text: PACC HANDP 04/07/2021 per documented history Arteriosclerosis of coronary artery Assessment: following cardio Dr. Jesus Rahman, last visit 12/2020, no interventional/surgical history, on aspirin 81, denies any recent chest pain or dyspnea with activity Alcohol abuse Assessment: no alcohol since 2015 Impaired Fasting Glucose ANESTHESIA FINDINGS: Intubation History: No history of difficult intubation Significant Anesthesia Considerations: potential post-op agitation Shasha Mcnulty RN April 07, 2021 1414 [facility] CNOVon 05-29-2017 CNOV Office Visit (AGHWW1) DANA EUCEDA ([id number]) 1955 MDate Time Provider Department05/29/17 1:00 PM JESUS LY JR AGHWW1 During your visit today, we recorded the following information about you: Respiration Weight Height 18/minute 81.6 kg 1.753 Indu Call 05/29/2017 1:01 PM SignedREVIEW OF SYSTEMS:GENERAL: Well developed, well nourished. No acute distressPAIN: Back, ArthritisCARDIOVASCULAR: Negative for chest pain, leg swelling and palpations.MSK: Negative for joint pain, swelling, back pain, muscle pain.SKIN: Negative for lesions, rash, itching, metal sensitivityNEURO: R Leg, R Foot, R ToesENDOCRINE: Negative for Diabetes Type 1 and Type 2HEMATOLOGY: Bleed EasilyPaul Tracie Ly Jr, MD 05/29/2017 1:01 PM Signed05/29/2017Date [...] he could flex 60? bend and rotate 20?.Assessment:1.thoraci c strain2.postop lumbar disc disease with stenosis3.Vitals: Resp [...] of Service: EST PATIENT VISIT LEVEL 3 [[id number]]Disposition: Return if symptoms worsen or fail to improve.Follow-up and Disposition History RecordedEncounter Number: [id number] Status:Closed by JESUS LY MD on 05/29/17 [facility] PROGRESSon 05-29-2017 PROGRESS HNO ID: [id number]: Jesus Ly Jr.Service: (none)Author Type: PhysicianType: Progress [...] he could flex 60? bend and rotate 20?.Assessment:1.thoraci c strain2.postop lumbar disc disease with stenosis3.Vitals: Resp 18 Ht 5' 9 (1.75m) Wt 180 lb (81.6kg) BMI 26.57kg/(m2).Plan: follow-up when necessary everything is being managed to the pain..Jesus Ly Jr, MDDictated but not read. Normal [facility] PROGRESS HNO ID: [id number]: Jericho Lisaice: (none)Author Type: (none)Type: Progress NotesFiled: 05/29/2017 1:01 PMNote Text:REVIEW OF SYSTEMS:GENERAL: Well developed, well nourished. No acute distressPAIN: Back, ArthritisCARDIOVASCULAR: Negative for chest pain, leg swelling and palpations.MSK: Negative for joint pain, swelling, back pain, muscle pain.SKIN: Negative for lesions, rash, itching, metal sensitivityNEURO: R Leg, R Foot, R ToesENDOCRINE: Negative for Diabetes Type 1 and Type 2HEMATOLOGY: Bleed Easily Normal [facility] Office Visiton 05-15-2017 Dietary management education, guidance, and counseling (procedure) yes Invalid Interpretation Code [facility] Work Phone: [phone] Documentation of current medications (procedure) Done Invalid Interpretation Code [facility] Work Phone: [phone] Fall risk assessment No [employer] Work Phone: [phone] Protein mass conc Done [facility] Work Phone: [phone] Office Visiton 11-09-2016 Dietary management education, guidance, and counseling (procedure) yes Invalid Interpretation Code [facility] Work Phone: [phone] Documentation of current medications (procedure) Done Invalid Interpretation Code [facility] Work Phone: [phone] 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 10-28-2016 Anion gap 5 mmol/L Invalid Interpretation Code [facility] Work Phone: [phone] Anion gap molar conc 5 mmol/L [employer] Work Phone: [phone] BUN/Creatinine Ratio 19.6 mg/mg [facility] Work Phone: [phone] Calcium 9.2 mg/dL [facility] Work Phone: [phone] Chloride 105 mmol/L [facility] Work Phone: [phone] CO2 30.0 mmol/L Invalid Interpretation Code [facility] Work Phone: [phone] CO2 ppres (BldV) 30.0 mmol/L [facility] Work Phone: [phone] Creatinine 0.97 mg/dL [facility] Work Phone: [phone] Glucose 126 mg/dL High [facility] Work Phone: [phone] Glucose mass conc 126 mg/dL High [facility] Work Phone: [phone] HbA1c 7.1 % [facility] Work Phone: [phone] Magnesium 2.1 mg/dL [facility] Work Phone: [phone] Potassium 4.0 mmol/L [facility] Work Phone: [phone] Sodium 140 mmol/L [facility] Work Phone: [phone] Urea nitrogen 19 mg/dL High [facility] Work Phone: [phone] 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 04-29-2016 Cholesterol 203 mg/dL [facility] Work Phone: [phone] HDL Cholesterol 43 mg/dL [facility] Work Phone: [phone] LDL Cholesterol 149 mg/dL [facility] Work Phone: [phone] Triglyceride 57 mg/dL [facility] Work Phone: [phone] Office Visiton 03-11-2016 Tobacco smoking status NHIS Current [facility] Work Phone: [phone] Replaced Document: Sarahmark E CG Observationson 03-11-2016 EKG QRS axis 5 deg [facility] Work Phone: [phone] electrocardiogram interpretation Sinus Bradycardia WITHIN NORMAL LIMITS Invalid Interpretation Code [facility] Work Phone: [phone] GE use only - for [employer] import when terms are not otherwise specified 399 ms Invalid Interpretation Code [facility] Work Phone: [phone] Interpretation Sinus Bradycardia WI THIN NORMAL LIMITS [facility] Work Phone: [phone] P [place] 44 deg [facility] Work Phone: [phone] P wave axis, electrocardiogram 44 deg Invalid Interpretation Code [facility] Work Phone: [phone] MI Interval 158 ms [facility] Work Phone: [phone] MI interval, electrocardiogram 158 ms Invalid Interpretation Code [facility] Work Phone: [phone] Pulse (Heart Rate) 56 /min Invalid Interpretation Code [facility] Work Phone: [phone] QRS axis, electrocardiogram 5 deg Invalid Interpretation Code [facility] Work Phone: [phone] QRS Duration 96 ms [facility] Work Phone: [phone] QRS duration, electrocardiogram 96 ms Invalid Interpretation Code [facility] Work Phone: [phone] QT Interval new path ms [facility] Work Phone: [phone] QT interval, electrocardiogram new path ms Invalid Interpretation Code [facility] Work Phone: [phone] QTc [place] 399 ms [facility] Work Phone: [phone] T [place] -1 deg [facility] Work Phone: [phone] T wave axis, electrocardiogram -1 deg Invalid Interpretation Code [facility] Work Phone: [phone] Clinical Lists Update: Pre 03-04-2016 Left ventricular Ejection fraction 65 % [facility] Work Phone: [phone] Clinical Lists Update: Pre 02-10-2016 Alanine aminotransferase (ALT) 137 U/L High [facility] Work Phone: [phone] Albumin 4.4 g/dL [facility] Work Phone: [phone] Alkaline phosphatase (ALP) 78 U/L Invalid Interpretation Code [facility] Work Phone: [phone] ALP enzyme act/vol (Bld) 78 U/L [facility] Work Phone: [phone] Aspartate aminotransferase (AST) 92 U/L High [facility] Work Phone: [phone] Bilirubin (total) 1.6 mg/dL High [facility] Work Phone: [phone] Cholesterol to HDL Ratio 4.69 {ratio} [facility] Work Phone: [phone] LDL/HDL ratio, serum 3.[address] [facility] Work Phone: [phone] Protein 7.6 g/dL [facility] Work Phone: [phone] Thyroid stimulating hormone (TSH) 1.680 u[iU]/mL [facility] Work Phone: [phone] Thyroxine (T4) free 1.1 ng/dL [facility] Work Phone: [phone] very low density lipoproteins 18 mg/dL [facility] Work Phone: [phone] 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 12-21-2015 Hematocrit (HCT) 44.8 % Invalid Interpretation Code [facility] Work Phone: [phone] Hematocrit Volume Fraction (Bld) 44.8 % [facility] Work Phone: [phone] Hemoglobin (HGB) 15.3 g/dL [facility] Work Phone: [phone] Platelets 141 10*3/mm3 Invalid Interpretation Code [facility] Work Phone: [phone] Platelets #/vol (Bld) 141 10*3/mm3 [facility] Work Phone: [phone] WBC #/vol (Bld) 6.6 10*3/uL [facility] Work Phone: [phone] WBC (Leukocytes) 6.6 10*3/uL Invalid Interpretation Code [facility] Work Phone: [phone] Office Visit: [facility] 12-10-19 16 Tobacco smoking status NHIS Never smoker [facility] Work Phone: [phone] Tobacco use CPHS Never smoker Invalid Interpretation Code [facility] Work Phone: [phone] Lab Report: Catachol+VMA, 24 HR URon 11-10-2015 dopamine, urine 165 ug/L Invalid Interpretation Code Undefined [facility] Work Phone: [phone] dopamine, urine, 24 hour 215 ug/24h 0-510 [facility] Work Phone: [phone] DOPAMINE,UR 165 ug/L Undefined [facility] Work Phone: [phone] EPINEPHRINE, UR 5 ug/L Undefined [facility] Work Phone: [phone] epinephrine, urine 5 ug/L Invalid Interpretation Code Undefined [facility] Work Phone: [phone] epinephrine, urine, 24 hour 7 ug/24h 0-20 [facility] Work Phone: [phone] NOREPINEPH,UR 40 ug/L Undefined [facility] Work Phone: [phone] norepinephrine, urine 52 ug/24h 0-135 [facility] Work Phone: [phone] norepinephrine, urine 40 ug/L Invalid Interpretation Code Undefined [facility] Work Phone: [phone] vanillylmandelate, urine 2.5 mg/L Undefined [facility] Work Phone: [phone] vanillylmandelic acid, urine, 24 hour 3.3 mg/24h 0.0-7.5 [facility] Work Phone: [phone] Lab Report: Metanephrine Fra c 24 HR URon 11-10-2015 metanephrine, urine 73 ug/L Undefined [facility] Work Phone: [phone] metanephrine, urine, 24 hour 95 ug/24h 45-290 [facility] Work Phone: [phone] normetanephrine, urine 182 ug/L Undefined [facility] Work Phone: [phone] normetanephrine, urine, 24 hour 237 ug/24h 82-500 [facility] Work Phone: [phone] Office Visiton 10-29-2015 cardiac risk group C [facility] Work Phone: [phone] General cardiovascular disease 10Y risk [#] [place].D'Agostino N/A [facility] Work Phone: [phone] 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77 10*6/uL [facility] Work Phone: [phone] Vital Signs Date Time Vital Sign Value Performing Clinician Faci lity 06-03-2025 09:59-0400 Body height 177.[address] Erick Gonzalez DO Work Phone: [facility] 06-03-2025 09:59-0400 Body mass index (BMI) [Ratio] 25.1 kg/m2 Dr. Erick Gonzalez DO Work Phone: [facility] 06-03-2025 09:59-0400 Body weight 79.[address] Erick Gonzalez DO Work Phone: [facility] 06-03-2025 09:59-0400 Diastolic blood pressure 72 mm[Hg] Dr. Erick Gonzalez DO Work Phone: [facility] 06-03-2025 09:59-0400 Heart rate 72 /min Dr. Erick Gonzalez DO Work Phone: [facility] 06-03-2025 09:59-0400 Respiratory rate 18 /min Dr. Erick Gonzalez DO Work Phone: [facility] 06-03-2025 09:59-0400 SaO2% (BldA) [Mass fraction] 97 % Dr. Erick Gonzalez DO Work Phone: [facility] 06-03-2025 09:59-0400 Systolic blood pressure 180 mm[Hg] Dr. Erick Gonzalez DO Work Phone: [facility] 01-10-2025 08:04-0500 Body height 177.[address] Erick Gonzalez DO Work Phone: [facility] 01-10-2025 08:04-0500 Body mass index (BMI) [Ratio] 25.1 kg/m2 Dr. Erick Gonzalez DO Work Phone: [facility] 01-10-2025 08:04-0500 Body weight 79.[address] Erick Gonzalez DO Work Phone: [facility] 11-24-2023 08:50-0500 Body height 177.[address] Erick Gonzalez Work Phone: [facility] 11-24-2023 08:50-0500 Body mass index (BMI) [Ratio] 24.3 kg/m2 Dr. Erick Gonzalez Work Phone: [facility] 11-24-2023 08:50-0500 Body weight 77.[address] Erick Gonzalez Work Phone: [facility] 11-24-2023 08:50-0500 Diastolic blood pressure 69 mm[Hg] Dr. Erick Gonzalez Work Phone: [facility] 11-24-2023 08:50-0500 Heart rate 89 /min Dr. Erick Gonzalez Work Phone: [facility] 11-24-2023 08:50-0500 Respiratory rate 18 /min Dr. Erick Gonzalez Work Phone: [facility] 11-24-2023 08:50-0500 SaO2% (BldA) [Mass fraction] 99 % Dr. Erick Gonzalez Work Phone: [facility] 11-24-2023 08:50-0500 Systolic blood pressure 165 mm[Hg] Dr. Erick Gonzalez Work Phone: [facility] 07-04-2023 13:03-0400 Body height 177.[address] Erick Gonzalez Work Phone: [facility] 07-04-2023 13:03-0400 Body mass index (BMI) [Ratio] 25.1 kg/m2 Dr. Erick Gonzalez Work Phone: [facility] 07-04-2023 13:03-0400 Body weight 79.[address] Erick Gonzalez Work Phone: [facility] 07-04-2023 13:03-0400 Diastolic blood pressure 82 mm[Hg] Dr. Erick Gonzalez Work Phone: [facility] 07-04-2023 13:03-0400 Systolic blood pressure 152 mm[Hg] Dr. Erick Gonzalez Work Phone: [facility] 02-14-2023 08:19-0400 Body height 177.[address] Eugenio Olmstead Work Phone: [facility] 02-14-2023 08:19-0400 Diastolic blood pressure 70 mm[Hg] Dr. Eguenio Olmstead Work Phone: [facility] 02-14-2023 08:19-0400 Systolic blood pressure 140 mm[Hg] Dr. Eugenio Olmstead Work Phone: [facility] 02-14-2023 08:19-0400 Body mass index (BMI) [Ratio] 24.2 kg/m2 Dr. Eugenio Olmstead Work Phone: [facility] 02-14-2023 08:19-0400 Body weight 76.[address] Eugenio Olmstead Work Phone: [facility] 02-14-2023 08:19-0400 Heart rate 81 /min Dr. Eugenio Olmstead Work Phone: [facility] 02-14-2023 08:19-0400 Respiratory rate 18 /min Dr. Eugenio Olmstead Work Phone: [facility] 02-14-2023 08:19-0400 SaO2% (BldA) [Mass fraction] 98 % Dr. Eugenio Olmstead Work Phone: [facility] 01-11-2022 07:39-0500 Body height 177.[address] Eugenio Olmstead Work Phone: [facility] Work Phone: 01-11-2022 07:39-0500 Body mass index (BMI) [Ratio] 23.9 kg/m2 Dr. Eugenio Olmstead Work Phone: [facility] Work Phone: 01-11-2022 07:39-0500 Body weight 75.[address] Eugenio Olmstead Work Phone: [facility] Work Phone: 01-11-2022 07:39-0500 Diastolic blood pressure 73 mm[Hg] Dr. Eugenio Olmstead Work Phone: [facility] Work Phone: 01-11-2022 07:39-0500 Heart rate 80 /min Dr. Eugenio Olmstead Work Phone: [facility] Work Phone: 01-11-2022 07:39-0500 Respiratory rate 18 /min Dr. Eugenio Olmstead Work Phone: [facility] Work Phone: 01-11-2022 07:39-0500 SaO2% (BldA) [Mass fraction] 99 % Dr. Eugenio Olmstead Work Phone: [facility] Work Phone: 01-11-2022 07:39-0500 Systolic blood pressure 135 mm[Hg] Dr. Eugenio Olmstead Work Phone: [facility] Work Phone: 01-05-2022 07:10-0500 Body mass index (BMI) [Ratio] 23.4 kg/m2 Dr. Eugenio Olmstead Work Phone: [facility] Work Phone: 01-05-2022 07:10-0500 Body weight 74.[address] Eugenio Olmstead Work Phone: [facility] Work Phone: 01-05-2022 07:10-0500 Diastolic blood pressure 80 mm[Hg] Dr. Eugenio Olmstead Work Phone: [facility] Work Phone: 01-05-2022 07:10-0500 Systolic blood pressure 130 mm[Hg] Dr. Eugenio Olmstead Work Phone: [facility] Work Phone: 05-15-2017 16:07-0400 BMI (Body Mass Index) 25.24 kg/m2 [facility] Work Phone: 05-15-2017 16:07-0400 BP Diastolic 70 mm[Hg] [facility] Work Phone: 05-15-2017 16:07-0400 BP Systolic 152 mm[Hg] [facility] Work Phone: 05-15-2017 16:07-0400 Height 180.34 cm Jackie Carlin [facility] Work Phone: 05-15-2017 16:07-0400 Pulse (Heart Rate) 56 /min [facility] Work Phone: 05-15-2017 16:07-0400 Respiratory Rate 16 /min [facility] Work Phone: 05-15-2017 16:07-0400 Weight 82.1 kg [facility] Work Phone: 11-09-2016 15:36-0500 BMI (Body Mass Index) 25.66 kg/m2 Jesus Rahman MD [facility] Work Phone: 11-09-2016 15:36-0500 BP Diastolic 68 mm[Hg] Jesus Rahman [facility] Work Phone: 11-09-2016 15:36-0500 BP Systolic 152 mm[Hg] Jesus Rahman MD [facility] Work Phone: 11-09-2016 15:36-0500 BSA (Body Surface Area) 2.04 m2 Jesus Rahman MD [facility] Work Phone: 11-09-2016 15:36-0500 Pulse (Heart Rate) 60 /min [facility] Work Phone: 11-09-2016 15:36-0500 Respiratory Rate 16 /min Jesus Rahman MD [facility] Work Phone: 11-09-2016 15:36-0500 Weight 83.46 kg Jesus Rahman MD [facility] Work Phone: 03-11-2016 09:48-0400 Heart rate 56 /min Jackie Carlin [facility] Work Phone: 10-29-2015 13:00-0500 Height 180.34 cm Jesus Rahman MD [facility] Work Phone: Encounters Encounter Date Encounter Type Care Provider Facility Start: 07-25-2025 ambulatory Erick Gonzalez Facility: [facility] Start: 06-24-2025 ambulatory Erick Gonzalez Facility: [facility] Start: 06-04-2025 End: 06-04-[address] Erick Gonzalez DO Work Phone: -Laboratory Start: 06-04-2025 End: 06-04-[address] Hilary Stacy MD -Laboratory Work Phone: Start: 06-03-2025 End: 06-03-[address] Kamaljit Knight MD -[facility] Work Phone: Start: 06-03-2025 End: 06-04-[address] Erick Gonzalez DO Work Phone: -[facility] Start: 04-09-2025 End: 04-09-[address] Erick Gonzalez DO Work Phone: [facility] Work Phone: Start: 04-09-2025 End: 04-09-[address] Hilary Stacy MD -Laboratory Work Phone: Start: 04-09-2025 End: 04-09-2025 ambulatory [facility] Facility:[facility] Start: 03-14-2025 End: 03-14-[address] Kenny Fermin MD -[facility] Work Phone: Start: 03-14-2025 End: 03-14-2025 ambulatory [facility] Start: 03-03-2025 End: 03-03-[address] Erick Gonzalez DO Work Phone: [facility] Work Phone: Start: 03-03-2025 End: 03-03-[address] Kenny Fermin MD -[facility] Work Phone: Start: 03-03-2025 End: 03-03-2025 ambulatory [facility] Start: 02-05-2025 End: 02-05-[address] Erick Gonzalez DO Work Phone: [facility] Work Phone: Start: 02-05-2025 End: 02-05-[address] Bassam Andrew MD -Laboratory, Specimen Work Phone: Start: 02-05-2025 End: 02-05-2025 ambulatory [facility] Facility:[facility] Start: 01-10-2025 End: 01-10-[address] Kenny Fermin MD -[facility] Work Phone: Start: 01-10-2025 End: 01-10-2025 ambulatory [facility] Start: 09-13-2024 ambulatory Erick Carlos Facility: [facility] Start: 09-13-2024 End: 09-13-2024 ambulatory Erick Carlos Facility:[facility] Start: 08-20-2024 End: 08-20-2024 ambulatory Erick Gonzalez Facility:[facility] Start: 07-31-2024 End: 07-31-2024 ambulatory Erick Gonzalez Facility:[facility] Start: 07-30-2024 End: 07-30-2024 ambulatory Erick Gonzalez Facility:[facility] Start: 02-20-2024 End: 02-20-[address] Erick Gonzalez Work Phone: [facility] Work Phone: Start: 02-14-2024 End: 02-14-[address] Erick Gonzalez Work Phone: [facility] Work Phone: Start: 02-14-2024 End: 02-14-[address] Erick Gonzalez Work Phone: [facility]-Laboratory Work Phone: Start: 01-23-2024 End: 01-23-[address] Erick Gonzalez Work Phone: [facility] Work Phone: Start: 01-18-2024 End: 01-18-[address] Erick Gonzalez Work Phone: [facility] Work Phone: Start: 01-18-2024 End: 01-18-[address] Erick Gonzalez Work Phone: [facility]-Laboratory Work Phone: Start: 01-17-2024 End: 01-17-[address] Erick Gonzalez Work Phone: [facility] Work Phone: Start: 01-17-2024 End: 01-17-[address] Erick Gonzalez Work Phone: [facility]-Laboratory Work Phone: Start: 11-27-2023 End: 11-27-[address] Erick Gonzalez Work Phone: [facility] Work Phone: Start: 11-27-2023 End: 11-27-[address] Erick Gonzalez Work Phone: [facility]-Pulmonary Services/Neurology Work Phone: Start: 11-24-2023 End: 11-24-[address] Erick Gonzalez Work Phone: [facility] Work Phone: Start: 09-25-2023 End: 09-25-[address] Erick Gonzalez Work Phone: [facility] Work Phone: Start: 09-04-2023 Non-patient / Non-visit Dr. Russell Gonzalez Work Phone: [facility] Start: 09-04-2023 End: 09-04-[address] Erick Gonzalez Work Phone: [facility]-Cardiovascula r Services Work Phone: Start: 08-29-2023 End: 08-29-[address] Erick Gonzalez Work Phone: [facility] Work Phone: Start: 08-03-2023 End: 08-03-[address] Erick Gonzalez Work Phone: [facility] Work Phone: Start: 07-20-2023 End: 07-20-[address] [facility] Work Phone: Start: 07-20-2023 End: 07-20-[address] Erick Gonzalez Work Phone: [facility] Work Phone: Start: 07-20-2023 End: 07-20-[address] Erick Gonzalez Work Phone: [facility]-Laboratory Work Phone: Start: 07-04-2023 End: 07-04-[address] [facility]rick Gonzalez [facility] Work Phone: Start: 05-10-2023 End: 05-10-[address] Eugenio Olmstead Work Phone: [facility] Work Phone: Start: 05-10-2023 End: 05-10-[address] Eugenio Olmstead Work Phone: [facility]-Laboratory Start: 04-19-2023 End: 04-19-2023 ambulatory TISHA EPSTEIN Facility:[facility] Start: 04-19-2023 End: 04-19-2023 Patient encounter procedure Tisha Epstein DO Work Phone: Orthopaedics Comment on above: Lateral epicondyliti s of left elbow (Primary Dx) Start: 03-22-2023 End: 03-22-2023 ambulatory TISHA EPSTEIN Facility:[facility] Start: 03-22-2023 End: 03-22-2023 Subsequent hospital visit by physician [facility] (I-Stat/1.5t) Work Phone: Radiology Comment on above: Left elbow tendiniti s [M77.8] Start: 02-23-2023 End: 02-23-2023 ambulatory TISHA EPSTEIN Facility:[facility] Start: 02-23-2023 End: 02-23-2023 Patient encounter procedure Tisha Minted DO Work Phone: Orthopaedics Comment on above: Left elbow tendiniti s (Primary Dx); Lateral epicondylitis of left elbow Start: 02-23-2023 End: 02-23-2023 Subsequent hospital visit by physician [facility] Work Phone: Radiology Comment on above: Left elbow pain [M25 .522] Start: 02-15-2023 Telephone encounter Tisha Minted DO Work Phone: Orthopaedics Comment on above: Patient Update Left elbow pain ([facility] Dx) Start: 02-14-2023 End: 02-14-[address] Eugenio Olmstead Work Phone: [facility] Start: 07-07-2022 End: 07-07-[address] Eugenio Olmstead Work Phone: [facility] Start: 07-06-2022 End: 07-06-[address] Eugenio Olmstead Work Phone: [facility]-Laboratory Start: 03-30-2022 End: 03-30-[address] Eugenio Olmstead Work Phone: [facility] Start: 02-09-2022 End: 02-09-[address] Eugenio Olmstead Work Phone: [facility] Start: 02-03-2022 Non-patient / Non-visit Dr. Kirt Olmstead Work Phone: [facility] Start: 02-03-2022 End: 02-03-[address] Eugenio Olmstead Work Phone: [facility]-Cardiovascula [facility] Services Start: 01-13-2022 End: 01-13-[address] Eugenio Olmstead Work Phone: [facility] Start: 01-11-2022 End: 01-11-[address] Eugenio Olmstead Work Phone: [facility] Start: 01-05-2022 End: 01-05-[address] Eugenio Olmstead Work Phone: [facility] Start: 12-09-2021 End: 12-09-[address] Eugenio Olmstead Work Phone: [facility] Start: 05-29-2017 End: 05-29-2017 Ambulatory JESUS KAUR LY [facility] Procedures Date Procedure Procedure Detail Performing Clinician Start: 06-04-2025 Methadone measurement, urine Dr. Erick Gonzalez DO Work Phone: Start: 06-04-[address] Erick gonzales DO Work Phone: Comment on above: Test Ordered: [id number] Screen, Urine Negative ng/mL UI Reference Range: Ydxewj=063Lfrhnhttpvk test includes Amphetamine and Methamphetamine.Barbiturates Negative ng/mL UI Reference Range: Yjzlus=675Kwtanugykvkezxq Negative ng/mL UI Reference Range: Xxwltn=174Ozjqmya (Metab.), Urine Negative ng/mL UI Reference Range: Mvqlln=913Jmdqkry Note: ng/mL UI See Final Results Reference Range: Pojvrq=619Atqqnd test includes Codeine, Morphine, Hydromorphone, Hydrocodone.Opiates Positive [A ] UI Reference Range: Ajissk=462Czpfpd test includes Codeine, Morphine, Hydromorphone, Hydrocodone.Codeine Negative UI Reference Range: Hwccpl=411Gcnghgde Negative UI Reference Range: Ojsaub=995Caeodzbgewsox Positive [A ] UI Reference Range: .Hydromorphone Conf, MS, UR 2173 ng/mL UI Reference Range: Axfomo=793Zpxcprxvoly Negative UI Reference Range: Xshijo=7046-Jxhcitajezlxdh, Urine Negative ng/mL UI Reference Range: Cutoff=10Oxycodone/Oxymorphone, Urine Negative ng/mL UI Reference Range: Edhmjx=276Xlwt includes Oxycodone and OxymorphonePCP, Urine Negative ng/mL UI Reference Range: Cutoff=25Methadone Screen, Urine Negative ng/mL UI Reference Range: Qzjbzx=309Scntytsjoeqz, Urine Negative ng/mL UI Reference Range: Nprffh=987Lqadifmk, Urine Negative ng/mL UI Reference Range: Cutoff=2.0Test includes Fentanyl and NorfentanylThis test was developed and its performance characteristicsdetermined by [facility]. It has not been cleared orapproved by the Food and Drug Administration.Tramadol Negative ng/mL UI Reference Range: Stjmyr=605Dzxmdyrfpiael, Urine Negative ng/mL UI Reference Range: Cutoff=10Creatinine, Urine 54.5 mg/dL UI Reference Range: 20.0-300.0pH, Urine 5.2 UI Reference Range: 4.5-8.9Performed at: [facility] [id number] [place], [place] [id number] Director: Francisca Mcdermott PhD, Phone: [phone] at: [address] [id number] Director: Polo Bailey PhD, Phone: [phone] Start: 04-09-2025 Methadone measurement, urine Dr. Erick Gonzalez DO Work Phone: Start: 04-09-[address] Erick gonzales DO Work Phone: Comment on above: Test Ordered: [id number] Screen, Urine Negative ng/mL UI Reference Range: Soanvf=839Cwrmeihquvy test includes Amphetamine and Methamphetamine.Barbiturates Negative ng/mL UI Reference Range: Biuvhz=447Etnypwhsbumbmpn Negative ng/mL UI Reference Range: Abtryo=639Zhgqcuy (Metab.), Urine Negative ng/mL UI Reference Range: Lfrzjc=189Hemhlpm Negative ng/mL UI Reference Range: Ufvwle=027Mkjndp test includes Codeine, Morphine, Hydromorphone, Hydrocodone.6-Acetylmorphine, Urine Negative ng/mL UI Reference Range: Cutoff=10Oxycodone/Oxymorphone, Urine Negative ng/mL UI Reference Range: Rddhog=833Uhmr includes Oxycodone and OxymorphonePCP, Urine Negative ng/mL UI Reference Range: Cutoff=25Methadone Screen, Urine Negative ng/mL UI Reference Range: Fevpxi=091Cerzmcrnxgqd, Urine Negative ng/mL UI Reference Range: Msuzwr=304Xeslcleq, Urine Negative ng/mL UI Reference Range: Cutoff=2.0Test includes Fentanyl and NorfentanylThis test was developed and its performance characteristicsdetermined by [facility]. It has not been cleared orapproved by the Food and Drug Administration.Tramadol Negative ng/mL UI Reference Range: Gsmegu=344Jkeknhakskuwd, Urine Negative ng/mL UI Reference Range: Cutoff=10Creatinine, Urine 23.3 mg/dL UI Reference Range: 20.0-300.0pH, Urine 6.4 UI Reference Range: 4.5-8.9Performed at: [facility] [id number] [place], [place] [id number] Director: Francisca Mcdermott PhD, Phone: [phone] at: [facility] [address] [id number] Director: Polo Bailey PhD, Phone: [phone] Start: 03-03-2025 MRI of lumbar spine with contrast Dr. Erick Gonzalez DO Work Phone: Start: 02-05-2025 Gram stain microscopy D william Gonzalez DO Work Phone: Start: 02-05-[address] Erick Gonzalez DO Work Phone: Start: 01-10-2025 X-ray of lumbosacral spine Dr. Erick Gonzalez DO Work Phone: Start: 03-22-2023 Mri any jt upper ext remity w/o contrast matrl Tisha Epstein DO Work Phone: Start: 02-23-2023 Radex elbow 2 views Lesli Epstein DO Work Phone: Start: 02-09-2022 MRI of lumbar spine Dr. Eugenio Olmstead Work Phone: Start: 02-03-2022 Radionuclide imaging of perfusion of myocardium under exercise stress Dr. Eugenio Olmstead Work Phone: Start: 05-15-2017 End: 05-15-2017 Dietary [...] doppler Jesus Rahman MD Start: 06-23-2010 Colonoscopy Tisha weems DO Work Phone: Plan of Treatment Date Care Activity Detail Author Start: 06-03-2031 Urine microalbumin profile DTaP,Tdap,Td Vaccine (4 - Td or Tdap) [facility] Start: 02-14-2024 Procedure [facility] Start: 07-21-2023 Covid-19 Vaccine ( season) Covid-19 Vaccine () [facility] Start: 07-21-2023 Influenza vaccination [facility] Start: 05-10-2023 Procedure [facility] Start: 11-20-2022 ADVANCE DIRECTIVE DISCUSSION ADVANCE DIRECTIVE DISCUSSION [facility] Start: 11-20-2022 DEPRESSION ASSESSMENT DEPRESSION ASS ESSMENT [facility] Start: 07-21-2022 Influenza vaccination INFLUENZA (#1) [facility] Start: 07-06-2022 Procedure [facility] Work Phone: Start: 02-09-2022 MRI of lumbar spine Spine Lumbar (Ro utine) [facility] Work Phone: Start: 04-21-2021 COVID-19 VACCINE (3 - Booster for Moderna series) COVID-19 VACCINE (3 - Booster for Moderna series) [facility] Start: 02-09-2021 Lipid 1996 panel - S tim or Plasma Lipid Screening [facility] Start: 02-09-2021 LIPID SCREEN LIPID SCREEN [facility] Start: 02-09-2019 DIABETES SCREEN DIABETES SCREEN [facility] Start: 02-09-2019 Diabetes Screening Diabetes Screenin g [facility] Start: 12-25-2017 End: 12-25-2017 Appointment Appointment [facility] Work Phone: Start: 05-15-2017 End: 05-15-2017 Appointment Appointment [facility] Work Phone: Start: 05-15-2017 End: 05-15-2017 PFM PFM [facility] Work Phone: Start: 05-04-2017 End: 05-04-2017 Appointment Appointment [facility] Work Phone: Start: 02-09-2017 Hepatitis B surface antibody level LDL CHOLESTEROL [facility] Start: 11-09-2016 End: 11-09-2016 Follow Up Appt 6 months Follow Up Appt 6 months [facility] Work Phone: Start: 11-09-2016 End: 11-09-2016 PFM PFM [facility] Work Phone: Start: 09-07-2016 PROSTATE CANCER SCREENING DISCUSSION PROSTATE CANCER SCREENING DISCUSSION [facility] Start: 06-17-2016 End: 06-17-2016 Follow Up Appt 4 months Follow Up Appt 4 months [facility] Work Phone: Start: 06-17-2016 End: 06-17-2016 MMM MMM [facility] Work Phone: Start: 2016 RSV Vaccine (1 - 1-d ose 60+ series) RSV Vaccine (1 - 1-dose 60+ series) [facility] Start: 03-11-2016 End: 03-11-2016 Electrocardiogram, complete EKG (In office) [facility] Work Phone: Start: 03-11-2016 End: 03-11-2016 Follow Up Appt 3 months Follow Up Appt 3 months [facility] Work Phone: Start: 03-11-2016 End: 06-17-2016 Follow Up Appt Other Follow Up Appt Other [facility] Work Phone: Start: 03-11-2016 End: 03-11-2016 MMM MMM [facility] Work Phone: Start: 12-21-2015 End: 12-21-2015 Cardiac Referral Cardiac Referral Norman Holman DO, [address], [place], [address] [facility] Work Phone: Start: 12-16-2015 End: 12-16-2015 Endocrinology Referral Endocrinology Referral [facility], [facility], [place], [address] [facility] Work Phone: Start: 12-10-2015 End: 12-10-2015 Follow Up Appt 3 months Follow Up Appt 3 months [facility] Work Phone: Start: 12-10-2015 End: 12-10-2015 Follow Up Appt 6 months Follow Up Appt 6 months [facility] Work Phone: Start: 12-10-2015 End: 12-10-2015 Follow Up Appt Other Follow Up Appt Other [facility] Work Phone: Start: 12-10-2015 End: 12-10-2015 MMM MMM [facility] Work Phone: Start: 12-10-2015 End: 12-10-2015 PFM PFM [facility] Work Phone: Start: 10-29-2015 End: 10-29-2015 Follow Up Appt 6 weeks Follow Up Appt 6 weeks [facility] Work Phone: Start: 10-29-2015 End: 12-01-2015 Follow Up Appt Other Follow Up Appt Other [facility] Work Phone: Start: 10-29-2015 End: 10-29-2015 MMM MMM [facility] Work Phone: Start: 10-29-2015 End: 10-29-2015 Renal doppler Renal doppler [facility] Work Phone: Start: 06-23-2011 Colonoscopy COLONOSCOPY [facility] Start: 06-23-2011 COLORECTAL CANCER SCREENING COLORECTAL CANCER SCREENING [facility] Start: 06-23-2011 Pneumococcal Vaccine : 65+ (2 - PCV) Pneumococcal Vaccine: 65+ (2 - PCV) [facility] Start: 06-23-2011 PNEUMOCOCCAL: 65+ (2 - PCV) PNEUMOCOCCAL: 65+ (2 - PCV) [facility] Start: 2006 SHINGRIX VACCINE (1 of 2) SHINGRIX VACCINE (1 of 2) [facility] Start: 2001 COLOGUARD (FIT-DNA) COLOGUARD (FIT-D NA) [facility] Start: [address] COLONOGRAPHY [facility] Start: 2001 FECAL OCCULT BLOOD FECAL OCCULT BLOO D [facility] Start: 2001 SIGMOIDOSCOPY SIGMOIDOSCOPY [facility] Start: 1975 Urine microalbumin profile DTAP,TDAP,TD (1 - Tdap) [facility] Start: 1974 ANNUAL PCP TEAM FINANCIAL MANAGER JUAN MANUEL DISEASE VISIT ANNUAL PCP TEAM CHRONIC DISEASE VISIT [facility] Start: 1974 BP CONTROLLED (<130/80) BP CONTROLLE D (<130/80) [facility] Start: 1974 HEPATITIS C SCREENING HEPATITIS C KIRT AGUILAR [facility] Blood chemistry [facility] MR Lumbar spine WO a nd W contrast IV [facility] End: 03-24-2024 MRI ELBOW WO IVCON LEFT MRI ELBOW WO IVCON LEFT Radiology Routine Left elbow tendinitis 1 Occurrences starting 02/23/2023 until 03/24/2024 [facility] Work Phone: Comment on above: 1 Occurrences starti ng 02/23/2023 until 03/24/2024 Patient referral [facility] Work Phone: Procedure [facility] Work Phone: [facility] Immunizations Immunization Date Immunization Notes Care Provider Fa cility 06-03-2021 tetanus toxoid, redu glenny diphtheria toxoid, and acellular pertussis vaccine, adsorbed Dr. Eugenio Olmstead Work Phone: [facility] 06-03-2021 diphtheria, tetanus toxoids and acellular pertussis vaccine, unspecified formulation Dr. Eugenio Olmstead Work Phone: [facility] Work Phone: 09-16-2015 influenza, injectabl e, quadrivalent, preservative free Dr. Erick Gonzalez Work Phone: [facility] 09-16-2015 influenza, seasonal, injectable Dr. Eugenio Olmstead Work Phone: [facility] 09-16-2015 influenza virus vacc ine, unspecified formulation [employer] [employer] Work Phone: [facility] 06-23-2010 pneumococcal polysaccharide vaccine, 23 valent Tisha Epstein DO Work Phone: [facility] Work Phone: Payers Date Payer Category Payer Self-pay [id number] 2023 Private Health Insurance 102 [id number] 2019 Unknown MMO MMO [employer]PER[employer] PPO [id number] 2019-Present [phone] [address] [place] [address] PPO [id number] 2014 Unknown [id number] 2006 Medicare [id number] 2006 Medicare MEDICARE MEDICAR E A AND B [id number] 2006-Present [phone] [address] [address] [place] [address] Medicare [id number] Unknown [id number] 62 Unknown [id number] [id number] 62 Unknown [id number] 2.16.840.1.261652.3.579.2.4 62 Unknown [id number] 2.16.840.1.609465.3.579.2.4 62 Unknown [id number] 2.16.840.1.924673.3.579.2.4 62 Unknown [id number] 2.16.840.1.999834.3.579.2.4 62 Unknown [id number] 2.16.840.1.769590.3.579.2.4 62 Unknown [id number] 2.16.840.1.453970.3.579.2.4 62 Unknown [id number] 2.16.840.1.804003.3.579.2.4 62 Unknown [id number] 2.16.840.1.350952.3.579.2.4 62 Unknown [id number] 2.16.840.1.035816.3.579.2.4 62 Unknown [id number] 2.16.840.1.119291.3.579.2.4 62 Unknown [id number] 2.16.840.1.107256.3.579.2.4 62 Unknown [id number] 2.16.840.1.689475.3.579.2.4 62 Unknown [id number] 62 Social History Date Type Detail Facility Start: 01-13-2022 End: 02-20-2024 Tobacco smoking status NHIS Unknown if ever smoked [facility] Start: 09-24-2015 Heavy [facility] Start: 09-24-2015 None [facility] Start: 10-20-2015 Spouse/ Signif icant Other [facility] Start: 10-15-2018 Chew [facility] Start: 1955 Sex Assigned At Male W [facility] Start: 02-09-2016 End: 03-06-2024 Tobacco smoking status NHIS Never smoked tobacco [facility] Start: 02-09-2016 End: 04-19-2023 Tobacco use and exposure User of smokeless tobacco [facility] History of tobacco use Chews Tobacco [facility] Start: 04-07-2021 End: 02-23-2023 Alcohol intake Current non-drinker of alcohol (finding) [facility] Start: 02-09-2016 End: 04-19-2023 Tobacco Comment Socially [facility] Start: 04-07-2021 Alcohol Comment non-alcoholic beers, no alcohol since 2015 [facility] Start: 1955 Sex Assigned At Not on file [facility] Start: 02-23-2023 History of Social function [facility] Start: 02-23-2023 Tobacco use panel [facility] National Score (1-100), lower number is lower risk 48 [facility] Start: 02-13-2025 End: 03-06-2025 Sex Male (finding) [facility] Medical Equipment Procedure Code Equipment Code Equipment Origin al Text Equipment Identifier Dates SOFIE 3GRM HEMO STAT ABS FDA Start: 10-22-2018 SOFIE 3GRM HEMO STAT ABS FDA Start: 10-22-2018 SOFIE 3GRM HEMO STAT ABS FDA Start: 10-22-2018 SOFIE 3GRM HEMO STAT ABS FDA Start: 10-22-2018 SOFIE 3GRM HEMO STAT ABS FDA Start: 10-22-2018 SOFIE 3GRM HEMO STAT ABS FDA Start: 10-22-2018 SOFIE 3GRM HEMO STAT ABS FDA Start: 10-22-2018 SOFIE 3GRM HEMO STAT ABS FDA Start: 10-22-2018 SOFIE 3GRM HEMO STAT ABS FDA Start: 10-22-2018 SOFIE 3GRM HEMO STAT ABS FDA Start: 10-22-2018 SOFIE 3GRM HEMO STAT ABS FDA Start: 10-22-2018 SOFIE 3GRM HEMO STAT ABS FDA Start: 10-22-2018 SOFIE 3GRM HEMO STAT ABS FDA Start: 10-22-2018 SOFIE 3GRM HEMO STAT ABS FDA Start: 10-22-2018 Goals Date Patient Goal Desired Activity /State Clinical Notes 12-21-2015 to 03-14-2025 Note Date & Type Note Facility 03-14-2025 Evaluation note Diagnosis Onset Date Resolution History of discectomy acute Feb 10:25am Other intervertebral disc degeneration, lumbar region with discogenic back acute March 14, 2025 10:25am [facility] Work Phone: 1(343) 306-757904-25-2025 Evaluation note* Diagnosis Onset Date Resolution Status Admit Date History of discectomy acute Feb 10:25am Other intervertebral disc degeneration, lumbar region with discogenic back acute March 14, 2025 10:25am Palpitations acute June 03, 2 025 9:56am Atherosclerotic heart diseas e of [place] coronary artery without angina pectoris chronic May 9:56am Essential hypertension chronic 2024 9:56am H/O cardiac radiofrequency ablation December, chronic June 03, 2025 9:56am Hyperlipidemia chronic June 03, 2025 9:56am [facility] Work Phone: 1(142) 987-104502-21-2025 Evaluation note* Diagnosis Onset Date Resolution Status Admit Date History of discectomy acute Dec 7:48am Other intervertebral disc degeneration, lumbar region with discogenic back acute January 102024 7:48am [facility] Work Phone: 1(460) 696-330802-21-2025 Evaluation note* Diagnosis Onset Date Resolution Status Admit Date History of discectomy acute Dec 7:48am Other intervertebral disc degeneration, lumbar region with discogenic back acute January 102024 7:48am History of discectomy acute Apr 2024 10:25am Other intervertebral disc degeneration, lumbar region with discogenic back acute March 14, 2025 10:25am [facility] Work Phone: 1(855) 896-631805-31-2023 NoteHNO ID: [id number] Author: Tisha Epstein, DO Service: ? Author Type: Physician [...] interventions. We discussed strat (more content not included)...[facility]05-31-2023 History of Present illness Narrative* Tisha Epstein, DO - 04/19/2023 9:55 AM EDT Images from the original note were not [...] intolerance, new onset joint pain or swelling, newonset extremity weakness or numbness, new onset auditory [...] Tisha Epstein D.O. M.P.H. documented in this encounterUniversity Hospitals [facility]05-03-2023 NoteHNO ID: [id number] Author: RT Rodrigo(R) Service: ? Author Type: Technologist Type: Progress [...] BY: RT Rodrigo(Mahendra) March 22, 2023 8:28 [facility]05-03-2023 History of Present illness Narrative* Christianne Wyatt RT(R) - 03/22/2023 8:40 AM EDT Radiology Service Progress Note PATIENT NAME: Dana Hubbard DATE OF SERVICE: March 22, 2023 TIME: 8:28 AM PATIENT IDENTITY VERIFICATION COMPLETED USING TWO (2) IDENTIFIERS: Name and Date of confirmedby patient verbally. FALL SCREENING: Has the patient [...] 22, 2023 8:28 AM documented in this encounterUniversity Hospitals [facility]04-06-2023 NoteHNO ID: [id number] Author: Tisha Epstein, DO Service: ? Author Type: Physician [...] L elbow previously with Dr. Epstein at [facility]. Pt states pain does not [...] left elbow for preop (more content not included)...[facility]04-06-2023 NoteHNO ID: [id number] Author: Michaelle Herring RT(R) Service: Radiology Author [...] PERIPHERAL IV DATA: Not applicable SIGNED BY: Michaelle Herring RT(R) February 23, 2023 12:48 [facility]04-06-2023 History of Present illness Narrative* Tisha Epstein, - 02/23/2023 1:02 PM EDT Reason for Visit/Chief Complaint Dana Hubbard is [...] in L elbow previously with Dr. Epstein [facility]. Pt states pain does not disrupt daily activities at this time. Pain history is noted as above.Xray done today. Previous Treatments: Ice: No Heat: [...] intolerance, new onset joint pain or swelling, newonset extremity weakness or numbness, new onset auditory [...] plan. All questions answered. documented in this encounterUniversity Hospitals [facility]04-06-2023 History of Present illness Narrative* Michaelle Herring RT(R) - 02/23/2023 12:50 PM EDT Radiology Service Progress Note PATIENT NAME: Dana Hubbard DATE OF SERVICE: February 23, 2023 TIME: 12:48 PM PATIENT IDENTITY VERIFICATION COMPLETED USING TWO (2) IDENTIFIERS: Name and Date of confirmedby patient verbally. FALL SCREENING: Has the patient had 2 falls in the last year or 1 fall with injury or currently using an Ambulatory Assistive Device (Walker, Cane, Wheelchair, Crutches, etc.)? No PATIENT GENDER DATA: Male PATIENT RELEVANT IMPLANT DATA REVIEWED: Yes RADIOLOGY DEPARTMENT: General X-ray: Exam(s) Completed: Upper Extremity X- Ray(s): Elbow, left PERIPHERAL IV DATA: Not applicable SIGNED BY: RT Colten(R) February 23, 2023 12:48 PM documented in this encounterUniversity Hospitals Ely[facility] Center03-29-2023 Miscellaneous Notes* Telephone Encounter - Deirdre Benjamin Ma - 02/15/2023 3:23 PM EDT Noted. * Telephone Encounter - Nirali Morrison - 02/15/2023 3:19 PM EDT Patient reports that he received a VM from the office requesting to know which elbow is affecting him (left). Office visit notes have been updated. documented in this encounterUniversity Hospitals Ely[facility] Center05-20-2021 NoteHNO ID: [id number] Author: Magdiel Tomlin APRN.MANAGER OF ENTERPRISE Service: Anesthesiology Author Type: Nurse Forensic Manager Type: Anesthesia Procedure Notes Filed: 04/08/2021 12:04 PM Note Text: ANESTHESIOLOGY PROCEDURE NOTE Airway General Information Procedure Start Time/Medication Administration: 04/08/2021 11:52 AM Patient location during procedure: OR Timeout Performed Pre-procedure: timeout performed Consent Obtained: Yes Patient identity confirmed: arm band, patient and family Staffing MANAGER OF ENTERPRISE: Magdiel Tomlin APRN.MANAGER OF ENTERPRISE Performed by: MITA Indications and Patient Condition [...] attempts at approach: 1 SIGNATURE: Magdiel Tomlin APRN.MANAGER OF ENTERPRISE PATIENT NAME: Dana Hubbard DATE: April 08, 2021 TIME: 12:03 PM CSN: [id number] Evaluation note* Diagnosis Onset Date Resolution Status Mitral valve insufficiency a cute Atherosclerotic heart diseas e of [place] coronary artery without angina pectoris chronic Essential hypertension chron ic H/O cardiac radiofrequency ablation December, chronic Hyperlipidemia chronic [facility] Work Phone: Evaluation note* Diagnosis Onset Date Resolution Status Lateral epicondylitis of left elbow acute Neck pain acute Segmental and somatic dysfun ction of cervical region acute Mitral valve insufficiency a cute Atherosclerotic heart diseas e of [place] coronary artery without angina pectoris chronic Essential hypertension chron ic H/O cardiac radiofrequency ablation December, chronic Hyperlipidemia chronic Neck pain acute Segmental and somatic dysfun ction of cervical region acute [facility] Work Phone: Evaluation note* Diagnosis Onset Date Resolution Status Lateral epicondylitis of left elbow acute Left elbow pain acute [facility] Work Phone: Evaluation note* Diagnosis Left elbow pain- Primary Pain in joint, upper arm documented in this encounter [facility]* Diagnosis Left elbow tendinitis- Primary Lateral epicondylitis of left elbow Lateral epicondylitis of elbow documented in this encounter [facility]* Diagnosis Lateral epicondylitis of left elbow- Primary Lateral epicondylitis of elbow documented in this encounter [facility]* Diagnosis Onset Date Resolution Status Neck pain acute Segmental and somatic dysfunction of cervical region acute Segmental and somatic dysfunction of thoracic region acute Neck pain acute Segmental and somatic dysfunction of cervical region acute Segmental and somatic dysfunction of thoracic region acute [facility] Work Phone: Evaluation note* Diagnosis Left elbow pain Pain in joint, upper arm [facility] Diagnosis Left elbow tendinitis documented in this encounter [facility]* Diagnosis Onset Date Resolution Status Neck pain acute Segmental and somatic dysfun ction of cervical region acute Segmental and somatic dysfun ction of thoracic region acute Neck pain acute Segmental and somatic dysfun ction of cervical region acute Segmental and somatic dysfun ction of thoracic region acute Neck pain acute Segmental and somatic dysfun ction of cervical region acute Segmental and somatic dysfun ction of thoracic region acute Chronic back pain chronic Mitral valve insufficiency a cute Palpitations acute Atherosclerotic heart diseas e of [place] coronary artery without angina pectoris chronic Essential hypertension chron ic H/O cardiac radiofrequency ablation December, chronic Hyperlipidemia chronic [facility] Work Phone: Evaluation note* Diagnosis Onset Date Resolution Status Neck pain acute Segmental and somatic dysfun ction of cervical region acute Segmental and somatic dysfun ction of thoracic region acute Chronic back pain chronic Mitral valve insufficiency a cute Palpitations acute Atherosclerotic heart diseas e of [place] coronary artery without angina pectoris chronic Essential hypertension chron ic H/O cardiac radiofrequency ablation December, chronic Hyperlipidemia chronic [facility] Work Phone: Evaluation note* Diagnosis Onset Date Resolution Status Mitral valve insufficiency a cute Palpitations acute Atherosclerotic heart diseas e of [place] coronary artery without angina pectoris chronic Essential hypertension chron ic H/O cardiac radiofrequency ablation December, chronic Hyperlipidemia chronic Neck pain acute Segmental and somatic dysfun ction of cervical region acute Segmental and somatic dysfun ction of thoracic region acute Chronic back pain chronic Neck pain acute Segmental and somatic dysfun ction of cervical region acute [facility] Work Phone: Reason for referral (narrative)* Diagnostic Procedure Only (Routine) - Closed Specialty Diagnoses / Procedures Referred By Contac t Referred To Contact XR IMAGING Diagnoses Left elbow pain Procedures XR ELBOW GENERAL 2V AP/LAT LEFT RADEX ELBOW 2 VIEWS Tisha Epstein DO [address] [facility] [address] [address] [place] [address] [facility] Referral ID Status Reason Start Date Expiration Date V isits Requested Visits Authorized [id number] Closed Auto-Generate d Referral 02/23/2023 03/24/2024 1 1 [facility] for referral (narrative)* Diagnostic Procedure Only (Routine) - Closed Specialty Diagnoses / Procedures Referred By Contac t Referred To Contact XR IMAGING Diagnoses Left elbow pain Procedures XR ELBOW GENERAL 2V AP/LAT LEFT RADEX ELBOW 2 VIEWS Tisha Epstein DO [address] [place] [address] [place] [address] Referral ID Status Reason Start Date Expiration Date V isits Requested Visits Authorized [id number] Closed Auto-Generate d Referral 02/23/2023 03/24/2024 1 1 [facility] for referral (narrative)No reason for referral information [facility] Work Phone: Reason for visit Narrative* Diagnostic Procedure Only (Routine) - Closed Specialty Diagnoses / Procedures Referred By Dayna patel Referred To Contact XR IMAGING Diagnoses Left elbow pain Procedures XR ELBOW GENERAL 2V AP/LAT LEFT RADEX ELBOW 2 VIEWS Tisha Epstein DO [address] [place] [address] [place] [address] Referral ID Status Reason Start Date Expiration Date V isits Requested Visits Authorized [id number] Closed Auto-Generate d Referral 02/23/2023 03/24/2024 1 1 [facility] Summary Purpose Family History No Family History Records Found Relationship Condition Age at Onset Recorded Date/T janice brother Coronary artery disease Unknown Myocardial infarction Unknown Status post coronary artery bypass graft Unknown mother Coronary artery disease Unknown father Suicide Unknown Advance Directives No Advanced Directives Records Found Advance Directive Response Recorded Date/ Time Advance Directives No December 17, 2020 9:22am Living Will No December 17 9:22am Power of Dice Person No December 17, 2020 9:22am Advance Directive Response Recorded Date/ Time Advance Directives No December 17, 2020 8:22am Living Will No December 17 8:22am Power of Dice Person No December 17, 2020 8:22am Advance Directive Response Recorded Date/ Time Advance Directives No December 17, 2020 9:22am Chief Complaint and Reason for Visit Chief Complaint LEFT ELBOW Neck pain 6 M FU BACK PAIN CAD, MITRAL VALVE INSUFFICIENCY *MOODISPAW* CAD, MITRAL VALVE INSUFFICIENCY *MOODISPAW* M54.16 Radiculopathy, lumbar region Reason for Visit Lateral epicondyliti s of left elbow Neck pain Segmental and somatic dysfunction of cervical region Mitral valve insufficiency Atherosclerotic heart disease of [place] coronary artery without angina pectoris Essential hypertension H/O cardiac radiofrequency ablation Hyperlipidemia Neck pain Segmental and somatic dysfunction of cervical region Chief Complaint LEFT ELBOW LEFT ELBOW Reason for Visit Lateral epicondyliti s of left elbow Left elbow pain Chief Complaint 6 M FU Reason for Visit Mitral valve insuffi ciency Atherosclerotic heart disease of [place] coronary artery without angina pectoris Essential hypertension H/O cardiac radiofrequency ablation Hyperlipidemia Chief Complaint Reeval Back pain PAT APPT IN A WEEK Back pain Reason for Visit Neck pain Segmental and somatic dysfunction of cervical region Segmental and somatic dysfunction of thoracic region Neck pain Segmental and somatic dysfunction of cervical region Segmental and somatic dysfunction of thoracic region Chief Complaint Back pain Back pain REASSESS CAROTID DISEASE, LT BRUIT Back pain 9 M FU PALPITATIONS Reason for Visit Neck pain Segmental and somatic dysfunction of cervical region Segmental and somatic dysfunction of thoracic region Neck pain Segmental and somatic dysfunction of cervical region Segmental and somatic dysfunction of thoracic region Neck pain Segmental and somatic dysfunction of cervical region Segmental and somatic dysfunction of thoracic region Chronic back pain Mitral valve insufficiency Palpitations Atherosclerotic heart disease of [place] coronary artery without angina pectoris Essential hypertension H/O cardiac radiofrequency ablation Hyperlipidemia Chief Complaint Back pain 9 M FU PALPITATIONS Reason for Visit Neck pain Segmental and somatic dysfunction of cervical region Segmental and somatic dysfunction of thoracic region Chronic back pain Mitral valve insufficiency Palpitations Atherosclerotic heart disease of [place] coronary artery without angina pectoris Essential hypertension H/O cardiac radiofrequency ablation Hyperlipidemia Chief Complaint 9 M FU PALPITATIONS Back pain Back pain Reason for Visit Mitral valve insuffi ciency Palpitations Atherosclerotic heart disease of [place] coronary artery without angina pectoris Essential hypertension H/O cardiac radiofrequency ablation Hyperlipidemia Neck pain Segmental and somatic dysfunction of cervical region Segmental and somatic dysfunction of thoracic region Chronic back pain Neck pain Segmental and somatic dysfunction of cervical region Chief Complaint Admit Date LUMBAR SPINE January 10, 2025 7:48am Xray room 4 January 10, 2025 8:17am Reason for Visit Admit Date History of discectomy January 10 7:48am Other intervertebral disc de generation, lumbar region with discogenic back January 10, 2025 7:48am Chief Complaint Admit Date LUMBAR SPINE January 10, 2025 7:48am Xray room 4 January 10, 2025 8:17am CHRONIC LUMBAR SPINE PAIN March 03 6:22am Chief Complaint Admit Date LUMBAR SPINE January 10, 2025 7:48am Xray room January 10, 2025 8:17am CHRONIC LUMBAR SPINE PAIN March 03 6:22am LUMBAR SPINE March 14, 2025 10: 25am Reason for Visit Admit Date History of discectomy January 10 7:48am Other intervertebral disc de generation, lumbar region with discogenic back January 10, 2025 7:48am History of discectomy March 14, 2025 1 0:25am Other intervertebral disc de generation, lumbar region with discogenic back March 14, 2025 10:25am Chief Complaint Admit Date CHRONIC LUMBAR SPINE PAIN March 03 6:22am LUMBAR SPINE March 14, 2025 10: 25am 9 M FU June 03, 2025 9:56 am Reason for Visit Admit Date History of discectomy March 14, 2025 1 0:25am Other intervertebral disc de generation, lumbar region with discogenic back March 14, 2025 10:25am Reason for Visit Admit Date History of discectomy March 14, 2025 1 0:25am Other intervertebral disc de generation, lumbar region with discogenic back March 14, 2025 10:25am Palpitations June 03, 2025 9:56 am Atherosclerotic heart diseas e of [place] coronary artery without angina pectoris June 03, 2025 9:56am Essential hypertension June 03, 2025 9 :56am H/O cardiac radiofrequency ablation June 03, 2025 9:56am Hyperlipidemia June 03, 2025 9:56 am Reason for Referral Specialty Diagnoses / Procedures Referred By Dayna t Referred To Contact MR IMAGING Diagnoses Left elbow tendinitis Procedures MRI ELBOW WO IVCON LEFT MRI ANY JT UPPER EXTREMITY W/O CONTRAST Tisha Rock DO [address] [place] [address] Mr Imaging Referral ID Status Reason Start Date Expiration Date Visits Requested Visits Authorized [id number] Authorized Auto-Generat ed Referral 02/23/2023 03/24/2024 1 1 Specialty Diagnoses / Procedures Referred By Dayna t Referred To Contact MR IMAGING Diagnoses Left elbow tendinitis Procedures MRI ELBOW WO IVCON LEFT MRI ANY JT UPPER EXTREMITY W/O CONTRAST Tisha Rock DO [address] [place] [address] [place] [address] Referral ID Status Reason Start Date Expiration Date V isits Requested Visits Authorized [id number] Closed Auto-Generate d Referral 02/23/2023 03/24/2024 1 1 Additional Source Comments (unrecognized sect ion and content) No Status Records FoundNo Status Records FoundNo Status Records FoundNo Status Records Found INFORMATION SOURCE (unrecogn ized section and content) DATE CREATED AUTHOR 05/16/2018 [facility] DATE CREATED AUTHOR AUTHOR'S ORGANIZ ATION 04/14/2021 [facility] DATE CREATED AUTHOR AUTHOR'S ORGANIZ ATION 04/28/2023 [facility] DATE CREATED AUTHOR AUTHOR'S ORGANIZ ATION 06/13/2025 [facility] Source Comments (unrecognize d section and content) In the event this informatio n is protected by the Federal Confidentiality of Alcohol and Drug Abuse Patient Records regulations: The Federal rules restrict any use of the information to criminally investigate or prosecute any alcohol or drug abuse patient.University [facility] Center[facility] the event this information is protected by the Federal Confidentiality of Alcohol and Drug Abuse Patient Records regulations: The Federal rules restrict any use of the information to criminally investigate or prosecute any alcohol or drug abuse patient.[facility] Center[facility] the event this information is protected by the Federal Confidentiality of Alcohol and Drug Abuse Patient Records regulations: The Federal rules restrict any use of the information to criminally investigate or prosecute any alcohol or drug abuse patient.[facility] the event this information is protected by the Federal Confidentiality of Alcohol and Drug Abuse Patient Records regulations: The Federal rules restrict any use of the information to criminally investigate or prosecute any alcohol or drug abuse patient.[facility] CenterIn the event this information is protected by the Federal Confidentiality of Alcohol and Drug Abuse Patient Records regulations: The Federal rules restrict any use of the information to criminally investigate or prosecute any alcohol or drug abuse patient.[facility] CenterIn the event this information is protected by the Federal Confidentiality of Alcohol and Drug Abuse Patient Records regulations: The Federal rules restrict any use of the information to criminally investigate or prosecute any alcohol or drug abuse patient.[facility] Reason for Visit (unrecogniz ed section and content) Reason Comments Patient Update Reason Comments Pain Reason Comments Pain Follow Up Specialty Diagnoses / Procedures Referred By Dayna patel Referred To Contact MR IMAGING Diagnoses Left elbow tendinitis Procedures MRI ELBOW WO IVCON LEFT MRI ANY JT UPPER EXTREMITY W/O CONTRAST Tisha Rock DO [address] [place] [address] [place] [address] Referral ID Status Reason Start Date Expiration Date V isits Requested Visits Authorized [id number] Closed Auto-Generate d Referral 02/23/2023 03/24/2024 1 1 Care Teams (unrecognized sec tion and content) Tank Pumper Relationship Specialty Start Date End Date Eugenio Olmstead MD PCP - General Family Medicine 05/30/16 Tank Pumper Relationship Specialty Start Date End Date Eugenio Olmstead MD PCP - General Family Medicine 05/30/16 Tank Pumper Relationship Specialty Start Date End Date Eugenio Olmstead MD PCP - General Family Medicine 05/30/16 Tank Pumper Relationship Specialty Start Date End Date Eugenio Olmstead MD PCP - General Family Medicine 05/30/16 Team Status: Active Member Role Status Dates Dr. Eugenio Olmstead MD Family Provider Active Dr. Erick Gonzalez DO Primary Care Provider Active Team Status: Inactive Member Role Status Dates Dr. Eugenio Olmstead MD Primary Care Provider, Referring Provider Active Valarie Banda PA, PA Attending Provider Active Team Status: Inactive Member Role Status Dates Dr. Erick Gonzalez DO Primary Care Provider Active Dr. Hilary Stacy MD Attending Provider, Referring Pr ovider Active Team Status: Inactive Member Role Status Dates Dr. Erick Gonzalez DO Primary Care Provider, Referrin g Provider Active Dr. Linda Power DC Attending Provider Active Team Status: Inactive Member Role Status Dates Dr. Erick Gonzalez DO Primary Care Prov ider, Attending Provider, Referring Provider Active Tank Pumper Relationship Specialty Start Date End Date Eugenio Olmstead MD PCP - General Family Medicine 05/30/16 Tank Pumper Relationship Specialty Start Date End Date Eugenio Olmstead MD PCP - General Family Medicine 05/30/16 Team Status: Inactive Member Role Status Dates Dr. rEick Gonzalez DO Primary Care Provider, Referrin g Provider Active Valarie LANTIGUA, PA Attending Provider Active Team Status: Active Member Role Status Dates Dr. Erick Gonzalez DO Primary Care Provider, Referrin g Provider Active Dr. Tariq Borja MD Attending Provider Active Team Status: Inactive Member Role Status Dates Dr. Erick Gonzalez DO Primary Care Provider Active Valarie LANTIGUA, PA Attending Provider, Referr ing Provider Active Team Status: Active Member Role Status Dates Dr. Erick Gonzalez DO Primary Care Provider, Attendin g Provider Active Team Status: Inactive Member Role Status Dates Dr. Erick Gonzalez DO Primary Care Provider, Attendin g Provider Active Team Status: Active Member Role Status Dates Dr. Erick Gonzalez DO Primary Care Provider Active Team Status: Inactive Member Role Status Dates Dr. Erick Gonzalez DO Primary Care Provider Active Start: January 10, 2025 End: January 10, 2025 Dr. Erick Gonzalez DO Referring Provider Active Start: January 10, 2025 End: January 10, 2025 Dr. Kenny Fermin MD Attending Provider Active Start: January 10, 2025 End: January 10, 2025 Team Status: Inactive Member Role Status Dates Dr. Erick Gonzalez DO Primary Care Provider Active Start: January 10, 2025 End: January 10, 2025 Dr. Christiano Caicedo MD Attending Provider Active S tart: January 10, 2025 End: January 10, 2025 Team Status: Inactive Member Role Status Dates Dr. Erick Gonzalez DO Primary Care Provider Active Start: February 05, 2025 End: February 05, 2025 Dr. Bassam Andrew MD Attending Provider Active Start: February 05, 2025 End: February 05, 2025 Team Status: Inactive Member Role Status Dates Dr. Erick Gonzalez DO Primary Care Provider Active Start: March 03, 2025 End: March 03, 2025 Dr. Kenny Fermin MD Attending Provider Active Start: March 03, 2025 End: March 03, 2025 Dr. Kenny Fermin MD Referring Provider Active Start: March 03, 2025 End: March 03, 2025 Dr. Hilary Stacy MD Other Provider Active Star t: March 03, 2025 End: March 03, 2025 Team Status: Inactive Member Role Status Dates Dr. Erick Gonzalez DO Primary Care Provider Active Start: March 14, 2025 End: March 14, 2025 Dr. Erick Gonzalez DO Referring Provider Active Start: March 14, 2025 End: March 14, 2025 Dr. Kenny Fermin MD Attending Provider Active Start: March 14, 2025 End: March 14, 2025 Team Status: Inactive Member Role Status Dates Dr. Erick Gonzalez DO Primary Care Provider Active Start: April 09, 2025 End: April 09, 2025 Dr. Hilary Stacy MD Attending Provider Active Start: April 09, 2025 End: April 09, 2025 Dr. Hilary Stacy MD Referring Provider Active Start: April 09, 2025 End: April 09, 2025 Team Status: Active Member Role/Relationship Status Dates Dr. Erick Gonzalez DO Primary Care Provider Active Team Status: Inactive Member Role/Relationship Status Dates Dr. Erick Gonzalez DO Primary Care Provider Active Start: February 05, 2025 End: February 05, 2025 Dr. Bassam Andrew MD Attending Provider Active Start: February 05, 2025 End: February 05, 2025 Team Status: Inactive Member Role/Relationship Status Dates Dr. Erick Gonzalez DO Primary Care Provider Active Start: March 03, 2025 End: March 03, 2025 Dr. Kenny Fermin MD Attending Provider Active Start: March 03, 2025 End: March 03, 2025 Dr. Kenny Fermin MD Referring Provider Active Start: March 03, 2025 End: March 03, 2025 Dr. Hilary Stacy MD Other Provider Active Star t: March 03, 2025 End: March 03, 2025 Team Status: Inactive Member Role/Relationship Status Dates Dr. Erick Gonzalez DO Primary Care Provider Active Start: March 14, 2025 End: March 14, 2025 Dr. Erick Gonzalez DO Referring Provider Active Start: March 14, 2025 End: March 14, 2025 Dr. Kenny Fermin MD Attending Provider Active Start: March 14, 2025 End: March 14, 2025 Team Status: Inactive Member Role/Relationship Status Dates Dr. Erick Gonzalez DO Primary Care Provider Active Start: April 09, 2025 End: April 09, 2025 Dr. Hilary Stacy MD Attending Provider Active Start: April 09, 2025 End: April 09, 2025 Dr. Hilary Stacy MD Referring Provider Active Start: April 09, 2025 End: April 09, 2025 Team Status: Inactive Member Role/Relationship Status Dates Dr. Erick Gonzalez DO Primary Care Provider Active Start: June 03, 2025 End: June 03, 2025 Dr. Erick Gonzalez DO Referring Provider Active Start: June 03, 2025 End: June 03, 2025 Dr. Kamaljit Knight MD Attending Provider Active Start: June 03, 2025 End: June 03, 2025 Team Status: Inactive Member Role/Relationship Status Dates Dr. Erick Gonzalez DO Primary Care Provider Active Start: March 03, 2025 End: March 03, 2025 Dr. Kenny Fermin MD Attending Provider Active Start: March 03, 2025 End: March 03, 2025 Dr. Kenny Fermin MD Referring Provider Active Start: March 03, 2025 End: March 03, 2025 Dr. Hilary Stacy MD Other Provider Active Star t: March 03, 2025 End: March 03, 2025 Team Status: Inactive Member Role/Relationship Status Dates Dr. Erick Gonzalez DO Primary Care Provider Active Start: March 14, 2025 End: March 14, 2025 Dr. Erick Gonzalez DO Referring Provider Active Start: March 14, 2025 End: March 14, 2025 Dr. Kenny Fermin MD Attending Provider Active Start: March 14, 2025 End: March 14, 2025 Team Status: Inactive Member Role/Relationship Status Dates Dr. Erick Gonzalez DO Primary Care Provider Active Start: April 09, 2025 End: April 09, 2025 Dr. Hilary Stacy MD Attending Provider Active Start: April 09, 2025 End: April 09, 2025 Dr. Hilary Stacy MD Referring Provider Active Start: April 09, 2025 End: April 09, 2025 Team Status: Inactive Member Role/Relationship Status Dates Dr. Erick Gonzalez DO Primary Care Provider Active Start: June 03, 2025 End: June 03, 2025 Dr. Erick Gonzalez DO Referring Provider Active Start: June 03, 2025 End: June 03, 2025 Dr. Kamaljit Knight MD Attending Provider Active Start: June 03, 2025 End: June 03, 2025 Team Status: Inactive Member Role/Relationship Status Dates Dr. Erick Gonzalez DO Primary Care Provider Active Start: June 04, 2025 End: June 04, 2025 Dr. Hilary Stacy MD Attending Provider Active Start: June 04, 2025 End: June 04, 2025 Dr. Hilary Stacy MD Referring Provider Active Start: June 04, 2025 End: June 04, 2025 FOR RECORDS PERTAINING TO PATIENTS WHO ARE [...] BE BASED ON THE PRIMARY CLINICAL RECORDS. [employer] provides no warranty or guarantee of the accuracy or completeness of information in this document.
--- OUTSIDE RECORDS SUMMARY | 2025-06-24 06:15 | XMS RPT_ITS | CCD ---
Author Organization [facility] Care Team Providers Care Hall Coordinator Name Role Phone Jackie Carlin Unavailable Unavailable Denise Ford Unavailable Unavailable Jesus Rahman MD Unavailable JESUS LY JR Unavailable Unavail able Jackie Carlin Unavailable Unavailable Dr. Eugenio Olmstead Primary Care Provider Dr. Eugenio Olmstead Referring Provider [phone] GRZEGORZ Nguyen Attending Provider [phone] Linda Power Attending Provider Preston [employer], RE[employer]-C Jane Attending Provider Preston [employer], RE[employer]-C Jane Referring Provider Preston BASSETT, REPA[employer]-C Jane Other Provider Dr. Jesus Rahman Attending Provider [phone] Eugenio Olmstead Primary Care Provider Dr. Eugenio Olmstead Referring Provider GRZEGORZ Nguyen Attending Provider [phone] Eugenio Olmstead MD Primary Care Provider [phone] TISHA EPSTEIN Attending EUGENIO Burgess Primary Care Unavailable TISHA EPSTEIN Referring EUGENIO Burgess Primary Care Unavailable TISHA EPSTEIN Attending EUGENIO Burgess Primary Care Unavailable TISHA EPSTEIN Referring EUGENIO Burgess Primary Care Unavailable Dr. Eugenio Olmstead Primary Care Provider Dr. Eugenio Olmstead Referring Provider [phone] Solo [place], [place] Valarie Calvin Attending Provider [...] Attending Provider [phone] Dr. Erick Gonzalez DO Primary Care Provider Dr. Erick [...] Propensity to adverse reactions (disorder) 6 AOF [facility] Other [place] Repository (5 sources) Adhesive Tape; Translations: [adhesive tape] Propensity to adverse reactions blisters rash [facility] Medications Current Medications Medication Drug Class(es) [...] One tablet by mouth daily HYDROMORPHONE HCL [id number] Jesus Rahman MD Start: 10-02-2015 take 1 tablet by [facility] once daily EXALGO 12 MG T24A One tablet by mouth daily HYDROMORPHONE HCL [id number] Jesus Rahman MD Start: 10-02-2015 take 1 tablet by heaven th once daily EXALGO 12 MG T24A One tablet by mouth daily HYDROMORPHONE HCL [id number] Ward Suresh RN Start: 10-02-2015 take 1 tablet by heaven th once daily EXALGO 12 MG T24A One tablet by mouth daily HYDROMORPHONE HCL [id number] Selina Reyes Start: 09-23-2015 End: 12-25-2017 take [...] TABS One tablet by mouth daily ASPIRIN [id number] Ward Suresh RN Start: 06-23-2010 ASPIRIN 81 [...] three times daily as needed CHLORDIAZEPOXIDE HCL [id number] Jesus Rahman MD cholecalciferol 0.025 mg oral [...] % SOLN as directed DEXAMETHASONE SODIUM PHOSPHATE [id number] Jesus Rahman MD diazePAM 2 mg oral [...] tablet by mouth at bedtime. DOXAZOSIN MESYLATE 14017716866 Valarie Love RN Start: 02-29-2016 End: 06-17-2016 [...] tablet by mouth twice daily FOLIC ACID 98946154142 Ward Suresh RN Start: 09-25-2015 End: 10-21-2015 [...] One tablet by mouth at bedtime MELATONIN [id number] Jesus Rahman MD Comment on above: Take [...] One tablet by mouth daily METOPROLOL TARTRATE 84995586292 Valarie Love RN Start: 09-25-2015 End: 03-11-2016 [...] Comment on above: Take 1 capsule by [facility] once daily. potassium gluconate 2.5 meq [...] One tablet by mouth daily PRAVASTATIN SODIUM 19819949872 Ward Suresh RN ramipril 10 mg oral [...] CAPS One tablet by mouth daily RAMIPRIL 16547921783 Selina Reyes Start: 10-02-2015 take 1 tablet by heaven th once daily ALTACE 10 MG CAPS One tablet by mouth daily RAMIPRIL 64826173519 Valarie Banda PA-C Start: 10-02-2015 take 1 tablet by heaven th twice daily ALTACE 10 MG CAPS One tablet by mouth twice daily RAMIPRIL 29979423175 Jesus Rahman MD Start: 09-25-2015 End: 02-15-2017 [...] TABS One tablet by mouth daily CYANOCOBALAMIN 01353590907 JudyElaina Suresh RN vitamin B complex (13 [...] tablet by mouth daily B COMPLEX VITAMINS 28141533141 Jesus Rahman MD Vitamin B Complex tablet (5 sources) Start: 12-22-2017 End: 10-30-2019 Vitamin B Complex tablet Discontinued 1 {tbl} PO daily December 22, 2017 1:00am October 30, 2019 2:40pm vitamin d 1000 unt oral tablet (4 sources) Start: 11-09-2016 take 1 tablet by mouth once daily VITAMIN D 1000 UNIT TABS One tablet by mouth daily CHOLECALCIFEROL 74636725517 Jesus Rahman MD Start: 11-09-2016 take 1 tablet by heaven th once daily VITAMIN D 1000 UNIT TABS One tablet by mouth daily CHOLECALCIFEROL 56812810775 Jesus Rahman MD Problems Active Problems Problem Classification Problem Date Documented Date Episodic/Chronic Alcohol-related disorders (20 sources) Alcohol abuse; Translations: [Alcohol abuse, uncomplicated] Onset: 04-09-2012 10-02-2015 Chronic Cardiac dysrhythmias (18 sources) Supraventricular tachycardia; Translations: [EKG: supraventricular tachycardia] Onset: 10-02-2015 10-02-2015 Chronic Cardiac dysrhythmias (14 sources) Palpitations; Translations: [Palpitations] 11-24-2023 Episodic Coronary atherosclerosis and other heart disease (20 sources) Atherosclerotic heart disease of [place] coronary artery without angina pectoris; Translations: [Coronary arteriosclerosis] Onset: 10-02-2015 06-15-2016 Chronic Comment on above: 40% proximal LAD tahir nosis per [facility] 09/24/[address] Ayoub [facility] Disorders of lipid metabolism (20 [...] 04-07-2021 Episodic Comment on above: 01/13/2016 @ [facility] per Dr. Lima: EP study and [...] L3410.9992on 06-08-2025 [facility] Misc. COMMENT Normal . [facility] Comment on above: Order Comment: [id number] 0URINE TOX RT Result Comment: Test Ordered: [id number] A24-Ncvahj+SV2 Amphetamines Screen, Urine Negative ng/mL UI Reference Range: Pcufpl=222 Amphetamine test includes Amphetamine and Methamphetamine. Barbiturates Negative ng/mL UI Reference Range: Kmagln=076 Benzodiazepines Negative ng/mL UI Reference Range: Hghajq=645 Cocaine (Metab.), Urine Negative ng/mL UI Reference Range: Wzorxh=956 Opiates Note: ng/mL UI See Final Results Reference Range: Mbnode=941 Opiate test includes Codeine, Morphine, Hydromorphone, Hydrocodone. Opiates Positive [A ] UI Reference Range: Nceqll=081 Opiate test includes Codeine, Morphine, Hydromorphone, Hydrocodone. Codeine Negative UI Reference Range: Zhuude=292 Morphine Negative UI Reference Range: Guqxln=940 Hydromorphone Positive [A ] UI Reference Range: . Hydromorphone Conf, MS, UR 2173 ng/mL UI Reference Range: Ladmat=954 Hydrocodone Negative UI Reference Range: Norhrz=560 6-Acetylmorphine, Urine Negative ng/mL UI Reference Range: Cutoff=10 Oxycodone/Oxymorphone, Urine Negative ng/mL UI Reference Range: Kfbrrf=288 Test includes Oxycodone and Oxymorphone PCP, Urine Negative ng/mL UI Reference Range: Cutoff=25 Methadone Screen, Urine Negative ng/mL UI Reference Range: Fupbpy=281 Propoxyphene, Urine Negative ng/mL UI Reference Range: Ehidla=787 Fentanyl, Urine Negative ng/mL UI Reference Range: Cutoff=2.0 Test includes Fentanyl and Norfentanyl This test was developed and its performance characteristics determined by [facility]. It has not been cleared or approved by the Food and Drug Administration. Tramadol Negative ng/mL UI Reference Range: Wacowe=041 Buprenorphine, Urine Negative ng/mL UI Reference Range: Cutoff=10 Creatinine, Urine 54.5 mg/dL UI Reference Range: 20.0-300.0 pH, Urine 5.2 UI Reference Range: 4.5-8.9 Performed at: [facility] [address] [place], [place] [id number] Law Clerk: Francisca Mcdermott PhD, Phone: [phone] Performed at: [facility] [address] [id number] Law Clerk: Polo Bailey PhD, Phone: [phone] Performed By: #### L 505.5000, L3410.9992 ####[facility] [address] [place], [address] Amphetamine detection with 1 000 ng/mL as cutoffOrdered By: Hilary Stacy on 06-04-2025 Amphetamines Screen method >1000 ng/mL Ql (U) Negative < 200 ng/mL [facility] No Panel InformationOrdered By: Hilary Stacy on 06-04-2025 Urine Buprenorphine Qualitative Negative < 200 ng/mL [facility] Urine Oxycodone Screen Negative < 100 ng/mL [facility] Quantitative urine opiates m easurementOrdered By: Hilary Stacy on 06-04-2025 Opiates Ql (U) Positive < 300 ng/mL [facility] Comment on above: If confirmation test ing is needed, a separate order will be required to send out testing to the reference laboratory. Screening urine fentanyl vickie surementOrdered By: Hilary Stacy on 06-04-2025 fentaNYL Screen Ql (U) Negative [facility] Urine Drug Screen (VISTA)on 06-04-2025 AMPHETAMINES Negative Normal <1000 ng/mL [facility] Comment on above: Order Comment: UNK Performed By: #### L 505.5000, L3410.9992 ####[facility] [address] [place] [address] BARBITIURATES Negative Normal < 200 ng/mL [facility] Comment on above: Order Comment: UNK Performed By: #### L 505.5000, L3410.9992 ####[facility] [address] [place] [address] BENZODIAZIPINE Negative Normal < 200 ng/mL [facility] Comment on above: Order Comment: UNK Performed By: #### L 505.5000, L3410.9992 ####[facility] [address] [place] [address] BUP Ur Drug Scr Negative Normal < 200 ng/mL [facility] Comment on above: Order Comment: UNK Performed By: #### L 505.5000, L3410.9992 ####[facility] [address] [place] [address] COCAINE Negative Normal < 300 ng/mL [facility] Comment on above: Order Comment: UNK Performed By: #### L 505.5000, L3410.9992 ####[facility] [address] [place], [address] Fentanyl Negative Normal [facility] Comment on above: Order Comment: UNK Performed By: #### L 505.5000, L3410.9992 ####[facility] [address] [place], [address] METHADONE Negative Normal < 300 ng/mL [facility] Comment on above: Order Comment: UNK Performed By: #### L 505.5000, L3410.9992 ####[facility] [address] [place], [address] OPIATES Positive Normal < 300 ng/mL [facility] Comment on above: Order Comment: UNK Result Comment: If c onfirmation testing is needed, a separate order will be required to send out testing to the reference laboratory. Performed By: #### L 505.5000, L3410.9992 ####[facility] [address] [place], [address] OXYCODONE Negative Normal < 100 ng/mL [facility] Comment on above: Order Comment: UNK Performed By: #### L 505.5000, L3410.9992 ####[facility] [address] [place], [address] PCP Negative Normal < 25 ng/mL [facility] Comment on above: Order Comment: UNK Performed By: #### L 505.5000, L3410.9992 ####[facility] [address] [place], [address] THC Negative Normal < 50 ng/mL [facility] Comment on above: Order Comment: UNK Performed By: #### L 505.5000, L3410.9992 ####[facility] [address] [place], [address] Urine benzodiazepine levelOr dered By: Hilary Stacy on 06-04-2025 Benzodiazepines Ql (U) Negative < 200 ng/mL [facility] Urine cocaine levelOrdered B y: Hilary Stacy on 06-04-2025 Cocaine Ql (U) Negative < 300 ng/mL [facility] Urine ybyjk-8-wxlzffdmffgghv abinol (THC) measurementOrdered By: Hilary Stacy on 06-04-2025 Cannabinoids Screen Ql (U) Negative < 50 ng/mL [facility] Urine phencyclidine (PCP) de tectionOrdered By: Hilary Stacy on 06-04-2025 Phencyclidine Ql (U) Negative < 25 ng/mL [facility] Cardiology Visit Reporton Cardiology Visit Report [facility] [address] [place] [address] OFFICE VISIT Date of Service: 06/03/25 MR#: [id number] Acct: [id number] Name: DANA HUBBARD Rep #: [id number] : 1955 Provider: Dr. Kamaljit mukherjee MD Age/Sex: 70/M Location: [facility] Status: Signed HPI HPI History of Present Illness Details: Patient is a 70-year-old white male that comes in today for monitor of his cardiovascular disease. Patient carries a history of supraventricular tachycardia status post radiofrequency ablation at [facility] by Dr. Ogden in 2014. Since [...] room air Intake Visit Reasons: 9 M Drug Abuse Worker Required: No Accompanied by: Self Is patient [...] myocardial infarction (NSTEMI) Atherosclerotic heart disease of [place] coronary artery without angina pectoris Non-ST elevation CA (NSTEMI) Supraventricular tachycardia by ECG Alcohol abuse [...] and w (more content not included)... Normal [facility] L3410.9992on 04-10-2025 [facility] Misc. COMMENT Normal . [facility] Comment on above: Order Comment: [id number] MEDTOX Result Comment: Test Ordered: [id number] D03-Iznyfq+SV2 Amphetamines Screen, Urine Negative ng/mL UI Reference Range: Obslsm=786 Amphetamine test includes Amphetamine and Methamphetamine. Barbiturates Negative ng/mL UI Reference Range: Atykzw=299 Benzodiazepines Negative ng/mL UI Reference Range: Vigqjd=434 Cocaine (Metab.), Urine Negative ng/mL UI Reference Range: Weikxn=384 Opiates Negative ng/mL UI Reference Range: Plsyfv=438 Opiate test includes Codeine, Morphine, Hydromorphone, Hydrocodone. 6-Acetylmorphine, Urine Negative ng/mL UI Reference Range: Cutoff=10 Oxycodone/Oxymorphone, Urine Negative ng/mL UI Reference Range: Gecdbo=317 Test includes Oxycodone and Oxymorphone PCP, Urine Negative ng/mL UI Reference Range: Cutoff=25 Methadone Screen, Urine Negative ng/mL UI Reference Range: Lijdev=606 Propoxyphene, Urine Negative ng/mL UI Reference Range: Nkgkrn=939 Fentanyl, Urine Negative ng/mL UI Reference Range: Cutoff=2.0 Test includes Fentanyl and Norfentanyl This test was developed and its performance characteristics determined by [facility]. It has not been cleared or approved by the Food and Drug Administration. Tramadol Negative ng/mL UI Reference Range: Otpxor=973 Buprenorphine, Urine Negative ng/mL UI Reference Range: Cutoff=10 Creatinine, Urine 23.3 mg/dL UI Reference Range: 20.0-300.0 pH, Urine 6.4 UI Reference Range: 4.5-8.9 Performed at: [facility] [address] [place], [place] [id number] Law Clerk: Francisca Mcdermott PhD, Phone: [phone] Performed at: [address] [id number] Law Clerk: Polo Bailey PhD, Phone: [phone] Performed By: #### L 505.5000, L3410.9992 #### [facility] [address] [facility] [address] [place], [address] Amphetamine detection with 1 000 ng/mL as cutoffOrdered By: Hilary Stacy on 04-09-2025 Amphetamines Screen method >1000 ng/mL Ql (U) Negative < 200 ng/mL [facility] No Panel InformationOrdered By: Hilary Stacy on 04-09-2025 Urine Buprenorphine Qualitative Negative < 200 ng/mL [facility] Urine Oxycodone Screen Negative < 100 ng/mL [facility] Quantitative urine opiates m easurementOrdered By: Hilary Stacy on 04-09-2025 Opiates Ql (U) Negative < 300 ng/mL [facility] Screening urine fentanyl vickie surementOrdered By: Hilary Stacy on 04-09-2025 fentaNYL Screen Ql (U) Negative [facility] Urine Drug Screen (VISTA)on 04-09-2025 AMPHETAMINES Negative Normal <1000 ng/mL [facility] Comment on above: Order Comment: MEDTO X Performed By: #### L 505.5000, L3410.9992 #### [facility] [address] [facility] [place], [address] BARBITIURATES Negative Normal < 200 ng/mL [facility] Comment on above: Order Comment: MEDTO X Performed By: #### L 505.5000, L3410.9992 #### [facility] [address] [place], [address] BENZODIAZIPINE Negative Normal < 200 ng/mL [facility] Comment on above: Order Comment: MEDTO X Performed By: #### L 505.5000, L3410.9992 #### [facility] [address] [place], [address] BUP Ur Drug Scr Negative Normal < 200 ng/mL [facility] Comment on above: Order Comment: MEDTO X Performed By: #### L 505.5000, L3410.9992 #### [facility] [address] [place], [address] COCAINE Negative Normal < 300 ng/mL [facility] Comment on above: Order Comment: MEDTO X Performed By: #### L 505.5000, L3410.9992 #### [facility] [address] [place], [address] Fentanyl Negative Normal [facility] Comment on above: Order Comment: MEDTO X Performed By: #### L 505.5000, L3410.9992 #### [facility] [address] [place], [address] METHADONE Negative Normal < 300 ng/mL [facility] Comment on above: Order Comment: MEDTO X Performed By: #### L 505.5000, L3410.9992 #### [facility] [address] [place], [address] OPIATES Negative Normal < 300 ng/mL [facility] Comment on above: Order Comment: MEDTO X Performed By: #### L 505.5000, L3410.9992 #### [facility] [address] [place], [address] OXYCODONE Negative Normal < 100 ng/mL [facility] Comment on above: Order Comment: MEDTO X Performed By: #### L 505.5000, L3410.9992 #### [facility] [address] [place], [address] PCP Negative Normal < 25 ng/mL [facility] Comment on above: Order Comment: MEDTO X Performed By: #### L 505.5000, L3410.9992 #### [facility] [address] [place], [address] THC Negative Normal < 50 ng/mL [facility] Comment on above: Order Comment: MEDTO X Performed By: #### L 505.5000, L3410.9992 #### [facility] [address] [place], [address] Urine benzodiazepine levelOr dered By: Hilary Stacy on 04-09-2025 Benzodiazepines Ql (U) Negative < 200 ng/mL [facility] Urine cocaine levelOrdered B y: Hilary Singletoni on 04-09-2025 Cocaine Ql (U) Negative < 300 ng/mL [facility] Urine gwzwf-0-zdahmfnwpretsn abinol (THC) measurementOrdered By: Hilayr Stacy on 04-09-2025 Cannabinoids Screen Ql (U) Negative < 50 ng/mL [facility] Urine phencyclidine (PCP) de tectionOrdered By: Hilary Stacy on 04-09-2025 Phencyclidine Ql (U) Negative < 25 ng/mL [facility] Orthopedic Visit Reporton Orthopedic Visit Report [facility] [facility] [address] [place], [place] [address] OFFICE VISIT Date of Service: 03/14/25 MR#: [id number] Acct: [id number] Name: DANA HUBBARD Rep #: [id number] : 1955 Provider: Dr. Kenny Fermin MD Age/Sex: 69/M Location: [facility] Status: Signed Intake Vital Signs 01/10/25 08:04 [...] myocardial infarction (NSTEMI) Atherosclerotic heart disease of [place] coronary artery without angina pectoris Non-ST elevation CA (NSTEMI) Supraventricular tachycardia by ECG Alcohol abuse [...] needed. He does see Dr. Power for home health care provider but she does not adjust his low back. 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 His last MRI was about 2 years [...] couple da (more content not included)... Normal [facility] Magnetic resonance imaging r eportOrdered By: Erick Brown on 03-04-2025 Study report [facility] Imaging Services [address] [place] [address] Spine Lumbar W/WO Contrast MR#: [id number] Acct: [id number] Name: DANA HUBBARD Rep #: [id number] : 1955 M 69 From: Gillian Brown MD PCP: Dr. Erick Gonzalez, Status: REG CLI Study:Spine Lumbar W/WO Contrast Date of Exa m: 03/03/25 Exam# [id number] Ordering Dr: Red Fermin MD PROCEDURE: SPINE [...] Mild RIGHT foraminal stenosis. Facet arthropathy. L4-5: Awhjtgcl-hn-fspvpk loss of disc height. Diffuse disc bulging with superimposed posterior central disc extrusion with minimal inferior migration of approximately 5 mm. Suspect a small amount of surrounding epidural enhancement/fibrosis. Facet arthropathy. Mild bilateral foraminal stenosis. Mild narrowing of the ZTUSZ-gadkxoq-gdct-LEFT lateral recesses. Mild focal spinal canal stenosis. L5-S1: Moderate disc height loss. Trace retrolisthesis as above with disc uncovering. Diffuse disc bulging with superimposed small posterior central annular fissure and disc protrusion. Small bilateral foraminal and subarticular disc/osteophyte complexes. Facet arthropathy. No significant focal spinal canal stenosis. Mild DAWFY-xotyndg-rody-LEFT foraminal stenosis. Other: No abnormal enhancement. 3.0 x 2.5 cm complex posterior RIGHT renal cystic lesion with peripheral wall thickening/enhancement up to at least 5 mm. Question an additional faintly visible partially imaged indeterminate 1.7 cm medial LEFT renal lesion. Midthoracic presumed vertebral body hemangioma on the insurance verification representative in the absence of known malignancy. Disc bulging suspected at C6-C7 on the insurance verification representative, not well evaluated. MRI/Spine Lumbar W/WO Contrast IMPRESSION: 1. Multilevel spondylosis with as detailed, greatest at L4-L5. No high-grade spinal canal or foraminal stenosis identified. 2. Indeterminate 3.0 cm RIGHT and questionable partially imaged 1.7 cm LEFT renal lesions. Neoplasm not excluded. Recommend multiphase renal protocol CT or MRI with and without contrast. 3. Additional description as above. Reading Location: [facility] CC: Dr. Kenny Fermin MD; Dr. Erick Gonzalez DO ~ Plater Helper: Signed [facility] Spine Lumbar W/WO Contraston 03-03-2025 Spine Lumbar W/WO Contrast [facility] Imaging Services [address] [place] [address] Spine Lumbar W/WO Contrast MR#: [id number] Acct: [id number] Name: DANA HUBBARD Rep #: [id number] : 1955 M 69 From: Erick Brown MD PCP: Dr. Erick Gonzalez DO Status: REG CLI Study: Spine Lumbar W/WO Contrast Date of Exam: 02/18 03/14 Exam# [id number] Ordering Dr: Kenny Fermin MD PROCEDURE: SPINE [...] Mild RIGHT foraminal stenosis. Facet arthropathy. L4-5: Wgaibxzy-ce-awaehj loss of disc height. Diffuse disc bulging with superimposed posterior central disc extrusion with minimal inferior migration of approximately 5 mm. Suspect a small amount of surrounding epidural enhancement/fibrosis. Facet arthropathy. Mild bilateral foraminal stenosis. Mild narrowing of the LSNXJ-bguyctg-omwz-LEFT lateral recesses. Mild focal spinal canal stenosis. L5-S1: Moderate disc height loss. Trace retrolisthesis as above with disc uncovering. Diffuse disc bulging with superimposed small posterior central annular fissure and disc protrusion. Small bilateral foraminal and subarticular disc/osteophyte complexes. Facet arthropathy. No significant focal spinal canal stenosis. Mild NZLJX-oburcaa-wdgo-LEFT foraminal stenosis. Other: No abnormal enhancement. 3.0 x 2.5 cm complex posterior RIGHT renal cystic lesion with peripheral wall thickening/enhancement up to at least 5 mm. Question an additional faintly visible partially imaged indeterminate 1.7 cm medial LEFT renal lesion. Midthoracic presumed vertebral body hemangioma on the insurance verification representative in the absence of known malignancy. Disc bulging suspected at C6-C7 on the insurance verification representative, not well evaluated. MRI/Spine Lumbar W/WO Contrast IMPRESSION: 1. Multilevel spondylosis with as detailed, greatest at L4-L5. No high-grade spinal canal or foraminal stenosis identified. 2. Indeterminate 3.0 cm RIGHT and questionable partially imaged 1.7 cm LEFT renal lesions. Neoplasm not excluded. Recommend multiphase renal protocol CT or MRI with and without contrast. 3. Additional description as above. Reading Location: [id number] CC: Dr. Kenny Fermin MD; Dr. rEick Gonzalez, Plater Helper: Signed Normal [facility] Nasopharyngeal Cultureon NAC NASAL CULTURE Staphylococcus [...] S Vancomycin Islt MELCHOR <=0.5 S Normal [facility] Comment on above: Performed By: #### M 100.2000, M100.2500 #### [facility] [address] [address] [facility] [address] [place], [place], [id number] Gram Stainon 02-06-2025 GS NASAL CULTURE Gram Stain 3+ Gram positive cocci 1+ White Blood Cells Normal [facility] Comment on above: Performed By: #### M 100.2000, M100.2500 #### [facility] [address] [place], [address] Gram stainOrdered By: Bassam navarro on 02-05-2025 Microscopic observation Gram stain Nom (Unsp spec) [facility] Nasopharyngeal cultureOrdere d By: Bassam Andrew on 02-05-2025 Nasopharyngeal Culture Staphylococcus lugdunensis Abnormal [facility] Respiratory microbial culture Staphylococcus lugdunensis Abnormal [facility] L/S Spine Bending Flex/Rupert 01-10-2025 L/S Spine Bending Flex/Ext [facility] Imaging Services [address] [place], [place] [id number] L/S Spine Bending Flex/Ext MR#: [id number] Acct: [id number] Name: DANA HUBBARD Rep #: [id number] : 1955 M 69 From: Tariq Brown MD PCP: Dr. Erick Gonzalez DO Status: DEP AMB Study: L/S Spine Bending Flex/Ext Date of Exam: 01/10 Exam# [id number] Ordering Dr: Shruthi Meeks PROCEDURE: LATERAL FLEXION [...] CC: GRZEGORZ Chris; Dr. Erick Gonzalez DO Plater Helper: Signed Normal [facility] Orthopedic Visit Reporton Orthopedic Visit Report [facility] [address] [place] [address] [address] [place] [address] OFFICE VISIT Date of Service: 01/10/25 MR#: [id number] Acct: [id number] Name: DANA HUBBARD Rep #: [id number] [...] myocardial infarction (NSTEMI) Atherosclerotic heart disease of [place] coronary artery without angina pectoris Non-ST elevation CA (NSTEMI) Supraventricular tachycardia by ECG Alcohol abuse [...] needed. He does see Dr. Power for home health care provider but she does not adjust his low back. He has done PT which has not been helpful besides the aquatherapy but does not last skilled nursing. 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 No kidney problems. Ortho Exam General General: Yes no acute distress Neurologic: Yes alert a (more content not included)... Normal [facility] Lower Ext Art Exam w/o Exerc corbin 09-13-2024 Lower Ext Art Exam w/o Exercis [facility] [address] [place] [address] Lower Ext Art Exam w/o Exercis 09/13/24 0849 MR#: [id number] Acct: [id number] Name: DANA HUBBARD Rep #: [id number] : 1955 69 From: Tariq Borja MD Attending Dr: GRZEGORZ Dent Status: REG CLI Ordering Dr: Valarie Banda PA Date: 08/21 04/12 Location: [facility] Sex: M C Admitted: Reason For Study: [...] Date Dictated: 09/13/24 0849 Date Transcribed: 09/16/241257 Plater Helper: Signed Normal [facility] Cardiology Visit Reporton Cardiology Visit Report [facility]. [address] [place] [address] OFFICE VISIT Date of Service: 08/20/24 MR#: [id number] Acct: [id number] Name: DANA HUBBARD Rep #: [id number] : 1955 Provider: GRZEGORZ Montes Age/Sex: 69/M Location: [facility] Status: Signed HPI HPI History of Present Illness Details: DANA HUBBARD, is a 69-year-old white male who presents to the office today for outpatient cardiovascular follow-up of his history of CAD, hypertension, hyperlipidemia. He had a heart catheterization in 09/2015 which demonstrated a 40% proximal LAD stenosis noted in September 2015. On 01/13/2016 he had a SVT post ablation with Dr. Lima at [facility]. From a cardiac standpoint, patient is [...] Source Monitor Intake Visit Reasons: 9 M Drug Abuse Worker Required: No Is patient in pain?: No [...] myocardial infarction (NSTEMI) Atherosclerotic heart disease of [place] coronary artery without angina pectoris Non-ST elevation CA (NSTEMI) Supraventricular tachycardia by ECG Alcohol abuse [...] well groome (more content not included)... Normal [facility] Lumbar Spine 2 or 3 Viewson 07-31-2024 Lumbar Spine 2 or 3 Views [facility] Imaging Services [address] [place] [address] Lumbar Spine 2 or 3 Views MR#: [id number] Acct: [id number] Name: DANA HUBBARD Rep #: [id number] : 1955 M 69 From: Korey Aranda MD PCP: Dr. Erick Gonzalez, DO Status: REG CLI Study: Lumbar Spine 2 or 3 Views Date of Exam: Exam# [id number] Ordering Dr: Hilary Stacy MD [id number] STUDY: X-RAY - LUMBAR SPINE REASON FOR [...] Hilary Stacy MD; Dr. Erick Gonzalez DO Plater Helper: Signed Normal [facility] CBC W/Diff, Automatedon 07-21 Absolute Lymph 1.26 X10 3/uL Normal 0.83-4.51 [facility] Comment on above: Performed By: #### L 100.0100, L500.4050, L500.4100, L501.9910, L501.9985 #### [facility] [address] [place], [address] Absolute Neut 1.6 X10 3/uL Low 2.0-7.7 [facility] Comment on above: Performed By: #### L 100.0100, L500.4050, L500.4100, L501.9910, L501.9985 #### [facility] [address] [place], [address] Basophils/100 WBC (Bld) 0.9 % Normal 0-1 [facility] Comment on above: Performed By: #### L 100.0100, L500.4050, L500.4100, L501.9910, L501.9985 #### [facility] [address] [place], [address] Eosinophils/100 WBC (Bld) 2.7 % Normal 0-5 [facility] Comment on above: Performed By: #### L 100.0100, L500.4050, L500.4100, L501.9910, L501.9985 #### [facility] [address] [place], [address] Erythrocyte distribution width (RBC) [Ratio] 12.9 % Normal 11.6-14.6 [facility] Comment on above: Performed By: #### L 100.0100, L500.4050, L500.4100, L501.9910, L501.9985 #### [facility] [address] [place], [address] Hematocrit (Bld) [Volume fraction] 46.0 % Normal 40-54 [facility] Comment on above: Performed By: #### L 100.0100, L500.4050, L500.4100, L501.9910, L501.9985 #### [facility] [address] [place], [address] Hemoglobin (Bld) [Mass/Vol] 15.7 g/dL Normal 13.0-16.5 [facility] Comment on above: Performed By: #### L 100.0100, L500.4050, L500.4100, L501.9910, L501.9985 #### [facility] [address] [place], [address] IG% 0.300 Normal 0.0-0.9 [facility] Comment on above: Result Comment: IG% - Immature Granulocytes (promyelocytes, myelocytes and metamyelocytes) > 1% indicates that a LEFT SHIFT is Present. Performed By: #### L 100.0100, L500.4050, L500.4100, L501.9910, L501.9985 #### [facility] [address] [place], [address] Lymphocytes/100 WBC (Bld) 37.8 % Normal 19-41 [facility] Comment on above: Performed By: #### L 100.0100, L500.4050, L500.4100, L501.9910, L501.9985 #### [facility] [address] [place], [address] MCH (RBC) [Entitic mass] 32.0 pg Normal 27.0-32.0 [facility] Comment on above: Performed By: #### L 100.0100, L500.4050, L500.4100, L501.9910, L501.9985 #### [facility] [address] [place], [address] MCHC (RBC) [Mass/Vol] 34.1 g/dL Normal 32-36 [facility] Comment on above: Performed By: #### L 100.0100, L500.4050, L500.4100, L501.9910, L501.9985 #### [facility] [address] [place], [address] MCV (RBC) [Entitic vol] 93.9 fL Normal 80-94 [facility] Comment on above: Performed By: #### L 100.0100, L500.4050, L500.4100, L501.9910, L501.9985 #### [facility] [address] [place], [address] Monocytes/100 WBC (Bld) 9.0 % Normal 0-10 [facility] Comment on above: Performed By: #### L 100.0100, L500.4050, L500.4100, L501.9910, L501.9985 #### [facility] [address] [place], [address] Neutrophils/100 WBC (Bld) 49.3 % Normal 47-70 [facility] Comment on above: Performed By: #### L 100.0100, L500.4050, L500.4100, L501.9910, L501.9985 #### [facility] [address] [place], [address] Nucleated RBC (Bld) [#/Vol] 0 10*3/uL Normal 0-5 [facility] Comment on above: Performed By: #### L 100.0100, L500.4050, L500.4100, L501.9910, L501.9985 #### [facility] [address] [place], [address] Platelet mean volume (Bld) [Entitic vol] 12.4 fL High 6.2-12.0 [facility] Comment on above: Performed By: #### L 100.0100, L500.4050, L500.4100, L501.9910, L501.9985 #### [facility] [address] [place], [address] Platelets (Bld) [#/Vol] 121 10*3/uL Low 150-450 [facility] Comment on above: Performed By: #### L 100.0100, L500.4050, L500.4100, L501.9910, L501.9985 #### [facility] [address] [place], [address] RBC (Bld) [#/Vol] 4.90 10*6/uL Normal 4.6-6.2 [facility] Comment on above: Performed By: #### L 100.0100, L500.4050, L500.4100, L501.9910, L501.9985 #### [facility] [address] [place], [address] RDW SD 44.0 fl High 35.1-43.9 [facility] Comment on above: Performed By: #### L 100.0100, L500.4050, L500.4100, L501.9910, L501.9985 #### [facility] [address] [place], [address] WBC (Bld) [#/Vol] 3.3 10*3/uL Low 4.4-11.0 [facility] Comment on above: Performed By: #### L 100.0100, L500.4050, L500.4100, L501.9910, L501.9985 #### [facility] [address] [place], [address] Comprehensive Metabolic Prof tnon 07-30-2024 Albumin [Mass/Vol] 3.8 g/dL Normal 3.2-5.0 [facility] Comment on above: Performed By: #### L 100.0100, L500.4050, L500.4100, L501.9910, L501.9985 ####[facility] [address] [place], [address] Albumin/Globulin [Mass ratio] 1.2 {ratio} Normal 0.9-2.4 [facility] Comment on above: Performed By: #### L 100.0100, L500.4050, L500.4100, L501.9910, L501.9985 ####[facility] [address] [place], [address] ALK P 70 U/L Normal 45-117 [facility] Comment on above: Performed By: #### L 100.0100, L500.4050, L500.4100, L501.9910, L501.9985 ####[facility] [address] [place], [address] ALT [Catalytic activity/Vol] 52 U/L Normal 16-61 [facility] Comment on above: Performed By: #### L 100.0100, L500.4050, L500.4100, L501.9910, L501.9985 ####[facility] [address] [place], [address] AST [Catalytic activity/Vol] 39 U/L High 15-37 [facility] Comment on above: Performed By: #### L 100.0100, L500.4050, L500.4100, L501.9910, L501.9985 ####[facility] [address] [place], [address] Bilirubin [Mass/Vol] 0.70 mg/dL Normal 0.20-1.00 [facility] Comment on above: Result Comment: For patients on eltrombopag therapy, use of Dimension Ferrum TBIL is not recommended. Performed By: #### L 100.0100, L500.4050, L500.4100, L501.9910, L501.9985 ####[facility] [address] [place], [address] BUN/CRE 18.5 RATIO Normal 10-20 [facility] Comment on above: Performed By: #### L 100.0100, L500.4050, L500.4100, L501.9910, L501.9985 ####[facility] [address] [place], [address] CA,Total 9.9 mg/dL Normal 8.5-10.1 [facility] Comment on above: Performed By: #### L 100.0100, L500.4050, L500.4100, L501.9910, L501.9985 ####[facility] [address] [place], [address] Chloride [Moles/Vol] 105 mmol/L Normal 98-107 [facility] Comment on above: Performed By: #### L 100.0100, L500.4050, L500.4100, L501.9910, L501.9985 ####[facility] [address] [facility] [address] CO2 [Moles/Vol] 28.0 mmol/L Normal 21.0-32.0 [facility] Comment on above: Performed By: #### L 100.0100, L500.4050, L500.4100, L501.9910, L501.9985 ####[facility] [address] [facility] [address] Creatinine [Mass/Vol] 0.81 mg/dL Normal 0.70-1.30 [facility] Comment on above: Result Comment: The validity of the calculated GFR GFRAA in patients over 70 years has not been determined. Clinical correlation is essential. Performed By: #### L 100.0100, L500.4050, L500.4100, L501.9910, L501.9985 ####[facility] [address] [place], [address] EST GFR - AA 121 mL/min Normal >60 [facility] Comment on above: Result Comment: Afri can [place] GFR Calc Performed By: #### L 100.0100, L500.4050, L500.4100, L501.9910, L501.9985 ####[facility] [address] [facility] [address] GAP 6 Normal 5-15 [facility] Comment on above: Performed By: #### L 100.0100, L500.4050, L500.4100, L501.9910, L501.9985 ####[facility] [address] [place], [address] GFR/1.73 sq M.predicted among non-blacks MDRD (S/P/Bld) [Vol rate/Area] 100 mL/min/{1.73_m2} Normal >60 [facility] Comment on above: Result Comment: Non- GFR Calc Performed By: #### L 100.0100, L500.4050, L500.4100, L501.9910, L501.9985 ####[facility] [address] [place], [address] Globulin (S) [Mass/Vol] 3.3 g/dL Normal 2.2-4.2 [facility] Comment on above: Performed By: #### L 100.0100, L500.4050, L500.4100, L501.9910, L501.9985 ####[facility] [address] [place], [address] Glucose [Mass/Vol] 150 mg/dL High 74-106 [facility] Comment on above: Result Comment: Fast ing Glucose result greater than or equal to 126 mg/dL suggests DIABETES MELLITUS per A.D.A. criteria. Performed By: #### L 100.0100, L500.4050, L500.4100, L501.9910, L501.9985 ####[facility] [address] [place], [address] Potassium [Moles/Vol] 4.2 mmol/L Normal 3.5-5.1 [facility] Comment on above: Performed By: #### L 100.0100, L500.4050, L500.4100, L501.9910, L501.9985 ####[facility] [address] [place], [address] Sodium [Moles/Vol] 139 mmol/L Normal 136-145 [facility] Comment on above: Performed By: #### L 100.0100, L500.4050, L500.4100, L501.9910, L501.9985 ####[facility] [address] [place], [address] T PROT 7.1 g/dL Normal 6.4-8.2 [facility] Comment on above: Performed By: #### L 100.0100, L500.4050, L500.4100, L501.9910, L501.9985 ####[facility] [address] [place], [address] Urea nitrogen [Mass/Vol] 15 mg/dL Normal 7-18 [facility] Comment on above: Performed By: #### L 100.0100, L500.4050, L500.4100, L501.9910, L501.9985 ####[facility] [address] [place], [address] Hemoglobin A1con 07-30-2024 HbA1c (Bld) [Mass fraction] 5.9 % High 3.8-5.6 [facility] Comment on above: Result Comment: Norm al < 5.7 % Prediabetic 5.7 - 6.4 % Diabetic >or= 6.5 % Please note range changes. Performed By: #### L 100.0100, L500.4050, L500.4100, L501.9910, L501.9985 ####[facility] [address] [place], [address] Lipid Profileon 07-30-2024 Cholesterol [Mass/Vol] 182 mg/dL Normal 200 [facility] Comment on above: Result Comment: <200 mg/dL Desirable 200-240 mg/dL Borderline >240 mg/dL High Risk Performed By: #### L 100.0100, L500.4050, L500.4100, L501.9910, L501.9985 ####[facility] [address] [place], [address] Cholesterol in HDL [Mass/Vol] 72 mg/dL Normal [facility] Comment on above: Result Comment: The drugs N-Acetylcysteine and Metamizole may falsely depress this assay. Reference Range HDL <40 mg/dL Low HDL Cholesterol HDL >or= 60 mg/dL High HDL Cholesterol Performed By: #### L 100.0100, L500.4050, L500.4100, L501.9910, L501.9985 ####[facility] [address] [place], [address] Cholesterol in LDL [Mass/Vol] 93 mg/dL Normal 0-130 [facility] Comment on above: Performed By: #### L 100.0100, L500.4050, L500.4100, L501.9910, L501.9985 ####[facility] [address] [place], [address] Cholesterol in VLDL [Mass/Vol] 17 mg/dL Normal 5-40 [facility] Comment on above: Performed By: #### L 100.0100, L500.4050, L500.4100, L501.9910, L501.9985 ####[facility] [address] [place], [address] Triglyceride [Mass/Vol] 83 mg/dL Normal [facility] Comment on above: Result Comment: The drugs N-Acetylcysteine and Metamizole may falsely depress this assay. Serum Triglycerides Reference Interval Normal <150 mg/dL Borderline high 150 - 199 mg/dL High 200 - 499 mg/dL Very High > or = 500 mg/dL Performed By: #### L 100.0100, L500.4050, L500.4100, L501.9910, L501.9985 ####[facility] [address] [place], [address] PSA,Total - Annual Screenon 07-30-2024 PSA,TOT SCREEN 0.19 ng/mL Normal 0.00-4.00 [facility] Comment on above: Result Comment: This test was performed using the TPSA assay method for the [employer] system. Values obtained with different assay methods cannot be used interchangably. When changing PSA assays in the course of monitoring a patient, additional sequential testing should be carried out to confirm baseline values. Performed By: #### L 100.0100, L500.4050, L500.4100, L501.9910, L501.9985 ####[facility] [address] [place], [address] Basophil percentageOrdered B y: Erick Gonzalez on 02-14-2024 Testosterone [Mass/Vol] 533.38 ng/dL [facility] Comment on above: CENTRAL 90% REFERENC E RANGES MALE AGE <50 197.44 - 669.58 ng/dL MALE AGE > or = 50 187.72 - 684.19 ng/dL FEMALE AGE <50 8.38 - 35.01 ng/dL FEMALE AGE > or = 50 <7.00 - 35.92 ng/dL Effective as of 06/15/21 No Panel InformationOrdered By: Erick Gonzalez on 02-14-2024 Ionized Calcium 5.21 mg/dL 4.36-5.20 [facility] Parathyroid Hormone (Intact) 56.0 pg/mL 18.4-80.1 [facility] Vitamin D 25-Hydroxy 18.3 ng/mL [facility] Comment on above: Vitamin D 25(OH) Sta tus Range Deficiency <20 ng/mL (50nmol/L) Insufficiency 20 - 30 ng/mL (50 - 75 nmol/L) Sufficiency 30 - 100 ng/mL (75 - 250 nmol/L) Toxicity >100 ng/mL (>250 nmol/L) Serum or plasma calcitriol m easurement (mass/volume)Ordered By: Erick Gonzalez on 02-14-2024 1,25-dihydroxyvitamin D3 [Mass/Vol] 41.4 pg/mL 24.8-81.5 [facility] Comment on above: Performed at: [facility] [address] [id number] Director: Fausto Baird MD, Phone: [phone] Absolute lymphocyte countOrd ered By: Erick Gonzalez on 01-18-2024 Lymphocytes Auto (Unsp spec) [#/Vol] 1.76 10*3/uL 0.83-4.51 [facility] Automated lymphocyte count a s percentage of total leukocytesOrdered By: Erick Gonzalez on 01-18-2024 Lymphocytes/100 WBC Auto (Unsp spec) 47.8 % 19-41 [facility] Basophil percentageOrdered B y: Erick Gonzalez on 01-18-2024 Basophils/100 WBC (Bld) 1.1 % 0-1 [facility] Bilirubin [Mass/Vol] 0.80 mg/dL 0.20-1.00 [facility] Comment on above: For patients on eltr ombopag therapy, use of Dimension Ferrum TBIL is not recommended. Chloride [Moles/Vol] 108 mmol/L 98-107 [facility] Cholesterol [Mass/Vol] 163 mg/dL <200 [facility] Comment on above: <200 mg/dL Desirable 200-240 mg/dL Borderline >240 mg/dL High Risk Eosinophils/100 WBC (Bld) 2.2 % 0-5 [facility] Glucose [Mass/Vol] 129 mg/dL 74-106 [facility] Comment on above: Fasting Glucose resu lt greater than or equal to 126 mg/dL suggests DIABETES MELLITUS per A.D.A. criteria. Hemoglobin (Bld) [Mass/Vol] 16.1 g/dL 13.0-16.5 [facility] Monocytes/100 WBC (Bld) 9.5 % 0-10 [facility] Neutrophils (Bld) [#/Vol] 1.5 10*3/uL 2.0-7.7 [facility] Neutrophils/100 WBC (Bld) 39.4 % 47-70 [facility] Potassium [Moles/Vol] 4.2 mmol/L 3.5-5.1 [facility] Protein [Mass/Vol] 7.3 g/dL 6.4-8.2 [facility] Sodium [Moles/Vol] 141 mmol/L 136-145 [facility] Triglyceride [Mass/Vol] 65 mg/dL <199 [facility] Comment on above: The drugs N-Acetylcy steine and Metamizole may falsely depress this assay.Serum Triglycerides Reference Interval Normal <150 mg/dL Borderline high 150 - 199 mg/dL High 200 - 499 mg/dL Very High > or = 500 mg/dL WBC (Bld) [#/Vol] 3.7 10*3/uL 4.4-11.0 [facility] Determination of erythrocyte mean corpuscular volume (MCV)Ordered By: Erick Gonzalez on 01-18-2024 MCV (RBC) [Entitic vol] 91.6 fL 80-94 [facility] Erythrocyte distribution wid th ratioOrdered By: Erick Gonzalez on 01-18-2024 Erythrocyte distribution width (RBC) [Ratio] 12.7 % 11.6-14.6 [facility] Erythrocyte distribution wid th standard deviationOrdered By: Erick Gonzalez on 01-18-2024 Erythrocyte distribution width (RBC) [Entitic vol] 43.0 fL 35.1-43.9 [facility] Hematocrit Auto (Bld) [Volum e fraction]Ordered By: Erick Gonzalez on 01-18-2024 Hematocrit (Bld) [Volume fraction] 46.8 % 40-54 [facility] Immature granulocytes/100 WB C Auto (Bld)Ordered By: Erick Gonzalez on 01-18-2024 Immature granulocytes/100 WBC (Bld) 0.000 % 0.0-0.9 [facility] Comment on above: IG% - Immature Granu locytes (promyelocytes, myelocytes and metamyelocytes) > 1% indicates that a LEFT SHIFT is Present. Laboratory - Chemistry and C hemistry - challengeOrdered By: Erick Gonzalez on 01-18-2024 Albumin/Globulin [Mass ratio] 1.0 {ratio} 0.9-2.4 [facility] ALP [Catalytic activity/Vol] 78 U/L 45-117 [facility] ALT [Catalytic activity/Vol] 56 U/L 16-61 [facility] Cholesterol in HDL [Mass/Vol] 69 mg/dL >40 [facility] Comment on above: The drugs N-Acetylcy steine and Metamizole may falsely depress this assay. Reference Range HDL <40 mg/dL Low HDL Cholesterol HDL >or= 60 mg/dL High HDL Cholesterol Cholesterol in LDL [Mass/Vol] 81 mg/dL 0-130 [facility] CO2 [Moles/Vol] 28.0 mmol/L 21.0-32.0 [facility] Globulin (S) [Mass/Vol] 3.7 g/dL 2.2-4.2 [facility] Urea nitrogen/Creatinine [Mass ratio] 9.0 mg/mg 10-20 [facility] Laboratory - Hematology and Cell countsOrdered By: Erick Gonzalez on 01-18-2024 MCH (RBC) [Entitic mass] 31.5 pg 27.0-32.0 [facility] MCHC (RBC) [Mass/Vol] 34.4 g/dL 32-36 [facility] Nucleated RBC/100 WBC (Bld) [Ratio] 0 % 0-5 [facility] Platelet mean volume (Bld) [Entitic vol] 11.3 fL 6.2-12.0 [facility] Platelets (Bld) [#/Vol] 140 10*3/uL 150-450 [facility] No Panel InformationOrdered By: Erick Gonzalez on 01-18-2024 Estimated GFR (MDRD) Amer 110 mL/min >60 [facility] Comment on above: GFR Calc Estimated GFR (MDRD) Non-Af Amer 91 mL/min >60 [facility] Comment on above: Non- GFR Calc VLDL Cholesterol 13 mg/dL 5-40 [facility] RBC Auto (Bld) [#/Vol]Ordere d By: Erick Gonzalez on 01-18-2024 RBC (Bld) [#/Vol] 5.11 10*6/uL 4.6-6.2 [facility] Serum or plasma calcium john urement (mass/volume)Ordered By: Erick Gonzalez on 01-18-2024 Calcium [Mass/Vol] 10.2 mg/dL 8.5-10.1 [facility] Serum or plasma creatinine m easurement (mass/volume)Ordered By: Erick Gonzalez on 01-18-2024 Creatinine [Mass/Vol] 0.89 mg/dL 0.70-1.30 [facility] Comment on above: The validity of the calculated GFR & GFRAA in patients over 70 years has not been determined. Clinical correlation is essential. Serum or plasma urea nitroge n measurement (mass/volume)Ordered By: Erick Gonzalez on 01-18-2024 Urea nitrogen [Mass/Vol] 8 mg/dL 7-18 [facility] Thin prep Papanicolaou smear with manual screeningOrdered By: Erick Gonzalez on 01-18-2024 Thin prep Papanicolaou smear with manual screening 3.6 g/dL 3.2-5.0 [facility] [facility] Thin prep Papanicolaou smear with manual screening 43 U/L 15-37 [facility] Thin prep Papanicolaou smear with manual screening 5 5-15 [facility] Whole blood hemoglobin A1c/t otal hemoglobin ratio (mass fraction)Ordered By: Erick Gonzalez on 01-18-2024 HbA1c (Bld) [Mass fraction] 6.1 % 3.8-5.6 [facility] Comment on above: Normal < 5.7 % Predi abetic 5.7 - 6.4 % Diabetic >or= 6.5 % Please note range changes. Laboratory - Drug toxicology Ordered By: Hilary Stacy on 01-17-2024 Amphetamines Ql (U) Negative <1000 ng/mL [facility] Benzodiazepines Ql (U) Negative < 200 ng/mL [facility] Cannabinoids Screen Ql (U) Negative < 50 ng/mL [facility] Cocaine Ql (U) Negative < 300 ng/mL [facility] Opiates Ql (U) Positive < 300 ng/mL [facility] No Panel InformationOrdered By: Hilary Stacy on 01-17-2024 MDMA (Ecstasy) Screen Negative < 500 ng/mL [facility] Miscellaneous Test See comment [facility] Comment on above: [id number] 6+OXYCODONE-B UND (ng/mL) DRUG RESULT SCREEN CUTOFF____ [...] includes Oxycodone and Oxymorphone. TESTING PERFORMED AT [facility]. ORIGINAL REPORT ON FILE IN LAB CONTAINS ADDITIONAL TEST SITE INFORMATION. Urine Barbiturates Screen Negative < 200 ng/mL [facility] Urine Drug Screen Comment [facility] Comment on above: CONFIRMATORY TESTING FOR [...] Urine Methadone Screen Negative < 300 ng/mL [facility] Urine phencyclidine (PCP) de tectionOrdered By: Hilary Stacy on 01-17-2024 Phencyclidine Ql (U) Negative < 25 ng/mL [facility] Absolute lymphocyte countOrd ered By: Erick Gonzalez on 07-20-2023 Lymphocytes Auto (Unsp spec) [#/Vol] 1.69 10*3/uL 0.83-4.51 [facility] Basophil percentageOrdered B y: Erick Gonzalez on 07-20-2023 Basophils/100 WBC (Bld) 1.3 % 0-1 [facility] Bilirubin [Mass/Vol] 1.00 mg/dL 0.20-1.00 [facility] Comment on above: For patients on eltr ombopag therapy, use of Dimension Ferrum TBIL is not recommended. Chloride [Moles/Vol] 105 mmol/L 98-107 [facility] Cholesterol [Mass/Vol] 185 mg/dL <200 [facility] Comment on above: <200 mg/dL Desirable 200-240 mg/dL Borderline >240 mg/dL High Risk Eosinophils/100 WBC (Bld) 3.2 % 0-5 [facility] Glucose [Mass/Vol] 138 mg/dL 74-106 [facility] Comment on above: Fasting Glucose resu lt greater than or equal to 126 mg/dL suggests DIABETES MELLITUS per A.D.A. criteria. Neutrophils (Bld) [#/Vol] 1.1 10*3/uL 2.0-7.7 [facility] Neutrophils/100 WBC (Bld) 34.1 % 47-70 [facility] Potassium [Moles/Vol] 4.1 mmol/L 3.5-5.1 [facility] Protein [Mass/Vol] 7.3 g/dL 6.4-8.2 [facility] Sodium [Moles/Vol] 141 mmol/L 136-145 [facility] Triglyceride [Mass/Vol] 91 mg/dL <199 [facility] Comment on above: The drugs N-Acetylcy steine and Metamizole may falsely depress this assay.Serum Triglycerides Reference Interval Normal <150 mg/dL Borderline high 150 - 199 mg/dL High 200 - 499 mg/dL Very High > or = 500 mg/dL WBC (Bld) [#/Vol] 3.1 10*3/uL 4.4-11.0 [facility] Blood erythrocytes count (nu mber/volume)Ordered By: Erick Gonzalez on 07-20-2023 RBC (Bld) [#/Vol] 4.95 10*6/uL 4.6-6.2 [facility] Blood hemoglobin measurement (mass/volume)Ordered By: Erick Gonzalez on 07-20-2023 Hemoglobin (Bld) [Mass/Vol] 16.3 g/dL 13.0-16.5 [facility] Blood lymphocytes/100 leukoc ytesOrdered By: Erick Gonzalez on 07-20-2023 Lymphocytes/100 WBC (Bld) 53.8 % 19-41 [facility] Blood monocytes/100 leukocyt esOrdered By: Erick Gonzalez on 07-20-2023 Monocytes/100 WBC (Bld) 7.6 % 0-10 [facility] Blood platelet mean volumeOr dered By: Erick Gonzalez on 07-20-2023 Platelet mean volume (Bld) [Entitic vol] 11.6 fL 6.2-12.0 [facility] Determination of erythrocyte mean corpuscular volume (MCV)Ordered By: Erick Gonzalez on 07-20-2023 MCV (RBC) [Entitic vol] 92.9 fL 80-94 [facility] Hematocrit Auto (Bld) [Volum e fraction]Ordered By: Erick Gonzalez on 07-20-2023 Hematocrit (Bld) [Volume fraction] 46.0 % 40-54 [facility] Laboratory - Chemistry and C hemistry - challengeOrdered By: Erick Gonzalez on 07-20-2023 ALP [Catalytic activity/Vol] 72 U/L 45-117 [facility] ALT [Catalytic activity/Vol] 90 U/L 16-61 [facility] CO2 [Moles/Vol] 32.0 mmol/L 21.0-32.0 [facility] Globulin (S) [Mass/Vol] 3.6 g/dL 2.2-4.2 [facility] Urea nitrogen/Creatinine [Mass ratio] 9.1 mg/mg 10-20 [facility] Laboratory - Hematology and Cell countsOrdered By: Erick Gonzalez on 07-20-2023 Erythrocyte distribution width (RBC) [Entitic vol] 44.9 fL 35.1-43.9 [facility] Erythrocyte distribution width (RBC) [Ratio] 13.2 % 11.6-14.6 [facility] Immature granulocytes/100 WBC (Bld) 0.000 % 0.0-0.9 [facility] Comment on above: IG% - Immature Granu locytes (promyelocytes, myelocytes and metamyelocytes) > 1% indicates that a LEFT SHIFT is Present. MCH (RBC) [Entitic mass] 32.9 pg 27.0-32.0 [facility] Nucleated RBC/100 WBC (Bld) [Ratio] 0 % 0-5 [facility] MCHC Auto (RBC) [Mass/Vol]Or dered By: Erick Gonzalez on 07-20-2023 MCHC (RBC) [Mass/Vol] 35.4 g/dL 32-36 [facility] No Panel InformationOrdered By: Erick Gonzalez on 07-20-2023 Estimated GFR (MDRD) Amer 111 mL/min >60 [facility] Comment on above: GFR Calc Estimated GFR (MDRD) Non-Af Amer 91 mL/min >60 [facility] Comment on above: Non- GFR Calc Prostate Specific Antigen Screen 0.21 ng/mL 0.00-4.00 [facility] Comment on above: This test was perfor med using the TPSA assay method for [employer] chemistry system. Values obtained with differentassay methods cannot be used interchangably.When changing PSA assays in the course of monitoring apatient, additional sequential testing should be carriedout to confirm baseline values. Platelets bldOrdered By: Gillian Gonzalez on 07-20-2023 Platelets (Bld) [#/Vol] 114 10*3/uL 150-450 [facility] Serum or plasma albumin john urement (mass/volume)Ordered By: Erick Gonzalez on 07-20-2023 Albumin [Mass/Vol] 3.7 g/dL 3.2-5.0 [facility] Serum or plasma albumin/glob ulin mass ratioOrdered By: Erick Gonzalez on 07-20-2023 Albumin/Globulin [Mass ratio] 1.0 {ratio} 0.9-2.4 [facility] Serum or plasma calcium john urement (mass/volume)Ordered By: Erick Gonzalez on 07-20-2023 Calcium [Mass/Vol] 9.8 mg/dL 8.5-10.1 [facility] Serum or plasma cholesterol in HDL measurement (mass/volume)Ordered By: rEick Gonzalez on 07-20-2023 Cholesterol in HDL [Mass/Vol] 64 mg/dL >40 [facility] Comment on above: The drugs N-Acetylcy steine and Metamizole may falsely depress this assay. Reference Range HDL <40 mg/dL Low HDL Cholesterol HDL >or= 60 mg/dL High HDL Cholesterol Serum or plasma cholesterol in VLDL measurement (mass/volume)Ordered By: Erick Gonzalez on 07-20-2023 Cholesterol in VLDL [Mass/Vol] 18 mg/dL 5-40 [facility] Serum or plasma creatinine m easurement (mass/volume)Ordered By: Erick Gonzalez on 07-20-2023 Creatinine [Mass/Vol] 0.88 mg/dL 0.70-1.30 [facility] Comment on above: The validity of the calculated GFR & GFRAA in patients over 70 years has not been determined. Clinical correlation is essential. Serum or plasma low density lipoprotein (LDL) cholesterol measurement (mass/volume)Ordered By: Erick Gonzalez on 07-20-2023 Cholesterol in LDL [Mass/Vol] 103 mg/dL 0-130 [facility] Serum or plasma urea nitroge n measurement (mass/volume)Ordered By: Erick Gonzalez on 07-20-2023 Urea nitrogen [Mass/Vol] 8 mg/dL 7-18 [facility] Thin prep Papanicolaou smear with manual screeningOrdered By: Erick Gonzalez on 07-20-2023 Thin prep Papanicolaou smear with manual screening 66 U/L 15-37 [facility] Thin prep Papanicolaou smear with manual screening 4 5-15 [facility] Whole blood hemoglobin A1c/t otal hemoglobin ratio (mass fraction)Ordered By: Erick Gonzlaez on 07-20-2023 HbA1c (Bld) [Mass fraction] 5.9 % 3.8-5.6 [facility] Comment on above: Normal < 5.7 % Predi abetic 5.7 - 6.4 % Diabetic >or= 6.5 % Please note range changes. Laboratory - Drug toxicology Ordered By: Dr. Stacy on 05-10-2023 Amphetamines Ql (U) Negative <1000 ng/mL [facility] Benzodiazepines Ql (U) Negative < 200 ng/mL [facility] Cannabinoids Screen Ql (U) Negative < 50 ng/mL [facility] Cocaine Ql (U) Negative < 300 ng/mL [facility] Opiates Ql (U) Positive < 300 ng/mL [facility] No Panel InformationOrdered By: Dr. Stacy on 05-10-2023 MDMA (Ecstasy) Screen Negative < 500 ng/mL [facility] Urine Barbiturates Screen Negative < 200 ng/mL [facility] Urine Drug Screen Comment [facility] Comment on above: CONFIRMATORY TESTING FOR [...] Urine Methadone Screen Negative < 300 ng/mL [facility] No Panel InformationOrdered By: Hilary Stacy on 05-10-2023 Miscellaneous Test See comment [facility] Comment on above: [id number] 6+OXYCODONE-B UND (ng/mL) DRUG RESULT SCREEN CUTOFF____ [...] includes Oxycodone and Oxymorphone. TESTING PERFORMED AT [facility]. ORIGINAL REPORT ON FILE IN LAB CONTAINS ADDITIONAL TEST SITE INFORMATION. Urine phencyclidine (PCP) de tectionOrdered By: Dr. Stacy on 05-10-2023 Phencyclidine Ql (U) Negative < 25 ng/mL [facility] CNOVon 04-19-2023 CNOV Office Visit (ORNA ) -------- DANA HUBBARD ([id number]) 1955 M Be Co* Date Time Provider [...] of lef (more content not included)... Normal [facility] MRI ELBOW WO IVCON LEFTon [facility] MRI ELBOW WO IVCON LTon 05-0 MRI ELBOW WO IVCON LT * * *Final Report* * * DATE OF EXAM: Mar 22 2023 8:50AM [facility] 0188 - MRI ELBOW WO IVCON LT [...] Insertional triceps enthesitis and trace olecranon bursitis. Plater Helper: TRACEY Transcribe Date/Time: Mar 22 2023 9:34A Dictated by : ASHLEY SILVA MD This examination was interpreted and the report reviewed and electronically signed by: ASHLEY SILVA MD on Mar 22 2023 9:41AM EST [id number] Normal [facility] CNOVon 02-23-2023 CNOV Office Visit (ORTHWS ) -------- HUBBARDDANA BURGOS ([id number]) 1955 [facility] Date Time Provider Department 02/23/23 1:15 PM [...] elbow previously with Dr. Epstein at [facility]. Pt states pain does not [...] in detailed. (more content not included)... Normal [facility] No Panel Informationon 02-23 [facility] XR ELBOW 2V AP/LAT LTon XR ELBOW [...] well-maintained. IMPRESSION: No bone or articular disease Plater Helper: TRACEY Transcribe Date/Time: Feb 23 2023 6:37P Dictated by : YOLETTE DAS MD This examination was interpreted and the report reviewed and electronically signed by: YOLETTE DAS MD on Feb 23 2023 6:38PM EST [id number] Normal [facility] Shaheed 02-15-2023 JOSEFINA Telephone (ORTHWS) -------- DANA HUBBARD ([id number]) 1955 M Be Co* Date Time Provider [...] by DEIRDRE BENJAMIN MA on 02/15/23 Normal [facility] Laboratory - Drug toxicology on 07-06-2022 Amphetamines Ql (U) Negative <1000 ng/mL [facility] Work Phone: Benzodiazepines Ql (U) Negative < 200 ng/mL [facility] Work Phone: Cannabinoids Screen Ql (U) Negative < 50 ng/mL [facility] Work Phone: Cocaine Ql (U) Negative < 300 ng/mL [facility] Work Phone: Opiates Ql (U) Positive < 300 ng/mL [facility] Work Phone: No Panel Informationon 07-06 MDMA (Ecstasy) Screen Negative < 500 ng/mL [facility] Work Phone: Urine Barbiturates Screen Negative < 200 ng/mL [facility] Work Phone: Urine Drug Screen Comment [facility] Work Phone: Comment on above: CONFIRMATORY [...] Urine Methadone Screen Negative < 300 ng/mL [facility] Work Phone: Urine phencyclidine (PCP) de tectionon 07-06-2022 Phencyclidine Ql (U) Negative < 25 ng/mL [facility] Work Phone: ANES POSTPROC EVALon 021 ANES POSTPROC EVAL HNO ID: [id number] Author: Arnav Orourke MD Service: Anesthesiology Author Type: Anesthesiologist Type: Anesthesia Postprocedure Evaluation Filed: 04/08/2021 4:29 PM Note Text: POST ANESTHESIA EVALUATION NOTE : 1955 Procedure Summary Date: 04/08/21 Room / Location: [place]02 [place] Anesthesia Start: 1143 Anesthesia Stop: 1331 [...] April 08, 2021 TIME: 4:29 PM CSN: [id number] [facility] ANES PRE-OPon 04-08-2021 ANES PRE-OP HNO ID: [id number] Author: Arnav Orourke MD Service: Anesthesiology Author [...] April 08, 2021 TIME: 10:28 AM CSN: [id number] [facility] BRIEF OP NOTon 04-08-2021 BRIEF OP NOT HNO ID: [id number] Author: Jesus Bernard MD Service: Neurosurgery Author Type: Physician Type: Brief Op Note Filed: 04/08/2021 12:55 PM Note Text: BRIEF OPERATIVE / PROCEDURE NOTE LOG ID: [id number] SURGERY/PROCEDURE DATE: 04/08/2021 INCISION/PROCEDURE START TIME: 12:08 PM INCISION CLOSE/PROCEDURE END TIME: SURGEON(S)/PROCEDURALIST (S) AND TELECOMMUNICATIONS CLERK(S): Surgeon(s) and Role: * Jesus Bernard MD - Primary Nurse Practitioner: Sweta Escalante APRN.CNP SURGERY/PROCEDURE(S): Removal of SCS and battery ANESTHESIA: General FINDINGS: [employer] paddle lead and battery ESTIMATED BLOOD LOSS: 10 mls SPECIMENS: None COMPLICATIONS: None None PRE-OP/PRE-PROCEDURE DIAGNOSIS: Nonfunctional SCS POST-OP/POST-PROCEDURE DIAGNOSIS: Same as Preop SIGNATURE: Jesus Bernard MD PATIENT NAME: Dana Hubbard DATE: April 08, 2021 TIME: 12:54 PM Normal [facility] OPERATIVE NOon 04-08-2021 OPERATIVE NO HNO ID: [id number] Author: Jesus Bernard MD Service: Neurosurgery Author Type: Physician Type: Operative Report Filed: 04/10/2021 8:05 AM Note Text: [facility] - Operative Report DANA HUBBARD : 1955 AGE: 66. SEX: M PATIENT TYPE: A HOSP [facility] [place]: [facility] LOCATION: [facility] ATTENDING PHYSICIAN: Jesus Bernard M.D. CSN NUMBER: [id number] DATE OF SURGERY/PROCEDURE: 04/08/2021 INCISION/PROCEDURE START TIME: 12:08 PM INCISION CLOSE/PROCEDURE END TIME: 1:17 PM PREOPERATIVE DIAGNOSIS: Nonfunctional spinal cord stimulator. POSTOPERATIVE DIAGNOSIS: Nonfunctional spinal cord stimulator. SURGEON: Jesus Bernard M.D. TELECOMMUNICATIONS CLERK: Sweta Escalante CNP. SURGERY/PROCEDURE: Removal of spinal cord stimulator and battery ANESTHESIA: General endotracheal. PROCEDURE: Removal of spinal cord stimulator paddle lead and battery. ESTIMATED BLOOD LOSS: Approximately 10. COMPLICATIONS: None. SPECIMENS: [employer] paddle lead and battery are removed [...] it was fully exposed and then the [employer] drill used to thin the lamina and [...] case to perform safely. Jesus Bernard M.D. [facility]:[id number] /[id number] [facility] HISTORY PHYSICALon HISTORY PHYSICAL HNO ID: [id number] Author: Raina Martinez PA-C Service: ? Author Type: Physician Die Forger Type: HANDP Filed: 04/07/2021 12:55 PM Note [...] and hypertension Patient[facility]. Negative for: atrial fibrillation, chest [...] mg capsule Ta (more content not included)... [facility] NURSING PROGon 04-07-2021 NURSING PROG HNO ID: [id number] Author: Shasha Mcnulty RN Service: ? Author [...] Shasha Mcnulty RN April 07, 2021 1414 [facility] CNOVon 05-29-2017 CNOV Office Visit (AGHWW1) DANA EUCEDA ([id number]) 1955 MDate Time Provider Department05/29/17 1:00 PM [...] of Service: EST PATIENT VISIT LEVEL 3 [[id number]]Disposition: Return if symptoms worsen or fail to improve.Follow-up and Disposition History RecordedEncounter Number: [id number] Status:Closed by JESUS LY MD on 05/29/17 [facility] PROGRESSon 05-29-2017 PROGRESS HNO ID: [id number]: Jesus Ly Jr.Service: (none)Author Type: PhysicianType: Progress NotesFiled: 05/29/2017 1:01 PMNote Text:05/29/2017Date of : 1955Subjective: Dana comes in with his old postoperative back pain he stillin the pain clinic still has a spinal cord stimulator in there. It hasn'tbeen in a good position is causing rib pain he saw Dr. Gacría Koehler not 1 to do anything as [...] Ly Jr, MDDictated but not read. Normal [facility] PROGRESS HNO ID: [id number]: Jericho Lisaice: (none)Author Type: (none)Type: Progress NotesFiled: 05/29/2017 1:01 PMNote Text:REVIEW OF SYSTEMS:GENERAL: Well developed, well nourished. No acute distressPAIN: Back, ArthritisCARDIOVASCULAR: Negative for chest pain, leg swelling and palpations.MSK: Negative for joint pain, swelling, back pain, muscle pain.SKIN: Negative for lesions, rash, itching, metal sensitivityNEURO: R Leg, R Foot, R ToesENDOCRINE: Negative for Diabetes Type 1 and Type 2HEMATOLOGY: Bleed Easily Normal [facility] Office Visiton 05-15-2017 Dietary management education, guidance, and counseling (procedure) yes Invalid Interpretation Code [facility] Work Phone: [phone] Documentation of current medications (procedure) Done Invalid Interpretation Code [facility] Work Phone: [phone] Fall risk assessment No [employer] Work Phone: [phone] Protein mass conc Done [facility] Work Phone: [phone] Office Visiton 11-09-2016 Dietary management education, guidance, and counseling (procedure) yes Invalid Interpretation Code [facility] Work Phone: [phone] Documentation of current medications (procedure) Done Invalid Interpretation Code [facility] Work Phone: [phone] Clinical Lists Update: Prelo ammonia solution preparer 10-28-2016 Anion gap 5 mmol/L Invalid Interpretation Code [facility] Work Phone: [phone] Anion gap molar conc 5 mmol/L [employer] Work Phone: [phone] BUN/Creatinine Ratio 19.6 mg/mg [facility] Work Phone: [phone] Calcium 9.2 mg/dL [facility] Work Phone: [phone] Chloride 105 mmol/L [facility] Work Phone: [phone] CO2 30.0 mmol/L Invalid Interpretation Code [facility] Work Phone: [phone] CO2 ppres (BldV) 30.0 mmol/L [facility] Work Phone: [phone] Creatinine 0.97 mg/dL [facility] Work Phone: [phone] Glucose 126 mg/dL High [facility] Work Phone: [phone] Glucose mass conc 126 mg/dL High [facility] Work Phone: [phone] HbA1c 7.1 % [facility] Work Phone: [phone] Magnesium 2.1 mg/dL [facility] Work Phone: [phone] Potassium 4.0 mmol/L [facility] Work Phone: [phone] Sodium 140 mmol/L [facility] Work Phone: [phone] Urea nitrogen 19 mg/dL High [facility] Work Phone: [phone] Clinical Lists Update: Prelo ammonia solution preparer 04-29-2016 Cholesterol 203 mg/dL [facility] Work Phone: [phone] HDL Cholesterol 43 mg/dL [facility] Work Phone: [phone] LDL Cholesterol 149 mg/dL [facility] Work Phone: [phone] Triglyceride 57 mg/dL [facility] Work Phone: [phone] Office Visiton 03-11-2016 Tobacco smoking status NHIS Current [facility] Work Phone: [phone] Replaced Document: Sarahmark E CG Observationson 03-11-2016 EKG QRS axis 5 deg [facility] Work Phone: [phone] electrocardiogram interpretation Sinus Bradycardia WITHIN NORMAL LIMITS Invalid Interpretation Code [facility] Work Phone: [phone] GE use only - for [employer] import when terms are not otherwise specified 399 ms Invalid Interpretation Code [employer] innovate | mentor | [facility] Work Phone: [phone] Interpretation Sinus Bradycardia WI THIN NORMAL LIMITS [facility] Work Phone: [phone] P Greenleaf 44 deg [facility] Work Phone: [phone] P wave axis, electrocardiogram 44 deg Invalid Interpretation Code [facility] Work Phone: [phone] DC Interval 158 ms [facility] Work Phone: [phone] DC interval, electrocardiogram 158 ms Invalid Interpretation Code [facility] Work Phone: [phone] Pulse (Heart Rate) 56 /min Invalid Interpretation Code [facility] Work Phone: [phone] QRS axis, electrocardiogram 5 deg Invalid Interpretation Code [facility] Work Phone: [phone] QRS Duration 96 ms [facility] Work Phone: [phone] QRS duration, electrocardiogram 96 ms Invalid Interpretation Code [facility] Work Phone: [phone] QT Interval new path ms [facility] Work Phone: [phone] QT interval, electrocardiogram new path ms Invalid Interpretation Code [facility] Work Phone: [phone] QTc Multani 399 ms [facility] Work Phone: [phone] T Greenleaf -1 deg [facility] Work Phone: [phone] T wave axis, electrocardiogram -1 deg Invalid Interpretation Code [facility] Work Phone: [phone] Clinical Lists Update: Pre 03-04-2016 Left ventricular Ejection fraction 65 % [facility] Work Phone: [phone] Clinical Lists Update: Pre 02-10-2016 Alanine aminotransferase (ALT) 137 U/L High [facility] Work Phone: [phone] Albumin 4.4 g/dL [facility] Work Phone: [phone] Alkaline phosphatase (ALP) 78 U/L Invalid Interpretation Code [facility] Work Phone: [phone] ALP enzyme act/vol (Bld) 78 U/L [facility] Work Phone: [phone] Aspartate aminotransferase (AST) 92 U/L High [facility] Work Phone: [phone] Bilirubin (total) 1.6 mg/dL High [facility] Work Phone: [phone] Cholesterol to HDL Ratio 4.69 {ratio} [facility] Work Phone: [phone] LDL/HDL ratio, serum 3.[address] [facility] Work Phone: [phone] Protein 7.6 g/dL [facility] Work Phone: [phone] Thyroid stimulating hormone (TSH) 1.680 u[iU]/mL [facility] Work Phone: [phone] Thyroxine (T4) free 1.1 ng/dL [facility] Work Phone: [phone] very low density lipoproteins 18 mg/dL [facility] Work Phone: [phone] Clinical Lists Update: Prelo ammonia solution preparer 12-21-2015 Hematocrit (HCT) 44.8 % Invalid Interpretation Code [facility] Work Phone: [phone] Hematocrit Volume Fraction (Bld) 44.8 % [facility] Work Phone: [phone] Hemoglobin (HGB) 15.3 g/dL [facility] Work Phone: [phone] Platelets 141 10*3/mm3 Invalid Interpretation Code [facility] Work Phone: [phone] Platelets #/vol (Bld) 141 10*3/mm3 [facility] Work Phone: [phone] WBC #/vol (Bld) 6.6 10*3/uL [facility] Work Phone: [phone] WBC (Leukocytes) 6.6 10*3/uL Invalid Interpretation Code [facility] Work Phone: [phone] Office Visit: [facility] 12-10-19 16 Tobacco smoking status NHIS Never smoker [facility] Work Phone: [phone] Tobacco use CPHS Never smoker Invalid Interpretation Code [facility] Work Phone: [phone] Lab Report: Catachol+VMA, 24 HR URon 11-10-2015 dopamine, urine 165 ug/L Invalid Interpretation Code Undefined [facility] Work Phone: [phone] dopamine, urine, 24 hour 215 ug/24h 0-510 [facility] Work Phone: [phone] DOPAMINE,UR 165 ug/L Undefined [facility] Work Phone: [phone] EPINEPHRINE, UR 5 ug/L Undefined [facility] Work Phone: [phone] epinephrine, urine 5 ug/L Invalid Interpretation Code Undefined [facility] Work Phone: [phone] epinephrine, urine, 24 hour 7 ug/24h 0-20 [facility] Work Phone: [phone] NOREPINEPH,UR 40 ug/L Undefined [facility] Work Phone: [phone] norepinephrine, urine 52 ug/24h 0-135 [facility] Work Phone: [phone] norepinephrine, urine 40 ug/L Invalid Interpretation Code Undefined [facility] Work Phone: [phone] vanillylmandelate, urine 2.5 mg/L Undefined [facility] Work Phone: [phone] vanillylmandelic acid, urine, 24 hour 3.3 mg/24h 0.0-7.5 [facility] Work Phone: [phone] Lab Report: Metanephrine Fra c 24 HR URon 11-10-2015 metanephrine, urine 73 ug/L Undefined [facility] Work Phone: [phone] metanephrine, urine, 24 hour 95 ug/24h 45-290 [facility] Work Phone: [phone] normetanephrine, urine 182 ug/L Undefined [facility] Work Phone: [phone] normetanephrine, urine, 24 hour 237 ug/24h 82-500 [facility] Work Phone: [phone] Office Visiton 10-29-2015 cardiac risk group [facility] Work Phone: [phone] General cardiovascular disease 10Y risk [#] [place]D'Agostino N/A [facility] Work Phone: [phone] Clinical Lists Update: Prelo ammonia solution preparer 09-29-2015 Erythrocytes (RBC) 4.77 10*6/uL Invalid Interpretation Code [facility] Work Phone: [phone] MCH 31.9 pg Invalid Interpretation Code [facility] Work Phone: [phone] MCH Entitic mass (RBC) 31.9 pg [facility] Work Phone: [phone] MCHC 34.0 g/dL Invalid Interpretation Code [facility] Work Phone: [phone] MCHC mass conc (RBC) 34.0 g/dL [facility] Work Phone: [phone] MCV 93.7 fL Invalid Interpretation Code [facility] Work Phone: [phone] MCV Entitic volume (RBC) 93.7 fL [facility] Work Phone: [phone] RBC #/vol (Bld) 4.77 10*6/uL [facility] Work Phone: [phone] Vital Signs Date Time Vital Sign Value Performing Clinician Faci lity 06-03-2025 09:59-0400 Body height 177.[address] Erick Gonzalez DO Work Phone: [facility] 06-03-2025 09:59-0400 Body mass index (BMI) [Ratio] 25.1 kg/m2 Dr. Erick Gonzalez DO Work Phone: [facility] 06-03-2025 09:59-0400 Body weight 79.[address] Erick Gonzalez DO Work Phone: [facility] 06-03-2025 09:59-0400 Diastolic blood pressure 72 mm[Hg] Dr. Erick Gonzalez DO Work Phone: [facility] 06-03-2025 09:59-0400 Heart rate 72 /min Dr. Erick Gonzalez DO Work Phone: [facility] 06-03-2025 09:59-0400 Respiratory rate 18 /min Dr. Erick Gonzalez DO Work Phone: [facility] 06-03-2025 09:59-0400 SaO2% (BldA) [Mass fraction] 97 % Dr. Erick Gonzalez DO Work Phone: [facility] 06-03-2025 09:59-0400 Systolic blood pressure 180 mm[Hg] Dr. Erick Gonzalez DO Work Phone: [facility] 01-10-2025 08:04-0500 Body height 177.[address] Erick Gonzalez DO Work Phone: [facility] 01-10-2025 08:04-0500 Body mass index (BMI) [Ratio] 25.1 kg/m2 Dr. Erick Gonzalez DO Work Phone: [facility] 01-10-2025 08:04-0500 Body weight 79.[address] Erick Gonzalez DO Work Phone: [facility] 11-24-2023 08:50-0500 Body height 177.[address] Erick Gonzalez Work Phone: [facility] 11-24-2023 08:50-0500 Body mass index (BMI) [Ratio] 24.3 kg/m2 Dr. Erick Gonzalez Work Phone: [facility] 11-24-2023 08:50-0500 Body weight 77.[address] Erick Gonzalez Work Phone: [facility] 11-24-2023 08:50-0500 Diastolic blood pressure 69 mm[Hg] Dr. Erick Gonzalez Work Phone: [facility] 11-24-2023 08:50-0500 Heart rate 89 /min Dr. Erick Gonzalez Work Phone: [facility] 11-24-2023 08:50-0500 Respiratory rate 18 /min Dr. Erick Gonzalez Work Phone: [facility] 11-24-2023 08:50-0500 SaO2% (BldA) [Mass fraction] 99 % Dr. Erick Gonzalez Work Phone: [facility] 11-24-2023 08:50-0500 Systolic blood pressure 165 mm[Hg] Dr. Erick Gonzalez Work Phone: [facility] 07-04-2023 13:03-0400 Body height 177.[address] Erick Gonzalez Work Phone: [facility] 07-04-2023 13:03-0400 Body mass index (BMI) [Ratio] 25.1 kg/m2 Dr. Erick Gonzalez Work Phone: [facility] 07-04-2023 13:03-0400 Body weight 79.[address] Erick Gonzalez Work Phone: [facility] 07-04-2023 13:03-0400 Diastolic blood pressure 82 mm[Hg] Dr. Erick Gonzalez Work Phone: [facility] 07-04-2023 13:03-0400 Systolic blood pressure 152 mm[Hg] Dr. Erick Gonzalez Work Phone: [facility] 02-14-2023 08:19-0400 Body height 177.[address] Eugenio Olmstead Work Phone: [facility] 02-14-2023 08:19-0400 Diastolic blood pressure 70 mm[Hg] Dr. Eugenio Olmstead Work Phone: [facility] 02-14-2023 08:19-0400 Systolic blood pressure 140 mm[Hg] Dr. Eugenio Olmstead Work Phone: [facility] 02-14-2023 08:19-0400 Body mass index (BMI) [Ratio] 24.2 kg/m2 Dr. Eugenio Olmstead Work Phone: [facility] 02-14-2023 08:19-0400 Body weight 76.[address] Eugenio Olmstead Work Phone: [facility] 02-14-2023 08:19-0400 Heart rate 81 /min Dr. Eugenio Olmstead Work Phone: [facility] 02-14-2023 08:19-0400 Respiratory rate 18 /min Dr. Eugenio Olmstead Work Phone: [facility] 02-14-2023 08:19-0400 SaO2% (BldA) [Mass fraction] 98 % Dr. Eugenio Olmstead Work Phone: [facility] 01-11-2022 07:39-0500 Body height 177.[address] Eugenio Olmstead Work Phone: [facility] Work Phone: 01-11-2022 07:39-0500 Body mass index (BMI) [Ratio] 23.9 kg/m2 Dr. Eugenio Olmstead Work Phone: [facility] Work Phone: 01-11-2022 07:39-0500 Body weight 75.[address] Eugenio Olmstead Work Phone: [facility] Work Phone: 01-11-2022 07:39-0500 Diastolic blood pressure 73 mm[Hg] Dr. Eugenio Olmstead Work Phone: [facility] Work Phone: 01-11-2022 07:39-0500 Heart rate 80 /min Dr. Eugenio Olmstead Work Phone: [facility] Work Phone: 01-11-2022 07:39-0500 Respiratory rate 18 /min Dr. Eugenio Olmstead Work Phone: [facility] Work Phone: 01-11-2022 07:39-0500 SaO2% (BldA) [Mass fraction] 99 % Dr. Eugenio Olmstead Work Phone: [facility] Work Phone: 01-11-2022 07:39-0500 Systolic blood pressure 135 mm[Hg] Dr. Eugenio Olmstead Work Phone: [facility] Work Phone: 01-05-2022 07:10-0500 Body mass index (BMI) [Ratio] 23.4 kg/m2 Dr. Eugenio Olmstead Work Phone: [facility] Work Phone: 01-05-2022 07:10-0500 Body weight 74.[address] Eugenio Olmstead Work Phone: [facility] Work Phone: 01-05-2022 07:10-0500 Diastolic blood pressure 80 mm[Hg] Dr. Eugenio Olmstead Work Phone: [facility] Work Phone: 01-05-2022 07:10-0500 Systolic blood pressure 130 mm[Hg] Dr. Eugenio Olmstead Work Phone: [facility] Work Phone: 05-15-2017 16:07-0400 BMI (Body Mass Index) 25.24 kg/m2 [facility] Work Phone: 05-15-2017 16:07-0400 BP Diastolic 70 mm[Hg] [facility] Work Phone: 05-15-2017 16:07-0400 BP Systolic 152 mm[Hg] [facility] Work Phone: 05-15-2017 16:07-0400 Height 180.34 cm Jackie Carlin [facility] Work Phone: 05-15-2017 16:07-0400 Pulse (Heart Rate) 56 /min [facility] Work Phone: 05-15-2017 16:07-0400 Respiratory Rate 16 /min [facility] Work Phone: 05-15-2017 16:07-0400 Weight 82.1 kg [facility] Work Phone: 11-09-2016 15:36-0500 BMI (Body Mass Index) 25.66 kg/m2 Jesus Rahman MD [facility] Work Phone: 11-09-2016 15:36-0500 BP Diastolic 68 mm[Hg] Jesus Rahman MD [facility] Work Phone: 11-09-2016 15:36-0500 BP Systolic 152 mm[Hg] Jesus Rahman MD [facility] Work Phone: 11-09-2016 15:36-0500 BSA (Body Surface Area) 2.04 m2 Jesus Rahman MD [facility] Work Phone: 11-09-2016 15:36-0500 Pulse (Heart Rate) 60 /min [facility] Work Phone: 11-09-2016 15:36-0500 Respiratory Rate 16 /min Jesus Rahman MD [facility] Work Phone: 11-09-2016 15:36-0500 Weight 83.46 kg Jesus Rahman MD [facility] Work Phone: 03-11-2016 09:48-0400 Heart rate 56 /min Jackie Carlin [facility] Work Phone: 10-29-2015 13:00-0500 Height 180.34 cm Jesus Rahman MD [facility] Work Phone: Encounters Encounter Date Encounter Type Care Provider Facility Start: 07-25-2025 ambulatory Erick Gonzalez Facility: [facility] Start: 06-24-2025 ambulatory Erick Gonzalez Facility: [facility] Start: 06-04-2025 End: 06-04-[address] Erick Gonzalez DO Work Phone: -Laboratory Start: 06-04-2025 End: 06-04-[address] Hilary Stacy MD -Laboratory Work Phone: Start: 06-03-2025 End: 06-03-[address] Kamaljit Knight MD -[facility] Work Phone: Start: 06-03-2025 End: 06-04-[address] Erick Gonzalez DO Work Phone: -[facility] Start: 04-09-2025 End: 04-09-[address] Erick Gonzalez DO Work Phone: [facility] Work Phone: Start: 04-09-2025 End: 04-09-[address] Hilary Stacy MD -Laboratory Work Phone: Start: 04-09-2025 End: 04-09-2025 ambulatory [facility] Facility:[facility] Start: 03-14-2025 End: 03-14-[address] Kenny Fermin MD -[facility] Work Phone: Start: 03-14-2025 End: 03-14-2025 ambulatory [facility] Start: 03-03-2025 End: 03-03-[address] Erick Gonzalez DO Work Phone: [facility] Work Phone: Start: 03-03-2025 End: 03-03-[address] Kenny Fermin MD -[facility] Work Phone: Start: 03-03-2025 End: 03-03-2025 ambulatory [facility] Start: 02-05-2025 End: 02-05-[address] Erick Gonzalez DO Work Phone: [facility] Work Phone: Start: 02-05-2025 End: 02-05-[address] Bassam Andrew MD -Laboratory, Specimen Work Phone: Start: 02-05-2025 End: 02-05-2025 ambulatory [facility] Facility:[facility] Start: 01-10-2025 End: 01-10-[address] Kenny Fermin MD -[facility] Work Phone: Start: 01-10-2025 End: 01-10-2025 ambulatory [facility] Start: 09-13-2024 ambulatory Erick Carlos Facility: [facility] Start: 09-13-2024 End: 09-13-2024 ambulatory Erick Carlos Facility:[facility] Start: 08-20-2024 End: 08-20-2024 ambulatory Erick Gonzalez Facility:[facility] Start: 07-31-2024 End: 07-31-2024 ambulatory Erick Gonzalez Facility:[facility] Start: 07-30-2024 End: 07-30-2024 ambulatory Erick Gonzalez Facility:[facility] Start: 02-20-2024 End: 02-20-[address] Erick Gonzalez Work Phone: [facility] Work Phone: Start: 02-14-2024 End: 02-14-[address] Erick Gonzalez Work Phone: [facility] Work Phone: Start: 02-14-2024 End: 02-14-[address] Erick Gonzalez Work Phone: [facility]-Laboratory Work Phone: Start: 01-23-2024 End: 01-23-[address] Erick Gonzalez Work Phone: [facility] Work Phone: Start: 01-18-2024 End: 01-18-[address] Erick Gonzalez Work Phone: [facility] Work Phone: Start: 01-18-2024 End: 01-18-[address] Erick Gonzalez Work Phone: [facility]-Laboratory Work Phone: Start: 01-17-2024 End: 01-17-[address] Erick Gonzalez Work Phone: [facility] Work Phone: Start: 01-17-2024 End: 01-17-[address] Erick Gonzalez Work Phone: [facility]-Laboratory Work Phone: Start: 11-27-2023 End: 11-27-[address] Erick Gonzalez Work Phone: [facility] Work Phone: Start: 11-27-2023 End: 11-27-[address] Erick Gonzalez Work Phone: [facility]-Pulmonary Services/Neurology Work Phone: Start: 11-24-2023 End: 11-24-[address] Erick Gonzalez Work Phone: [facility] Work Phone: Start: 09-25-2023 End: 09-25-[address] Erick Gonzalez Work Phone: [facility] Work Phone: Start: 09-04-2023 Non-patient / Non-visit Dr. Russell Gonzalez Work Phone: [facility] Start: 09-04-2023 End: 09-04-[address] Erick Gonzalez Work Phone: [facility]-Cardiovascula r Services Work Phone: Start: 08-29-2023 End: 08-29-[address] Erick Gonzalez Work Phone: [facility] Work Phone: Start: 08-03-2023 End: 08-03-[address] Erick Gonzalez Work Phone: [facility] Work Phone: Start: 07-20-2023 End: 07-20-[address] Erick Gonzalez Work Phone: [facility] Work Phone: Start: 07-20-2023 End: 07-20-[address] Erick Gonzalez Work Phone: [facility] Work Phone: Start: 07-20-2023 End: 07-20-[address] Erick Gonzalez Work Phone: [facility]-Laboratory Work Phone: Start: 07-04-2023 End: 07-04-[address] Erick Gonzalez Work Phone: [facility] Work Phone: Start: 05-10-2023 End: 05-10-[address] Eugenio Olmstead Work Phone: [facility] Work Phone: Start: 05-10-2023 End: 05-10-[address] Eugenio Olmstead Work Phone: [facility]-Laboratory Start: 04-19-2023 End: 04-19-2023 ambulatory TISHA EPSTEIN Facility:[facility] Start: 04-19-2023 End: 04-19-2023 Patient encounter procedure Tisha Epstein DO Work Phone: Orthopaedics Comment on above: Lateral epicondyliti s of left elbow (Primary Dx) Start: 03-22-2023 End: 03-22-2023 ambulatory TISHA EPSTEIN Facility:[facility] Start: 03-22-2023 End: 03-22-2023 Subsequent hospital visit by physician [facility] (I-Stat/1.5t) Work Phone: Radiology Comment on above: Left elbow tendiniti s [M77.8] Start: 02-23-2023 End: 02-23-2023 ambulatory TISHA EPSTEIN Facility:[facility] Start: 02-23-2023 End: 02-23-2023 Patient encounter procedure Tisha Minted DO Work Phone: Orthopaedics Comment on above: Left elbow tendiniti s (Primary Dx); Lateral epicondylitis of left elbow Start: 02-23-2023 End: 02-23-2023 Subsequent hospital visit by physician [facility] Work Phone: Radiology Comment on above: Left elbow pain [M25 .522] Start: 02-15-2023 Telephone encounter Tisha Minted DO Work Phone: Orthopaedics Comment on above: Patient Update Left elbow pain ([facility] Dx) Start: 02-14-2023 End: 02-14-[address] Eugenio Olmstead Work Phone: [facility] Start: 07-07-2022 End: 07-07-[address] Eugenio Olmstead Work Phone: [facility] Start: 07-06-2022 End: 07-06-[address] Eugenio Olmstead Work Phone: [facility]-Laboratory Start: 03-30-2022 End: 03-30-[address] Eugenio Olmstead Work Phone: [facility] Start: 02-09-2022 End: 02-09-[address] Eugenio Olmstead Work Phone: [facility] Start: 02-03-2022 Non-patient / Non-visit Dr. Kirt Olmstead Work Phone: [facility] Start: 02-03-2022 End: 02-03-[address] Eugenio Olmstead Work Phone: [facility]Cardiov[facility]cula [facility] Services Start: 01-13-2022 End: 01-13-[address] Eugenio Olmstead Work Phone: [facility] Start: 01-11-2022 End: 01-11-[address] Eugenio Olmstead Work Phone: [facility] Start: 01-05-2022 End: 01-05-[address] Eugenio Olmstead Work Phone: [facility] Start: 12-09-2021 End: 12-09-[address] Eugenio Olmstead Work Phone: [facility] Start: 05-29-2017 End: 05-29-2017 Ambulatory JESUS KAUR LY [facility] Procedures Date Procedure Procedure Detail Performing Clinician Start: 06-04-2025 Methadone measurement, urine Dr. Erick Gonzalez DO Work Phone: Start: 06-04-[address] Erick gonzales DO Work Phone: Comment on above: Test Ordered: [id number]+XB1Lspwdyrkionc Screen, Urine Negative ng/mL UI Reference Range: Nlbkfy=397Uqgoqqylapf test includes Amphetamine and Methamphetamine.Barbiturates Negative ng/mL UI Reference Range: Irtfrp=260Rdasyebqpwdakvx Negative ng/mL UI Reference Range: Xciyrh=217Bpzlbay (Metab.), Urine Negative ng/mL UI Reference Range: Pmqxpe=067Vvjvvfz Note: ng/mL UI See Final Results Reference Range: Jdiads=856Wafbyn test includes Codeine, Morphine, Hydromorphone, Hydrocodone.Opiates Positive [A ] UI Reference Range: Mnuzqt=756Odhfuh test includes Codeine, Morphine, Hydromorphone, Hydrocodone.Codeine Negative UI Reference Range: Yyaidl=303Hbcixibw Negative UI Reference Range: Dtxcqd=848Bmudadranxayi Positive [A ] UI Reference Range: .Hydromorphone Conf, MS, UR 2173 ng/mL UI Reference Range: Ujmkfl=673Vfafmnhusll Negative UI Reference Range: Jbwcqa=0644-Wxqsyqxbwqkiai, Urine Negative ng/mL UI Reference Range: Cutoff=10Oxycodone/Oxymorphone, Urine Negative ng/mL UI Reference Range: Fskkpg=919Dskx includes Oxycodone and OxymorphonePCP, Urine Negative ng/mL UI Reference Range: Cutoff=25Methadone Screen, Urine Negative ng/mL UI Reference Range: Nqyjcq=438Hcypzrjfntki, Urine Negative ng/mL UI Reference Range: Tnphmh=413Xqkrbbhb, Urine Negative ng/mL UI Reference Range: Cutoff=2.0Test includes Fentanyl and NorfentanylThis test was developed and its performance characteristicsdetermined by [facility]. It has not been cleared orapproved by the Food and Drug Administration.Tramadol Negative ng/mL UI Reference Range: Fvmedo=867Xrqbzrtquogyl, Urine Negative ng/mL UI Reference Range: Cutoff=10Creatinine, Urine 54.5 mg/dL UI Reference Range: 20.0-300.0pH, Urine 5.2 UI Reference Range: 4.5-8.9Performed at: [facility] [id number] [place], [place] [id number] Director: Francisca Mcdermott PhD, Phone: [phone] at: [address] [id number] Director: Polo Bailey PhD, Phone: [phone] Start: 04-09-2025 Methadone measurement, urine Dr. Erick Gonzalez DO Work Phone: Start: 04-09-[address] Erick gonzales DO Work Phone: Comment on above: Test Ordered: [id number]-Hkquna+NQ6Galwhloyjjzt Screen, Urine Negative ng/mL UI Reference Range: Dpqldb=599Cgjweohhbvs test includes Amphetamine and Methamphetamine.Barbiturates Negative ng/mL UI Reference Range: Qogyqh=805Zcutbncqavymjve Negative ng/mL UI Reference Range: Vckeeg=246Egcggvn (Metab.), Urine Negative ng/mL UI Reference Range: Expnpb=923Svbreve Negative ng/mL UI Reference Range: Vmitvk=674Pxsnot test includes Codeine, Morphine, Hydromorphone, Hydrocodone.6-Acetylmorphine, Urine Negative ng/mL UI Reference Range: Cutoff=10Oxycodone/Oxymorphone, Urine Negative ng/mL UI Reference Range: Vnemuq=286Xdoc includes Oxycodone and OxymorphonePCP, Urine Negative ng/mL UI Reference Range: Cutoff=25Methadone Screen, Urine Negative ng/mL UI Reference Range: Yhsmko=566Wnfuavsgwdbj, Urine Negative ng/mL UI Reference Range: Hiejqo=880Rgldqimm, Urine Negative ng/mL UI Reference Range: Cutoff=2.0Test includes Fentanyl and NorfentanylThis test was developed and its performance characteristicsdetermined by [facility]. It has not been cleared orapproved by the Food and Drug Administration.Tramadol Negative ng/mL UI Reference Range: Ovulce=706Gfwtcswlqldiv, Urine Negative ng/mL UI Reference Range: Cutoff=10Creatinine, Urine 23.3 mg/dL UI Reference Range: 20.0-300.0pH, Urine 6.4 UI Reference Range: 4.5-8.9Performed at: [facility] [id number] [place], [place] [id number] Director: Francisca Mcdermott PhD, Phone: [phone] at: [facility] [place] [id number] Director: Polo Bailey PhD, Phone: [phone] Start: 03-03-2025 MRI of lumbar spine with [...] DTaP,Tdap,Td Vaccine (4 - Td or Tdap) [facility] Start: 02-14-2024 Procedure [facility] Start: 07-21-2023 Covid-19 Vaccine ( season) Covid-19 Vaccine () [facility] Start: 07-21-2023 Influenza vaccination [facility] Start: 05-10-2023 Procedure [facility] Start: 11-20-2022 ADVANCE DIRECTIVE DISCUSSION ADVANCE DIRECTIVE DISCUSSION [facility] Start: 11-20-2022 DEPRESSION ASSESSMENT DEPRESSION ASS ESSMENT [facility] Start: 07-21-2022 Influenza vaccination INFLUENZA (#1) [facility] Start: 07-06-2022 Procedure [facility] Work Phone: Start: 02-09-2022 MRI of lumbar spine Spine Lumbar (Ro utine) [facility] Work Phone: Start: 04-21-2021 COVID-19 VACCINE (3 - Booster for Moderna series) COVID-19 VACCINE (3 - Booster for Moderna series) [facility] Start: 02-09-2021 Lipid 1996 panel - S tim or Plasma Lipid Screening [facility] Start: 02-09-2021 LIPID SCREEN LIPID SCREEN [facility] Start: 02-09-2019 DIABETES SCREEN DIABETES SCREEN [facility] Start: 02-09-2019 Diabetes Screening Diabetes Screenin g [facility] Start: 12-25-2017 End: 12-25-2017 Appointment Appointment [facility] Work Phone: Start: 05-15-2017 End: 05-15-2017 Appointment Appointment [facility] Work Phone: Start: 05-15-2017 End: 05-15-2017 PFM PFM [facility] Work Phone: Start: 05-04-2017 End: 05-04-2017 Appointment Appointment [facility] Work Phone: Start: 02-09-2017 Hepatitis B surface antibody level LDL CHOLESTEROL [facility] Start: 11-09-2016 End: 11-09-2016 Follow Up Appt 6 months Follow Up Appt 6 months [facility] Work Phone: Start: 11-09-2016 End: 11-09-2016 PFM PFM [facility] Work Phone: Start: 09-07-2016 PROSTATE CANCER SCREENING DISCUSSION PROSTATE CANCER SCREENING DISCUSSION [facility] Start: 06-17-2016 End: 06-17-2016 Follow Up Appt 4 months Follow Up Appt 4 months [facility] Work Phone: Start: 06-17-2016 End: 06-17-2016 MMM MMM [facility] Work Phone: Start: 2016 RSV Vaccine (1 - 1-d ose 60+ series) RSV Vaccine (1 - 1-dose 60+ series) [facility] Start: 03-11-2016 End: 03-11-2016 Electrocardiogram, complete EKG (In office) [facility] Work Phone: Start: 03-11-2016 End: 03-11-2016 Follow Up Appt 3 months Follow Up Appt 3 months [employer] [facility] Work Phone: Start: 03-11-2016 End: 06-17-2016 Follow Up Appt Other Follow Up Appt Other [employer] [facility] Work Phone: Start: 03-11-2016 End: 03-11-2016 MMM MMM [employer] [facility] [facility] Work Phone: Start: 12-21-2015 End: 12-21-2015 Cardiac Referral Cardiac Referral Norman Holman DO, [address] [place], [address] [employer] | [facility] | [employer] [facility] Work Phone: Start: 12-16-2015 End: 12-16-2015 Endocrinology Referral Endocrinology Referral [facility] [facility], [place], [address] [facility] Work Phone: Start: 12-10-2015 End: 12-10-2015 Follow Up Appt 3 months Follow Up Appt 3 months [facility] Work Phone: Start: 12-10-2015 End: 12-10-2015 Follow Up Appt 6 months Follow Up Appt 6 months [facility] Work Phone: Start: 12-10-2015 End: 12-10-2015 Follow Up Appt Other Follow Up Appt Other [employer] [facility] [facility] Work Phone: Start: 12-10-2015 End: 12-10-2015 MMM MMM [facility] Work Phone: Start: 12-10-2015 End: 12-10-2015 PFM PFM [facility] Work Phone: Start: 10-29-2015 End: 10-29-2015 Follow Up Appt 6 weeks Follow Up Appt 6 weeks [facility] Work Phone: Start: 10-29-2015 End: 12-01-2015 Follow Up Appt Other Follow Up Appt Other [employer] [facility] [employer] [facility] Work Phone: Start: 10-29-2015 End: 10-29-2015 MMM MMM [facility] Work Phone: Start: 10-29-2015 End: 10-29-2015 Renal doppler Renal doppler [facility] Work Phone: Start: 06-23-2011 Colonoscopy COLONOSCOPY [facility] Start: 06-23-2011 COLORECTAL CANCER SCREENING COLORECTAL CANCER SCREENING [facility] Start: 06-23-2011 Pneumococcal Vaccine : 65+ (2 - PCV) Pneumococcal Vaccine: 65+ (2 - PCV) [facility] Start: 06-23-2011 PNEUMOCOCCAL: 65+ (2 - PCV) PNEUMOCOCCAL: 65+ (2 - PCV) [facility] Start: 2006 SHINGRIX VACCINE (1 of 2) SHINGRIX VACCINE (1 of 2) [facility] Start: 2001 COLOGUARD (FIT-DNA) COLOGUARD (FIT-D NA) [facility] Start: [address] COLONOGRAPHY [facility] Start: 2001 FECAL OCCULT BLOOD FECAL OCCULT BLOO D [facility] Start: 2001 SIGMOIDOSCOPY SIGMOIDOSCOPY [facility] Start: 1975 Urine microalbumin profile DTAP,TDAP,TD (1 - Tdap) [facility] Start: 1974 ANNUAL PCP TEAM CLOTHES IRONER JUAN MANUEL DISEASE VISIT ANNUAL PCP TEAM CHRONIC DISEASE VISIT [facility] Start: 1974 BP CONTROLLED (<130/80) BP CONTROLLE D (<130/80) [facility] Start: 1974 HEPATITIS C SCREENING HEPATITIS C KIRT AGUILAR [facility] Blood chemistry [facility] MR Lumbar spine WO a nd W contrast IV [facility] End: 03-24-2024 MRI ELBOW WO IVCON LEFT MRI ELBOW WO IVCON LEFT Radiology Routine Left elbow tendinitis 1 Occurrences starting 02/23/2023 until 03/24/2024 [facility] Work Phone: Comment on above: 1 Occurrences starti ng 02/23/2023 until 03/24/2024 Patient referral [facility] Work Phone: Procedure [facility] Work Phone: [facility] Immunizations Immunization Date Immunization Notes Care Provider Fa cility 06-03-2021 tetanus toxoid, redu glenny diphtheria toxoid, and acellular pertussis vaccine, adsorbed Dr. Eugenio Olmstead Work Phone: [facility] 06-03-2021 diphtheria, tetanus toxoids and acellular pertussis vaccine, unspecified formulation Dr. Eugenio Olmstead Work Phone: [facility] Work Phone: 09-16-2015 influenza, injectabl e, quadrivalent, preservative free Dr. Erick Gonzalez Work Phone: [facility] 09-16-2015 influenza, seasonal, injectable Dr. Eugenio Olmstead Work Phone: [facility] 09-16-2015 influenza virus vacc ine, unspecified formulation [employer] Work Phone: [facility] 06-23-2010 pneumococcal polysaccharide vaccine, 23 valent Tisha Epstein DO Work Phone: [facility] Work Phone: Payers Date Payer Category Payer Self-pay [id number] 2023 Private Health Insurance [id number] 2019 Unknown MMO MMO [employer] PPO [id number] 2019-Present [phone] [address] [place] [address] PPO [id number] 2014 Unknown [id number] 2006 Medicare [id number] 2006 Medicare MEDICARE MEDICAR E A AND B [id number] 2006-Present [phone] [address] [address] [place] [address] Medicare [id number] Unknown [id number] 62 Unknown [id number] [id number] 62 Unknown [id number] 2.16.840.1.800243.3.579.2.4 62 Unknown [id number] 2.16.840.1.756243.3.579.2.4 62 Unknown [id number] 2.16.840.1.173771.3.579.2.4 62 Unknown [id number] 2.16.840.1.579736.3.579.2.4 62 Unknown [id number] 2.16.840.1.541235.3.579.2.4 62 Unknown [id number] 2.16.840.1.624800.3.579.2.4 62 Unknown [id number] 2.16.840.1.004611.3.579.2.4 62 Unknown [id number] 2.16.840.1.566057.3.579.2.4 62 Unknown [id number] 2.16.840.1.141660.3.579.2.4 62 Unknown [id number] 2.16.840.1.876735.3.579.2.4 62 Unknown [id number] 2.16.840.1.268708.3.579.2.4 62 Unknown [id number] 2.16.840.1.896878.3.579.2.4 62 Unknown [id number] [id number] 62 Social History Date Type Detail Facility Start: 01-13-2022 End: 02-20-2024 Tobacco smoking status NHIS Unknown if ever smoked [facility] Start: 09-24-2015 Heavy [facility] Start: 09-24-2015 None [facility] Start: 10-20-2015 Spouse/ Signif icant Other [facility] Start: 10-15-2018 Chew [facility] Start: 1955 Sex Assigned At Male W [facility] Start: 02-09-2016 End: 03-06-2024 Tobacco smoking status NHIS Never smoked tobacco [facility] Start: 02-09-2016 End: 04-19-2023 Tobacco use and exposure User of smokeless tobacco [facility] History of tobacco use Chews Tobacco [facility] Start: 04-07-2021 End: 02-23-2023 Alcohol intake Current non-drinker of alcohol (finding) [facility] Start: 02-09-2016 End: 04-19-2023 Tobacco Comment Socially [facility] Start: 04-07-2021 Alcohol Comment non-alcoholic beers, no alcohol since 2015 [facility] Start: 1955 Sex Assigned At Not on file C [facility] Start: 02-23-2023 History of Social function [facility] Start: 02-23-2023 Tobacco use panel [facility] National Score (1-100), lower number is lower risk 48 [facility] Start: 02-13-2025 End: 03-06-2025 Sex Male (finding) [facility] Medical Equipment Procedure Code Equipment Code [...] 3GRM HEMO STAT ABS FDA Start: 10-22-2018 SOIFE 3GRM HEMO STAT ABS FDA Start: 10-22-2018 SOFIE 3GRM HEMO STAT ABS FDA Start: 10-22-2018 Goals Date Patient Goal Desired Activity /State Clinical Notes 12-21-2015 to 03-14-2025 Note Date & Type Note Facility 03-14-2025 Evaluation note Diagnosis Onset Date Resolution History of discectomy acute Feb 10:25am Other intervertebral disc degeneration, lumbar region with discogenic back acute March 14, 2025 10:25am [facility] Work Phone: 1(600) 856-997304-25-2025 Evaluation note* Diagnosis Onset Date Resolution Status Admit Date History of discectomy acute Feb 10:25am Other intervertebral disc degeneration, lumbar region with discogenic back acute March 14, 2025 10:25am Palpitations acute June 03, 2 025 9:56am Atherosclerotic heart diseas e of [place] coronary artery without angina pectoris chronic May 9:56am Essential hypertension chronic 2024 9:56am H/O cardiac radiofrequency ablation December, chronic June 03, 2025 9:56am Hyperlipidemia chronic June 03, 2025 9:56am [facility] Work Phone: 1(570) 844-945802-21-2025 Evaluation note* Diagnosis Onset Date Resolution Status Admit Date History of discectomy acute Dec 7:48am Other intervertebral disc degeneration, lumbar region with discogenic back acute January 102024 7:48am [facility] Work Phone: 1(572) 884-584902-21-2025 Evaluation note* Diagnosis Onset Date Resolution Status Admit Date History of discectomy acute Dec 7:48am Other intervertebral disc degeneration, lumbar region with discogenic back acute January 102024 7:48am History of discectomy acute Apr 2024 10:25am Other intervertebral disc degeneration, lumbar region with discogenic back acute March 14, 2025 10:25am [facility] Work Phone: 1(998) 116-386105-31-2023 NoteHNO ID: [id number] Author: Tisha Epstein, DO Service: ? Author [...] interventions. We discussed strat (more content not included)...[facility]05-31-2023 History of Present illness Narrative* Tisha [...] Tisha Epstein D.O. M.P.H. [facility] NoteHNO ID: [id number] Author: RT Rodrigo(R) Service: ? Author Type: [...] BY: RT Rodrigo(Mahendra) March 22, 2023 8:28 [facility]05-03-2023 History of Present illness Narrative* Christianne Wyatt [...] 22, 2023 8:28 AM [facility] NoteHNO ID: [id number] Author: Tisha Epstein, DO Service: ? Author [...] elbow previously with Dr. Epstein at [facility]. Pt states pain does not [...] left elbow for preop (more content not included)...[facility]04-06-2023 NoteHNO ID: [id number] Author: Michaelle Herring RT(R) Service: Radiology Author [...] Michaelle Herring RT(R) February 23, 2023 12:48 [facility]04-06-2023 History of Present illness Narrative* [...] in L elbow previously with Dr. Epstein [facility]. Pt states pain does not disrupt [...] plan. All questions answered. [facility] History of Present illness Narrative* Michaelle Herring [...] 23, 2023 12:48 PM [facility] Miscellaneous Notes* Telephone Encounter - Deirdre Benjamin Ma - 02/15/2023 3:23 PM EDT Noted. * Telephone Encounter - Nirali Morrison - 02/15/2023 3:19 PM EDT Patient reports that he received a VM from the office requesting to know which elbow is affecting him (left). Office visit notes have been updated. [facility]21 NoteHNO ID: [id number] Author: Magdiel Tomlin APRN.[employer]ED [employer] EMBOSSING PRESS OPERATOR Service: Anesthesiology Author Type: Nurse Consumer Affairs Specialist Type: Anesthesia Procedure Notes Filed: 04/08/2021 12:04 PM Note Text: ANESTHESIOLOGY PROCEDURE NOTE Airway General Information Procedure Start Time/Medication Administration: 04/08/2021 11:52 AM Patient location during procedure: OR Timeout Performed Pre-procedure: timeout performed Consent Obtained: Yes Patient identity confirmed: arm band, patient and family Staffing [employer] EMBOSSING PRESS OPERATOR: Magdiel Tomlin APRN.[employer] EMBOSSING PRESS OPERATOR Performed by: MITA Indications and Patient Condition [...] attempts at approach: 1 SIGNATURE: Magdiel Tomlin APRN.[employer] EMBOSSING PRESS OPERATOR PATIENT NAME: Dana Hubbard DATE: April 08, 2021 TIME: 12:03 PM CSN: [id number] Evaluation note* Diagnosis Onset Date Resolution Status Mitral valve insufficiency a cute Atherosclerotic heart diseas e of [place] coronary artery without angina pectoris chronic Essential hypertension chron ic H/O cardiac radiofrequency ablation December, chronic Hyperlipidemia chronic [facility] Work Phone: Evaluation note* Diagnosis Onset Date Resolution Status Lateral epicondylitis of left elbow acute Neck pain acute Segmental and somatic dysfun ction of cervical region acute Mitral valve insufficiency a cute Atherosclerotic heart diseas e of [place] coronary artery without angina pectoris chronic Essential hypertension chron ic H/O cardiac radiofrequency ablation December, chronic Hyperlipidemia chronic Neck pain acute Segmental and somatic dysfun ction of cervical region acute [facility] Work Phone: Evaluation note* Diagnosis Onset Date Resolution Status Lateral epicondylitis of left elbow acute Left elbow pain acute [facility] Work Phone: Evaluation note* Diagnosis Left elbow pain- Primary Pain in joint, upper arm [facility] Diagnosis Left elbow tendinitis- Primary Lateral epicondylitis of left elbow Lateral epicondylitis of elbow [facility] Diagnosis Lateral epicondylitis of left elbow- Primary Lateral epicondylitis of elbow [facility] Diagnosis Onset Date Resolution Status Neck pain acute Segmental and somatic dysfunction of cervical region acute Segmental and somatic dysfunction of thoracic region acute Neck pain acute Segmental and somatic dysfunction of cervical region acute Segmental and somatic dysfunction of thoracic region acute [facility] Work Phone: Evaluation note* Diagnosis Left elbow pain Pain in joint, upper arm [facility] Left elbow tendinitis [facility] Diagnosis Onset Date Resolution Status Neck [...] Palpitations acute Atherosclerotic heart diseas e of [place] coronary artery without angina pectoris chronic Essential hypertension chron ic H/O cardiac radiofrequency ablation December, chronic Hyperlipidemia chronic [facility] Work Phone: Evaluation note* Diagnosis Onset Date Resolution Status Neck pain acute Segmental and somatic dysfun ction of cervical region acute Segmental and somatic dysfun ction of thoracic region acute Chronic back pain chronic Mitral valve insufficiency a cute Palpitations acute Atherosclerotic heart diseas e of [place] coronary artery without angina pectoris chronic Essential hypertension chron ic H/O cardiac radiofrequency ablation December, chronic Hyperlipidemia chronic [facility] Work Phone: Evaluation note* Diagnosis Onset Date Resolution Status Mitral valve insufficiency a cute Palpitations acute Atherosclerotic heart diseas e of [place] coronary artery without angina pectoris chronic Essential hypertension chron ic H/O cardiac radiofrequency ablation December, chronic Hyperlipidemia chronic Neck pain acute Segmental and somatic dysfun ction of cervical region acute Segmental and somatic dysfun ction of thoracic region acute Chronic back pain chronic Neck pain acute Segmental and somatic dysfun ction of cervical region acute [facility] Work Phone: Reason for referral (narrative)* Diagnostic Procedure Only (Routine) - Closed Specialty Diagnoses / Procedures Referred By Contac t Referred To Contact XR IMAGING Diagnoses Left elbow pain Procedures XR ELBOW GENERAL 2V AP/LAT LEFT RADEX ELBOW 2 VIEWS Tisha Epstein DO [address] [facility] [address] [place] [address] Xr Imaging Referral ID Status Reason Start Date Expiration Date V isits Requested Visits Authorized [id number] Closed Auto-Generate d Referral 02/23/2023 03/24/2024 1 1 [facility] for referral (narrative)* Diagnostic Procedure Only (Routine) - Closed Specialty Diagnoses / Procedures Referred By Contac t Referred To Contact XR IMAGING Diagnoses Left elbow pain Procedures XR ELBOW GENERAL 2V AP/LAT LEFT RADEX ELBOW 2 VIEWS Tisha Epstein DO [address] [place] [address] [place] [address] Referral ID Status Reason Start Date Expiration Date V isits Requested Visits Authorized [id number] Closed Auto-Generate d Referral 02/23/2023 03/24/2024 1 1 [facility] (narrative)No reason for referral information [facility]WK[facility] Work Phone: Reason for visit Narrative* Diagnostic Procedure Only (Routine) - Closed Specialty Diagnoses / Procedures Referred By Dayna patel Referred To Contact XR IMAGING Diagnoses Left elbow pain Procedures XR ELBOW GENERAL 2V AP/LAT LEFT RADEX ELBOW 2 VIEWS Tisha Epstein DO [address] [place] [address] [place] [address] Referral ID Status Reason Start Date Expiration Date V isits Requested Visits Authorized [id number] Closed Auto-Generate d Referral 02/23/2023 03/24/2024 1 1 [facility] Summary Purpose Family History No Family History [...] Will No December 17 9:22am Power of Extractions Technologist No December 17, 2020 9:22am Advance Directive Response Recorded Date/ Time Advance Directives No December 17, 2020 8:22am Living Will No December 17 8:22am Power of Extractions Technologist No December 17, 2020 8:22am Advance Directive [...] Mitral valve insufficiency Atherosclerotic heart disease of [place] coronary artery without angina pectoris Essential hypertension H/O cardiac radiofrequency ablation Hyperlipidemia Neck pain Segmental and somatic dysfunction of cervical region Chief Complaint LEFT ELBOW LEFT ELBOW Reason for Visit Lateral epicondyliti s of left elbow Left elbow pain Chief Complaint 6 M FU Reason for Visit Mitral valve insuffi ciency Atherosclerotic heart disease of [place] coronary artery without angina pectoris Essential hypertension [...] valve insufficiency Palpitations Atherosclerotic heart disease of [place] coronary artery without angina pectoris Essential hypertension H/O cardiac radiofrequency ablation Hyperlipidemia Chief Complaint Back pain 9 M FU PALPITATIONS Reason for Visit Neck pain Segmental and somatic dysfunction of cervical region Segmental and somatic dysfunction of thoracic region Chronic back pain Mitral valve insufficiency Palpitations Atherosclerotic heart disease of [place] coronary artery without angina pectoris Essential hypertension H/O cardiac radiofrequency ablation Hyperlipidemia Chief Complaint 9 M FU PALPITATIONS Back pain Back pain Reason for Visit Mitral valve insuffi ciency Palpitations Atherosclerotic heart disease of [place] coronary artery without angina pectoris Essential hypertension [...] 9:56 am Atherosclerotic heart diseas e of [place] coronary artery without angina pectoris June 03, [...] UPPER EXTREMITY W/O CONTRAST Tisha Rock DO [address] [place] [address] Mr Imaging Referral ID Status Reason Start Date Expiration Date Visits Requested Visits Authorized [id number] Authorized Auto-Generat ed Referral 02/23/2023 03/24/2024 1 1 Specialty Diagnoses / Procedures Referred By Dayna t Referred To Contact MR IMAGING Diagnoses Left elbow tendinitis Procedures MRI ELBOW WO IVCON LEFT MRI ANY JT UPPER EXTREMITY W/O CONTRAST Tisha Rock DO [address] [place] [address] [place] [address] Referral ID Status Reason Start Date Expiration Date V isits Requested Visits Authorized [id number] Closed Auto-Generate d Referral 02/23/2023 03/24/2024 1 1 Additional Source Comments (unrecognized sect ion and content) No Status Records FoundNo Status Records FoundNo Status Records FoundNo Status Records Found INFORMATION SOURCE (unrecogn ized section and content) DATE CREATED AUTHOR 05/16/2018 [facility] DATE CREATED AUTHOR AUTHOR'S ORGANIZ ATION 04/14/2021 [facility] DATE CREATED AUTHOR AUTHOR'S ORGANIZ ATION 04/28/2023 [facility] DATE CREATED AUTHOR AUTHOR'S ORGANIZ ATION 06/13/2025 [facility] Source Comments (unrecognize d section and content) In the event this informatio n is protected by the Federal Confidentiality of Alcohol and Drug Abuse Patient Records regulations: The Federal rules restrict any use of the information to criminally investigate or prosecute any alcohol or drug abuse patient.[facility] HospitalIn the event this information is protected by the Federal Confidentiality of Alcohol and Drug Abuse Patient Records regulations: The Federal rules restrict any use of the information to criminally investigate or prosecute any alcohol or drug abuse patient.[facility] HospitalIn the event this information is protected by [...] or prosecute any alcohol or drug abuse patient.[facility] HospitalIn the event this information is protected by the Federal Confidentiality of Alcohol and Drug Abuse Patient Records regulations: The Federal rules restrict any use of the information to criminally investigate or prosecute any alcohol or drug abuse patient.[facility] HospitalIn the event this information is protected by the Federal Confidentiality of Alcohol and Drug Abuse Patient Records regulations: The Federal rules restrict any use of the information to criminally investigate or prosecute any alcohol or drug abuse patient.[facility] Reason for Visit (unrecogniz ed section and content) Reason Comments Patient Update Reason Comments Pain Reason Comments Pain Follow Up Specialty Diagnoses / Procedures Referred By Dayna patel Referred To Contact MR IMAGING Diagnoses Left elbow tendinitis Procedures MRI ELBOW WO IVCON LEFT MRI ANY JT UPPER EXTREMITY W/O CONTRAST Tisha Rock DO [address] [facility] [address] [place] [address] [place] [address] Referral ID Status Reason Start Date Expiration Date V isits Requested Visits Authorized [id number] Closed Auto-Generate d Referral 02/23/2023 03/24/2024 1 1 Care Teams (unrecognized sec tion and content) Hall Coordinator Relationship Specialty Start Date End Date Eugenio Olmstead MD PCP - General Family Medicine 05/30/16 Hall Coordinator Relationship Specialty Start Date End Date Eugenio Olmstead MD PCP - General Family Medicine 05/30/16 Hall Coordinator Relationship Specialty Start Date End Date Eugenio Olmsetad MD PCP - General Family Medicine 05/30/16 Hall Coordinator Relationship Specialty Start Date End Date Eugenio [...] Prov ider, Attending Provider, Referring Provider Active Hall Coordinator Relationship Specialty Start Date End Date Eugenio Olmstead MD PCP - General Family Medicine 05/30/16 Hall Coordinator Relationship Specialty Start Date End Date Eugenio [...] BE BASED ON THE PRIMARY CLINICAL RECORDS. [employer] provides no warranty or guarantee of the accuracy or completeness of information in this document."
--- NOTE | 2025-06-24 06:40 | CT_ITS ---
PROCEDURE: ABDOMEN W/WO IV CONTRAST 06/24/2025 REASON FOR EXAM: BILATERAL RENAL MASSES ON LUMBAR MRI, FU MULTIPHASE RENAL PROTOCO TECHNIQUE: ABDOMEN W/WO IV CONTRAST. Multiplanar Sagittal and Coronal images were obtained. One or more dose reduction techniques were used (e.g., Automated exposure control, adjustment of the mA and/or kV according to patient size, use of iterative reconstruction technique. CONTRAST: Isovue 300 VOLUME: 100 mL RADIATION DOSE SUMMARY: CTDlvol: 16 mGy DLP: 2262.39 mGycm COMPARISON: Prior MRI dated March 04, 2025. FINDINGS: Lung bases: The lung bases are clear. Liver: Diffuse fatty infiltration. Gallbladder: Mildly distended gallbladder. No evidence of gallstones. Spleen: Normal size. Pancreas: Normal size without evidence of mass surrounding inflammation or ductal dilation. Adrenals: Unremarkable Kidneys: Bowel: Lymph nodes: Vasculature: Peritoneum / Retroperitoneum: Bones: Reading Location: [id number]
== END | disposition home or self-care (01) ==
LOC: CT 06:09
PROVIDERS: PCP Family Medicine; Referring Provider Family Medicine; Visit Provider Family Medicine
DX: N32.89 Other specified disorders of bladder (principal)
CPT/HCPCS: 74170; Q9967

== ENCOUNTER → 2025-07-29 | Outpatient (CLI) | payer MEDICARE, SELFPAY ==
[2025-07-29 13:14] LABS: Hematocrit 50.0 % (40-54); Hemoglobin 17.2 g/dL (13.0-16.5); Immature Granulocytes Count 0.020 X10^3/uL (0.0-0.0); Mean Corp Hgb Conc 34.4 g/dL (32-36); Mean Corpuscular Volume 93.5 fL (80-94); Mean Platelet Vol. 12.3 fl (6.2-12.0); NRBC Flagged by Analyzer 0 % (0-5); Platelet Count 131 K/mm3 (150-450); RBC Distribution Width CV 12.6 % (11.6-14.6); RBC Distribution Width SD 43.3 fl (35.1-43.9); Red Blood Count 5.35 M/mm3 (4.6-6.2); White Blood Count 5.6 K/mm3 (4.4-11.0)
[2025-07-29 13:46] LABS: AST(SGOT) 43 U/L (<=37); Alanine Aminotransfer ALT/SGPT 84 U/L (<=46); Albumin, Serum 4.6 g/dL (3.4-4.8); Alkaline Phosphatase 69 U/L (40-129); Anion Gap 11 (5-15); BUN 19 mg/dL (4-19); BUN/Creat Ratio 19.0 RATIO (10-20); Calcium,Total 10.5 mg/dL (7.6-11.0); Carbon Dioxide 28.6 mmol/L (21.0-32.0); Chloride 101 mmol/L (98-108); Cholesterol 203 mg/dL (<=200); Globulin 3.0 g/dL (2.2-4.2); Glucose 165 mg/dL (70-99); Low Density Lipoprotein Calc. 111 mg/dL; Potassium 4.8 mmol/L (3.3-5.1); Triglycerides 64 mg/dL; Very Low Density Lipoprotein 13 mg/dL (5-40); cholesterol:hdl ratio screen 2.55
[2025-07-30 19:52] LABS: PSA,Total - Annual Screen 0.12 ng/mL (0.02-4.00)
== END | disposition home or self-care (01) ==
LOC: BFHLAB 08:26
PROVIDERS: PCP Family Medicine; Visit Provider Family Medicine
DX: Z12.5 Encounter for screening for malignant neoplasm of prostate (principal); I10 Essential (primary) hypertension; E78.5 Hyperlipidemia, unspecified; R73.01 Impaired fasting glucose
CPT/HCPCS: 36415; 80053; 80061; 83036; 84153; 85025; G0103

== ENCOUNTER → 2025-11-11 | Outpatient (CLI) | payer MEDICARE, SELFPAY ==
[2025-11-11 17:56] LABS: CRP 3.62 mg/L (0.0-3.0)
[2025-11-14 14:08] LABS: Immunoglobulin A 355 mg/dL (61-437)
== END | disposition home or self-care (01) ==
LOC: MTLAB 15:50
PROVIDERS: PCP Family Medicine; Referring Provider Internal Medicine Gastroenterology; Visit Provider Internal Medicine Gastroenterology
DX: R19.7 Diarrhea, unspecified (principal)
CPT/HCPCS: 36415; 82784; 83516; 86140; 86255